=== PATIENT | male | born 1960 | race Caucasian/White ===

== ENCOUNTER 2016-11-13 18:10 | Inpatient (IN) | payer MEDICARE, MEDICAID ==
[2016-11-13] MEDS ORDERED: Sodium Chloride 0.9% 10 ML Syringe FLUSH PRN ×3 (18:38→20:19)
[2016-11-13] MEDS ORDERED: Sodium Chloride 0.9% 2.5 ML Syringe FLUSH PRN ×3 (18:38→20:19)
[2016-11-13] MEDS ORDERED: Albuterol/Ipratropium 3.0-0.5 MG/3 ML Neb Soln NEB ONE (18:47)
[2016-11-13] MEDS ORDERED: Thiamine 100 MG Tab PO ONE (18:47)
--- NOTE | 2016-11-13 18:51 | EDM.PDOC ---
ED HPI GENERAL MEDICAL PROBLEM - General Chief Complaint: General Stated Complaint: PT HAS FLU SYMPTOMS Time Seen by Provider: 11/13/16 18:49 Source of Information: Reports: Patient History Limitations: Reports: No limitations - History of Present Illness INITIAL COMMENTS - FREE TEXT/NARRATIVE: HISTORY AND PHYSICAL: [Patient presents with weakness, dizziness, not feeling well, cough] History of Present Illness: [Patient is known to the emergency room staff. he is known to use alcohol Has not felt well for the last 3-4 days] Review of Systems: As per history of present illness and below otherwise all systems reviewed and negative. Past medical history: As per history of present illness and as reviewed below otherwise noncontributory. Surgical history: As per history of present illness and as reviewed below otherwise noncontributory. Social history: No reported history of drug or alcohol abuse. Family history: As per history of present illness and as reviewed below otherwise noncontributory. Physical exam: Alert hard of hearing answering questions appropriately but has a cough during 3 of 4 words HEENT: Atraumatic, normocehpalic, pupils reactive, negative for conjunctival pallor or scleral icterus, mucous membranes moist, throat clear, neck supple, nontender, trachea midline. Lungs: Crackles to auscultation, breath sounds equal bilaterally, chest non tender. Heart: S1S2, regular, negative for clicks, rubs, or JVD. Abdomen: Soft, nondistended, nontender. Negative for masses or hepatossplenmegaly. Negative for costovertebral tenderness. Pelvis: Stable nontender. Genitourinary: Deferred. Rectal: Deferred Extremities: Atraumatic, negative for cords or calf pain. Neurovascular unremarkable. Neuro: Awake, alert, oriented. Cranial nerves II through XII unremarkable. Cerebellum unremarkable. Motor and sensory unremarkable throughout. Exam nonfocal. This case with Dr. Boogie taken patient for admission Diagnostics: [EKG CBC CMP amylase lipase alcohol] Therapeutics: [IV Fluid , potassium] Impression: [#1 dehydration #2 hypokalemia #3 renal insufficiency] Plan: [] Admit to hospital Definitive disposition and diagnosis as appropriate pending reevaluation and review of above. Onset: today Duration: Day(s): (3) Location: Reports: chest Abdomen Pain Score (Numeric/FACES): 5 - Related Data Allergies Allergy/AdvReac Type Severity Reaction Status Date / Time No Known Allergies Allergy Verified 11/13/16 18:41 Home Meds: Home Meds RX: Losartan/Hydrochlorothiazide [Losartan-HCTZ 100-25 MG] 100 tab PO DAILY [History] Past Medical History Other HEENT History: wears glasses Cardiovascular History: Reports: Hypertension (BP this morning 81/62, did not take losartan today) Respiratory History: Reports: None Gastrointestinal History: Reports: Diverticulosis, GERD Genitourinary History: Reports: None Musculoskeletal History: Reports: Fracture Other Musculoskeletal History: hx of fx right ankle Neurological History: Reports: None Psychiatric History: Reports: None Endocrine/Metabolic History: Reports: None Hematologic History: Reports: None Immunologic History: Reports: None Oncologic (Cancer) History: Reports: None Dermatologic History: Reports: None - Past Surgical History Head Surgeries/Procedures: Reports: None HEENT Surgical History: Reports: None Cardiovascular Surgical History: Reports: None Respiratory Surgical History: Reports: None GI Surgical History: Reports: Colonoscopy Male Surgical History: Reports: None Neurological Surgical History: Reports: None Musculoskeletal Surgical History: Reports: None Oncologic Surgical History: Reports: None Dermatological Surgical History: Reports: None Other Surgical History Comment: exc. of rt. face mass Social & Family History - Tobacco Use Smoking Status *Q: Current Every Day Smoker (1 ppd) Years of Tobacco use: 40 Packs/Tins Daily: 1 - Alcohol Use Days Per Week of Alcohol Use: 0 Number of Drinks Per Day: 0 Total Drinks Per Week: 0 - Recreational Drug Use Recreational Drug Use: No Drug Use in Last 12 Months: No ED ROS GENERAL - Review of Systems Review Of Systems: ROS reveals no pertinent complaints other than HPI. ED EXAM, GENERAL - Physical Exam Exam: See Below (see dictation) Course - Vital Signs Last Recorded V/S: Last Vital Signs Temp 35.9 C 11/13/16 18:42 Pulse 113 H 11/13/16 18:42 Resp 18 11/13/16 18:42 BP 69/44 L 11/13/16 18:42 Pulse Ox 97 11/13/16 18:42 - Orders/Labs/Meds Orders: Active Orders 24 hr Category Date Time Status Patient Status [ADT] Stat ADT 11/13/16 20:11 Ordered EKG Documentation Completion [RC] STAT Care 11/13/16 18:38 Active Peripheral IV Care [RC] . DIRECTED Care 11/13/16 18:38 Active RT Aerosol Therapy [RC] ASDIRECTED Care 11/13/16 18:47 Active Chest 1V Frontal [CR] Stat Exams 11/13/16 18:38 Taken AMYLASE [CHEM] Stat Lab 11/13/16 20:00 Ordered INFLUENZA A+B AG SCREEN [RM] Stat Lab 11/13/16 20:11 Ordered LIPASE [CHEM] Stat Lab 11/13/16 20:00 Ordered UA W/MICROSCOPIC [URIN] Stat Lab 11/13/16 18:38 Uncollected Levofloxacin/Dextrose 5%-Water [Levaquin in D5W 750 MG/ Med 11/13/16 20:30 Active 150 ML] 750 mg Premix Bag 1 bag IV Q24H Potassium Chloride 40 meq Med 11/13/16 20:05 Active Sodium Chloride 0.9% [Normal Saline] 1,000 ml IV ONETIME Potassium Chloride 40 meq Med 11/13/16 19:42 Active Sodium Chloride 0.9% [Normal Saline] 1,000 ml IV STAT Sodium Chloride 0.9% [Normal Saline] 2,000 ml Med 11/13/16 18:38 Active IV .Bolus Sodium Chloride 0.9% [Saline Flush] Med 11/13/16 18:38 Active 10 ml FLUSH ASDIRECTED PRN Sodium Chloride 0.9% [Saline Flush] Med 11/13/16 18:38 Active 10 ml FLUSH ASDIRECTED PRN Sodium Chloride 0.9% [Saline Flush] Med 11/13/16 20:19 Ordered 10 ml FLUSH ASDIRECTED PRN Sodium Chloride 0.9% [Saline Flush] Med 11/13/16 18:38 Active 2.5 ml FLUSH ASDIRECTED PRN Sodium Chloride 0.9% [Saline Flush] Med 11/13/16 18:38 Active 2.5 ml FLUSH ASDIRECTED PRN Sodium Chloride 0.9% [Saline Flush] Med 11/13/16 20:19 Ordered 2.5 ml FLUSH ASDIRECTED PRN Peripheral IV Insertion Adult [OM.PC] Stat Oth 11/13/16 18:38 Ordered Saline Lock Insert [OM.PC] Stat Oth 11/13/16 20:19 Ordered Medication Orders Sodium Chloride (Normal Saline) 2,000 mls @ 999 mls/hr IV .Bolus ONE Stop: 03/15/17 20:38 Last Admin: 11/13/16 19:07 Dose: 999 mls/hr Potassium Chloride 40 meq/ (Sodium Chloride) 1,020 mls @ 250 mls/hr IV STAT ONE Stop: 11/13/16 23:46 Last Admin: 11/13/16 20:07 Dose: Not Given Potassium Chloride 40 meq/ (Sodium Chloride) 1,020 mls @ 250 mls/hr IV ONETIME ONE Stop: 11/14/16 00:09 Last Admin: 11/13/16 20:06 Dose: 250 mls/hr Levofloxacin/Dextrose 750 mg/ (Premix) 150 mls @ 100 mls/hr IV Q24H MELONY Sodium Chloride (Saline Flush) 10 ml FLUSH ASDIRECTED PRN PRN Reason: Keep Vein Open Sodium Chloride (Saline Flush) 2.5 ml FLUSH ASDIRECTED PRN PRN Reason: Keep Vein Open Sodium Chloride (Saline Flush) 10 ml FLUSH ASDIRECTED PRN PRN Reason: Keep Vein Open Sodium Chloride (Saline Flush) 2.5 ml FLUSH ASDIRECTED PRN PRN Reason: Keep Vein Open Sodium Chloride (Saline Flush) 10 ml FLUSH ASDIRECTED PRN PRN Reason: Keep Vein Open Sodium Chloride (Saline Flush) 2.5 ml FLUSH ASDIRECTED PRN PRN Reason: Keep Vein Open Labs: Laboratory Tests 11/13/16 11/13/16 11/13/16 Range/Units 18:52 18:52 18:52 WBC 12.97 H (4.0-11.0) K/uL RBC 3.84 L (4.50-5.90) M/uL Hgb 13.9 (13.0-17.0) g/dL Hct 39.2 (38.0-50.0) % MCV 102.1 H (80.0-98.0) fL MCH 36.2 H (27.0-32.0) pg MCHC 35.5 (31.0-37.0) g/dL RDW Std Deviation 51.4 (28.0-62.0) fl RDW Coeff of Gildardo 14 (11.0-15.0) % Plt Count 174 (150-400) K/uL MPV 10.90 (7.40-12.00) fL Neut % (Auto) 81.6 H (48.0-80.0) % Lymph % (Auto) 12.9 L (16.0-40.0) % Greene % (Auto) 5.3 (0.0-15.0) % Eos % (Auto) 0.1 (0.0-7.0) % Baso % (Auto) 0.1 (0.0-1.5) % Neut # 10.6 H (1.4-5.7) K/uL Lymph # 1.7 (0.6-2.4) K/uL Greene # 0.7 (0.0-0.8) K/uL Eos # 0.0 (0.0-0.7) K/uL Baso # 0.0 (0.0-0.1) K/uL Nucleated RBC % 0.0 /100WBC Nucleated RBCs # 0 K/uL Lactate (0.20-2.00) mmol/L Sodium 135 L (136-146) mmol/L Potassium 2.8 L (3.5-5.1) mmol/L Chloride 96 L (98-110) mmol/L Carbon Dioxide 19 L (21-31) mmol/L BUN 67 H (6.0-23.0) mg/dL Creatinine 2.4 H (0.6-1.5) mg/dL Est Cr Clr Drug Dosing 30.69 mL/min Estimated GFR (MDRD) 28.0 ml/min Glucose 92 (60-110) mg/dL Calcium 8.5 L (8.8-10.8) mg/dL Magnesium (1.5-2.3) mEq/L Total Bilirubin 0.2 (0.1-1.5) mg/dL AST 37 (5-40) IU/L ALT 36 (8-54) IU/L Alkaline Phosphatase 63 (40-150) Troponin I < 0.10 (0.0-0.29) NG/ML Total Protein 7.2 (6.0-8.0) g/dL Albumin 3.9 (3.5-5.0) g/dL Globulin 3.3 (2.0-3.5) g/dL Albumin/Globulin Ratio 1.2 L (1.3-2.8) Ethyl Alcohol < 10.0 mg/dL 11/13/16 11/13/16 Range/Units 18:52 18:52 WBC (4.0-11.0) K/uL RBC (4.50-5.90) M/uL Hgb (13.0-17.0) g/dL Hct (38.0-50.0) % MCV (80.0-98.0) fL MCH (27.0-32.0) pg MCHC (31.0-37.0) g/dL RDW Std Deviation (28.0-62.0) fl RDW Coeff of Gildardo (11.0-15.0) % Plt Count (150-400) K/uL MPV (7.40-12.00) fL Neut % (Auto) (48.0-80.0) % Lymph % (Auto) (16.0-40.0) % Greene % (Auto) (0.0-15.0) % Eos % (Auto) (0.0-7.0) % Baso % (Auto) (0.0-1.5) % Neut # (1.4-5.7) K/uL Lymph # (0.6-2.4) K/uL Greene # (0.0-0.8) K/uL Eos # (0.0-0.7) K/uL Baso # (0.0-0.1) K/uL Nucleated RBC % /100WBC Nucleated RBCs # K/uL Lactate 2.4 H (0.20-2.00) mmol/L Sodium (136-146) mmol/L Potassium (3.5-5.1) mmol/L Chloride (98-110) mmol/L Carbon Dioxide (21-31) mmol/L BUN (6.0-23.0) mg/dL Creatinine (0.6-1.5) mg/dL Est Cr Clr Drug Dosing mL/min Estimated GFR (MDRD) ml/min Glucose (60-110) mg/dL Calcium (8.8-10.8) mg/dL Magnesium 2.4 H (1.5-2.3) mEq/L Total Bilirubin (0.1-1.5) mg/dL AST (5-40) IU/L ALT (8-54) IU/L Alkaline Phosphatase (40-150) Troponin I (0.0-0.29) NG/ML Total Protein (6.0-8.0) g/dL Albumin (3.5-5.0) g/dL Globulin (2.0-3.5) g/dL Albumin/Globulin Ratio (1.3-2.8) Ethyl Alcohol mg/dL Meds: Medications Generic Name Dose Route Start Last Admin Trade Name Jose Robertoq PRN Reason Stop Dose Admin Sodium Chloride 2,000 mls @ 999 mls/hr 11/13/16 18:38 11/13/16 19:07 Normal Saline IV 11/13/16 20:38 999 mls/hr .Bolus ONE Administration Potassium Chloride 40 meq/ 1,020 mls @ 250 mls/hr 11/13/16 19:42 11/13/16 20: 07 Sodium Chloride IV 11/13/16 23:46 Not Given STAT ONE Potassium Chloride 40 meq/ 1,020 mls @ 250 mls/hr 11/13/16 20:05 11/13/16 20: 06 Sodium Chloride IV 11/14/16 00:09 250 mls/hr ONETIME ONE Administration Levofloxacin/Dextrose 750 mg/ 150 mls @ 100 mls/hr 11/13/16 20:30 Premix IV Q24H MELONY Sodium Chloride 10 ml 11/13/16 18:38 Saline Flush FLUSH ASDIRECTED PRN Keep Vein Open Sodium Chloride 2.5 ml 11/13/16 18:38 Saline Flush FLUSH ASDIRECTED PRN Keep Vein Open Sodium Chloride 10 ml 11/13/16 18:38 Saline Flush FLUSH ASDIRECTED PRN Keep Vein Open Sodium Chloride 2.5 ml 11/13/16 18:38 Saline Flush FLUSH ASDIRECTED PRN Keep Vein Open Sodium Chloride 10 ml 11/13/16 20:19 Saline Flush FLUSH ASDIRECTED PRN Keep Vein Open Sodium Chloride 2.5 ml 11/13/16 20:19 Saline Flush FLUSH ASDIRECTED PRN Keep Vein Open Discontinued Medications Generic Name Dose Route Start Last Admin Trade Name Richi PRN Reason Stop Dose Admin Albuterol/Ipratropium 3 ml 11/13/16 18:47 11/13/16 18:52 Duoneb 3.0-0.5 Mg/3 Ml NEB 11/13/16 18:48 3 ml ONETIME ONE Administration Potassium Chloride 40 meq/ 500 mls @ 125 mls/hr 11/13/16 20:04 Sodium Chloride IV 11/14/16 00:03 ONETIME ONE Thiamine HCl 100 mg 11/13/16 18:47 11/13/16 19:30 Vitamin B-1 PO 11/13/16 18:48 100 mg ONETIME ONE Administration Departure - Departure Time of Disposition: 20:22 Disposition: Admitted As Inpatient 65 Condition: fair Clinical Impression: Hypokalemia, Renal insufficiency Forms: ED Department Discharge - My Orders Last 24 Hours: My Active Orders 11/13/16 18:47 RT Aerosol Therapy [RC] ASDIRECTED 11/13/16 19:42 Potassium Chloride 40 meq Sodium Chloride 0.9% [Normal Saline] 1,000 ml IV STAT 11/13/16 20:00 AMYLASE [CHEM] Stat LIPASE [CHEM] Stat 11/13/16 20:05 Potassium Chloride 40 meq Sodium Chloride 0.9% [Normal Saline] 1,000 ml IV ONETIME 11/13/16 20:11 Patient Status [ADT] Stat 11/13/16 20:19 Sodium Chloride 0.9% [Saline Flush] 10 ml FLUSH ASDIRECTED PRN Sodium Chloride 0.9% [Saline Flush] 2.5 ml FLUSH ASDIRECTED PRN Saline Lock Insert [OM.PC] Stat - Assessment/Plan Last 24 Hours: My Active Orders 11/13/16 18:47 RT Aerosol Therapy [RC] ASDIRECTED 11/13/16 19:42 Potassium Chloride 40 meq Sodium Chloride 0.9% [Normal Saline] 1,000 ml IV STAT 11/13/16 20:00 AMYLASE [CHEM] Stat LIPASE [CHEM] Stat 11/13/16 20:05 Potassium Chloride 40 meq Sodium Chloride 0.9% [Normal Saline] 1,000 ml IV ONETIME 11/13/16 20:11 Patient Status [ADT] Stat 11/13/16 20:19 Sodium Chloride 0.9% [Saline Flush] 10 ml FLUSH ASDIRECTED PRN Sodium Chloride 0.9% [Saline Flush] 2.5 ml FLUSH ASDIRECTED PRN Saline Lock Insert [OM.PC] Stat
[2016-11-13] MEDS: Sodium Chloride 0.9% 2,000 ML IV ONE ×2 (19:07→20:42)
[2016-11-13 19:21] LABS: CHLORIDE,CL 96 mmol/L (98-110); SODIUM,NA 135 mmol/L (136-146)
[2016-11-13] MEDS ORDERED: Potassium Chloride 40 MEQ in Sodium Chloride 0.9% 480 ML IV ONE (20:04)
[2016-11-13] MEDS ORDERED: Acetaminophen 325 MG Tab PO PRN (20:25)
[2016-11-13] MEDS ORDERED: Ondansetron 4 MG/2 ML SDV IVPUSH PRN (20:25)
[2016-11-13] MEDS ORDERED: Levofloxacin/Dextrose 5%-Water 750 MG in Premix Bag 1 BAG IV SCH ×4 (20:30)
--- NOTE | 2016-11-13 20:33 | PCM.HP ---
H&P History of Present Illness - General Admit Problem/Dx: Admission Diagnosis/Problem Admission Diagnosis/Problem Hypokalemia - History of Present Illness Initial Comments - Free Text/Narative: 56 yo male with pmh of hypertension who presents with three day history of fevers, nausea, vomiting and productive cough. He denies any shortness of breath, chest pain, or diarrhea. He feels as if he has the flu. 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 He was seen in the ED and noted to have a blood pressure of 69/44. He was given a litre bolus and now his blood pressure is in the 80s systolic. Abdomen Pain Score (Numeric/FACES): 5 - Related Data Allergies/Adverse Reactions: Allergies Allergy/AdvReac Type Severity Reaction Status Date / Time No Known Allergies Allergy Verified 11/13/16 18:41 Home Medications: Home Meds Losartan/Hydrochlorothiazide [Losartan-HCTZ 100-25 MG] 100 tab PO DAILY [History] Past Medical History Other HEENT History: wears glasses Cardiovascular History: Reports: Hypertension (BP this morning 81/62, did not take losartan today) Respiratory History: Reports: None Gastrointestinal History: Reports: Diverticulosis, GERD Genitourinary History: Reports: None Musculoskeletal History: Reports: Fracture Other Musculoskeletal History: hx of fx right ankle Neurological History: Reports: None Psychiatric History: Reports: None Endocrine/Metabolic History: Reports: None Hematologic History: Reports: None Immunologic History: Reports: None Oncologic (Cancer) History: Reports: None Dermatologic History: Reports: None - Past Surgical History Head Surgeries/Procedures: Reports: None HEENT Surgical History: Reports: None Cardiovascular Surgical History: Reports: None Respiratory Surgical History: Reports: None GI Surgical History: Reports: Colonoscopy Male Surgical History: Reports: None Neurological Surgical History: Reports: None Musculoskeletal Surgical History: Reports: None Oncologic Surgical History: Reports: None Dermatological Surgical History: Reports: None Other Surgical History Comment: exc. of rt. face mass Social & Family History - Family History Family Medical History: Noncontributory - Tobacco Use Smoking Status *Q: Current Every Day Smoker (1 ppd) Years of Tobacco use: 40 Packs/Tins Daily: 1 - Caffeine Use Caffeine Use: Reports: Coffee Caffeine Use Comment: 4 cups/day - Alcohol Use Days Per Week of Alcohol Use: 0 Number of Drinks Per Day: 0 Total Drinks Per Week: 0 - Recreational Drug Use Recreational Drug Use: No Drug Use in Last 12 Months: No H&P Review of Systems - Review of Systems: Review Of Systems: See Below General: Reports: fever, chills, malaise, weakness HEENT: Reports: no symptoms Pulmonary: Reports: Cough, Sputum Cardiovascular: Reports: no symptoms Gastrointestinal: Reports: Diarrhea. Denies: Black stool, Bloody stool, Melena Genitourinary: Reports: no symptoms Musculoskeletal: Reports: no symptoms Skin: Reports: no symptoms Psychiatric: Reports: no symptoms Neurological: Reports: No Symptoms Hematologic/Lymphatic: Reports: no symptoms Immunologic: Reports: no symptoms Exam - Exam Exam: See Below - Vital Signs Vital Signs: Last Vital Signs Temp 35.9 C 11/13/16 18:42 Pulse 113 H 11/13/16 18:42 Resp 18 11/13/16 18:42 BP 69/44 L 11/13/16 18:42 Pulse Ox 97 11/13/16 18:42 Weight: 63.9 kg - Exam General: alert, oriented, 4 Lungs: Normal respiratory effort, Rhonchi (both lungs) Cardiovascular: regular rate, regular rhythm Extremities: normal inspection. No: edema - Patient Data Lab Results last 24 hrs: Laboratory Results - last 24 hr 11/13/16 11/13/16 11/13/16 Range/Units 18:52 18:52 18:52 WBC 12.97 H (4.0-11.0) K/uL RBC 3.84 L (4.50-5.90) M/uL Hgb 13.9 (13.0-17.0) g/dL Hct 39.2 (38.0-50.0) % MCV 102.1 H (80.0-98.0) fL MCH 36.2 H (27.0-32.0) pg MCHC 35.5 (31.0-37.0) g/dL RDW Std Deviation 51.4 (28.0-62.0) fl RDW Coeff of Gildardo 14 (11.0-15.0) % Plt Count 174 (150-400) K/uL MPV 10.90 (7.40-12.00) fL Neut % (Auto) 81.6 H (48.0-80.0) % Lymph % (Auto) 12.9 L (16.0-40.0) % Beaver % (Auto) 5.3 (0.0-15.0) % Eos % (Auto) 0.1 (0.0-7.0) % Baso % (Auto) 0.1 (0.0-1.5) % Neut # 10.6 H (1.4-5.7) K/uL Lymph # 1.7 (0.6-2.4) K/uL Beaver # 0.7 (0.0-0.8) K/uL Eos # 0.0 (0.0-0.7) K/uL Baso # 0.0 (0.0-0.1) K/uL Nucleated RBC % 0.0 /100WBC Nucleated RBCs # 0 K/uL Lactate (0.20-2.00) mmol/L Sodium 135 L (136-146) mmol/L Potassium 2.8 L (3.5-5.1) mmol/L Chloride 96 L (98-110) mmol/L Carbon Dioxide 19 L (21-31) mmol/L BUN 67 H (6.0-23.0) mg/dL Creatinine 2.4 H (0.6-1.5) mg/dL Est Cr Clr Drug Dosing 30.69 mL/min Estimated GFR (MDRD) 28.0 ml/min Glucose 92 (60-110) mg/dL Calcium 8.5 L (8.8-10.8) mg/dL Magnesium (1.5-2.3) mEq/L Total Bilirubin 0.2 (0.1-1.5) mg/dL AST 37 (5-40) IU/L ALT 36 (8-54) IU/L Alkaline Phosphatase 63 (40-150) Troponin I < 0.10 (0.0-0.29) NG/ML Total Protein 7.2 (6.0-8.0) g/dL Albumin 3.9 (3.5-5.0) g/dL Globulin 3.3 (2.0-3.5) g/dL Albumin/Globulin Ratio 1.2 L (1.3-2.8) Ethyl Alcohol < 10.0 mg/dL 11/13/16 11/13/16 Range/Units 18:52 18:52 WBC (4.0-11.0) K/uL RBC (4.50-5.90) M/uL Hgb (13.0-17.0) g/dL Hct (38.0-50.0) % MCV (80.0-98.0) fL MCH (27.0-32.0) pg MCHC (31.0-37.0) g/dL RDW Std Deviation (28.0-62.0) fl RDW Coeff of Gildardo (11.0-15.0) % Plt Count (150-400) K/uL MPV (7.40-12.00) fL Neut % (Auto) (48.0-80.0) % Lymph % (Auto) (16.0-40.0) % Beaver % (Auto) (0.0-15.0) % Eos % (Auto) (0.0-7.0) % Baso % (Auto) (0.0-1.5) % Neut # (1.4-5.7) K/uL Lymph # (0.6-2.4) K/uL Beaver # (0.0-0.8) K/uL Eos # (0.0-0.7) K/uL Baso # (0.0-0.1) K/uL Nucleated RBC % /100WBC Nucleated RBCs # K/uL Lactate 2.4 H (0.20-2.00) mmol/L Sodium (136-146) mmol/L Potassium (3.5-5.1) mmol/L Chloride (98-110) mmol/L Carbon Dioxide (21-31) mmol/L BUN (6.0-23.0) mg/dL Creatinine (0.6-1.5) mg/dL Est Cr Clr Drug Dosing mL/min Estimated GFR (MDRD) ml/min Glucose (60-110) mg/dL Calcium (8.8-10.8) mg/dL Magnesium 2.4 H (1.5-2.3) mEq/L Total Bilirubin (0.1-1.5) mg/dL AST (5-40) IU/L ALT (8-54) IU/L Alkaline Phosphatase (40-150) Troponin I (0.0-0.29) NG/ML Total Protein (6.0-8.0) g/dL Albumin (3.5-5.0) g/dL Globulin (2.0-3.5) g/dL Albumin/Globulin Ratio (1.3-2.8) Ethyl Alcohol mg/dL Result Diagrams: 11/14/16 05:58 11/14/16 05:58 Imaging Impressions last 24 hrs: CXR: no focal infiltrates. *Q Meaningful Use (ADM) - VTE *Q VTE Criteria *Q: - Stroke *Q Stroke Criteria *Q: - AMI *Q AMI Criteria *Q: Problem List Initiated/Reviewed/Updated: Yes Orders Last 24hrs: Active Orders 24 hr Category Date Time Status Patient Status [ADT] Stat ADT 11/13/16 20:11 Active Antiembolic Devices [RC] PER UNIT ROUTINE Care 11/13/16 20:27 Ordered EKG Documentation Completion [RC] STAT Care 11/13/16 18:38 Active Intake and Output [RC] QSHIFT Care 11/13/16 20:26 Ordered Oxygen Therapy [RC] PRN Care 11/13/16 20:25 Ordered Peripheral IV Care [RC] . DIRECTED Care 11/13/16 18:38 Active RT Aerosol Therapy [RC] ASDIRECTED Care 11/13/16 18:47 Active Up ad Daphne [RC] ASDIRECTED Care 11/13/16 20:25 Ordered VTE/DVT Education [RC] PER UNIT ROUTINE Care 11/13/16 20:25 Ordered Vital Signs [RC] Q4H Care 11/13/16 20:25 Ordered Regular Diet [DIET] Diet 11/13/16 Breakfast Ordered Chest 1V Frontal [CR] Stat Exams 11/13/16 18:38 Taken AMYLASE [CHEM] Stat Lab 11/13/16 18:52 Received BASIC METABOLIC PANEL,BMP [CHEM] AM Lab 11/14/16 05:11 Ordered BASIC METABOLIC PANEL,BMP [CHEM] AM Lab 11/15/16 05:11 Ordered CBC WITH AUTO DIFF [HEME] AM Lab 11/14/16 05:11 Ordered CBC WITH AUTO DIFF [HEME] AM Lab 11/15/16 05:11 Ordered CULTURE BLOOD [BC] Stat Lab 11/13/16 20:27 Ordered CULTURE BLOOD [BC] Stat Lab 11/13/16 20:27 Ordered CULTURE SPUTUM + SMEAR [RM] Stat Lab 11/13/16 20:25 Uncollected CULTURE URINE [RM] Stat Lab 11/13/16 20:25 Uncollected INFLUENZA A+B AG SCREEN [RM] Stat Lab 11/13/16 20:10 Received LACTIC ACID,WHOLE BLOOD [BG] Q6H Lab 11/14/16 01:00 Ordered LACTIC ACID,WHOLE BLOOD [BG] Q6H Lab 11/14/16 07:00 Ordered LACTIC ACID,WHOLE BLOOD [BG] Q6H Lab 11/14/16 13:00 Ordered LACTIC ACID,WHOLE BLOOD [BG] Q6H Lab 11/14/16 19:00 Ordered LIPASE [CHEM] Stat Lab 11/13/16 18:52 Received UA W/MICROSCOPIC [URIN] Stat Lab 11/13/16 18:38 Uncollected Acetaminophen [Tylenol] Med 11/13/16 20:25 Ordered 650 mg PO Q4H PRN Heparin Sodium Med 11/13/16 21:00 Ordered 5,000 units SUBCUT Q12HR Levofloxacin/Dextrose 5%-Water [Levaquin in D5W 750 MG/ Med 11/13/16 20:30 Ordered 150 ML] 750 mg Premix Bag 1 bag IV Q48H Ondansetron [Zofran] Med 11/13/16 20:25 Ordered 4 mg IVPUSH Q4H PRN Oseltamivir [Tamiflu] Med 11/13/16 21:00 Ordered 30 mg PO BID Potassium Chloride 40 meq Med 11/13/16 20:05 Active Sodium Chloride 0.9% [Normal Saline] 1,000 ml IV ONETIME Potassium Chloride 40 meq Med 11/13/16 19:42 Active Sodium Chloride 0.9% [Normal Saline] 1,000 ml IV STAT Sodium Chloride 0.9% @ 125 MLS/HR (1,000ml) Med 11/13/16 20:30 Ordered Sodium Chloride 0.9% [Normal Saline] 1,000 ml IV ASDIRECTED Sodium Chloride 0.9% [Normal Saline] 2,000 ml Med 11/13/16 18:38 Active IV .Bolus Sodium Chloride 0.9% [Saline Flush] Med 11/13/16 18:38 Active 10 ml FLUSH ASDIRECTED PRN Sodium Chloride 0.9% [Saline Flush] Med 11/13/16 18:38 Active 10 ml FLUSH ASDIRECTED PRN Sodium Chloride 0.9% [Saline Flush] Med 11/13/16 20:19 Active 10 ml FLUSH ASDIRECTED PRN Sodium Chloride 0.9% [Saline Flush] Med 11/13/16 18:38 Active 2.5 ml FLUSH ASDIRECTED PRN Sodium Chloride 0.9% [Saline Flush] Med 11/13/16 18:38 Active 2.5 ml FLUSH ASDIRECTED PRN Sodium Chloride 0.9% [Saline Flush] Med 11/13/16 20:19 Active 2.5 ml FLUSH ASDIRECTED PRN Blood Culture x2 Reflex Set [OM.PC] Stat Ot 11/13/16 20:25 Ordered Peripheral IV Insertion Adult [OM.PC] Stat Ot 11/13/16 18:38 Ordered Saline Lock Insert [OM.PC] Stat Ot 11/13/16 20:19 Ordered Sequential Compression Device [OM.PC] Per Unit Routine Ot 11/13/16 20:26 Ordered Resuscitation Status Routine Resus Stat 11/13/16 20:25 Ordered Medication Orders Sodium Chloride (Normal Saline) 2,000 mls @ 999 mls/hr IV .Bolus ONE Stop: 11/13/16 20:38 Last Admin: 11/13/16 19:07 Dose: 999 mls/hr Potassium Chloride 40 meq/ (Sodium Chloride) 1,020 mls @ 250 mls/hr IV STAT ONE Stop: 11/13/16 23:46 Last Admin: 11/13/16 20:07 Dose: Not Given Potassium Chloride 40 meq/ (Sodium Chloride) 1,020 mls @ 250 mls/hr IV ONETIME ONE Stop: 11/14/16 00:09 Last Admin: 11/13/16 20:06 Dose: 250 mls/hr Levofloxacin/Dextrose 750 mg/ (Premix) 150 mls @ 100 mls/hr IV Q48H MELONY Sodium Chloride (Normal Saline) 1,000 mls @ 125 mls/hr IV ASDIRECTED MELONY Oseltamivir Phosphate (Tamiflu) 30 mg PO BID MELONY Sodium Chloride (Saline Flush) 10 ml FLUSH ASDIRECTED PRN PRN Reason: Keep Vein Open Sodium Chloride (Saline Flush) 2.5 ml FLUSH ASDIRECTED PRN PRN Reason: Keep Vein Open Sodium Chloride (Saline Flush) 10 ml FLUSH ASDIRECTED PRN PRN Reason: Keep Vein Open Sodium Chloride (Saline Flush) 2.5 ml FLUSH ASDIRECTED PRN PRN Reason: Keep Vein Open Sodium Chloride (Saline Flush) 10 ml FLUSH ASDIRECTED PRN PRN Reason: Keep Vein Open Sodium Chloride (Saline Flush) 2.5 ml FLUSH ASDIRECTED PRN PRN Reason: Keep Vein Open Assessment/Plan Comment:: 56 yo male who presents with subjective fevers, cough, and hypotension. His CXR is clear but still suspect possible influenza or pneumonia. There is renal insufficiency and hypokalmia noted on labs. His Creatinine is 2.4 today and was 2.3 when last check on 04/16/16. We will give Levaquin and tamiflu. Cultures and influenza screen has been ordered. Continue resuscitation with IV fluids and trend lactic acid.
[2016-11-13] MEDS ORDERED: Oseltamivir 75 MG Cap PO SCH ×2 (21:00)
[2016-11-13] MEDS: Heparin Sodium 5,000 Units/ML Vial SUBCUT SCH (21:29)
[2016-11-13] MEDS ORDERED: diphenhydrAMINE 50 MG/ML SDV IVPUSH ONE (22:28)
[2016-11-13] MEDS ORDERED: Azithromycin 500 MG in Sodium Chloride 0.9% 250 ML IV ONE (22:29)
[2016-11-13] MEDS ORDERED: Piperacillin/Tazobactam 3.375 GM in Sodium Chloride 0.9% 50 ML IV SCH (22:30)
[2016-11-13] MEDS ORDERED: Sodium Chloride 0.9% 500 ML IV ONE (22:39)
[2016-11-13] MEDS ORDERED: Piperacillin/Tazobactam 2.25 GM in Sodium Chloride 0.9% 50 ML IV SCH ×2 (23:00→23:30)
[2016-11-13] MEDS: Oseltamivir Phosphate 30 MG Capsule PO SCH (23:17)
[2016-11-14] MEDS: Piperacillin/Tazobactam 2.25 GM in Sodium Chloride 0.9% 50 ML IV SCH ×5 (00:38→23:24)
[2016-11-14] MEDS ORDERED: Sodium Chloride 0.9% 500 ML IV SCH (01:00)
[2016-11-14] MEDS: Sodium Chloride 0.9% 1,000 ML IV SCH ×3 (01:35→20:50)
[2016-11-14] MEDS ORDERED: Sodium Chloride 0.9% 1,000 ML IV ONE (02:42)
[2016-11-14] MEDS: Heparin Sodium 5,000 Units/ML Vial SUBCUT SCH ×2 (08:48→20:51)
[2016-11-14] MEDS: Oseltamivir Phosphate 30 MG Capsule PO SCH ×2 (08:49→20:51)
--- NOTE | 2016-11-14 08:53 | PCM.PN ---
- General Info Date of Service: 11/14/16 Admission Dx/Problem (Free Text): Admission Diagnosis/Problem Admission Diagnosis/Problem Hypokalemia Subjective Update: Patient feeling somewhat better this am. Still feels congested, with ear pressure, and cough. Was able to eat for first time this morning in "over a week". No pain, slept well. Functional Status: Reports: pain controlled, tolerating diet - Review of Systems General: Reports: Weakness, Fatigue, Malaise, Chills. Denies: Fever HEENT: Reports: headaches, sinus congestion, sore throat. Denies: eye pain Pulmonary: Reports: shortness of breath, cough. Denies: pleuritic chest pain, hemoptysis Cardiovascular: Denies: Chest Pain, Palpitations, Edema Gastrointestinal: Denies: Abdominal pain, Hematochezia, Melena Genitourinary: Denies: dysuria Musculoskeletal: Denies: neck pain, leg pain Neurological: Reports: Headache. Denies: Confusion, Dizziness Psychiatric: Denies: confusion, depression - Patient Data Vitals - most recent: Last Vital Signs Temp 37 C 11/14/16 04:00 Pulse 95 11/13/16 21:15 Resp 18 11/14/16 07:00 BP 101/56 L 11/14/16 07:00 Pulse Ox 97 11/14/16 07:00 Weight - most recent: 67.1 kg I&O - last 24 hours: Intake & Output 11/13/16 11/14/16 11/14/16 22:59 06:59 14:59 Intake Total 100 3550 Output Total 540 Balance 100 3010 Lab Results last 24 hrs: Laboratory Results - last 24 hr 11/13/16 11/14/16 11/14/16 Range/Units 20:35 00:39 05:58 WBC 8.98 (4.0-11.0) K/uL RBC 2.90 L (4.50-5.90) M/uL Hgb 10.5 L (13.0-17.0) g/dL Hct 30.5 L (38.0-50.0) % MCV 105.2 H (80.0-98.0) fL MCH 36.2 H (27.0-32.0) pg MCHC 34.4 (31.0-37.0) g/dL RDW Std Deviation 53.4 (28.0-62.0) fl RDW Coeff of Gildardo 14 (11.0-15.0) % Plt Count 122 L (150-400) K/uL MPV 10.90 (7.40-12.00) fL Neut % (Auto) 73.8 (48.0-80.0) % Lymph % (Auto) 17.7 (16.0-40.0) % [place] % (Auto) 8.2 (0.0-15.0) % Eos % (Auto) 0.2 (0.0-7.0) % Baso % (Auto) 0.1 (0.0-1.5) % Neut # 6.6 H (1.4-5.7) K/uL Lymph # 1.6 (0.6-2.4) K/uL [place] # 0.7 (0.0-0.8) K/uL Eos # 0.0 (0.0-0.7) K/uL Baso # 0.0 (0.0-0.1) K/uL Nucleated RBC % 0.0 /100WBC Nucleated RBCs # 0 K/uL Lactate 0.6 (0.20-2.00) mmol/L Sodium (136-146) mmol/L Potassium (3.5-5.1) mmol/L Chloride (98-110) mmol/L Carbon Dioxide (21-31) mmol/L BUN (6.0-23.0) mg/dL Creatinine (0.6-1.5) mg/dL Est Cr Clr Drug Dosing mL/min Estimated GFR (MDRD) ml/min Glucose (60-110) mg/dL Calcium (8.8-10.8) mg/dL Urine Color YELLOW Urine Appearance CLEAR Urine pH 6.0 (5.0-8.0) Ur Specific [place] 1.015 (1.001-1.035) Urine Protein NEGATIVE (NEGATIVE) mg/dL Urine Glucose (UA) NEGATIVE (NEGATIVE) mg/dL Urine Ketones TRACE H (NEGATIVE) mg/dL Urine Occult Blood NEGATIVE (NEGATIVE) Urine Nitrite NEGATIVE (NEGATIVE) Urine Bilirubin NEGATIVE (NEGATIVE) Urine Urobilinogen 0.2 (<2.0) EU/dL Ur Leukocyte Esterase NEGATIVE (NEGATIVE) Urine RBC 0-1 (0-2/HPF) Urine WBC 0-2 (0-5/HPF) Ur Epithelial Cells RARE (NONE-FEW) Urine Bacteria FEW (NEGATIVE) Urine Mucus RARE (NONE-MOD) Urinalysis Comment 11/14/16 Range/Units 05:58 WBC (4.0-11.0) K/uL RBC (4.50-5.90) M/uL Hgb (13.0-17.0) g/dL Hct (38.0-50.0) % MCV (80.0-98.0) fL MCH (27.0-32.0) pg MCHC (31.0-37.0) g/dL RDW Std Deviation (28.0-62.0) fl RDW Coeff of Gildardo (11.0-15.0) % Plt Count (150-400) K/uL MPV (7.40-12.00) fL Neut % (Auto) (48.0-80.0) % Lymph % (Auto) (16.0-40.0) % [place] % (Auto) (0.0-15.0) % Eos % (Auto) (0.0-7.0) % Baso % (Auto) (0.0-1.5) % Neut # (1.4-5.7) K/uL Lymph # (0.6-2.4) K/uL [place] # (0.0-0.8) K/uL Eos # (0.0-0.7) K/uL Baso # (0.0-0.1) K/uL Nucleated RBC % /100WBC Nucleated RBCs # K/uL Lactate (0.20-2.00) mmol/L Sodium 141 (136-146) mmol/L Potassium 3.6 (3.5-5.1) mmol/L Chloride 115 H (98-110) mmol/L Carbon Dioxide 16 L (21-31) mmol/L BUN 46 H (6.0-23.0) mg/dL Creatinine 1.5 (0.6-1.5) mg/dL Est Cr Clr Drug Dosing 51.57 mL/min Estimated GFR (MDRD) 48.2 ml/min Glucose 66 (60-110) mg/dL Calcium 6.3 L (8.8-10.8) mg/dL Urine Color Urine Appearance Urine pH (5.0-8.0) Ur Specific [place] (1.001-1.035) Urine Protein (NEGATIVE) mg/dL Urine Glucose (UA) (NEGATIVE) mg/dL Urine Ketones (NEGATIVE) mg/dL Urine Occult Blood (NEGATIVE) Urine Nitrite (NEGATIVE) Urine Bilirubin (NEGATIVE) Urine Urobilinogen (<2.0) EU/dL Ur Leukocyte Esterase (NEGATIVE) Urine RBC (0-2/HPF) Urine WBC (0-5/HPF) Ur Epithelial Cells (NONE-FEW) Urine Bacteria (NEGATIVE) Urine Mucus (NONE-MOD) Urinalysis Comment Med Orders - Current: Current Medications Acetaminophen (Tylenol) 650 mg PO Q4H PRN PRN Reason: Pain (Mild 1-3)/fever Heparin Sodium (Porcine) (Heparin Sodium) 5,000 units SUBCUT Q12HR [facility] Last Admin: 11/13/16 21:29 Dose: 5,000 units Sodium Chloride (Normal Saline) 1,000 mls @ 125 mls/hr IV ASDIRECTED [facility] Last Admin: 11/14/16 01:35 Dose: 125 mls/hr Piperacillin Sod/Tazobactam (Sod 2.25 gm/ Sodium Chloride) 50 mls @ 100 mls/hr IV Q6H [facility] Last Admin: 11/14/16 06:28 Dose: 100 mls/hr Sodium Chloride (Normal Saline) 500 mls @ 999 mls/hr IV .BOLUS [facility] Last Admin: 11/14/16 01:00 Dose: 999 mls/hr Ondansetron HCl (Zofran) 4 mg IVPUSH Q4H PRN PRN Reason: Nausea Last Admin: 11/13/16 23:44 Dose: 4 mg Oseltamivir Phosphate (Oseltamivir Phosphate) 30 mg PO BID [facility] Last Admin: 11/13/16 23:17 Dose: 30 mg Sodium Chloride (Saline Flush) 10 ml FLUSH ASDIRECTED PRN PRN Reason: Keep Vein Open Sodium Chloride (Saline Flush) 2.5 ml FLUSH ASDIRECTED PRN PRN Reason: Keep Vein Open Sodium Chloride (Saline Flush) 10 ml FLUSH ASDIRECTED PRN PRN Reason: Keep Vein Open Sodium Chloride (Saline Flush) 2.5 ml FLUSH ASDIRECTED PRN PRN Reason: Keep Vein Open Sodium Chloride (Saline Flush) 10 ml FLUSH ASDIRECTED PRN PRN Reason: Keep Vein Open Sodium Chloride (Saline Flush) 2.5 ml FLUSH ASDIRECTED PRN PRN Reason: Keep Vein Open Discontinued Medications Albuterol/Ipratropium (Duoneb 3.0-0.5 Mg/3 Ml) 3 ml NEB ONETIME ONE Stop: 11/13/16 18:48 Last Admin: 11/13/16 18:52 Dose: 3 ml Diphenhydramine HCl (Benadryl) 25 mg IVPUSH ONETIME ONE Stop: 11/13/16 22:29 Last Admin: 11/13/16 22:51 Dose: 25 mg Sodium Chloride (Normal Saline) 2,000 mls @ 999 mls/hr IV .Bolus ONE Stop: 11/13/16 20:38 Last Admin: 11/13/16 20:42 Dose: 999 mls/hr Potassium Chloride 40 meq/ (Sodium Chloride) 1,020 mls @ 250 mls/hr IV STAT ONE Stop: 11/13/16 23:46 Last Admin: 11/13/16 20:07 Dose: Not Given Potassium Chloride 40 meq/ (Sodium Chloride) 500 mls @ 125 mls/hr IV ONETIME ONE Stop: 11/14/16 00:03 Potassium Chloride 40 meq/ (Sodium Chloride) 1,020 mls @ 250 mls/hr IV ONETIME ONE Stop: 11/14/16 00:09 Last Admin: 11/13/16 20:06 Dose: 250 mls/hr Levofloxacin/Dextrose 750 mg/ (Premix) 150 mls @ 100 mls/hr IV Q24H [facility] Levofloxacin/Dextrose 750 mg/ (Premix) 150 mls @ 100 mls/hr IV Q48H [facility] Last Infusion: 11/13/16 22:30 Dose: 100 mls/hr Azithromycin 500 mg/ Sodium (Chloride) 250 mls @ 250 mls/hr IV ONETIME ONE Stop: 11/13/16 23:28 Last Admin: 11/13/16 22:51 Dose: 250 mls/hr Sodium Chloride (Normal Saline) 500 mls @ 500 mls/hr IV .BOLUS ONE Stop: 11/13/16 23:38 Last Admin: 11/13/16 22:53 Dose: 500 mls/hr Piperacillin Sod/Tazobactam (Sod 2.25 gm/ Sodium Chloride) 50 mls @ 100 mls/hr IV Q6H [facility] Sodium Chloride (Normal Saline) 1,000 mls @ 999 mls/hr IV .BOLUS ONE Stop: 11/14/16 03:42 Last Admin: 11/14/16 02:54 Dose: 999 mls/hr Oseltamivir Phosphate (Tamiflu) 75 mg PO BID [facility] Oseltamivir Phosphate (Tamiflu) 30 mg PO BID [facility] Last Admin: 11/13/16 23:48 Dose: Not Given Thiamine HCl (Vitamin B-1) 100 mg PO ONETIME ONE Stop: 11/13/16 18:48 Last Admin: 11/13/16 19:30 Dose: 100 mg - Exam Quality Assessment: supplemental oxygen, DVT prophylaxis General: alert, oriented, cooperative, no acute distress HEENT: Pupils equal, Pupils reactive, EOMI, Mucous membr. moist/pink Neck: supple, trachea midline, no JVD Lungs: Decreased breath sounds, Crackles Cardiovascular: Regular Rate, Regular Rhythm, No Murmurs Abdomen: bowel sounds present, soft, no tenderness, no distension Extremities: no edema, normal pulses, no tenderness/swelling Peripheral Pulses: 2+: radial (L), radial (R), posterior tibial (L), posterior tibial (R), dorsalis pedis (L), dorsalis pedis (R) Skin: warm, dry, intact Psy/Mental Status: alert, normal affect, normal mood - Problem List & Annotations (1) Acute kidney failure SNOMED Code(s): 22055985 Code(s): N17.9 - ACUTE KIDNEY FAILURE, UNSPECIFIED Status: Acute Priority : High Current Visit: Yes Qualifiers: Acute renal failure type: unspecified Qualified Code(s): N17.9 - Acute kidney failure, unspecified (2) Hypotension SNOMED Code(s): 71480646 Code(s): I95.9 - HYPOTENSION, UNSPECIFIED Status: Acute Priority: High Current Visit: Yes Qualifiers: Hypotension type: unspecified hypotension type Qualified Code(s): I95.9 - Hypotension, unspecified (3) Flu-like symptoms SNOMED Code(s): 131311048 Code(s): R68.89 - OTHER GENERAL SYMPTOMS AND SIGNS Status: Acute Priority : High Current Visit: Yes (4) Hypokalemia SNOMED Code(s): 79441071 Code(s): E87.6 - HYPOKALEMIA Status: Acute Priority: High Current Visit : Yes - Problem List Review Problem List Initiated/Reviewed/Updated: Yes - Plan Plan:: 56 yo male admitted for flu like symptoms and found to have renal insufficiency , hypokalemia, and hypotension. Flu-like symptoms: Patient did receive tamiflu last evening. Influenza A and B negative. Today sounds congested with rales bibasilar. WBC improved from 13 to 8.9 overnight. May be more of a community acquired pneumonia but CXR looks clear will plan for CT of Chest today as well as abdomen and pelvis secondary to patient complaining of some lower abdominal pain. Will continue change to Azithromycin today as he had an allergic rxn to the Levaquin and did get a dose of Azithromycin 500 yesterday. Cultures pending. Lactate resolved with hydration 0.6 this am down from 2.4. Renal Insufficiency: Most likely secondary to dehydration. Cr improved from 2.4 to 1.5 with fluid hydration overnight. Will continue fluid hydration today. Hypotension: Patient did have systolic in the 60's in the ED last evening this responded will to IVF. This AM systolic in the 90's will cont. fluid hydration today. Hypokalemia: Resolved Anemia: Hgb 10.5 this morning, most likely dillusional will follow. VTE: Lovenox 40mg Dispo: Step down from ICU later this afternoon. 1-2 days pending discharge.
[2016-11-14] MEDS ORDERED: Calcium Carbonate 500 MG Tab.Chew PO ONE (10:00)
[2016-11-14] MEDS: Azithromycin 250 MG Tab PO SCH (11:00)
--- NOTE | 2016-11-14 18:18 | CR ---
EXAM DATE: 11/13/16 PATIENT'S AGE: 56 Patient: DAVID KNOWLES Facility: [place], [place] Site . Site : 1960 Study: XRay Chest [id number]/15/2017 7:13:26 PM Ordering Physician: Yon Parkinson Final Report: INDICATION: flu-like symptoms CHEST, ONE VIEW An AP radiograph of the chest was performed. Comparison: 04/16/2016. The lungs appear clear and no pleural effusions are identified. The cardiomediastinal silhouette and pulmonary vasculature appear normal, as do the visualized bones. IMPRESSION: No acute intrathoracic abnormality identified. BERNIE ADAMS MD [employer] [facility] [employer] Dictated by: Joe Adams MD @ 11/13/2016 19:46:31 (Electronic Signature) Report Signed by Proxy and Original Signed Document filed in the Medical Record. MTDD
[2016-11-15] MEDS: Sodium Chloride 0.9% 1,000 ML IV SCH ×3 (04:56→22:18)
[2016-11-15] MEDS: Piperacillin/Tazobactam 2.25 GM in Sodium Chloride 0.9% 50 ML IV SCH (05:01)
[2016-11-15 05:55] LABS: CHLORIDE,CL 116 mmol/L (98-110); SODIUM,NA 143 mmol/L (136-146)
[2016-11-15] MEDS: Potassium Chloride 20 MEQ Tab.ER PO SCH (07:59)
[2016-11-15] MEDS: Heparin Sodium 5,000 Units/ML Vial SUBCUT SCH ×2 (08:00→21:21)
--- NOTE | 2016-11-15 08:52 | CT ---
CT of the chest, abdomen and pelvis without contrast. HISTORY: Pain TECHNIQUE: Axial CT images were obtained of the chest, abdomen and pelvis without contrast. Coronal and sagittal reconstructions obtained. FINDINGS: Chest: There are a few patchy areas of groundglass noted within the right upper lobe. Mild dependent atelectasis is noted inferiorly. Trace bilateral pleural effusions are also present. The heart is n ormal in size without a pericardial effusion. Mild coronary artery calcifications are noted. No medi astinal lymphadenopathy or hilar fullness. No axillary lymphadenopathy. The thoracic aorta is normal in caliber. Mild distal esophageal wall thickening. Abdomen: The liver, spleen, and pancreas appear unremarkable for noncontrast examination. There is a right adrenal adenoma. The gallbladder appears normal. There is no bulky retroperitoneal lymphade nopathy. No abdominal ascites. There are no calcifications noted within the kidneys or along the courses of the ureters bilaterally . There is a complex cyst measuring approximately 2 cm within the mid pole of the left kidney with a central calcification. Incompletely evaluated without contrast. Pelvis: The large and small bowel are normal in caliber without evidence of obstruction. The appendi x appears normal. There is no bulky pelvic lymphadenopathy. No free fluid. No free air. The urinary bladder appears distended, otherwise unremarkable. The visualized osseous structures appear normal. IMPRESSION: 1. Several patchy areas of groundglass within the right upper lobe, this may represent an infectious etiology. Follow-up post treatment may be beneficial. 2. Complex left midpole renal cyst, incompletely evaluated without IV contrast. 3. Otherwise no acute findings within the chest, abdomen, or pelvis. 4. Right adrenal adenoma.
[2016-11-15] MEDS: Oseltamivir Phosphate 30 MG Capsule PO SCH ×2 (09:04→21:22)
[2016-11-15] MEDS: Azithromycin 250 MG Tab PO SCH (09:07)
[2016-11-15] MEDS: Calcium Carbonate 500 MG Tab.Chew PO SCH (11:17)
--- NOTE | 2016-11-15 12:53 | PCM.PN ---
- General Info Date of Service: 11/15/16 Admission Dx/Problem (Free Text): Admission Diagnosis/Problem Admission Diagnosis/Problem Hypokalemia Subjective Update: Doing better today. Eating and eliminating without difficulty. Still some achy lower abdominal pain. Slept well. Functional Status: Reports: pain controlled, tolerating diet, ambulating - Review of Systems General: Reports: Weakness, Fatigue. Denies: Fever HEENT: Denies: ear pain, sinus congestion, sore throat Pulmonary: Denies: shortness of breath, pleuritic chest pain, wheezing Cardiovascular: Denies: Chest Pain, Palpitations, Edema Gastrointestinal: Reports: Abdominal pain. Denies: Constipation, Hematochezia, Melena Genitourinary: Denies: dysuria Musculoskeletal: Denies: neck pain, foot pain Skin: Denies: cyanosis Neurological: Denies: Confusion, Dizziness Psychiatric: Denies: confusion - Patient Data Vitals - most recent: Last Vital Signs Temp 36.4 C 11/15/16 08:00 Pulse 82 11/15/16 08:00 Resp 22 H 11/15/16 08:00 BP 99/60 11/15/16 08:00 Pulse Ox 99 11/15/16 08:00 Weight - most recent: 63.9 kg I&O - last 24 hours: Intake & Output 11/14/16 11/15/16 11/15/16 22:59 06:59 14:59 Intake Total 1650 350 Output Total 1800 480 Balance -150 -130 Lab Results last 24 hrs: Laboratory Results - last 24 hr 11/14/16 11/15/16 11/15/16 Range/Units 17:06 05:20 05:20 WBC 7.45 (4.0-11.0) K/uL RBC 2.95 L (4.50-5.90) M/uL Hgb 10.6 L (13.0-17.0) g/dL Hct 31.1 L (38.0-50.0) % MCV 105.4 H (80.0-98.0) fL MCH 35.9 H (27.0-32.0) pg MCHC 34.1 (31.0-37.0) g/dL RDW Std Deviation 53.3 (28.0-62.0) fl RDW Coeff of Gildardo 14 (11.0-15.0) % Plt Count 137 L (150-400) K/uL MPV 10.10 (7.40-12.00) fL Neut % (Auto) 70.5 (48.0-80.0) % Lymph % (Auto) 20.0 (16.0-40.0) % [place] % (Auto) 8.7 (0.0-15.0) % Eos % (Auto) 0.7 (0.0-7.0) % Baso % (Auto) 0.1 (0.0-1.5) % Neut # 5.3 (1.4-5.7) K/uL Lymph # 1.5 (0.6-2.4) K/uL [place] # 0.7 (0.0-0.8) K/uL Eos # 0.1 (0.0-0.7) K/uL Baso # 0.0 (0.0-0.1) K/uL Nucleated RBC % 0.0 /100WBC Nucleated RBCs # 0 K/uL Sodium 143 (136-146) mmol/L Potassium 3.1 L (3.5-5.1) mmol/L Chloride 116 H (98-110) mmol/L Carbon Dioxide 17 L (21-31) mmol/L BUN 20 (6.0-23.0) mg/dL Creatinine 1.0 (0.6-1.5) mg/dL Est Cr Clr Drug Dosing 73.66 mL/min Estimated GFR (MDRD) > 60.0 ml/min Glucose 67 (60-110) mg/dL POC Glucose 67 (60-110) mg/dL Calcium 6.9 L (8.8-10.8) mg/dL Joss Results last 24 hrs: Microbiology 11/14/16 06:45 Gram Stain - Preliminary Sputum - Expectorated 11/13/16 20:35 Urine Culture - Final Urine, Catheterized No Growth 11/13/16 21:02 Aerobic Blood Culture - Preliminary Blood - Venous - Lab Draw NO GROWTH AFTER 1 DAY Anaerobic Blood Culture - Preliminary NO GROWTH AFTER 1 DAY 11/13/16 20:52 Aerobic Blood Culture - Preliminary Blood - Venous NO GROWTH AFTER 1 DAY Anaerobic Blood Culture - Preliminary NO GROWTH AFTER 1 DAY Med Orders - Current: Current Medications Acetaminophen (Tylenol) 650 mg PO Q4H PRN PRN Reason: Pain (Mild 1-3)/fever Azithromycin (Zithromax) 250 mg PO Q24H [facility] Last Admin: 11/15/16 09:07 Dose: 250 mg Calcium Carbonate/Glycine (Tums) 1,000 mg PO DAILY [facility] Last Admin: 11/15/16 11:17 Dose: 1,000 mg Heparin Sodium (Porcine) (Heparin Sodium) 5,000 units SUBCUT Q12HR [facility] Last Admin: 11/15/16 08:00 Dose: 5,000 units Sodium Chloride (Normal Saline) 1,000 mls @ 125 mls/hr IV ASDIRECTED [facility] Last Admin: 11/15/16 04:56 Dose: 125 mls/hr Sodium Chloride (Normal Saline) 500 mls @ 999 mls/hr IV .BOLUS [facility] Last Admin: 11/14/16 01:00 Dose: 999 mls/hr Ondansetron HCl (Zofran) 4 mg IVPUSH Q4H PRN PRN Reason: Nausea Last Admin: 11/13/16 23:44 Dose: 4 mg Oseltamivir Phosphate (Oseltamivir Phosphate) 30 mg PO BID [facility] Last Admin: 11/15/16 09:04 Dose: 30 mg Potassium Chloride (Klor-Con M20) 40 meq PO DAILY [facility] Last Admin: 11/15/16 07:59 Dose: 40 meq Sodium Chloride (Saline Flush) 10 ml FLUSH ASDIRECTED PRN PRN Reason: Keep Vein Open Sodium Chloride (Saline Flush) 2.5 ml FLUSH ASDIRECTED PRN PRN Reason: Keep Vein Open Sodium Chloride (Saline Flush) 10 ml FLUSH ASDIRECTED PRN PRN Reason: Keep Vein Open Sodium Chloride (Saline Flush) 2.5 ml FLUSH ASDIRECTED PRN PRN Reason: Keep Vein Open Sodium Chloride (Saline Flush) 10 ml FLUSH ASDIRECTED PRN PRN Reason: Keep Vein Open Sodium Chloride (Saline Flush) 2.5 ml FLUSH ASDIRECTED PRN PRN Reason: Keep Vein Open Discontinued Medications Albuterol/Ipratropium (Duoneb 3.0-0.5 Mg/3 Ml) 3 ml NEB ONETIME ONE Stop: 11/13/16 18:48 Last Admin: 11/13/16 18:52 Dose: 3 ml Calcium Carbonate/Glycine (Tums) 1,000 mg PO ONETIME ONE Stop: 11/14/16 10:01 Last Admin: 11/14/16 11:00 Dose: 1,000 mg Diphenhydramine HCl (Benadryl) 25 mg IVPUSH ONETIME ONE Stop: 11/13/16 22:29 Last Admin: 11/13/16 22:51 Dose: 25 mg Sodium Chloride (Normal Saline) 2,000 mls @ 999 mls/hr IV .Bolus ONE Stop: 11/13/16 20:38 Last Admin: 11/13/16 20:42 Dose: 999 mls/hr Potassium Chloride 40 meq/ (Sodium Chloride) 1,020 mls @ 250 mls/hr IV STAT ONE Stop: 11/13/16 23:46 Last Admin: 11/13/16 20:07 Dose: Not Given Potassium Chloride 40 meq/ (Sodium Chloride) 500 mls @ 125 mls/hr IV ONETIME ONE Stop: 11/14/16 00:03 Potassium Chloride 40 meq/ (Sodium Chloride) 1,020 mls @ 250 mls/hr IV ONETIME ONE Stop: 11/14/16 00:09 Last Admin: 11/13/16 20:06 Dose: 250 mls/hr Levofloxacin/Dextrose 750 mg/ (Premix) 150 mls @ 100 mls/hr IV Q24H [facility] Levofloxacin/Dextrose 750 mg/ (Premix) 150 mls @ 100 mls/hr IV Q48H [facility] Last Infusion: 11/13/16 22:30 Dose: 100 mls/hr Azithromycin 500 mg/ Sodium (Chloride) 250 mls @ 250 mls/hr IV ONETIME ONE Stop: 11/13/16 23:28 Last Admin: 11/13/16 22:51 Dose: 250 mls/hr Sodium Chloride (Normal Saline) 500 mls @ 500 mls/hr IV .BOLUS ONE Stop: 11/13/16 23:38 Last Admin: 11/13/16 22:53 Dose: 500 mls/hr Piperacillin Sod/Tazobactam (Sod 2.25 gm/ Sodium Chloride) 50 mls @ 100 mls/hr IV Q6H [facility] Piperacillin Sod/Tazobactam (Sod 2.25 gm/ Sodium Chloride) 50 mls @ 100 mls/hr IV Q6H [facility] Last Admin: 11/15/16 05:01 Dose: 100 mls/hr Sodium Chloride (Normal Saline) 1,000 mls @ 999 mls/hr IV .BOLUS ONE Stop: 11/14/16 03:42 Last Admin: 11/14/16 02:54 Dose: 999 mls/hr Oseltamivir Phosphate (Tamiflu) 75 mg PO BID [facility] Oseltamivir Phosphate (Tamiflu) 30 mg PO BID [facility] Last Admin: 11/13/16 23:48 Dose: Not Given Thiamine HCl (Vitamin B-1) 100 mg PO ONETIME ONE Stop: 11/13/16 18:48 Last Admin: 11/13/16 19:30 Dose: 100 mg - Exam Quality Assessment: DVT prophylaxis General: alert, oriented, cooperative, no acute distress HEENT: Pupils equal, Pupils reactive, EOMI, Mucous membr. moist/pink Neck: supple, trachea midline, no JVD Lungs: Clear to auscultation, Normal respiratory effort Cardiovascular: Regular Rate, Regular Rhythm, No Murmurs Abdomen: bowel sounds present, soft, no tenderness, no distension Back Exam: normal inspection Extremities: no edema, normal pulses, no tenderness/swelling Peripheral Pulses: 2+: radial (L), radial (R), posterior tibial (L), posterior tibial (R), dorsalis pedis (L), dorsalis pedis (R) Skin: warm, dry, intact Wound/Incisions: healing well Neurological: no new focal deficit Psy/Mental Status: alert, normal affect, normal mood - Problem List & Annotations (1) Acute kidney failure SNOMED Code(s): 63668806 Code(s): N17.9 - ACUTE KIDNEY FAILURE, UNSPECIFIED Status: Acute Priority : High Current Visit: Yes Qualifiers: Acute renal failure type: unspecified Qualified Code(s): N17.9 - Acute kidney failure, unspecified (2) Hypotension SNOMED Code(s): 74219129 Code(s): I95.9 - HYPOTENSION, UNSPECIFIED Status: Acute Priority: High Current Visit: Yes Qualifiers: Hypotension type: unspecified hypotension type Qualified Code(s): I95.9 - Hypotension, unspecified (3) Flu-like symptoms SNOMED Code(s): 935929822 Code(s): R68.89 - OTHER GENERAL SYMPTOMS AND SIGNS Status: Acute Priority : High Current Visit: Yes (4) Hypokalemia SNOMED Code(s): 43713426 Code(s): E87.6 - HYPOKALEMIA Status: Acute Priority: High Current Visit : Yes - Problem List Review Problem List Initiated/Reviewed/Updated: Yes - My Orders Last 24 Hours: My Active Orders 11/14/16 19:07 Transfer Patient (Change bed) [ADT] Routine 11/15/16 09:00 Potassium Chloride [Klor-Con M20] 40 meq PO DAILY - Plan Plan:: 56 yo male admitted for flu like symptoms and found to have pneumonia, renal insufficiency, hypokalemia, and hypotension. Community acquired pneumonia: CT yesterday showed several groundglass cara areas within the right upper lobe which most likely represents pneumonia. Patient doing well. Will stop Zosyn today and continue azithro for abx. Leukocytosis resolved. Renal Insufficiency: Most likely secondary to dehydration. Cr improved from 2.4 to 1.5 with fluid hydration overnight. Will continue fluid hydration today. Hypotension: Improved to low 100's systolic. Will continue with IVF resus. Hypokalemia: Replaced today monitory Anemia: Delusional monitor VTE: Lovenox 40mg Dispo: 1-2 days pending discharge.
[2016-11-16 06:43] LABS: CHLORIDE,CL 117 mmol/L (98-110); SODIUM,NA 143 mmol/L (136-146)
[2016-11-16] MEDS: Heparin Sodium 5,000 Units/ML Vial SUBCUT SCH ×2 (09:01→20:53)
[2016-11-16] MEDS: Azithromycin 250 MG Tab PO SCH (09:02)
[2016-11-16] MEDS: Calcium Carbonate 500 MG Tab.Chew PO SCH (09:02)
[2016-11-16] MEDS: Potassium Chloride 20 MEQ Tab.ER PO SCH (09:02)
[2016-11-16] MEDS: Oseltamivir Phosphate 30 MG Capsule PO SCH (09:02)
--- NOTE | 2016-11-16 12:03 | PCM.PN ---
- Review of Systems Systems Review Comment:: patient feeling better, but reports fatigue and does not feel ready for discharge. - Patient Data Vitals - most recent: Last Vital Signs Temp 36.8 C 11/16/16 07:00 Pulse 91 11/16/16 07:00 Resp 14 11/16/16 07:00 BP 136/69 11/16/16 07:00 Pulse Ox 98 11/16/16 07:00 Weight - most recent: 63.9 kg I&O - last 24 hours: Intake & Output 11/15/16 11/16/16 11/16/16 22:59 06:59 14:59 Intake Total 2866 250 Output Total 475 950 Balance 2391 -700 Lab Results last 24 hrs: Laboratory Results - last 24 hr 11/16/16 11/16/16 Range/Units 06:10 06:10 WBC 9.30 (4.0-11.0) K/uL RBC 2.84 L (4.50-5.90) M/uL Hgb 10.3 L (13.0-17.0) g/dL Hct 29.8 L (38.0-50.0) % MCV 104.9 H (80.0-98.0) fL MCH 36.3 H (27.0-32.0) pg MCHC 34.6 (31.0-37.0) g/dL RDW Std Deviation 52.3 (28.0-62.0) fl RDW Coeff of Gildardo 14 (11.0-15.0) % Plt Count 145 L (150-400) K/uL MPV 10.30 (7.40-12.00) fL Neut % (Auto) 76.4 (48.0-80.0) % Lymph % (Auto) 12.4 L (16.0-40.0) % [place] % (Auto) 10.5 (0.0-15.0) % Eos % (Auto) 0.6 (0.0-7.0) % Baso % (Auto) 0.1 (0.0-1.5) % Neut # 7.1 H (1.4-5.7) K/uL Lymph # 1.2 (0.6-2.4) K/uL [place] # 1.0 H (0.0-0.8) K/uL Eos # 0.1 (0.0-0.7) K/uL Baso # 0.0 (0.0-0.1) K/uL Nucleated RBC % 0.0 /100WBC Nucleated RBCs # 0 K/uL Sodium 143 (136-146) mmol/L Potassium 3.2 L (3.5-5.1) mmol/L Chloride 117 H (98-110) mmol/L Carbon Dioxide 17 L (21-31) mmol/L BUN 13 (6.0-23.0) mg/dL Creatinine 0.8 (0.6-1.5) mg/dL Est Cr Clr Drug Dosing 92.08 mL/min Estimated GFR (MDRD) > 60.0 ml/min Glucose 67 (60-110) mg/dL Calcium 7.1 L (8.8-10.8) mg/dL Joss Results last 24 hrs: Microbiology 11/14/16 06:45 Gram Stain - Final Sputum - Expectorated Sputum Culture - Final Normal Respiratory Bonnie YEAST 11/13/16 21:02 Aerobic Blood Culture - Preliminary Blood - Venous - Lab Draw NO GROWTH AFTER 2 DAYS Anaerobic Blood Culture - Preliminary NO GROWTH AFTER 2 DAYS 11/13/16 20:52 Aerobic Blood Culture - Preliminary Blood - Venous NO GROWTH AFTER 2 DAYS Anaerobic Blood Culture - Preliminary NO GROWTH AFTER 2 DAYS 11/13/16 20:35 Urine Culture - Final Urine, Catheterized No Growth Med Orders - Current: Current Medications Acetaminophen (Tylenol) 650 mg PO Q4H PRN PRN Reason: Pain (Mild 1-3)/fever Azithromycin (Zithromax) 250 mg PO Q24H [facility] Last Admin: 11/16/16 09:02 Dose: 250 mg Calcium Carbonate/Glycine (Tums) 1,000 mg PO DAILY [facility] Last Admin: 11/16/16 09:02 Dose: 1,000 mg Heparin Sodium (Porcine) (Heparin Sodium) 5,000 units SUBCUT Q12HR [facility] Last Admin: 11/16/16 09:01 Dose: 5,000 units Sodium Chloride (Normal Saline) 1,000 mls @ 125 mls/hr IV ASDIRECTED [facility] Last Admin: 11/15/16 22:18 Dose: 125 mls/hr Sodium Chloride (Normal Saline) 500 mls @ 999 mls/hr IV .BOLUS [facility] Last Admin: 11/14/16 01:00 Dose: 999 mls/hr Ondansetron HCl (Zofran) 4 mg IVPUSH Q4H PRN PRN Reason: Nausea Last Admin: 11/13/16 23:44 Dose: 4 mg Oseltamivir Phosphate (Oseltamivir Phosphate) 75 mg PO BID [facility] Potassium Chloride (Klor-Con M20) 40 meq PO DAILY [facility] Last Admin: 11/16/16 09:02 Dose: 40 meq Sodium Chloride (Saline Flush) 10 ml FLUSH ASDIRECTED PRN PRN Reason: Keep Vein Open Sodium Chloride (Saline Flush) 2.5 ml FLUSH ASDIRECTED PRN PRN Reason: Keep Vein Open Sodium Chloride (Saline Flush) 10 ml FLUSH ASDIRECTED PRN PRN Reason: Keep Vein Open Sodium Chloride (Saline Flush) 2.5 ml FLUSH ASDIRECTED PRN PRN Reason: Keep Vein Open Sodium Chloride (Saline Flush) 10 ml FLUSH ASDIRECTED PRN PRN Reason: Keep Vein Open Sodium Chloride (Saline Flush) 2.5 ml FLUSH ASDIRECTED PRN PRN Reason: Keep Vein Open Discontinued Medications Albuterol/Ipratropium (Duoneb 3.0-0.5 Mg/3 Ml) 3 ml NEB ONETIME ONE Stop: 11/13/16 18:48 Last Admin: 11/13/16 18:52 Dose: 3 ml Calcium Carbonate/Glycine (Tums) 1,000 mg PO ONETIME ONE Stop: 11/14/16 10:01 Last Admin: 11/14/16 11:00 Dose: 1,000 mg Diphenhydramine HCl (Benadryl) 25 mg IVPUSH ONETIME ONE Stop: 11/13/16 22:29 Last Admin: 11/13/16 22:51 Dose: 25 mg Sodium Chloride (Normal Saline) 2,000 mls @ 999 mls/hr IV .Bolus ONE Stop: 11/13/16 20:38 Last Admin: 11/13/16 20:42 Dose: 999 mls/hr Potassium Chloride 40 meq/ (Sodium Chloride) 1,020 mls @ 250 mls/hr IV STAT ONE Stop: 11/13/16 23:46 Last Admin: 11/13/16 20:07 Dose: Not Given Potassium Chloride 40 meq/ (Sodium Chloride) 500 mls @ 125 mls/hr IV ONETIME ONE Stop: 11/14/16 00:03 Potassium Chloride 40 meq/ (Sodium Chloride) 1,020 mls @ 250 mls/hr IV ONETIME ONE Stop: 11/14/16 00:09 Last Admin: 11/13/16 20:06 Dose: 250 mls/hr Levofloxacin/Dextrose 750 mg/ (Premix) 150 mls @ 100 mls/hr IV Q24H [facility] Levofloxacin/Dextrose 750 mg/ (Premix) 150 mls @ 100 mls/hr IV Q48H [facility] Last Infusion: 11/13/16 22:30 Dose: 100 mls/hr Azithromycin 500 mg/ Sodium (Chloride) 250 mls @ 250 mls/hr IV ONETIME ONE Stop: 11/13/16 23:28 Last Admin: 11/13/16 22:51 Dose: 250 mls/hr Sodium Chloride (Normal Saline) 500 mls @ 500 mls/hr IV .BOLUS ONE Stop: 11/13/16 23:38 Last Admin: 11/13/16 22:53 Dose: 500 mls/hr Piperacillin Sod/Tazobactam (Sod 2.25 gm/ Sodium Chloride) 50 mls @ 100 mls/hr IV Q6H [facility] Piperacillin Sod/Tazobactam (Sod 2.25 gm/ Sodium Chloride) 50 mls @ 100 mls/hr IV Q6H [facility] Last Admin: 11/15/16 05:01 Dose: 100 mls/hr Sodium Chloride (Normal Saline) 1,000 mls @ 999 mls/hr IV .BOLUS ONE Stop: 11/14/16 03:42 Last Admin: 11/14/16 02:54 Dose: 999 mls/hr Oseltamivir Phosphate (Tamiflu) 75 mg PO BID [facility] Oseltamivir Phosphate (Tamiflu) 30 mg PO BID [facility] Last Admin: 11/13/16 23:48 Dose: Not Given Oseltamivir Phosphate (Oseltamivir Phosphate) 30 mg PO BID [facility] Last Admin: 11/16/16 09:02 Dose: 30 mg Thiamine HCl (Vitamin B-1) 100 mg PO ONETIME ONE Stop: 11/13/16 18:48 Last Admin: 11/13/16 19:30 Dose: 100 mg - Exam General: alert, oriented Lungs: Clear to auscultation, Normal respiratory effort Cardiovascular: Regular Rate, Regular Rhythm Abdomen: bowel sounds present, soft, no tenderness, no distension Extremities: no edema - Problem List Review Problem List Initiated/Reviewed/Updated: Yes - My Orders Last 24 Hours: My Active Orders 11/16/16 11:58 Oseltamivir Phosphate 75 mg PO BID - Plan Plan:: 56 yo male admitted for flu like symptoms and found to have pneumonia, renal insufficiency, hypokalemia, and hypotension. Community acquired pneumonia: will continue azithromycin and tamiflu Renal Insufficiency: resolving creatinine 0.8 Hypokalemia: Replaced today monitory VTE:heparin Dispo: likely tomorrow
[2016-11-16] MEDS: Oseltamivir 75 MG Cap PO SCH (20:54)
[2016-11-17 07:25] LABS: CHLORIDE,CL 116 mmol/L (98-110); SODIUM,NA 142 mmol/L (136-146)
[2016-11-17] MEDS: Potassium Chloride 20 MEQ Tab.ER PO SCH (09:16)
[2016-11-17] MEDS: Heparin Sodium 5,000 Units/ML Vial SUBCUT SCH (09:16)
[2016-11-17] MEDS: Oseltamivir 75 MG Cap PO SCH (09:16)
[2016-11-17] MEDS: Calcium Carbonate 500 MG Tab.Chew PO SCH (09:16)
[2016-11-17] MEDS: Azithromycin 250 MG Tab PO SCH (09:16)
[2016-11-17 11:30] VITALS: BP 114/67
--- NOTE | 2016-11-17 11:35 | PCM.DCSUM1 ---
Discharge Summary - Discharge Data Discharge Date: 11/17/16 Discharge Disposition: Home, Self-Care 01 Condition: Good - Patient Summary/Data Hospital Course: Admission diagnosis Sepsis Pneumonia Hypokalemia Acute kidney injury. Hospitial Course: Delano is a [age] yo male with pmh of hypertension who presents with three day history of fevers, nausea, vomiting and productive cough. On presentation he was noted to be hypotensive with blood pressure of 69 /44. Lactic acid was 2.4, potassium of 2.8. WBC of 12,970 and Creatinine of 2.4. Chest x-ray and UA were normal so CT scan of chest abdomen and pelvis was obtain to identify source of sepsis. CT reported several pathcy area of ground glass opacities in the right upper lobe and a 2 cm adenoma. He was resucitated with IV fluids. He developed a rash with levaquin so he was treated initially with Zosyn tamiflu, and azithromycin. His blood cultures and influenza screen was negative. His creatinine, lactic acid, and WBC normalized and with treatment. His losartan/HCTZ was held during his hospital stay and he was instructed to discontinue this medication a home as his blood pressures were normal during his hospital stay. Patient was getting daily potassium supplementation here. Patient was discharged home with azithromycin 250mg daily for four days and potassium 20mg daily . He was instructed to follow up with Dr. Prado regarding his recent hospitalization, hypokalemia and adrenal adenoma. - Discharge Plan Prescriptions/Med Rec: Azithromycin [Zithromax] 250 mg PO Q24H #4 tablet Potassium Chloride [Klor-Con M20] 20 meq PO DAILY #20 tab.er Home Medications: Home Meds Azithromycin [Zithromax] 250 mg PO Q24H #4 tablet 11/17/16 [Rx] Potassium Chloride [Klor-Con M20] 20 meq PO DAILY #20 tab.er 11/17/16 [Rx] Patient Handouts: Hypokalemia Referrals: [facility] [Outside] Paul Prado MD [Ordering Only Provider] - 11/22/16 9:30 am - Patient Data Vitals - Most Recent: Last Vital Signs Temp 37.6 C 11/17/16 08:00 Pulse 90 11/17/16 08:00 Resp 16 11/17/16 08:00 BP 113/74 11/17/16 08:00 Pulse Ox 95 11/17/16 08:00 Weight - Most Recent: 63.9 kg I&O - Last 24 hours: Intake & Output 11/16/16 11/17/16 11/17/16 22:59 06:59 14:59 Intake Total 750 320 Output Total 1030 600 Balance -280 -280 Lab Results - Last 24 hrs: Laboratory Results - last 24 hr 11/17/16 11/17/16 Range/Units 06:50 06:50 WBC 9.60 (4.0-11.0) K/uL RBC 2.93 L (4.50-5.90) M/uL Hgb 10.5 L (13.0-17.0) g/dL Hct 30.4 L (38.0-50.0) % MCV 103.8 H (80.0-98.0) fL MCH 35.8 H (27.0-32.0) pg MCHC 34.5 (31.0-37.0) g/dL RDW Std Deviation 50.7 (28.0-62.0) fl RDW Coeff of Gildardo 14 (11.0-15.0) % Plt Count 172 (150-400) K/uL MPV 10.10 (7.40-12.00) fL Neut % (Auto) 74.0 (48.0-80.0) % Lymph % (Auto) 11.9 L (16.0-40.0) % [place] % (Auto) 12.5 (0.0-15.0) % Eos % (Auto) 1.5 (0.0-7.0) % Baso % (Auto) 0.1 (0.0-1.5) % Neut # 7.1 H (1.4-5.7) K/uL Lymph # 1.1 (0.6-2.4) K/uL [place] # 1.2 H (0.0-0.8) K/uL Eos # 0.1 (0.0-0.7) K/uL Baso # 0.0 (0.0-0.1) K/uL Nucleated RBC % 0.0 /100WBC Nucleated RBCs # 0 K/uL Sodium 142 (136-146) mmol/L Potassium 3.3 L (3.5-5.1) mmol/L Chloride 116 H (98-110) mmol/L Carbon Dioxide 18 L (21-31) mmol/L BUN 12 (6.0-23.0) mg/dL Creatinine 0.8 (0.6-1.5) mg/dL Est Cr Clr Drug Dosing 92.08 mL/min Estimated GFR (MDRD) > 60.0 ml/min Glucose 86 (60-110) mg/dL Calcium 7.8 L (8.8-10.8) mg/dL Magnesium 2.0 (1.5-2.3) mEq/L KASSANDRA Results - Last 24 hrs: Microbiology 11/13/16 21:02 Aerobic Blood Culture - Preliminary Blood - Venous - Lab Draw NO GROWTH AFTER 3 DAYS Anaerobic Blood Culture - Preliminary NO GROWTH AFTER 3 DAYS 11/13/16 20:52 Aerobic Blood Culture - Preliminary Blood - Venous NO GROWTH AFTER 3 DAYS Anaerobic Blood Culture - Preliminary NO GROWTH AFTER 3 DAYS 11/14/16 06:45 Gram Stain - Final Sputum - Expectorated Sputum Culture - Final Normal Respiratory Bonnie YEAST Med Orders - Current: Current Medications Acetaminophen (Tylenol) 650 mg PO Q4H PRN PRN Reason: Pain (Mild 1-3)/fever Azithromycin (Zithromax) 250 mg PO Q24H [facility] Last Admin: 11/17/16 09:16 Dose: 250 mg Calcium Carbonate/Glycine (Tums) 1,000 mg PO DAILY [facility] Last Admin: 11/17/16 09:16 Dose: 1,000 mg Heparin Sodium (Porcine) (Heparin Sodium) 5,000 units SUBCUT Q12HR [facility] Last Admin: 11/17/16 09:16 Dose: 5,000 units Sodium Chloride (Normal Saline) 500 mls @ 999 mls/hr IV .BOLUS [facility] Last Admin: 11/14/16 01:00 Dose: 999 mls/hr Ondansetron HCl (Zofran) 4 mg IVPUSH Q4H PRN PRN Reason: Nausea Last Admin: 11/13/16 23:44 Dose: 4 mg Oseltamivir Phosphate (Tamiflu) 75 mg PO BID [facility] Last Admin: 11/17/16 09:16 Dose: 75 mg Potassium Chloride (Klor-Con M20) 40 meq PO DAILY [facility] Last Admin: 11/17/16 09:16 Dose: 40 meq Sodium Chloride (Saline Flush) 10 ml FLUSH ASDIRECTED PRN PRN Reason: Keep Vein Open Sodium Chloride (Saline Flush) 2.5 ml FLUSH ASDIRECTED PRN PRN Reason: Keep Vein Open Discontinued Medications Albuterol/Ipratropium (Duoneb 3.0-0.5 Mg/3 Ml) 3 ml NEB ONETIME ONE Stop: 11/13/16 18:48 Last Admin: 11/13/16 18:52 Dose: 3 ml Calcium Carbonate/Glycine (Tums) 1,000 mg PO ONETIME ONE Stop: 11/14/16 10:01 Last Admin: 11/14/16 11:00 Dose: 1,000 mg Diphenhydramine HCl (Benadryl) 25 mg IVPUSH ONETIME ONE Stop: 11/13/16 22:29 Last Admin: 11/13/16 22:51 Dose: 25 mg Sodium Chloride (Normal Saline) 2,000 mls @ 999 mls/hr IV .Bolus ONE Stop: 11/13/16 20:38 Last Admin: 11/13/16 20:42 Dose: 999 mls/hr Potassium Chloride 40 meq/ (Sodium Chloride) 1,020 mls @ 250 mls/hr IV STAT ONE Stop: 11/13/16 23:46 Last Admin: 11/13/16 20:07 Dose: Not Given Potassium Chloride 40 meq/ (Sodium Chloride) 500 mls @ 125 mls/hr IV ONETIME ONE Stop: 11/14/16 00:03 Potassium Chloride 40 meq/ (Sodium Chloride) 1,020 mls @ 250 mls/hr IV ONETIME ONE Stop: 11/14/16 00:09 Last Admin: 11/13/16 20:06 Dose: 250 mls/hr Levofloxacin/Dextrose 750 mg/ (Premix) 150 mls @ 100 mls/hr IV Q24H [facility] Levofloxacin/Dextrose 750 mg/ (Premix) 150 mls @ 100 mls/hr IV Q48H [facility] Last Infusion: 11/13/16 22:30 Dose: 100 mls/hr Sodium Chloride (Normal Saline) 1,000 mls @ 125 mls/hr IV ASDIRECTED [facility] Last Admin: 11/15/16 22:18 Dose: 125 mls/hr Azithromycin 500 mg/ Sodium (Chloride) 250 mls @ 250 mls/hr IV ONETIME ONE Stop: 11/13/16 23:28 Last Admin: 11/13/16 22:51 Dose: 250 mls/hr Sodium Chloride (Normal Saline) 500 mls @ 500 mls/hr IV .BOLUS ONE Stop: 11/13/16 23:38 Last Admin: 11/13/16 22:53 Dose: 500 mls/hr Piperacillin Sod/Tazobactam (Sod 2.25 gm/ Sodium Chloride) 50 mls @ 100 mls/hr IV Q6H [facility] Piperacillin Sod/Tazobactam (Sod 2.25 gm/ Sodium Chloride) 50 mls @ 100 mls/hr IV Q6H [facility] Last Admin: 11/15/16 05:01 Dose: 100 mls/hr Sodium Chloride (Normal Saline) 1,000 mls @ 999 mls/hr IV .BOLUS ONE Stop: 11/14/16 03:42 Last Admin: 11/14/16 02:54 Dose: 999 mls/hr Oseltamivir Phosphate (Tamiflu) 75 mg PO BID [facility] Oseltamivir Phosphate (Tamiflu) 30 mg PO BID [facility] Last Admin: 11/13/16 23:48 Dose: Not Given Oseltamivir Phosphate (Oseltamivir Phosphate) 30 mg PO BID [facility] Last Admin: 11/16/16 09:02 Dose: 30 mg Sodium Chloride (Saline Flush) 10 ml FLUSH ASDIRECTED PRN PRN Reason: Keep Vein Open Sodium Chloride (Saline Flush) 2.5 ml FLUSH ASDIRECTED PRN PRN Reason: Keep Vein Open Sodium Chloride (Saline Flush) 10 ml FLUSH ASDIRECTED PRN PRN Reason: Keep Vein Open Sodium Chloride (Saline Flush) 2.5 ml FLUSH ASDIRECTED PRN PRN Reason: Keep Vein Open Thiamine HCl (Vitamin B-1) 100 mg PO ONETIME ONE Stop: 11/13/16 18:48 Last Admin: 11/13/16 19:30 Dose: 100 mg *Q Meaningful Use (DIS) - VTE *Q VTE Criteria *Q: - Stroke *Q Stroke Criteria *Q: - AMI *Q AMI Criteria *Q:
== END 2016-11-17 12:25 | disposition home or self-care (01) | DRG 871 ==
LOC: MW.ED 18:10 → MW.ICU 20:11 → MW.MS 11-14 22:34
PROVIDERS: ADMIT Internal Medicine; ATTEND Internal Medicine
DX: A41.9 Sepsis, unspecified organism (principal); N28.9 Disorder of kidney and ureter, unspecified; J18.9 Pneumonia, unspecified organism; K21.9 Gastro-esophageal reflux disease without esophagitis; F17.200 Nicotine dependence, unspecified, uncomplicated; N17.9 Acute kidney failure, unspecified; E87.6 Hypokalemia; I95.9 Hypotension, unspecified; E86.0 Dehydration; D64.9 Anemia, unspecified; I10 Essential (primary) hypertension; R68.89 Other general symptoms and signs; Z79.899 Other long term (current) drug therapy
CPT/HCPCS: 36415; 71010; 80053; 82150; 82550; 83605; 83690; 83735; 84484; 85025; 87804 ×2; 94664; 99285; A9270; G0480; J3480; J7040 ×2; 71250; 71250-26; 74176; 74176-26; 80048; 81001; 82962; 87040; 87070; 87086; 87205; 93005; 96361; 96365; 96366; J0456; J1200; J1644; J1956; J2405; J2543; J7050

== ENCOUNTER 2017-05-09 13:02 | Emergency (ER) | payer MEDICARE, MEDICAID ==
[2017-05-09] MEDS ORDERED: Lidocaine 2% Viscous Solution 15 ML Cup PO ONE (13:16)
[2017-05-09] MEDS ORDERED: Benzocaine 20% Topical Spray UD MUCMEM ONE (13:16)
--- NOTE | 2017-05-09 13:21 | EDM.PDOC ---
ED HPI GENERAL MEDICAL PROBLEM - General Chief Complaint: Neck Problem Stated Complaint: SOLLOWEN NECK Time Seen by Provider: 05/09/17 13:15 Source of Information: Reports: Patient History Limitations: Reports: No Limitations - History of Present Illness INITIAL COMMENTS - FREE TEXT/NARRATIVE: History of present illness: [57-year-old male comes in complaining of feeling like he has a suture that has migrated from an old repair in his right axilla, he indicates that it has migrated up into his pectoral wall traveling into his neck.] Review of systems: As per history of present illness and below otherwise all systems reviewed and negative. Past medical history: As per history of present illness and as reviewed below otherwise noncontributory. Surgical history: As per history of present illness and as reviewed below otherwise noncontributory. Social history: No reported history of drug or alcohol abuse. Family history: As per history of present illness and as reviewed below otherwise noncontributory. Physical exam: HEENT: Atraumatic, normocephalic, pupils reactive, negative for conjunctival pallor or scleral icterus, mucous membranes moist, throat clear, neck supple, nontender, trachea midline. Lungs: Clear to auscultation, breath sounds equal bilaterally, chest nontender. Heart: S1S2, regular, negative for clicks, rubs, or JVD. Abdomen: Soft, nondistended, nontender. Negative for masses or hepatosplenomegaly. Negative for costovertebral tenderness. Pelvis: Stable nontender. Genitourinary: Deferred. Rectal: Deferred. Extremities: Atraumatic, negative for cords or calf pain. Neurovascular unremarkable. Neuro: Awake, alert, oriented. Cranial nerves II through XII unremarkable. Cerebellum unremarkable. Motor and sensory unremarkable throughout. Exam nonfocal. Obvious well-healed older suture and right axilla with beginning of puckering at the scar. Right pectoral wall, levator scapulaand sternocleidomastoid all noted to be somewhat tight. Patient also has very poor dentition with numerous caries and fragmented teeth throughout. With some amount of swelling in the oral cavity at the gumline in the region of 28 through 31 on the same side as the patient is feeling discomfort. Diagnostics: [] Therapeutics: [] Impression: [#1 dental caries, #2 dental abscess, #3 retraction and discomfort of old suture line scar] Plan: [Softly massage and stretching of scarring manuall Augmentin] Definitive disposition and diagnosis as appropriate pending reevaluation and review of above. - Related Data Allergies Allergy/AdvReac Type Severity Reaction Status Date / Time levofloxacin Allergy Rash Verified 05/09/17 13:05 Home Meds: Home Meds Amoxicillin/Potassium Clav [Augmentin 875-125 Tablet] 1 each PO BID #20 tablet 05/09/17 [Rx] Past Medical History Other HEENT History: wears glasses Cardiovascular History: Reports: Hypertension (BP this morning 81/62, did not take losartan today) Respiratory History: Reports: None Gastrointestinal History: Reports: Diverticulosis, GERD Genitourinary History: Reports: None Musculoskeletal History: Reports: Fracture Other Musculoskeletal History: hx of fx right ankle Neurological History: Reports: None Psychiatric History: Reports: None Endocrine/Metabolic History: Reports: None Hematologic History: Reports: None Immunologic History: Reports: None Oncologic (Cancer) History: Reports: None Dermatologic History: Reports: None - Past Surgical History Head Surgeries/Procedures: Reports: None HEENT Surgical History: Reports: None Cardiovascular Surgical History: Reports: None Respiratory Surgical History: Reports: None GI Surgical History: Reports: Colonoscopy Male Surgical History: Reports: None Neurological Surgical History: Reports: None Musculoskeletal Surgical History: Reports: None Oncologic Surgical History: Reports: None Dermatological Surgical History: Reports: None Other Surgical History Comment: exc. of rt. face mass Social & Family History - Family History Family Medical History: Noncontributory - Tobacco Use Smoking Status *Q: Current Every Day Smoker (1 ppd) Years of Tobacco use: 40 Packs/Tins Daily: 1 Used Tobacco, but Quit: No Second Hand Smoke Exposure: No - Caffeine Use Caffeine Use: Reports: Coffee Caffeine Use Comment: 4 cups/day - Alcohol Use Days Per Week of Alcohol Use: 0 Number of Drinks Per Day: 0 Total Drinks Per Week: 0 - Recreational Drug Use Recreational Drug Use: No Drug Use in Last 12 Months: No ED ROS GENERAL - Review of Systems Review Of Systems: See Below (see HPI) ED EXAM, GENERAL - Physical Exam Exam: See Below (see HPI) Departure - Departure Time of Disposition: 13:29 Disposition: Home, Self-Care 01 Condition: Good Clinical Impression: Dental caries, Dental abscess, Scar contracture - Discharge Information Instructions: Cervical Sprain, [id number] Referrals: Paul Prado MD [Primary Care Provider] - Additional Instructions: The following information is given to patients seen in the emergency department who are being discharged to home. This information is to outline your options for follow-up care. We provide all patients seen in our emergency department with a follow-up referral. The need for follow-up, as well as the timing and circumstances, are variable depending upon the specifics of your emergency department visit. If you don't have a primary care physician on staff, we will provide you with a referral. We always advise you to contact your personal physician following an emergency department visit to inform them of the circumstance of the visit and for follow-up with them and/or the need for any referrals to a consulting specialist. The emergency department will also refer you to a specialist when appropriate. This referral assures that you have the opportunity for follow-up care with a specialist. All of these measure are taken in an effort to provide you with optimal care, which includes your follow-up. Under all circumstances we always encourage you to contact your private physician who remains a resource for coordinating your care. When calling for follow-up care, please make the office aware that this follow-up is from your recent emergency room visit. If for any reason you are refused follow-up, please contact the [facility] Emergency Department at and asked to speak to the emergency department charge nurse. Take medication as directed All up with PCP 1-2 days see the dentist HALINA Return to ED as needed as discussed
[2017-05-09 13:50] VITALS: BP 174/91
== END 2017-05-09 13:43 | disposition home or self-care (01) ==
LOC: MW.ED 13:02
DX: L90.5 Scar conditions and fibrosis of skin (principal); K02.9 Dental caries, unspecified; K04.7 Periapical abscess without sinus; I10 Essential (primary) hypertension; K21.9 Gastro-esophageal reflux disease without esophagitis; F17.210 Nicotine dependence, cigarettes, uncomplicated; Z88.1 Allergy status to other antibiotic agents
CPT/HCPCS: 99283; A9270

== ENCOUNTER 2018-01-09 10:57 | Day surgery (SDC) | payer MEDICARE, MEDICAID ==
[~2018-01-09 10:57] MED LIST: Lactated Ringers 1,000 ML IV SCH; Lidocaine 2% 5 ML SDV ONE; Propofol 200 MG/20 ML SDV ONE
--- NOTE | 2018-01-09 11:36 | PCM.PREANE ---
Preanesthetic Assessment - Procedure Proposed Procedure: EGD/Colonoscopy - Anesthesia/Transfusion/Family Hx Anesthesia History: Prior Anesthesia Without Reaction Other Type of Anesthesia Reaction Comment: DENIES ANY PROBLEMS WITH ANESTHESIA Family History of Anesthesia Reaction: No Transfusion History: No Prior Transfusion(s) Intubation History: Unknown - Review of Systems General: No Symptoms Pulmonary: Other (smoker) Cardiovascular: Other (HTN - treated) Gastrointestinal: Other (GERD) Other: Reports: None - Physical Assessment NPO Status Date: 01/08/18 NPO Status Time: 23:00 Height: 5 ft 9 in Weight: 130 lb ASA Class: 2 Mental Status: Alert & Oriented x3 Airway Class: Mallampati = 2 Dentition: Reports: Missing Tooth/Teeth, Caries (all of lower teeth in deterioration phases) Thyro-Mental Finger Breadths: 3 Mouth Opening Finger Breadths: 3 ROM/Head Extension: Limited/Partial Lungs: Clear to Auscultation, Normal Respiratory Effort Cardiovascular: Regular Rate, Regular Rhythm, No Murmurs Other: somewhat tremorous in head neck and mouth - Allergies Allergies/Adverse Reactions: Allergies Allergy/AdvReac Type Severity Reaction Status Date / Time levofloxacin Allergy Rash Verified 01/06/18 17:02 - Blood Blood Available: No Product(s) Available: None - Anesthesia Plan Pre-Op Medication Ordered: None - Acknowledgements Anesthesia Type Planned: MAC Pt an Appropriate Candidate for the Planned Anesthesia: Yes Alternatives and Risks of Anesthesia Discussed w Pt/Guardian: Yes Pt/Guardian Understands and Agrees with Anesthesia Plan: Yes PreAnesthesia Questionnaire - Past Health History Medical/Surgical History: Denies Medical/Surgical History HEENT History: Reports: Other (See Below) Other HEENT History: wears glasses Cardiovascular History: Reports: Hypertension Other Cardiovascular History: states used to take antihypertensive med but was taken off of it Respiratory History: Reports: None Gastrointestinal History: Reports: Other (See Below) Other Gastrointestinal History: states some heartburn Genitourinary History: Reports: None Musculoskeletal History: Reports: Fracture, Neck Pain, Chronic Other Musculoskeletal History: hx of fx ankle (no hardware) Neurological History: Reports: None Psychiatric History: Reports: None Endocrine/Metabolic History: Reports: None Hematologic History: Reports: None Immunologic History: Reports: None Oncologic (Cancer) History: Reports: None Dermatologic History: Reports: None - Past Surgical History Musculoskeletal Surgical History: Reports: Other (See Below) Other Musculoskeletal Surgeries/Procedures:: removal of skin lesion on arm, removal of epidermal cyst from axilla - SUBSTANCE USE Smoking Status *Q: Current Every Day Smoker Tobacco Use Within Last Twelve Months: Cigarettes Second Hand Smoke Exposure: No Days Per Week of Alcohol Use: 0 Number of Drinks Per Day: 0 Total Drinks Per Week: 0 Recreational Drug Use History: No - HOME MEDS Home Medications: Home Meds Multivitamin [Multiple Vitamins] 1 tab PO DAILY 01/06/18 [History] - CURRENT (IN HOUSE) MEDS Current Meds: Current Medications Lactated Ringer's (Ringers, Lactated) 1,000 mls @ 125 mls/hr IV ASDIRECTED MELONY Discontinued Medications Lidocaine (Xylocaine-Mpf 2%) Confirm Administered Dose 5 ml .ROUTE .STK-MED ONE Stop: 01/09/18 08:47 Propofol (Diprivan 20 Ml) Confirm Administered Dose 400 mg .ROUTE .STK-MED ONE Stop: 01/09/18 08:47
--- NOTE | 2018-01-09 12:27 | PCM.OPNOTE ---
- General Post-Op/Procedure Note Date of Surgery/Procedure: 01/09/18 Operative Procedure(s): egd w bx. colonsocpy Findings: see dict [id number] Pre Op Diagnosis: rectal bleed Post-Op Diagnosis: Same Anesthesia Technique: Moderate Sedation Primary Surgeon: Bairon Miller Pathology: egd bx Complications: None Condition: Good
--- NOTE | 2018-01-09 12:31 | PCM.POSTAN ---
POST ANESTHESIA ASSESSMENT - MENTAL STATUS Mental Status: Alert, Oriented - RESPIRATORY Respiratory Status: Respiratory Rate WNL, Airway Patent, O2 Saturation Stable - CARDIOVASCULAR CV Status: Pulse Rate WNL, Blood Pressure Stable - GASTROINTESTINAL GI Status: No Symptoms - POST OP HYDRATION Hydration Status: Adequate & Stable
--- NOTE | 2018-01-09 12:44 | PCM48HPAN ---
Post Anesthesia Note - EVALUATION WITHIN 48HRS OF ANESTHETIC Vital Signs in Normal Range: Yes Patient Participated in Evaluation: Yes Respiratory Function Stable: Yes Airway Patent: Yes Cardiovascular Function Stable: Yes Hydration Status Stable: Yes Pain Control Satisfactory: Yes Nausea and Vomiting Control Satisfactory: Yes Mental Status Recovered: Yes Resp Rate: 23
--- NOTE | 2018-01-09 13:34 | OR ---
SURGEON: Bairon Miller MD DATE OF PROCEDURE: 01/09/2018 PREOPERATIVE DIAGNOSIS: Bright red blood per rectum. POSTOPERATIVE DIAGNOSES: 1. EGD diagnoses: a. Gastritis. b. Acid reflux. 2. Colonoscopy diagnoses: a. Diverticulosis. b. Hemorrhoids. PROCEDURES PERFORMED: 1. EGD with biopsy. 2. Colonoscopy. DESCRIPTION OF PROCEDURE: EGD: The patient was taken to the endoscopy room, and with the C2 TACTICAL ANALYSIS TECHNICIAN, Diprivan was administered. A well-lubricated EGD scope was gently inserted through the oropharynx, down the esophagus, passing through the gastroesophageal junction, into the stomach. The mucosa was examined upon the passage. Any etiology will be noted. Once in the stomach, we continued to advance to the distal antrum, passed through the pylorus into the second portion of the duodenum. Again, the mucosa was examined for any abnormality and etiology. The scope was then retrieved back to the stomach and then retroflexed to look at the fundus of the stomach. If a biopsy was indicated, we will biopsy the antrum, body, and gastroesophageal junction. The air will be sucked out while the scope is retrieved to reduce the patient's discomfort. The patient tolerated the procedure well. There were no intraoperative complications. Dr. Miller was present through the whole procedure. Prior to surgery, a time-out had been called, the patient identified, procedure identified and antibiotic administered. COLONOSCOPY: The patient was taken to the endoscopy room. A time out was called, patient identified, and procedure identified. Diprivan was then administrated. Patient went from awake to sleep, hearing doctor talking or door closing is normal. Perineum inspection and digital examination were then performed. A well-lubricated colonoscope was gently inserted through the rectum, advanced past the rectosigmoid junction, the descending colon, splenic flexure, transverse colon, hepatic flexure, ascending colon, arrived to the cecum. Cecum was identified as dictated in the finding. Then the scope was carefully withdrawn while attention was paid to the mucosal surface for any abnormality. Air will be sucked out during the scope withdrawal. At the rectum, retroflexed to examine any rectal diseases, fistula or hemorrhoids. Patient tolerated procedure well. There were no intraoperative complications, and Dr. Miller was present throughout the whole procedure. COLONOSCOPY FINDINGS: 1. The patient was easily sedated with C2 TACTICAL ANALYSIS TECHNICIAN and Diprivan. The patient was soundly snoring. 2. Bowel prep was average. There was some liquid stool. 3. Colon was very redundant in the sigmoid, requiring several maneuvers. In order to get to the cecum, the cecum was indicated by ileocecal fold, one- to-one indentation, appendiceal orifice, and light mittens. Mucosa examined upon scope pulling back. The patient had mild diverticulosis in the left colon. No signs or symptoms of diverticulitis. No polyp, mass, growth, inflammation, stricture, ulceration, AV malformation. The patient does have internal hemorrhoids. The patient would benefit from a repeat colonoscopy in 10 years from today or if clinically indicated otherwise. EGD FINDINGS: 1. The patient was easily sedated with C2 TACTICAL ANALYSIS TECHNICIAN and Diprivan. The patient was soundly snoring. 2. Oropharynx and proximal esophagus were free of disease and no inflammation, stricture, or ulcer. Distal esophagus at GE junction at 40 shows mild salmon-color change, consistent with acid reflux. Stomach rugae was normal in appearance and there was some little bit bile, but the antrum was very inflamed and with many many speckles of blood. It was not a blood clot, it was just some dot of blood and quite a lot of them. No flank ulcer observed and duodenum was grossly normal. Retrieved back to the stomach. Retroflexed look at the fundus of stomach, there was no hiatal hernia. Biopsy done at antrum, body, GE junction at 40, and sucked out while scope coming out. Addendum: Pt was seen 3 wks ago for perirectal abscess w drainage; detail exam of anal and perineum, no cellulitis or fluctuance noted. SUSIE / RABIA /[id number] LEBRON
[2018-01-09 15:25] VITALS: BP 110/68
== END 2018-01-09 13:10 | disposition home or self-care (01) ==
LOC: MW.SDS 10:57
PROVIDERS: ATTEND Surgery
DX: K62.5 Hemorrhage of anus and rectum (principal); K29.50 Unspecified chronic gastritis without bleeding; K21.0 Gastro-esophageal reflux disease with esophagitis; K64.8 Other hemorrhoids; K57.30 Diverticulosis of large intestine without perforation or abscess without bleeding; F17.210 Nicotine dependence, cigarettes, uncomplicated; I10 Essential (primary) hypertension; Z88.1 Allergy status to other antibiotic agents; Z79.899 Other long term (current) drug therapy
CPT/HCPCS: 43239; 45378; J7120; 88305; 88312; J2704

== ENCOUNTER 2018-11-12 09:28 | Day surgery (SDC) | payer MEDICARE, MEDICAID ==
[~2018-11-12 09:28] MED LIST changes: -Lidocaine 2% 5 ML SDV ONE; -Propofol 200 MG/20 ML SDV ONE; +ceFAZolin 2 GM in Premix Bag 1 BAG IV ONE
[2018-11-12 09:56] VITALS: BP 147/65
--- NOTE | 2018-11-12 13:02 | PCM.SN ---
- Free Text/Narrative Note: infection is almost all gone; cancel surgery to wet to dry drsg qd; fu 2 wks
== END 2018-11-12 12:00 | disposition home or self-care (01) ==
LOC: MW.SDS 09:28
PROVIDERS: ATTEND Surgery
DX: R22.31 Localized swelling, mass and lump, right upper limb (principal); B99.8 Other infectious disease; I10 Essential (primary) hypertension; D35.00 Benign neoplasm of unspecified adrenal gland; K64.9 Unspecified hemorrhoids; F17.210 Nicotine dependence, cigarettes, uncomplicated; Z53.8 Procedure and treatment not carried out for other reasons; Z79.899 Other long term (current) drug therapy
CPT/HCPCS: J7120

== ENCOUNTER 2019-01-12 13:59 | Emergency (ER) | payer MEDICARE, MEDICAID ==
[2019-01-12 14:09] VITALS: BP 151/67
--- NOTE | 2019-01-12 14:17 | EDM.PDOC ---
ED HPI GENERAL MEDICAL PROBLEM - General Chief Complaint: Genitourinary Problem Stated Complaint: PENIS PROBLEM Time Seen by Provider: 01/12/19 14:01 Source of Information: Reports: Patient History Limitations: Reports: No Limitations - History of Present Illness INITIAL COMMENTS - FREE TEXT/NARRATIVE: History of present illness: Patient states that 2 weeks ago a new lesion on his right thigh with some kind of wound spray the wrong can and accidentally sprayed his penis. His penis turned blue and now has an ulceration on it. Patient has developmental delay and denies being sexually active having any history of STDs. Review of systems: As per history of present illness and below otherwise all systems reviewed and negative. Past medical history: As per history of present illness and as reviewed below otherwise noncontributory. Surgical history: As per history of present illness and as reviewed below otherwise noncontributory. Social history: No reported history of drug or alcohol abuse. Family history: As per history of present illness and as reviewed below otherwise noncontributory. Physical exam: General: Well developed, well nourished in NAD HEENT: Atraumatic, normocephalic, pupils reactive, negative for conjunctival pallor or scleral icterus, mucous membranes moist, throat clear, neck supple, nontender, trachea midline. Lungs: Clear to auscultation, breath sounds equal bilaterally, chest nontender. Heart: S1S2, regular, negative for clicks, rubs, or JVD. Abdomen: NABS, Soft, nondistended, nontender. Negative for masses or hepatosplenomegaly. Negative for costovertebral tenderness. Pelvis: Stable nontender. Genitourinary: +2 mm ulceration irregularly shaped on erythematous base there is yellow granulation tissue in the center Rectal: Deferred. Extremities: Atraumatic, negative for cords or calf pain. Neurovascular unremarkable. Neuro: Awake, alert, oriented. Cranial nerves II through XII unremarkable. Cerebellum unremarkable. Motor and sensory unremarkable throughout. Exam nonfocal. Skin:warm and dry Diagnostics: None Therapeutics: None ED Course: Stable Impression: Ulceration on the tip of penis Prescriptions: None Plan: Follow-up with Dr. Couch as needed Definitive disposition and diagnosis as appropriate pending reevaluation and review of above. Perineal Area Pain Score (Numeric/FACES): 8 - Related Data Allergies Allergy/AdvReac Type Severity Reaction Status Date / Time levofloxacin Allergy Rash Verified 11/06/18 11:02 Home Meds: Home Meds Multivitamin [Multiple Vitamins] 1 tab PO DAILY 01/06/18 [History] Budesonide/Formoterol [Symbicort 160-4.5 MCG] 2 puff INH BID 11/06/18 [History] Losartan/Hydrochlorothiazide [Losartan-HCTZ 100-25 MG] 1 tab PO DAILY 11/06/18 [ History] Potassium Chloride 8 mcg PO DAILY 11/06/18 [History] Umeclidinium Brm/Vilanterol Tr [Anoro Ellipta 62.5-25 MCG] 1 puff INH ASDIRECTED PRN 11/06/18 [History] Past Medical History - Past Health History Medical/Surgical History: Denies Medical/Surgical History HEENT History: Reports: Other (See Below) Other HEENT History: wears glasses, has top and bottom partial Cardiovascular History: Reports: Hypertension Respiratory History: Reports: Asthma, COPD Gastrointestinal History: Reports: Gastritis, Other (See Below) Other Gastrointestinal History: dysphagia Genitourinary History: Reports: None Musculoskeletal History: Reports: Fracture, Neck Pain, Chronic Other Musculoskeletal History: hx of fx ankle (no hardware), chronic neck and shoulder pain Neurological History: Reports: None Psychiatric History: Reports: Developmental Delay 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 Endocrine/Metabolic History: Reports: None Hematologic History: Reports: None Immunologic History: Reports: None Oncologic (Cancer) History: Reports: None Dermatologic History: Reports: Other (See Below) Other Dermatologic History: epidermoid cyst-rt axilla - Infectious Disease History Infectious Disease History: Reports: Chicken Pox, Measles, Mumps - Past Surgical History Head Surgeries/Procedures: Reports: None HEENT Surgical History: Reports: None Cardiovascular Surgical History: Reports: None Respiratory Surgical History: Reports: None GI Surgical History: Reports: Colonoscopy, EGD Male Surgical History: Reports: None Endocrine Surgical History: Reports: None Neurological Surgical History: Reports: None Musculoskeletal Surgical History: Reports: Other (See Below) Other Musculoskeletal Surgeries/Procedures:: removal of skin lesion on arm, previoux removal of epidermal cyst from axilla Oncologic Surgical History: Reports: None Dermatological Surgical History: Reports: None Social & Family History - Family History Family Medical History: Noncontributory - Tobacco Use Smoking Status *Q: Current Every Day Smoker Years of Tobacco use: 40 Packs/Tins Daily: 1 - Caffeine Use Caffeine Use: Reports: Coffee Caffeine Use Comment: 4 cups/day - Recreational Drug Use Recreational Drug Use: No ED ROS GENERAL - Review of Systems Review Of Systems: ROS reveals no pertinent complaints other than HPI. ED EXAM, RENAL/ - Physical Exam Exam: See Below (See history of present illness) Course - Vital Signs Last Recorded V/S: Last Vital Signs Temp 97.1 F 01/12/19 14:07 Pulse 93 01/12/19 14:07 Resp 18 01/12/19 14:07 BP 151/67 H 01/12/19 14:07 Pulse Ox 98 01/12/19 14:07 Departure - Departure Time of Disposition: 14:20 Disposition: Home, Self-Care 01 Condition: Good Clinical Impression: Penile ulcer - Discharge Information *PRESCRIPTION DRUG MONITORING PROGRAM REVIEWED*: No *COPY OF PRESCRIPTION DRUG MONITORING REPORT IN PATIENT RAFA: No Forms: ED Department Discharge Additional Instructions: The following information is given to patients seen in the emergency department who are being discharged to home. This information is to outline your options for follow-up care. We provide all patients seen in our emergency department with a follow-up referral. The need for follow-up, as well as the timing and circumstances, are variable depending upon the specifics of your emergency department visit. If you don't have a primary care physician on staff, we will provide you with a referral. We always advise you to contact your personal physician following an emergency department visit to inform them of the circumstance of the visit and for follow-up with them and/or the need for any referrals to a consulting specialist. The emergency department will also refer you to a specialist when appropriate. This referral assures that you have the opportunity for follow-up care with a specialist. All of these measure are taken in an effort to provide you with optimal care, which includes your follow-up. Under all circumstances we always encourage you to contact your private physician who remains a resource for coordinating your care. When calling for follow-up care, please make the office aware that this follow-up is from your recent emergency room visit. If for any reason you are refused follow-up, please contact the [facility] Emergency Department at and asked to speak to the emergency department charge nurse. Call Dr. Couch for follow-up [facility] - U[facility] [place] [address]
== END 2019-01-12 15:05 | disposition home or self-care (01) ==
LOC: MW.ED 13:59
DX: N48.5 Ulcer of penis (principal); I10 Essential (primary) hypertension; J44.9 Chronic obstructive pulmonary disease, unspecified; F17.210 Nicotine dependence, cigarettes, uncomplicated; Z88.1 Allergy status to other antibiotic agents; Z79.899 Other long term (current) drug therapy
CPT/HCPCS: 99283

== ENCOUNTER 2019-01-23 14:00 | Emergency (ER) | payer MEDICARE, MEDICAID ==
--- NOTE | 2019-01-23 14:11 | EDM.PDOC ---
ED HPI GENERAL MEDICAL PROBLEM - General Chief Complaint: Respiratory Problem Stated Complaint: COUGHING Time Seen by Provider: 01/23/19 14:02 Source of Information: Reports: Patient History Limitations: Reports: No Limitations - History of Present Illness INITIAL COMMENTS - FREE TEXT/NARRATIVE: HISTORY AND PHYSICAL: History of present illness: Patient is a 58-year-old male who presents to the emergency room with complaints of cough 3 days. He is concerned he has pneumonia. He has had subjective fevers but has not checked his temperature. He is a pack per day smoker over the past 45 years. He does use 2 inhalers at home for COPD and asthma. Patient denies any fever, chills, headache, change in vision, syncope or near syncope. Denies any chest pain, back pain, or shortness of breath. Denies any abdominal pain, nausea, vomiting, diarrhea, constipation or dysuria. Has not noted any blood in urine or stool. Patient has been eating and drinking appropriately. Review of systems: As per history of present illness and below otherwise all systems reviewed and negative. Past medical history: As per history of present illness and as reviewed below otherwise noncontributory. Surgical history: As per history of present illness and as reviewed below otherwise noncontributory. Social history: See social history for further information Family history: As per history of present illness and as reviewed below otherwise noncontributory. Physical exam: General: Well-developed and well-nourished 58-year-old female. Alert and oriented. Nontoxic appearing and in no acute distress. HEENT: Atraumatic, normocephalic, pupils equal and reactive bilaterally, negative for conjunctival pallor or scleral icterus, mucous membranes moist, trachea midline. No drooling or trismus noted. No meningeal signs. No hot potato voice noted. Lungs: Slightly diminished otherwise clear to auscultation, breath sounds equal bilaterally, chest nontender. Heart: S1S2, regular rate and rhythm without overt murmur Abdomen: Soft, nondistended, nontender. Skin: Intact, warm, dry. No lesions or rashes noted. Extremities: Atraumatic, moves all extremities per self without difficulty or deficits, negative for cords or calf pain. Neurovascular unremarkable. Neuro: Awake, alert, oriented. Cranial nerves II through XII unremarkable. Cerebellum unremarkable. Motor and sensory unremarkable throughout. Exam nonfocal. Notes: Physical examination is within normal limits. Patient's vital signs are stable and have been reviewed by me. X-ray shows no infiltrate or pneumonia. Due to the patient's extensive smoking history I will give him Z-Jean Carlos and Medrol Dosepak. Supportive care measures were reviewed and discussed. Voices understanding and is agreeable to plan of care. Denies any further questions or concerns at this time. Diagnostics: Chest x-ray Therapeutics: None Prescription: Z-Jean Carlos and Medrol Dosepak Impression: Bronchitis Plan: 1. Stop smoking. 2. Please use Tylenol and/or Ibuprofen as needed for pain and fever management. Get plenty of Rest. Encourage fluids to prevent dehydration. Take the medications as prescribed 3. Please follow up with your primary care provider. Return to the ED as needed as discussed. Definitive disposition and diagnosis as appropriate pending reevaluation and review of above. - Related Data Allergies Allergy/AdvReac Type Severity Reaction Status Date / Time levofloxacin Allergy Rash Verified 01/23/19 14:12 Home Meds: Home Meds Multivitamin [Multiple Vitamins] 1 tab PO DAILY 01/06/18 [History] Budesonide/Formoterol [Symbicort 160-4.5 MCG] 2 puff INH BID 11/06/18 [History] Losartan/Hydrochlorothiazide [Losartan-HCTZ 100-25 MG] 1 tab PO DAILY 11/06/18 [ History] Potassium Chloride 8 mcg PO DAILY 11/06/18 [History] Umeclidinium Brm/Vilanterol Tr [Anoro Ellipta 62.5-25 MCG] 1 puff INH ASDIRECTED PRN 11/06/18 [History] Past Medical History - Past Health History Medical/Surgical History: Denies Medical/Surgical History HEENT History: Reports: Other (See Below) Other HEENT History: wears glasses, has top and bottom partial Cardiovascular History: Reports: Hypertension Respiratory History: Reports: Asthma, COPD Gastrointestinal History: Reports: Gastritis, Other (See Below) Other Gastrointestinal History: dysphagia Genitourinary History: Reports: None Musculoskeletal History: Reports: Fracture, Neck Pain, Chronic Other Musculoskeletal History: hx of fx ankle (no hardware), chronic neck and shoulder pain Neurological History: Reports: None Psychiatric History: Reports: Developmental Delay 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 Endocrine/Metabolic History: Reports: None Hematologic History: Reports: None Immunologic History: Reports: None Oncologic (Cancer) History: Reports: None Dermatologic History: Reports: Other (See Below) Other Dermatologic History: epidermoid cyst-rt axilla - Infectious Disease History Infectious Disease History: Reports: Chicken Pox, Measles, Mumps - Past Surgical History Head Surgeries/Procedures: Reports: None HEENT Surgical History: Reports: None Cardiovascular Surgical History: Reports: None Respiratory Surgical History: Reports: None GI Surgical History: Reports: Colonoscopy, EGD Male Surgical History: Reports: None Endocrine Surgical History: Reports: None Neurological Surgical History: Reports: None Musculoskeletal Surgical History: Reports: Other (See Below) Other Musculoskeletal Surgeries/Procedures:: removal of skin lesion on arm, previoux removal of epidermal cyst from axilla Oncologic Surgical History: Reports: None Dermatological Surgical History: Reports: None Social & Family History - Family History Family Medical History: Noncontributory - Caffeine Use Caffeine Use: Reports: Coffee Caffeine Use Comment: 4 cups/day ED ROS GENERAL - Review of Systems Review Of Systems: ROS reveals no pertinent complaints other than HPI. ED EXAM, GENERAL - Physical Exam Exam: See Below (See dictation) Course - Vital Signs Last Recorded V/S: Last Vital Signs Temp 97.1 F 01/23/19 14:13 Pulse 99 01/23/19 14:13 Resp 18 01/23/19 14:13 BP 128/65 01/23/19 14:13 Pulse Ox 97 01/23/19 14:13 - Orders/Labs/Meds Orders: Active Orders 24 hr Category Date Time Status Chest 2V [CR] Stat Exams 01/23/19 14:13 Taken Departure - Departure Time of Disposition: 14:33 Disposition: Home, Self-Care 01 Clinical Impression: Bronchitis - Discharge Information Instructions: Acute Bronchitis, Adult, [id number] Referrals: Paul Prado MD [Primary Care Provider] - Forms: ED Department Discharge Additional Instructions: The following information is given to patients seen in the emergency department who are being discharged to home. This information is to outline your options for follow-up care. We provide all patients seen in our emergency department with a follow-up referral. The need for follow-up, as well as the timing and circumstances, are variable depending upon the specifics of your emergency department visit. If you don't have a primary care physician on staff, we will provide you with a referral. We always advise you to contact your personal physician following an emergency department visit to inform them of the circumstance of the visit and for follow-up with them and/or the need for any referrals to a consulting specialist. The emergency department will also refer you to a specialist when appropriate. This referral assures that you have the opportunity for follow-up care with a specialist. All of these measure are taken in an effort to provide you with optimal care, which includes your follow-up. Under all circumstances we always encourage you to contact your private physician who remains a resource for coordinating your care. When calling for follow-up care, please make the office aware that this follow-up is from your recent emergency room visit. If for any reason you are refused follow-up, please contact the [facility] at and asked to speak to the emergency department charge nurse. [facility] [address] [place] [id number] [facility] [address] [place] [id number] 1. Stop smoking. 2. Please use Tylenol and/or Ibuprofen as needed for pain and fever management. Get plenty of Rest. Encourage fluids to prevent dehydration. Take the medications as prescribed 3. Please follow up with your primary care provider. Return to the ED as needed as discussed. - My Orders Last 24 Hours: My Active Orders 01/23/19 14:13 Chest 2V [CR] Stat - Assessment/Plan Last 24 Hours: My Active Orders 01/23/19 14:13 Chest 2V [CR] Stat
[2019-01-23 14:50] VITALS: BP 124/75
--- NOTE | 2019-01-23 14:52 | CR ---
INDICATION: pain/sob 2 View Chest. Findings: The lungs are clear. Pulmonary vascularity, mediastinum and cardiac silhouette are within normal limits. No effusions and no pneumothorax. Osseous structures appear unremarkable. Impression: No evidence of acute cardiopulmonary disease. Dictated by: Sonido Beth MD @ 01/23/2019 14:50:23 (Electronically Signed)
== END 2019-01-23 14:50 | disposition home or self-care (01) ==
LOC: MW.ED 14:00
DX: J40 Bronchitis, not specified as acute or chronic (principal); I10 Essential (primary) hypertension; F17.210 Nicotine dependence, cigarettes, uncomplicated; Z88.1 Allergy status to other antibiotic agents
CPT/HCPCS: 71046; 71046-26; 99283; 99283-25

== ENCOUNTER 2019-02-12 15:26 | Emergency (ER) | payer MEDICARE, MEDICAID ==
--- NOTE | 2019-02-12 15:33 | EDM.PDOC ---
ED HPI GENERAL MEDICAL PROBLEM - General Chief Complaint: Respiratory Problem Stated Complaint: UNK Time Seen by Provider: 02/12/19 15:27 Source of Information: Reports: Patient History Limitations: Reports: No Limitations - History of Present Illness INITIAL COMMENTS - FREE TEXT/NARRATIVE: History of present illness: []Patient was seen here on 01/23 diagnosed with bronchitis and treated with Zithromax and a Medrol dose pack. Patient states he feels weak, continues to cough and has chills. Patient states he does not drink much fluid because when he swallows he has an uncomfortable pulling sensation from his right shoulder into his right neck. He does tolerate his saliva and is able to swallow food. He also complains of an infection on his left thumb Review of systems: As per history of present illness and below otherwise all systems reviewed and negative. Past medical history: As per history of present illness and as reviewed below otherwise noncontributory. Surgical history: As per history of present illness and as reviewed below otherwise noncontributory. Social history: No reported history of drug or alcohol abuse. Family history: As per history of present illness and as reviewed below otherwise noncontributory. Physical exam: General: Well developed, well nourished in NAD HEENT: Atraumatic, normocephalic, pupils reactive, negative for conjunctival pallor or scleral icterus, mucous membranes moist, throat clear, neck supple, nontender, trachea midline. Lungs: Clear to auscultation, no rhonchi or wheezing, breath sounds equal bilaterally, no chest wall retractions chest nontender. Heart: S1S2, regular, negative for clicks, rubs, or JVD. Abdomen: NABS, Soft, nondistended, nontender. Negative for masses or hepatosplenomegaly. Negative for costovertebral tenderness. Pelvis: Stable nontender. Genitourinary: Deferred. Rectal: Deferred. Extremities: swelling, erythema and tenderness thumb cuticle area negative for cords or calf pain. Neurovascular unremarkable. Neuro: Awake, alert, oriented. Cranial nerves II through XII unremarkable. Cerebellum unremarkable. Motor and sensory unremarkable throughout. Exam nonfocal. Skin:warm and dry Diagnostics: CBC, chemistry, UA negative Therapeutics: . IV hydration, Paronychia drained with 11 blade scalpel ED Course: Improved Impression: Dehydration, bronchitis, paronychia left thumb Prescriptions: None Plan: Follow-up with primary care, increase fluid intake Definitive disposition and diagnosis as appropriate pending reevaluation and review of above. Epigastric Pain Score (Numeric/FACES): 5 - Related Data Allergies Allergy/AdvReac Type Severity Reaction Status Date / Time levofloxacin Allergy Rash Verified 02/12/19 15:31 Home Meds: Home Meds Multivitamin [Multiple Vitamins] 1 tab PO DAILY 01/06/18 [History] Budesonide/Formoterol [Symbicort 160-4.5 MCG] 2 puff INH BID 11/06/18 [History] Losartan/Hydrochlorothiazide [Losartan-HCTZ 100-25 MG] 1 tab PO DAILY 11/06/18 [ History] Potassium Chloride 8 mcg PO DAILY 11/06/18 [History] Umeclidinium Brm/Vilanterol Tr [Anoro Ellipta 62.5-25 MCG] 1 puff INH ASDIRECTED PRN 11/06/18 [History] Past Medical History - Past Health History Medical/Surgical History: Denies Medical/Surgical History HEENT History: Reports: Other (See Below) Other HEENT History: wears glasses, has top and bottom partial Cardiovascular History: Reports: Hypertension Respiratory History: Reports: Asthma, COPD Gastrointestinal History: Reports: Gastritis, Other (See Below) Other Gastrointestinal History: dysphagia Genitourinary History: Reports: None Musculoskeletal History: Reports: Fracture, Neck Pain, Chronic Other Musculoskeletal History: hx of fx ankle (no hardware), chronic neck and shoulder pain Neurological History: Reports: None Psychiatric History: Reports: Developmental Delay 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 Endocrine/Metabolic History: Reports: None Hematologic History: Reports: None Immunologic History: Reports: None Oncologic (Cancer) History: Reports: None Dermatologic History: Reports: Other (See Below) Other Dermatologic History: epidermoid cyst-rt axilla - Infectious Disease History Infectious Disease History: Reports: Chicken Pox, Measles, Mumps - Past Surgical History Head Surgeries/Procedures: Reports: None HEENT Surgical History: Reports: None Cardiovascular Surgical History: Reports: None Respiratory Surgical History: Reports: None GI Surgical History: Reports: Colonoscopy, EGD Male Surgical History: Reports: None Endocrine Surgical History: Reports: None Neurological Surgical History: Reports: None Musculoskeletal Surgical History: Reports: Other (See Below) Other Musculoskeletal Surgeries/Procedures:: removal of skin lesion on arm, previoux removal of epidermal cyst from axilla Oncologic Surgical History: Reports: None Dermatological Surgical History: Reports: None Social & Family History - Family History Family Medical History: Noncontributory - Caffeine Use Caffeine Use: Reports: Coffee Caffeine Use Comment: 4 cups/day ED ROS GENERAL - Review of Systems Review Of Systems: ROS reveals no pertinent complaints other than HPI. ED EXAM, GENERAL - Physical Exam Exam: See Below ED RESPIRATORY PROCEDURES - Additional/Other Procedure(s) Other (Free Text) Procedure(s): Patient's left thumb was anesthetized with 1% lidocaine without and bupivacaine 0.5 without epi, skin was cleaned with Betadine and 11 blade scalpel was used to make an incision at the cuticle with a small amount of pus expressed. Wound was left open and Bacitracin bandage was placed Course - Vital Signs Last Recorded V/S: Last Vital Signs Temp 96.3 F 02/12/19 15:32 Pulse 124 H 02/12/19 15:32 Resp 20 02/12/19 15:32 BP 138/78 02/12/19 15:32 Pulse Ox 95 02/12/19 15:32 - Orders/Labs/Meds Orders: Active Orders 24 hr Category Date Time Status EKG Documentation Completion [RC] STAT Care 02/12/19 15:37 Active Sodium Chloride 0.9% [Saline Flush] Med 02/12/19 15:37 Active 10 ml FLUSH ASDIRECTED PRN Sodium Chloride 0.9% [Saline Flush] Med 02/12/19 15:37 Active 2.5 ml FLUSH ASDIRECTED PRN Saline Lock Insert [OM.PC] Stat Oth 02/12/19 15:37 Ordered Medication Orders Sodium Chloride (Saline Flush) 10 ml FLUSH ASDIRECTED PRN PRN Reason: Keep Vein Open Sodium Chloride (Saline Flush) 2.5 ml FLUSH ASDIRECTED PRN PRN Reason: Keep Vein Open Labs: Laboratory Tests 02/12/19 02/12/19 02/12/19 Range/Units 15:30 15:30 16:46 WBC 11.90 H (4.0-11.0) K/uL RBC 3.39 L (4.50-5.90) M/uL Hgb 12.7 L (13.0-17.0) g/dL Hct 37.0 L (38.0-50.0) % MCV 109.1 H (80.0-98.0) fL MCH 37.5 H (27.0-32.0) pg MCHC 34.3 (31.0-37.0) g/dL RDW Std Deviation 58.4 (28.0-62.0) fl RDW Coeff of Gildardo 15 (11.0-15.0) % Plt Count 263 (150-400) K/uL MPV 9.90 (7.40-12.00) fL Neut % (Auto) 76.7 (48.0-80.0) % Lymph % (Auto) 13.4 L (16.0-40.0) % [place] % (Auto) 8.4 (0.0-15.0) % Eos % (Auto) 1.4 (0.0-7.0) % Baso % (Auto) 0.1 (0.0-1.5) % Neut # (Auto) 9.1 H (1.4-5.7) K/uL Lymph # (Auto) 1.6 (0.6-2.4) K/uL [place] # (Auto) 1.0 H (0.0-0.8) K/uL Eos # (Auto) 0.2 (0.0-0.7) K/uL Baso # (Auto) 0.0 (0.0-0.1) K/uL Nucleated RBC % 0.0 /100WBC Nucleated RBCs # 0 K/uL Sodium 134 L (136-148) mmol/L Potassium 3.3 L (3.5-5.1) mmol/L Chloride 101 (98-107) mmol/L Carbon Dioxide 20.1 L (21.0-32.0) mmol/L BUN 18 (7.0-18.0) mg/dL Creatinine 1.2 (0.8-1.3) mg/dL Est Cr Clr Drug Dosing 63.33 mL/min Estimated GFR (MDRD) > 60.0 ml/min Glucose 110 H (74-106) mg/dL Calcium 9.1 (8.5-10.1) mg/dL Total Bilirubin 0.4 (0.2-1.0) mg/dL AST 19 (15-37) IU/L ALT 42 (14-63) IU/L Alkaline Phosphatase 60 (46-116) U/L Total Protein 7.8 (6.4-8.2) g/dL Albumin 3.9 (3.4-5.0) g/dL Globulin 3.9 (2.6-4.0) g/dL Albumin/Globulin Ratio 1.0 (0.9-1.6) Urine Color YELLOW Urine Appearance CLEAR Urine pH 6.0 (5.0-8.0) Ur Specific [place] <= 1.005 (1.001-1.035) Urine Protein NEGATIVE (NEGATIVE) mg/dL Urine Glucose (UA) NEGATIVE (NEGATIVE) mg/dL Urine Ketones NEGATIVE (NEGATIVE) mg/dL Urine Occult Blood NEGATIVE (NEGATIVE) Urine Nitrite NEGATIVE (NEGATIVE) Urine Bilirubin NEGATIVE (NEGATIVE) Urine Urobilinogen 0.2 (<2.0) EU/dL Ur Leukocyte Esterase NEGATIVE (NEGATIVE) Meds: Medications Generic Name Dose Route Start Last Admin Trade Name Freq PRN Reason Stop Dose Admin Sodium Chloride 10 ml 02/12/19 15:37 Saline Flush FLUSH ASDIRECTED PRN Keep Vein Open Sodium Chloride 2.5 ml 02/12/19 15:37 Saline Flush FLUSH ASDIRECTED PRN Keep Vein Open Discontinued Medications Generic Name Dose Route Start Last Admin Trade Name Freq PRN Reason Stop Dose Admin Bacitracin 1 dose 02/12/19 15:51 02/12/19 16:00 Bacitracin Oint 1 Gm TOP 02/12/19 15:52 1 dose ONETIME ONE Administration Bupivacaine HCl 10 ml 02/12/19 15:37 02/12/19 15:45 Sensorcaine-Mpf 0.5% INJECT 02/12/19 15:38 10 ml ONETIME ONE Administration Sodium Chloride 1,000 mls @ 999 mls/hr 02/12/19 15:37 02/12/19 15:45 Normal Saline IV 02/12/19 16:37 999 mls/hr .Bolus ONE Administration Lidocaine HCl 5 ml 02/12/19 15:37 02/12/19 15:45 Xylocaine-Mpf 1% INJECT 02/12/19 15:38 5 ml ONETIME ONE Administration Departure - Departure Time of Disposition: 16:55 Disposition: Home, Self-Care 01 Condition: Good Clinical Impression: Dehydration, Paronychia - Discharge Information *PRESCRIPTION DRUG MONITORING PROGRAM REVIEWED*: No *COPY OF PRESCRIPTION DRUG MONITORING REPORT IN PATIENT RAFA: No Referrals: PCP,Unknown [Primary Care Provider] - Forms: ED Department Discharge Additional Instructions: The following information is given to patients seen in the emergency department who are being discharged to home. This information is to outline your options for follow-up care. We provide all patients seen in our emergency department with a follow-up referral. The need for follow-up, as well as the timing and circumstances, are variable depending upon the specifics of your emergency department visit. If you don't have a primary care physician on staff, we will provide you with a referral. We always advise you to contact your personal physician following an emergency department visit to inform them of the circumstance of the visit and for follow-up with them and/or the need for any referrals to a consulting specialist. The emergency department will also refer you to a specialist when appropriate. This referral assures that you have the opportunity for follow-up care with a specialist. All of these measure are taken in an effort to provide you with optimal care, which includes your follow-up. Under all circumstances we always encourage you to contact your private physician who remains a resource for coordinating your care. When calling for follow-up care, please make the office aware that this follow-up is from your recent emergency room visit. If for any reason you are refused follow-up, please contact the [facility] at and asked to speak to the emergency department charge nurse. Increase fluids as much as possible, Tylenol or Motrin for pain, follow-up with primary care [facility] [address] [place] [id number] - My Orders Last 24 Hours: My Active Orders 02/12/19 15:37 EKG Documentation Completion [RC] STAT Sodium Chloride 0.9% [Saline Flush] 10 ml FLUSH ASDIRECTED PRN Sodium Chloride 0.9% [Saline Flush] 2.5 ml FLUSH ASDIRECTED PRN Saline Lock Insert [OM.PC] Stat - Assessment/Plan Last 24 Hours: My Active Orders 02/12/19 15:37 EKG Documentation Completion [RC] STAT Sodium Chloride 0.9% [Saline Flush] 10 ml FLUSH ASDIRECTED PRN Sodium Chloride 0.9% [Saline Flush] 2.5 ml FLUSH ASDIRECTED PRN Saline Lock Insert [OM.PC] Stat
[2019-02-12] MEDS ORDERED: Sodium Chloride 0.9% 1,000 ML IV ONE (15:37)
[2019-02-12] MEDS ORDERED: Sodium Chloride 0.9% 10 ML Syringe FLUSH PRN (15:37)
[2019-02-12] MEDS ORDERED: Sodium Chloride 0.9% 2.5 ML Syringe FLUSH PRN (15:37)
[2019-02-12] MEDS ORDERED: Bupivacaine 0.5% 10 ML SDV INJECT ONE (15:37)
[2019-02-12] MEDS ORDERED: Bacitracin Oint 1 GM U/D Packet TOP ONE (15:51)
[2019-02-12 16:06] LABS: CHLORIDE,CL 101 mmol/L (98-107); SODIUM,NA 134 mmol/L (136-148)
[2019-02-12 17:12] VITALS: BP 142/76
== END 2019-02-12 17:12 | disposition home or self-care (01) ==
LOC: MW.ED 15:26
DX: L03.012 Cellulitis of left finger (principal); J40 Bronchitis, not specified as acute or chronic; E86.0 Dehydration; J44.9 Chronic obstructive pulmonary disease, unspecified; Z88.1 Allergy status to other antibiotic agents; Z79.899 Other long term (current) drug therapy
CPT/HCPCS: 10060; 36415; 80053; 81003; 85025; 93005; 96360; 99285; J2001; J3490; J7040

== ENCOUNTER 2019-02-17 12:55 | Day surgery (SDC) | payer MEDICARE, MEDICAID ==
[~2019-02-17 12:55] MED LIST changes: +Bupivacaine 25%/EPINEPHrine/PF 30 ML ONE; +Clindamycin Phosphate in D5W 600 MG in Premix Bag 50 BAG IV ONE; -ceFAZolin 2 GM in Premix Bag 1 BAG IV ONE
--- NOTE | 2019-02-17 13:19 | PCM.PREANE ---
Preanesthetic Assessment - Anesthesia/Transfusion/Family Hx Anesthesia History: Prior Anesthesia Without Reaction Other Type of Anesthesia Reaction Comment: DENIES ANY PROBLEMS WITH ANESTHESIA Family History of Anesthesia Reaction: No Transfusion History: No Prior Transfusion(s) Intubation History: Unknown - Review of Systems General: No Symptoms Pulmonary: No Symptoms Cardiovascular: No Symptoms Gastrointestinal: No Symptoms Neurological: No Symptoms Other: Reports: None - Physical Assessment NPO Status Date: 02/16/19 Height: 5 ft 9 in Weight: 67.132 kg ASA Class: 2 Mental Status: Alert & Oriented x3 Airway Class: Mallampati = 2 Dentition: Reports: Broken Tooth/Teeth, Missing Tooth/Teeth ROM/Head Extension: Full Lungs: Clear to Auscultation, Normal Respiratory Effort Cardiovascular: Regular Rate, Regular Rhythm - Allergies Allergies/Adverse Reactions: Allergies Allergy/AdvReac Type Severity Reaction Status Date / Time levofloxacin Allergy Rash Verified 02/12/19 15:31 - Blood Blood Available: No - Anesthesia Plan Pre-Op Medication Ordered: None - Acknowledgements Anesthesia Type Planned: Spinal Pt an Appropriate Candidate for the Planned Anesthesia: Yes Alternatives and Risks of Anesthesia Discussed w Pt/Guardian: Yes Pt/Guardian Understands and Agrees with Anesthesia Plan: Yes PreAnesthesia Questionnaire - Past Health History Medical/Surgical History: Denies Medical/Surgical History HEENT History: Reports: Other (See Below) Other HEENT History: wears glasses, has partial dental appliance but doesn't wear Cardiovascular History: Reports: Hypertension Respiratory History: Reports: COPD Gastrointestinal History: Reports: Diverticulosis, GERD Other Gastrointestinal History: dysphagia Genitourinary History: Reports: None Musculoskeletal History: Reports: Fracture Other Musculoskeletal History: hx of fx scapula and finger Neurological History: Reports: Headaches, Chronic Other Neuro History: states headaches are caused by neck pain Psychiatric History: Reports: Developmental Delay 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 Endocrine/Metabolic History: Reports: None Hematologic History: Reports: None Immunologic History: Reports: None Oncologic (Cancer) History: Reports: None Dermatologic History: Reports: Other (See Below) Other Dermatologic History: frequent skin infections - Infectious Disease History Infectious Disease History: Reports: Chicken Pox, Measles, Mumps - Past Surgical History GI Surgical History: Reports: Colonoscopy, EGD - SUBSTANCE USE Smoking Status *Q: Current Every Day Smoker Tobacco Use Within Last Twelve Months: Cigarettes Recreational Drug Use History: No - HOME MEDS Home Medications: Home Meds Multivitamin [Multiple Vitamins] 1 tab PO DAILY 01/06/18 [History] Budesonide/Formoterol [Symbicort 160-4.5 MCG] 2 puff INH BID 11/06/18 [History] Losartan/Hydrochlorothiazide [Losartan-HCTZ 100-25 MG] 1 tab PO DAILY 11/06/18 [ History] Potassium Chloride 8 mcg PO DAILY 11/06/18 [History] Umeclidinium Brm/Vilanterol Tr [Anoro Ellipta 62.5-25 MCG] 1 puff INH DAILY PRN 11/06/18 [History] Clindamycin HCl 300 mg PO QID 02/16/19 [History] Omeprazole 20 mg PO QAM 02/16/19 [History] oxyCODONE HCl/Acetaminophen [Oxycodone-Acetaminophen 5-325] 1 tab PO Q8H PRN [History] - CURRENT (IN HOUSE) MEDS Current Meds: Current Medications Lactated Ringer's (Ringers, Lactated) 1,000 mls @ 125 mls/hr IV ASDIRECTED MELONY Discontinued Medications Clindamycin Phosphate 600 mg/ (Premix) 50 mls @ 100 mls/hr IV ONETIME ONE Stop: 02/17/19 05:29 Bupivacaine HCl/Epinephrine Bitart (Sensorc Mpf 0.25%-Epi [id number]) Confirm Administered Dose 30 mls @ as directed .ROUTE .STK-MED ONE Stop: 02/17/19 09:40
[2019-02-17] MEDS ORDERED: Propofol 200 MG/20 ML SDV ONE (13:21)
[2019-02-17] MEDS ORDERED: Midazolam 1 MG/ML 2 ML SDV ONE ×2 (13:21→13:43)
[2019-02-17] MEDS ORDERED: Glycopyrrolate 0.2 MG/ML SDV ONE (13:22)
[2019-02-17] MEDS ORDERED: Ondansetron 4 MG/2 ML SDV ONE (13:22)
--- NOTE | 2019-02-17 14:31 | PCM.OPNOTE ---
- General Post-Op/Procedure Note Date of Surgery/Procedure: 02/17/19 Operative Procedure(s): i/d perirectal abscess Findings: already ruptured; c+s sent; wound to the L of raphe, between scrotum and anal opening; [id number] Pre Op Diagnosis: perirectal abscess Post-Op Diagnosis: Same Primary Surgeon: Bairon Miller Pathology: grahm stain and c+s sent Complications: None Condition: Good
--- NOTE | 2019-02-17 14:45 | PCM.POSTAN ---
POST ANESTHESIA ASSESSMENT - MENTAL STATUS Mental Status: Alert - RESPIRATORY Respiratory Status: Respiratory Rate WNL, Airway Patent, O2 Saturation Stable - CARDIOVASCULAR CV Status: Pulse Rate WNL, Blood Pressure Stable - GASTROINTESTINAL GI Status: No Symptoms - POST OP HYDRATION Hydration Status: Adequate & Stable
--- NOTE | 2019-02-17 15:16 | PCM48HPAN ---
Post Anesthesia Note - EVALUATION WITHIN 48HRS OF ANESTHETIC Vital Signs in Normal Range: Yes Patient Participated in Evaluation: Yes Respiratory Function Stable: Yes Airway Patent: Yes Cardiovascular Function Stable: Yes Hydration Status Stable: Yes Pain Control Satisfactory: Yes Nausea and Vomiting Control Satisfactory: Yes Mental Status Recovered: Yes Resp Rate: 16
[2019-02-17 16:23] VITALS: BP 110/60
--- NOTE | 2019-02-17 18:40 | OR ---
SURGEON: Bairon Miller MD DATE OF PROCEDURE: 02/17/2019 PREOPERATIVE DIAGNOSIS: Perirectal abscess. POSTOPERATIVE DIAGNOSIS: Perirectal abscess. PROCEDURE PERFORMED: Incision and drainage above. PRIMARY SURGEON: Bairon Miller MD. COMPLICATIONS: None. FINDINGS: Looked like the abscess has been ruptured, left behind with incomplete drainage, so making more by draining more and send for Gram stain and C and S. PROCEDURE IN DETAIL: The patient was taken to the operating room and placed in supine position. Upon induction of mild general sedation, the patient was put on to candy-cane stirrup position, and perineum was prepped and draped in sterile fashion. Local anesthetic was infiltrated with 1% lidocaine with epinephrine very gently and note that the patient has already an opening about 8 x 6 mm right to the left of the raphe right between the midpoint, scrotum, and anal opening. Using Q-tip, I saw little bit more pus coming out, and there was no intention to do any cutting as it is right on top of the membranous urethra. I used some irrigation, cleaned it up, and the wound was then put up with appropriate dressing. The patient was then put back to supine position and transferred to recovery in hemodynamically stable condition. The patient tolerated the procedure well. There were no intraoperative complications. Dr. Miller was present through the whole procedure. Gram stain and C and S have been sent. The patient's right thumb infection has healed and nothing to be done. SUSIE / RABIA /[id number]
== END 2019-02-17 15:45 | disposition home or self-care (01) ==
LOC: MW.SDS 12:55
PROVIDERS: ATTEND Surgery
DX: K61.1 Rectal abscess (principal); B99.9 Unspecified infectious disease; F17.210 Nicotine dependence, cigarettes, uncomplicated; I10 Essential (primary) hypertension; J44.9 Chronic obstructive pulmonary disease, unspecified; K21.9 Gastro-esophageal reflux disease without esophagitis; Z79.02 Long term (current) use of antithrombotics/antiplatelets; Z79.899 Other long term (current) drug therapy
CPT/HCPCS: 46040; 87070; 87075; 87205; J2250; J2405; J2704; J3490; J7120

== ENCOUNTER 2019-05-20 12:41 | Observation (INO) | payer MEDICARE, MEDICAID ==
[2019-05-20] MEDS ORDERED: Ondansetron 4 MG/2 ML SDV IVPUSH ONE (13:16)
[2019-05-20] MEDS ORDERED: Sodium Chloride 0.9% 1,000 ML IV ONE ×2 (13:16→14:50)
--- NOTE | 2019-05-20 13:49 | EDM.PDOC ---
ED HPI GENERAL MEDICAL PROBLEM - General Chief Complaint: Gastrointestinal Problem Stated Complaint: UNABLE TO UNDERSTAND PT Time Seen by Provider: 05/20/19 13:08 Source of Information: Reports: Patient History Limitations: Reports: No Limitations - History of Present Illness INITIAL COMMENTS - FREE TEXT/NARRATIVE: HISTORY AND PHYSICAL: History of present illness: Patient is a 59-year-old male who presents to the emergency room today with complaints of upper abdominal/chest pain over the past 2-3 days. He reports that he saw his primary care provider, Dr. Prado, last week who had given him some antibiotics for an upper respiratory infection. He states that he continues to have some shortness of breath and chest tightness. Over the past 2- 3 days has had some upper abdominal pain that goes to his midsternum. States he has had decreased appetite and has not been eating or drinking much. Has had some nausea and loose stools this morning. Patient denies any fever, chills, headache, change in vision, syncope or near syncope. Denies any back or neck pain. Denies any vomiting, constipation or dysuria. Has not noted any blood in urine or stool. Denies any drug or alcohol abuse. Review of systems: As per history of present illness and below otherwise all systems reviewed and negative. Past medical history: As per history of present illness and as reviewed below otherwise noncontributory. Surgical history: As per history of present illness and as reviewed below otherwise noncontributory. Social history: See social history for further information Family history: As per history of present illness and as reviewed below otherwise noncontributory. Physical exam: General: Well-developed and well-nourished 59-year-old male. Alert and appropriate per self (has some developmental delay-has director decision support). Nontoxic appearing and in no acute distress. HEENT: Atraumatic, normocephalic, pupils equal and reactive bilaterally, negative for conjunctival pallor or scleral icterus, mucous membranes moist, TMs normal bilaterally, throat clear, neck supple, nontender, trachea midline. No drooling or trismus noted. No meningeal signs. No hot potato voice noted. Lungs: Clear to auscultation, breath sounds equal bilaterally, chest nontender. Heart: S1S2, tachycardia, regular rate and rhythm without overt murmur Abdomen: Soft, nondistended, nontender. Negative for masses or hepatosplenomegaly. Negative for costovertebral tenderness. Pelvis: Stable nontender. Skin: Intact, warm, dry. No lesions or rashes noted. Extremities: Atraumatic, moves all extremities per self without difficulty or deficits, negative for cords or calf pain. Neurovascular unremarkable. Neuro: Awake, alert, oriented. Cranial nerves II through XII unremarkable. Cerebellum unremarkable. Motor and sensory unremarkable throughout. Exam nonfocal. Notes: CXR shows no acute findings. Patient states he still feels the epigastric discomfort. He does appear to be dehydrated. Patient continues to be tachycardic. I will add CT of the chest abdomen and pelvis at this time Will admit for observation. Dr. Boogie was consult on this case and is agreeable. Patient will go to [facility] with telemetry. 1500: Prerna Valverde COMPETENCY EVALUATED NURSE AIDE is here to evaluate the patient. Diagnostics: CBC, CMP, lipase, UA, chest x-ray, troponin, EKG, CT abd/pelvis, CTA Therapeutics: IV fluid, Impression: Dehydration Chest pain r/o ID Epigastric pain Plan: Observation to Med/Surg with Telemetry Definitive disposition and diagnosis as appropriate pending reevaluation and review of above. Right Upper Abdomen Pain Score (Numeric/FACES): 6 - Related Data Allergies Allergy/AdvReac Type Severity Reaction Status Date / Time levofloxacin Allergy Rash Verified 05/20/19 16:25 Home Meds: Home Meds Multivitamin [Multiple Vitamins] 1 tab PO DAILY 01/06/18 [History] Budesonide/Formoterol [Symbicort 160-4.5 MCG] 2 puff INH BID 11/06/18 [History] Losartan/Hydrochlorothiazide [Losartan-HCTZ 100-25 MG] 1 tab PO DAILY 11/06/18 [ History] Potassium Chloride 8 mcg PO DAILY 11/06/18 [History] Umeclidinium Brm/Vilanterol Tr [Anoro Ellipta 62.5-25 MCG] 1 puff INH DAILY PRN 11/06/18 [History] Omeprazole 20 mg PO QAM 02/16/19 [History] Past Medical History - Past Health History Medical/Surgical History: Denies Medical/Surgical History HEENT History: Reports: Other (See Below) Other HEENT History: wears glasses, has partial dental appliance but doesn't wear Cardiovascular History: Reports: Hypertension Respiratory History: Reports: COPD Gastrointestinal History: Reports: Diverticulosis, GERD Other Gastrointestinal History: dysphagia Genitourinary History: Reports: None Musculoskeletal History: Reports: Fracture Other Musculoskeletal History: hx of fx scapula and finger Neurological History: Reports: Headaches, Chronic Other Neuro History: states headaches are caused by neck pain Psychiatric History: Reports: Developmental Delay Other Psychiatric History: has caser shoe parts Endocrine/Metabolic History: Reports: None Hematologic History: Reports: None Immunologic History: Reports: None Oncologic (Cancer) History: Reports: None Dermatologic History: Reports: Other (See Below) Other Dermatologic History: frequent skin infections - Infectious Disease History Infectious Disease History: Reports: Chicken Pox, Measles, Mumps - Past Surgical History Head Surgeries/Procedures: Reports: None HEENT Surgical History: Reports: Adenoidectomy, Tonsillectomy GI Surgical History: Reports: Colonoscopy, EGD Social & Family History - Family History Family Medical History: Noncontributory - Tobacco Use Smoking Status *Q: Current Every Day Smoker Years of Tobacco use: 45 Packs/Tins Daily: 1 - Caffeine Use Caffeine Use: Reports: Coffee Caffeine Use Comment: 4 cups/day - Recreational Drug Use Recreational Drug Use: No ED ROS GENERAL - Review of Systems Review Of Systems: ROS reveals no pertinent complaints other than HPI. ED EXAM, GENERAL - Physical Exam Exam: See Below (See dictation) Course - Vital Signs Last Recorded V/S: Last Vital Signs Temp 99 F 05/20/19 19:40 Pulse 92 05/20/19 19:40 Resp 19 05/20/19 19:40 BP 127/60 05/20/19 19:52 Pulse Ox 99 05/20/19 19:40 - Orders/Labs/Meds Orders: Medication Orders Albuterol/Ipratropium (Duoneb 3.0-0.5 Mg/3 Ml) 3 ml NEB Q4HRRT PRN PRN Reason: Shortness Of Breath/wheezing Sodium Chloride (Normal Saline) 1,000 mls @ 125 mls/hr IV Q8H MELONY Last Admin: 05/20/19 16:48 Dose: 125 mls/hr Morphine Sulfate (Morphine) 2 mg IVPUSH Q4H PRN PRN Reason: Pain Ondansetron HCl (Zofran) 4 mg IVPUSH Q4H PRN PRN Reason: Nausea Budesonide/Formoterol 160-4.5 Mcg/Puff 6 Gm Inhaler (Symbicort) 2 each INH BID MELONY Umeclidinium Brm/Vilanterol Tr (Anoro Ellipta) 1 each INH DAILY MELONY Last Admin: 05/20/19 17:10 Dose: Not Given Labs: Laboratory Tests 05/20/19 05/20/19 05/20/19 Range/Units 13:25 13:25 13:25 WBC (4.0-11.0) K/uL RBC (4.50-5.90) M/uL Hgb (13.0-17.0) g/dL Hct (38.0-50.0) % MCV (80.0-98.0) fL MCH (27.0-32.0) pg MCHC (31.0-37.0) g/dL RDW Std Deviation (28.0-62.0) fl RDW Coeff of Gildardo (11.0-15.0) % Plt Count (150-400) K/uL MPV (7.40-12.00) fL Neut % (Auto) (48.0-80.0) % Lymph % (Auto) (16.0-40.0) % [place]oke % (Auto) (0.0-15.0) % Eos % (Auto) (0.0-7.0) % Baso % (Auto) (0.0-1.5) % Neut # (Auto) (1.4-5.7) K/uL Lymph # (Auto) (0.6-2.4) K/uL [place]oke # (Auto) (0.0-0.8) K/uL Eos # (Auto) (0.0-0.7) K/uL Baso # (Auto) (0.0-0.1) K/uL Nucleated RBC % /100WBC Nucleated RBCs # K/uL D-Dimer, Quantitative 0.31 (0.0-0.50) mg/L FEU Sodium 128 L (136-148) mmol/L Potassium 3.6 (3.5-5.1) mmol/L Chloride 92 L (98-107) mmol/L Carbon Dioxide 19.3 L (21.0-32.0) mmol/L BUN 13 (7.0-18.0) mg/dL Creatinine 1.4 H (0.8-1.3) mg/dL Est Cr Clr Drug Dosing 50.95 mL/min Estimated GFR (MDRD) 51.7 ml/min Glucose 115 H (74-106) mg/dL Calcium 9.2 (8.5-10.1) mg/dL Total Bilirubin 0.6 (0.2-1.0) mg/dL AST 25 (15-37) IU/L ALT 34 (14-63) IU/L Alkaline Phosphatase 44 L (46-116) U/L Troponin I < 0.050 (0.000-0.056) ng/mL Total Protein 7.8 (6.4-8.2) g/dL Albumin 4.3 (3.4-5.0) g/dL Globulin 3.5 (2.6-4.0) g/dL Albumin/Globulin Ratio 1.2 (0.9-1.6) Lipase 79 (73-393) U/L Urine Color Urine Appearance Urine pH (5.0-8.0) Ur Specific [place] (1.001-1.035) Urine Protein (NEGATIVE) mg/dL Urine Glucose (UA) (NEGATIVE) mg/dL Urine Ketones (NEGATIVE) mg/dL Urine Occult Blood (NEGATIVE) Urine Nitrite (NEGATIVE) Urine Bilirubin (NEGATIVE) Urine Urobilinogen (<2.0) EU/dL Ur Leukocyte Esterase (NEGATIVE) 05/20/19 05/20/19 Range/Units 14:14 14:37 WBC 10.91 (4.0-11.0) K/uL RBC 3.44 L (4.50-5.90) M/uL Hgb 12.9 L (13.0-17.0) g/dL Hct 37.7 L (38.0-50.0) % MCV 109.6 H (80.0-98.0) fL MCH 37.5 H (27.0-32.0) pg MCHC 34.2 (31.0-37.0) g/dL RDW Std Deviation 57.0 (28.0-62.0) fl RDW Coeff of Gildardo 14 (11.0-15.0) % Plt Count 238 (150-400) K/uL MPV 9.70 (7.40-12.00) fL Neut % (Auto) 80.1 H (48.0-80.0) % Lymph % (Auto) 9.6 L (16.0-40.0) % [place]oke % (Auto) 9.5 (0.0-15.0) % Eos % (Auto) 0.7 (0.0-7.0) % Baso % (Auto) 0.1 (0.0-1.5) % Neut # (Auto) 8.7 H (1.4-5.7) K/uL Lymph # (Auto) 1.1 (0.6-2.4) K/uL [place] # (Auto) 1.0 H (0.0-0.8) K/uL Eos # (Auto) 0.1 (0.0-0.7) K/uL Baso # (Auto) 0.0 (0.0-0.1) K/uL Nucleated RBC % 0.0 /100WBC Nucleated RBCs # 0 K/uL D-Dimer, Quantitative (0.0-0.50) mg/L FEU Sodium (136-148) mmol/L Potassium (3.5-5.1) mmol/L Chloride (98-107) mmol/L Carbon Dioxide (21.0-32.0) mmol/L BUN (7.0-18.0) mg/dL Creatinine (0.8-1.3) mg/dL Est Cr Clr Drug Dosing mL/min Estimated GFR (MDRD) ml/min Glucose (74-106) mg/dL Calcium (8.5-10.1) mg/dL Total Bilirubin (0.2-1.0) mg/dL AST (15-37) IU/L ALT (14-63) IU/L Alkaline Phosphatase (46-116) U/L Troponin I (0.000-0.056) ng/mL Total Protein (6.4-8.2) g/dL Albumin (3.4-5.0) g/dL Globulin (2.6-4.0) g/dL Albumin/Globulin Ratio (0.9-1.6) Lipase (73-393) U/L Urine Color YELLOW Urine Appearance CLEAR Urine pH 6.5 (5.0-8.0) Ur Specific [place] <= 1.005 (1.001-1.035) Urine Protein NEGATIVE (NEGATIVE) mg/dL Urine Glucose (UA) NEGATIVE (NEGATIVE) mg/dL Urine Ketones NEGATIVE (NEGATIVE) mg/dL Urine Occult Blood NEGATIVE (NEGATIVE) Urine Nitrite NEGATIVE (NEGATIVE) Urine Bilirubin NEGATIVE (NEGATIVE) Urine Urobilinogen 0.2 (<2.0) EU/dL Ur Leukocyte Esterase NEGATIVE (NEGATIVE) Meds: Medications Generic Name Dose Route Start Last Admin Trade Name Freq PRN Reason Stop Dose Admin Albuterol/Ipratropium 3 ml 05/20/19 15:47 Duoneb 3.0-0.5 Mg/3 Ml NEB Q4HRRT PRN Shortness Of Breath/wheezing Sodium Chloride 1,000 mls @ 125 mls/hr 05/20/19 16:00 05/20/19 16:48 Normal Saline IV 125 mls/hr Q8H MELONY Administration Morphine Sulfate 2 mg 05/20/19 16:57 Morphine IVPUSH Q4H PRN Pain Ondansetron HCl 4 mg 05/20/19 15:47 Zofran IVPUSH Q4H PRN Nausea Budesonide/ 2 each 05/20/19 21:00 Formoterol 160-4.5 INH Mcg/Puff 6 Gm BID MELONY Inhaler (Symbicort) Umeclidinium Brm/ 1 each 05/20/19 15:57 05/20/19 17:10 Vilanterol Tr (Anoro INH Not Given Ellipta) DAILY MELONY Discontinued Medications Generic Name Dose Route Start Last Admin Trade Name Freq PRN Reason Stop Dose Admin Aspirin 324 mg 05/20/19 14:42 05/20/19 15:09 Aspirin PO 05/20/19 14:43 Not Given ONETIME ONE Aspirin 324 mg 05/20/19 14:50 05/20/19 15:09 Aspirin PO 05/20/19 14:51 324 mg ONETIME ONE Administration Famotidine 20 mg 05/20/19 14:50 05/20/19 15:10 Pepcid IVPUSH 05/20/19 14:51 20 mg ONETIME ONE Administration Sodium Chloride 1,000 mls @ 999 mls/hr 05/20/19 13:16 05/20/19 13:53 Normal Saline IV 05/20/19 14:16 999 mls/hr STAT ONE Administration Sodium Chloride 1,000 mls @ 999 mls/hr 05/20/19 14:50 05/20/19 15:10 Normal Saline IV 05/20/19 15:50 999 mls/hr STAT ONE Administration Iopamidol 75 ml 05/20/19 15:07 05/20/19 15:38 Isovue Multipack-370 (76%) IVPUSH 05/20/19 15:08 75 ml ONETIME STA Administration Morphine Sulfate 2 mg 05/20/19 14:50 05/20/19 15:10 Morphine IVPUSH 05/20/19 14:51 2 mg ONETIME ONE Administration Ondansetron HCl 4 mg 05/20/19 13:16 05/20/19 13:56 Zofran IVPUSH 05/20/19 13:17 4 mg ONETIME ONE Administration Departure - Departure Time of Disposition: 14:54 Disposition: Refer to Observation Clinical Impression: Chest pain, rule out acute myocardial infarction, Epigastric pain, Dehydration - Discharge Information
--- NOTE | 2019-05-20 14:09 | CR ---
INDICATION: Shortness of breath TECHNIQUE: Chest radiograph 2 views COMPARISON: 01/23/2019 FINDINGS: Mediastinum: The mediastinum is normal in appearance. The heart silhouette is normal in size and morphology. Lung: Both lungs are unremarkable in appearance. No sign of pleural effusion seen. No pneumothorax is identified. Bone and Soft tissue: Unremarkable for age. IMPRESSION: 1. No acute cardiopulmonary disease is seen. Dictated by: Timbo Huffman MD @ 05/20/2019 14:09:04 (Electronically Signed)
[2019-05-20 14:24] LABS: BLOOD UREA NITROGEN,BUN 13 mg/dL (7.0-18.0); CARBON DIOXIDE,CO2 19.3 mmol/L (21.0-32.0); CHLORIDE,CL 92 mmol/L (98-107); GLUCOSE RANDOM 115 mg/dL (74-106); POTASSIUM,K 3.6 mmol/L (3.5-5.1); SODIUM,NA 128 mmol/L (136-148)
[2019-05-20] MEDS ORDERED: Aspirin 81 MG Tab.Chew PO ONE ×2 (14:42→14:50)
[2019-05-20] MEDS ORDERED: Famotidine 20 MG/2 ML SDV IVPUSH ONE (14:50)
[2019-05-20] MEDS ORDERED: Morphine 2 MG/ML Syringe IVPUSH ONE (14:50)
[2019-05-20] MEDS ORDERED: Iopamidol 755 MG/ML 500 ML Multipack Bottle IVPUSH STA (15:07)
--- NOTE | 2019-05-20 15:41 | PCM.HP.2 ---
H&P History of Present Illness - General Date of Service: 05/20/19 Admit Problem/Dx: Admission Diagnosis/Problem Admission Diagnosis/Problem Chest pain, rule out acute myocardial infarction Source of Information: Patient, Old Records History Limitations: Reports: No Limitations - History of Present Illness Initial Comments - Free Text/Narative: This 59 year old male with pmh of HTN, developmental delay and recent treatment for bronchitis presented to the ED today with complaints of vague ches tpain, abdominal pain and diarrhea x 4 days. he reports he is not feeling well. He has not been able to eat or drink much for the last 4 days. Reports diarrhea is watery, has not noticed any black color or bloody in his stool. He feels nauseated with no appetite. Reports abdominal pain to mid lower left abdomen. He reports some chills at home. Mild chest pressure which is more upper left abdomen and R shoulder. He reports mild shortness of breath, which he saw his PCP for beginning of May for and was placed on 10 days of Azithromycin 500 mg. He previously was seen in January for perirectal abscess and was on 10 days of Clindamycin. He reports no concerns with urination. No back pain. No Neurologic deficits. He reports he smokes 1/2 ppd, no alcohol use since 2016 and no recreational drug use. In the ED no leukocytosis noted, hgb 12.9. Na 128, K+3.6, Cl 92, Bicarb 19.3, BUN 13, Cr 1.4 Troponin negative. CXR negative. EKG SR with no signs of ischemia. Lactic acid 3.3, give 2 L bolus in the ED. Tachycardia noted in ED with BP 104/74. He was treated with ASA, pepcid, Morphine, NS bolus. He will be admitted for chest pain, dehydration and abdominal pain. PCP, Dr Prado. Right Upper Abdomen Pain Score (Numeric/FACES): 6 - Related Data Allergies/Adverse Reactions: Allergies Allergy/AdvReac Type Severity Reaction Status Date / Time levofloxacin Allergy Rash Verified 05/20/19 16:25 Home Medications: Home Meds Multivitamin [Multiple Vitamins] 1 tab PO DAILY 01/06/18 [History] Budesonide/Formoterol [Symbicort 160-4.5 MCG] 2 puff INH BID 11/06/18 [History] Losartan/Hydrochlorothiazide [Losartan-HCTZ 100-25 MG] 1 tab PO DAILY 11/06/18 [ History] Potassium Chloride 8 mcg PO DAILY 11/06/18 [History] Umeclidinium Brm/Vilanterol Tr [Anoro Ellipta 62.5-25 MCG] 1 puff INH DAILY PRN 11/06/18 [History] Omeprazole 20 mg PO QAM 02/16/19 [History] Past Medical History - Past Health History Medical/Surgical History: Denies Medical/Surgical History HEENT History: Reports: Other (See Below) Other HEENT History: wears glasses, has partial dental appliance but doesn't wear Cardiovascular History: Reports: Hypertension. Denies: Afib, Blood Clots/VTE/ DVT, CAD, Heart Failure, LA, Stents Respiratory History: Reports: COPD Gastrointestinal History: Reports: Diverticulosis, GERD Other Gastrointestinal History: dysphagia Genitourinary History: Reports: None. 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 Denies: Diabetes, Type II, Hypothyroidism, Obesity/BMI 30+ Hematologic History: Reports: None Immunologic History: Reports: None Oncologic (Cancer) History: Reports: None Dermatologic History: Reports: Other (See Below) Other Dermatologic History: frequent skin infections, perirectal abscess - Infectious Disease History Infectious Disease History: Reports: Chicken Pox, Measles, Mumps - Past Surgical History Head Surgeries/Procedures: Reports: None HEENT Surgical History: Reports: Adenoidectomy, Tonsillectomy GI Surgical History: Reports: Colonoscopy, EGD Social & Family History - Family History Family Medical History: Noncontributory - Tobacco Use Smoking Status *Q: Current Every Day Smoker Years of Tobacco use: 45 Packs/Tins Daily: 1 - Caffeine Use Caffeine Use: Reports: Coffee Caffeine Use Comment: 4 cups/day - Alcohol Use Alcohol Use History: No Date/Time of Last Drink Comment: Last drink 2016 - Recreational Drug Use Recreational Drug Use: No - Living Situation & Occupation Living situation: Reports: Single H&P Review of Systems - Review of Systems: Review Of Systems: See Below General: Reports: Chills, Malaise, Weakness, Fatigue HEENT: Denies: Headaches, Sinus Congestion, Sore Throat, Visual Changes Pulmonary: Reports: Shortness of Breath, Wheezing, Cough Cardiovascular: Reports: Chest Pain (upper abdomen and R shoulder more so). Denies: Edema Gastrointestinal: Reports: Abdominal Pain, Diarrhea, Decreased Appetite, Nausea. Denies: Black Stool, Bloody Stool, Distension, Vomiting Genitourinary: Reports: No Symptoms. Denies: Dysuria, Frequency, Burning Musculoskeletal: Reports: No Symptoms. Denies: Neck Pain Skin: Reports: No Symptoms Psychiatric: Reports: No Symptoms Neurological: Reports: No Symptoms Hematologic/Lymphatic: Reports: No Symptoms Immunologic: Reports: No Symptoms Exam - Exam Exam: See Below - Vital Signs Vital Signs: Last Vital Signs Temp 97.8 F 05/20/19 13:04 Pulse 114 H 05/20/19 13:04 Resp 18 05/20/19 13:04 BP 104/76 05/20/19 13:04 Pulse Ox 98 05/20/19 13:04 Weight: 64.2 kg - Exam General: Alert, Oriented, Cooperative Neck: Supple Lungs: Clear to Auscultation, Normal Respiratory Effort Cardiovascular: Regular Rhythm, Normal S1, Normal S2, Tachycardia GI/Abdominal Exam: Normal Bowel Sounds (hyperactive), Soft, Tender (mid to lower left quadrant tenderness). No: Distended, Guarding, Rigid Back Exam: Normal Inspection, Full Range of Motion Extremities: Normal Inspection, Normal Range of Motion, Non-Tender, No Pedal Edema Neurological: Cranial Nerves Intact Neuro Extensive - Mental Status: Alert, Oriented x3 Neuro Extensive - Motor, Sensory, Reflexes: CN II-XII Intact Psychiatric: Alert, Normal Affect, Normal Mood - Patient Data Lab Results Last 24 hrs: Laboratory Results - last 24 hr 05/20/19 05/20/19 05/20/19 Range/Units 13:25 13:25 13:25 WBC (4.0-11.0) K/uL RBC (4.50-5.90) M/uL Hgb (13.0-17.0) g/dL Hct (38.0-50.0) % MCV (80.0-98.0) fL MCH (27.0-32.0) pg MCHC (31.0-37.0) g/dL RDW Std Deviation (28.0-62.0) fl RDW Coeff of Gildardo (11.0-15.0) % Plt Count (150-400) K/uL MPV (7.40-12.00) fL Neut % (Auto) (48.0-80.0) % Lymph % (Auto) (16.0-40.0) % Cooper % (Auto) (0.0-15.0) % Eos % (Auto) (0.0-7.0) % Baso % (Auto) (0.0-1.5) % Neut # (Auto) (1.4-5.7) K/uL Lymph # (Auto) (0.6-2.4) K/uL Cooper # (Auto) (0.0-0.8) K/uL Eos # (Auto) (0.0-0.7) K/uL Baso # (Auto) (0.0-0.1) K/uL Nucleated RBC % /100WBC Nucleated RBCs # K/uL D-Dimer, Quantitative 0.31 (0.0-0.50) mg/L FEU Sodium 128 L (136-148) mmol/L Potassium 3.6 (3.5-5.1) mmol/L Chloride 92 L (98-107) mmol/L Carbon Dioxide 19.3 L (21.0-32.0) mmol/L BUN 13 (7.0-18.0) mg/dL Creatinine 1.4 H (0.8-1.3) mg/dL Est Cr Clr Drug Dosing 50.95 mL/min Estimated GFR (MDRD) 51.7 ml/min Glucose 115 H (74-106) mg/dL Calcium 9.2 (8.5-10.1) mg/dL Total Bilirubin 0.6 (0.2-1.0) mg/dL AST 25 (15-37) IU/L ALT 34 (14-63) IU/L Alkaline Phosphatase 44 L (46-116) U/L Troponin I < 0.050 (0.000-0.056) ng/mL Total Protein 7.8 (6.4-8.2) g/dL Albumin 4.3 (3.4-5.0) g/dL Globulin 3.5 (2.6-4.0) g/dL Albumin/Globulin Ratio 1.2 (0.9-1.6) Lipase 79 (73-393) U/L Urine Color Urine Appearance Urine pH (5.0-8.0) Ur Specific [place] (1.001-1.035) Urine Protein (NEGATIVE) mg/dL Urine Glucose (UA) (NEGATIVE) mg/dL Urine Ketones (NEGATIVE) mg/dL Urine Occult Blood (NEGATIVE) Urine Nitrite (NEGATIVE) Urine Bilirubin (NEGATIVE) Urine Urobilinogen (<2.0) EU/dL Ur Leukocyte Esterase (NEGATIVE) 05/20/19 05/20/19 Range/Units 14:14 14:37 WBC 10.91 (4.0-11.0) K/uL RBC 3.44 L (4.50-5.90) M/uL Hgb 12.9 L (13.0-17.0) g/dL Hct 37.7 L (38.0-50.0) % MCV 109.6 H (80.0-98.0) fL MCH 37.5 H (27.0-32.0) pg MCHC 34.2 (31.0-37.0) g/dL RDW Std Deviation 57.0 (28.0-62.0) fl RDW Coeff of Gildardo 14 (11.0-15.0) % Plt Count 238 (150-400) K/uL MPV 9.70 (7.40-12.00) fL Neut % (Auto) 80.1 H (48.0-80.0) % Lymph % (Auto) 9.6 L (16.0-40.0) % Cooper % (Auto) 9.5 (0.0-15.0) % Eos % (Auto) 0.7 (0.0-7.0) % Baso % (Auto) 0.1 (0.0-1.5) % Neut # (Auto) 8.7 H (1.4-5.7) K/uL Lymph # (Auto) 1.1 (0.6-2.4) K/uL Cooper # (Auto) 1.0 H (0.0-0.8) K/uL Eos # (Auto) 0.1 (0.0-0.7) K/uL Baso # (Auto) 0.0 (0.0-0.1) K/uL Nucleated RBC % 0.0 /100WBC Nucleated RBCs # 0 K/uL D-Dimer, Quantitative (0.0-0.50) mg/L FEU Sodium (136-148) mmol/L Potassium (3.5-5.1) mmol/L Chloride (98-107) mmol/L Carbon Dioxide (21.0-32.0) mmol/L BUN (7.0-18.0) mg/dL Creatinine (0.8-1.3) mg/dL Est Cr Clr Drug Dosing mL/min Estimated GFR (MDRD) ml/min Glucose (74-106) mg/dL Calcium (8.5-10.1) mg/dL Total Bilirubin (0.2-1.0) mg/dL AST (15-37) IU/L ALT (14-63) IU/L Alkaline Phosphatase (46-116) U/L Troponin I (0.000-0.056) ng/mL Total Protein (6.4-8.2) g/dL Albumin (3.4-5.0) g/dL Globulin (2.6-4.0) g/dL Albumin/Globulin Ratio (0.9-1.6) Lipase (73-393) U/L Urine Color YELLOW Urine Appearance CLEAR Urine pH 6.5 (5.0-8.0) Ur Specific [place] <= 1.005 (1.001-1.035) Urine Protein NEGATIVE (NEGATIVE) mg/dL Urine Glucose (UA) NEGATIVE (NEGATIVE) mg/dL Urine Ketones NEGATIVE (NEGATIVE) mg/dL Urine Occult Blood NEGATIVE (NEGATIVE) Urine Nitrite NEGATIVE (NEGATIVE) Urine Bilirubin NEGATIVE (NEGATIVE) Urine Urobilinogen 0.2 (<2.0) EU/dL Ur Leukocyte Esterase NEGATIVE (NEGATIVE) Result Diagrams: 05/20/19 14:14 05/20/19 13:25 EKG INTERPRETATION EKG Date: 05/20/19 Rhythm: NSR (tachycardia) QRS: Normal ST-T: Normal QT: Normal - Problem List (1) Chest pain, rule out acute myocardial infarction SNOMED Code(s): 39135924 ICD Code: R07.9 - CHEST PAIN, UNSPECIFIED Status: Acute Current Visit: Yes (2) Dehydration SNOMED Code(s): 85597810 ICD Code: E86.0 - DEHYDRATION Status: Acute Current Visit: Yes (3) Abdominal pain SNOMED Code(s): 35569746 ICD Code: R10.9 - UNSPECIFIED ABDOMINAL PAIN Status: Acute Current Visit : No (4) Weakness SNOMED Code(s): 75562411 ICD Code: R53.1 - WEAKNESS Status: Acute Current Visit: No (5) Hypotension SNOMED Code(s): 39634806 ICD Code: I95.9 - HYPOTENSION, UNSPECIFIED Status: Acute Priority: High Current Visit: No Qualifiers: Hypotension type: unspecified hypotension type Qualified Code(s): I95.9 - Hypotension, unspecified (6) Acute kidney failure SNOMED Code(s): 87869572 ICD Code: N17.9 - ACUTE KIDNEY FAILURE, UNSPECIFIED Status: Acute Priority: High Current Visit: No Qualifiers: Acute renal failure type: unspecified Qualified Code(s): N17.9 - Acute kidney failure, unspecified (7) HTN (hypertension) SNOMED Code(s): 37364805 ICD Code: I10 - ESSENTIAL (PRIMARY) HYPERTENSION Status: Chronic Current Visit: Yes Qualifiers: Hypertension type: essential hypertension Qualified Code(s): I10 - Essential (primary) hypertension (8) COPD (chronic obstructive pulmonary disease) SNOMED Code(s): 23868231 ICD Code: J44.9 - CHRONIC OBSTRUCTIVE PULMONARY DISEASE, UNSPECIFIED Status : Chronic Current Visit: Yes (9) Smoker SNOMED Code(s): 83221067 ICD Code: F17.200 - NICOTINE DEPENDENCE, UNSPECIFIED, UNCOMPLICATED Status : Chronic Current Visit: Yes Problem List Initiated/Reviewed/Updated: Yes Orders Last 24hrs: Active Orders 24 hr Category Date Time Status Admission Status [Patient Status] [ADT] Stat ADT 05/20/19 15:13 Active EKG Documentation Completion [RC] STAT Care 05/20/19 13:17 Active Abdomen Pelvis w Cont [CT] Stat Exams 05/20/19 15:06 Ordered Ang Chest [CT] Stat Exams 05/20/19 14:59 Ordered LACTIC ACID,WHOLE BLOOD [BG] Stat Lab 05/20/19 15:24 Ordered Sodium Chloride 0.9% [Normal Saline] 1,000 ml Med 05/20/19 14:50 Active IV STAT Medication Orders Sodium Chloride (Normal Saline) 1,000 mls @ 999 mls/hr IV STAT ONE Stop: 05/20/19 15:50 Last Admin: 05/20/19 15:10 Dose: 999 mls/hr Assessment/Plan Comment:: This 59 year old male admitted with dehydration, diarrhea, abdominal pain and chest pain 1. Abdominal pain with diarrhea: CT abdomen pending. Obtain stool studies and hemoccult. NPO for now await for CT results. Morphine for pain, Zofran PRN nausea. Monitor Potassium and magnesium due to diarrhea. 2. Dehydration: NS 125 for now, recheck labwork in am. Elevated lactic acid, given 2 L bolus in the ED, continue IVFs trend lactic acid. 3. Chest pain: Trend troponins monitor on telemetry. Likely secondary to abdominal pain and dehydration. 4. ZEKE: Urinary retention noted, voided 150, but 750 mls remained in bladder, place barnett catheter and leave in overnight. Recheck BMP in am. 4. HTN: Hold PO meds for now due to hypotension. 5. COPD: Stable. Duonebs PRN, continue Home inhalers VTE prophylaxis: SCDs Dispo: 1-2 days pending improvement. - Mortality Measure Prognosis:: Good
[2019-05-20] MEDS ORDERED: Albuterol/Ipratropium 3.0-0.5 MG/3 ML Neb Soln NEB PRN (15:47)
[2019-05-20] MEDS ORDERED: Ondansetron 4 MG/2 ML SDV IVPUSH PRN (15:47)
--- NOTE | 2019-05-20 16:24 | CT ---
CT chest Technique: Multiple axial sections through the chest were obtained. Intravenous contrast was utilized. Study has been performed as a pulmonary angiogram protocol. Findings: Pulmonary arteries are well opacified. No filling defects are seen to indicate pulmonary embolism. Mediastinum and hilar region show no adenopathy. Aorta shows no aneurysm. No pericardial thickening is seen. Visualized portions of the upper abdominal structures show no discrete abnormality. Lungs show no acute parenchymal change. No pleural effusions or pneumothorax is seen. Bone window settings were reviewed which showed no acute osseous abnormality. Impression: 1. No findings of pulmonary embolism. 2. Nothing acute is seen on CT study of the chest performed as a pulmonary angiogram protocol. Diagnostic code #1 MTDD
[2019-05-20] MEDS: Sodium Chloride 0.9% 1,000 ML IV SCH (16:48)
[2019-05-20] MEDS ORDERED: Morphine 2 MG/ML Syringe IVPUSH PRN (16:57)
--- NOTE | 2019-05-20 17:02 | CT ---
CT abdomen and pelvis Technique: Multiple axial sections were obtained from above the dome of the diaphragm inferiorly through the pubic symphysis. Intravenous contrast was utilized. No oral contrast has been given. 6 minute delayed images were obtained through the abdomen and pelvis. Findings: Visualized lung bases show nothing acute. Findings: Liver contains no focal abnormality. Spleen appears within normal limits. Right adrenal mass is seen with no enhancement being seen on delayed images and this is most likely benign. This adrenal abnormality measures 2.3 cm in size. Left adrenal gland is slightly generous in appearance without definite nodule. Pancreas is within normal limits. Gallbladder contains no calcified gallstones. Aorta shows atherosclerotic calcification which continues into the iliac vessels without aneurysm. Low density lesion is noted within the left kidney. This shows some increase in Hounsfield unit measurements on delayed images compatible with mild enhancement. This finding measures approximately 3.2 cm in size. Smaller abnormality is seen slightly more inferiorly which is most likely due to a small cyst measuring 1.4 cm. Multiple small cortical findings within the right kidney are most likely due to multiple small cortical cysts measuring much less than 1 cm. Delayed images shows contrast within the ureters and bladder. No retroperitoneal adenopathy or mesenteric abnormalities are seen. No pelvic mass or adenopathy is seen. Appendix is seen and is normal. No pelvic mass or adenopathy is seen. No free fluid or inflammatory change is seen. Bone window settings were reviewed which show no acute osseous abnormality. Impression: 1. Complicated left kidney abnormality showing slight enhancement. Renal MRI recommended to further evaluate which should include contrast. 2. Multiple small cysts within the kidneys. 3. Right adrenal nodule believed to be benign. 4. No acute abnormality is appreciated on CT study of the abdomen and pelvis. Diagnostic code #9 MTDD
[2019-05-20] MEDS: BUDESONIDE INH SCH (22:39)
[2019-05-20] MEDS: FORMOTEROL INH SCH (22:39)
[2019-05-21] MEDS: Sodium Chloride 0.9% 1,000 ML IV SCH ×2 (00:46→07:15)
[2019-05-21 07:10] LABS: BLOOD UREA NITROGEN,BUN 10 mg/dL (7.0-18.0); CARBON DIOXIDE,CO2 21.8 mmol/L (21.0-32.0); CHLORIDE,CL 108 mmol/L (98-107); GLUCOSE RANDOM 79 mg/dL (74-106); POTASSIUM,K 3.9 mmol/L (3.5-5.1); SODIUM,NA 141 mmol/L (136-148)
[2019-05-21] MEDS: FORMOTEROL INH SCH ×2 (10:24→20:35)
[2019-05-21] MEDS: BUDESONIDE INH SCH ×2 (10:24→20:35)
[2019-05-21] MEDS ORDERED: Gadobenate Dimeglumine 529 MG/ML 20 ML SDV IVPUSH STA (10:58)
--- NOTE | 2019-05-21 11:11 | PCM.PN ---
- General Info Date of Service: 05/21/19 Admission Dx/Problem (Free Text): Admission Diagnosis/Problem Admission Diagnosis/Problem Chest pain, rule out acute myocardial infarction Subjective Update: Feeling improved today. No diarrhea overnight or since admission. reports cough this morning. No chest pain or SOB. Functional Status: Reports: Pain Controlled, Tolerating Diet - Review of Systems HEENT: Reports: No Symptoms Pulmonary: Reports: Cough. Denies: Shortness of Breath, Sputum Cardiovascular: Reports: No Symptoms. Denies: Chest Pain, Palpitations, Edema Gastrointestinal: Reports: Decreased Appetite. Denies: Abdominal Pain, Nausea, Vomiting Genitourinary: Reports: No Symptoms Musculoskeletal: Reports: No Symptoms Skin: Reports: No Symptoms Neurological: Reports: No Symptoms Psychiatric: Reports: No Symptoms - Patient Data Vitals - Most Recent: Last Vital Signs Temp 97.2 F 05/21/19 07:23 Pulse 93 05/21/19 07:23 Resp 15 05/21/19 07:23 BP 120/62 05/21/19 07:23 Pulse Ox 97 05/21/19 07:23 Weight - Most Recent: 64.2 kg I&O - Last 24 Hours: Intake & Output 05/20/19 05/21/19 05/21/19 22:59 06:59 14:59 Intake Total 1630 Output Total 3210 Balance -1580 Lab Results Last 24 Hours: Laboratory Results - last 24 hr 05/20/19 05/20/19 05/20/19 Range/Units 13:25 13:25 13:25 WBC (4.0-11.0) K/uL RBC (4.50-5.90) M/uL Hgb (13.0-17.0) g/dL Hct (38.0-50.0) % MCV (80.0-98.0) fL MCH (27.0-32.0) pg MCHC (31.0-37.0) g/dL RDW Std Deviation (28.0-62.0) fl RDW Coeff of Gildardo (11.0-15.0) % Plt Count (150-400) K/uL MPV (7.40-12.00) fL Neut % (Auto) (48.0-80.0) % Lymph % (Auto) (16.0-40.0) % Sibley % (Auto) (0.0-15.0) % Eos % (Auto) (0.0-7.0) % Baso % (Auto) (0.0-1.5) % Neut # (Auto) (1.4-5.7) K/uL Lymph # (Auto) (0.6-2.4) K/uL Sibley # (Auto) (0.0-0.8) K/uL Eos # (Auto) (0.0-0.7) K/uL Baso # (Auto) (0.0-0.1) K/uL Nucleated RBC % /100WBC Nucleated RBCs # K/uL D-Dimer, Quantitative 0.31 (0.0-0.50) mg/L FEU Lactate (0.20-2.00) mmol/L Sodium 128 L (136-148) mmol/L Potassium 3.6 (3.5-5.1) mmol/L Chloride 92 L (98-107) mmol/L Carbon Dioxide 19.3 L (21.0-32.0) mmol/L BUN 13 (7.0-18.0) mg/dL Creatinine 1.4 H (0.8-1.3) mg/dL Est Cr Clr Drug Dosing 50.95 mL/min Estimated GFR (MDRD) 51.7 ml/min Glucose 115 H (74-106) mg/dL Calcium 9.2 (8.5-10.1) mg/dL Magnesium (1.8-2.4) mg/dL Total Bilirubin 0.6 (0.2-1.0) mg/dL AST 25 (15-37) IU/L ALT 34 (14-63) IU/L Alkaline Phosphatase 44 L (46-116) U/L Troponin I < 0.050 (0.000-0.056) ng/mL Total Protein 7.8 (6.4-8.2) g/dL Albumin 4.3 (3.4-5.0) g/dL Globulin 3.5 (2.6-4.0) g/dL Albumin/Globulin Ratio 1.2 (0.9-1.6) Lipase 79 (73-393) U/L Urine Color Urine Appearance Urine pH (5.0-8.0) Ur Specific Stanton (1.001-1.035) Urine Protein (NEGATIVE) mg/dL Urine Glucose (UA) (NEGATIVE) mg/dL Urine Ketones (NEGATIVE) mg/dL Urine Occult Blood (NEGATIVE) Urine Nitrite (NEGATIVE) Urine Bilirubin (NEGATIVE) Urine Urobilinogen (<2.0) EU/dL Ur Leukocyte Esterase (NEGATIVE) 05/20/19 05/20/19 05/20/19 Range/Units 14:14 14:37 15:48 WBC 10.91 (4.0-11.0) K/uL RBC 3.44 L (4.50-5.90) M/uL Hgb 12.9 L (13.0-17.0) g/dL Hct 37.7 L (38.0-50.0) % MCV 109.6 H (80.0-98.0) fL MCH 37.5 H (27.0-32.0) pg MCHC 34.2 (31.0-37.0) g/dL RDW Std Deviation 57.0 (28.0-62.0) fl RDW Coeff of Gildardo 14 (11.0-15.0) % Plt Count 238 (150-400) K/uL MPV 9.70 (7.40-12.00) fL Neut % (Auto) 80.1 H (48.0-80.0) % Lymph % (Auto) 9.6 L (16.0-40.0) % Sibley % (Auto) 9.5 (0.0-15.0) % Eos % (Auto) 0.7 (0.0-7.0) % Baso % (Auto) 0.1 (0.0-1.5) % Neut # (Auto) 8.7 H (1.4-5.7) K/uL Lymph # (Auto) 1.1 (0.6-2.4) K/uL Sibley # (Auto) 1.0 H (0.0-0.8) K/uL Eos # (Auto) 0.1 (0.0-0.7) K/uL Baso # (Auto) 0.0 (0.0-0.1) K/uL Nucleated RBC % 0.0 /100WBC Nucleated RBCs # 0 K/uL D-Dimer, Quantitative (0.0-0.50) mg/L FEU Lactate 3.3 H (0.20-2.00) mmol/L Sodium (136-148) mmol/L Potassium (3.5-5.1) mmol/L Chloride (98-107) mmol/L Carbon Dioxide (21.0-32.0) mmol/L BUN (7.0-18.0) mg/dL Creatinine (0.8-1.3) mg/dL Est Cr Clr Drug Dosing mL/min Estimated GFR (MDRD) ml/min Glucose (74-106) mg/dL Calcium (8.5-10.1) mg/dL Magnesium (1.8-2.4) mg/dL Total Bilirubin (0.2-1.0) mg/dL AST (15-37) IU/L ALT (14-63) IU/L Alkaline Phosphatase (46-116) U/L Troponin I (0.000-0.056) ng/mL Total Protein (6.4-8.2) g/dL Albumin (3.4-5.0) g/dL Globulin (2.6-4.0) g/dL Albumin/Globulin Ratio (0.9-1.6) Lipase (73-393) U/L Urine Color YELLOW Urine Appearance CLEAR Urine pH 6.5 (5.0-8.0) Ur Specific Stanton <= 1.005 (1.001-1.035) Urine Protein NEGATIVE (NEGATIVE) mg/dL Urine Glucose (UA) NEGATIVE (NEGATIVE) mg/dL Urine Ketones NEGATIVE (NEGATIVE) mg/dL Urine Occult Blood NEGATIVE (NEGATIVE) Urine Nitrite NEGATIVE (NEGATIVE) Urine Bilirubin NEGATIVE (NEGATIVE) Urine Urobilinogen 0.2 (<2.0) EU/dL Ur Leukocyte Esterase NEGATIVE (NEGATIVE) 05/20/19 05/20/19 05/20/19 Range/Units 15:48 19:57 19:57 WBC (4.0-11.0) K/uL RBC (4.50-5.90) M/uL Hgb (13.0-17.0) g/dL Hct (38.0-50.0) % MCV (80.0-98.0) fL MCH (27.0-32.0) pg MCHC (31.0-37.0) g/dL RDW Std Deviation (28.0-62.0) fl RDW Coeff of Gildardo (11.0-15.0) % Plt Count (150-400) K/uL MPV (7.40-12.00) fL Neut % (Auto) (48.0-80.0) % Lymph % (Auto) (16.0-40.0) % Sibley % (Auto) (0.0-15.0) % Eos % (Auto) (0.0-7.0) % Baso % (Auto) (0.0-1.5) % Neut # (Auto) (1.4-5.7) K/uL Lymph # (Auto) (0.6-2.4) K/uL Sibley # (Auto) (0.0-0.8) K/uL Eos # (Auto) (0.0-0.7) K/uL Baso # (Auto) (0.0-0.1) K/uL Nucleated RBC % /100WBC Nucleated RBCs # K/uL D-Dimer, Quantitative (0.0-0.50) mg/L FEU Lactate 1.3 (0.20-2.00) mmol/L Sodium (136-148) mmol/L Potassium (3.5-5.1) mmol/L Chloride (98-107) mmol/L Carbon Dioxide (21.0-32.0) mmol/L BUN (7.0-18.0) mg/dL Creatinine (0.8-1.3) mg/dL Est Cr Clr Drug Dosing mL/min Estimated GFR (MDRD) ml/min Glucose (74-106) mg/dL Calcium (8.5-10.1) mg/dL Magnesium 2.1 (1.8-2.4) mg/dL Total Bilirubin (0.2-1.0) mg/dL AST (15-37) IU/L ALT (14-63) IU/L Alkaline Phosphatase (46-116) U/L Troponin I < 0.050 (0.000-0.056) ng/mL Total Protein (6.4-8.2) g/dL Albumin (3.4-5.0) g/dL Globulin (2.6-4.0) g/dL Albumin/Globulin Ratio (0.9-1.6) Lipase (73-393) U/L Urine Color Urine Appearance Urine pH (5.0-8.0) Ur Specific Stanton (1.001-1.035) Urine Protein (NEGATIVE) mg/dL Urine Glucose (UA) (NEGATIVE) mg/dL Urine Ketones (NEGATIVE) mg/dL Urine Occult Blood (NEGATIVE) Urine Nitrite (NEGATIVE) Urine Bilirubin (NEGATIVE) Urine Urobilinogen (<2.0) EU/dL Ur Leukocyte Esterase (NEGATIVE) 05/21/19 05/21/19 05/21/19 Range/Units 01:55 06:02 06:02 WBC 11.02 H (4.0-11.0) K/uL RBC 3.21 L (4.50-5.90) M/uL Hgb 12.1 L (13.0-17.0) g/dL Hct 35.9 L (38.0-50.0) % MCV 111.8 H (80.0-98.0) fL MCH 37.7 H (27.0-32.0) pg MCHC 33.7 (31.0-37.0) g/dL RDW Std Deviation 59.7 (28.0-62.0) fl RDW Coeff of Gildardo 15 (11.0-15.0) % Plt Count 251 (150-400) K/uL MPV 10.00 (7.40-12.00) fL Neut % (Auto) 73.1 (48.0-80.0) % Lymph % (Auto) 14.2 L (16.0-40.0) % Sibley % (Auto) 10.6 (0.0-15.0) % Eos % (Auto) 1.8 (0.0-7.0) % Baso % (Auto) 0.3 (0.0-1.5) % Neut # (Auto) 8.1 H (1.4-5.7) K/uL Lymph # (Auto) 1.6 (0.6-2.4) K/uL Sibley # (Auto) 1.2 H (0.0-0.8) K/uL Eos # (Auto) 0.2 (0.0-0.7) K/uL Baso # (Auto) 0.0 (0.0-0.1) K/uL Nucleated RBC % 0.0 /100WBC Nucleated RBCs # 0 K/uL D-Dimer, Quantitative (0.0-0.50) mg/L FEU Lactate (0.20-2.00) mmol/L Sodium 141 (136-148) mmol/L Potassium 3.9 (3.5-5.1) mmol/L Chloride 108 H (98-107) mmol/L Carbon Dioxide 21.8 (21.0-32.0) mmol/L BUN 10 (7.0-18.0) mg/dL Creatinine 1.0 (0.8-1.3) mg/dL Est Cr Clr Drug Dosing 71.33 mL/min Estimated GFR (MDRD) > 60.0 ml/min Glucose 79 (74-106) mg/dL Calcium 8.3 L (8.5-10.1) mg/dL Magnesium 2.2 (1.8-2.4) mg/dL Total Bilirubin (0.2-1.0) mg/dL AST (15-37) IU/L ALT (14-63) IU/L Alkaline Phosphatase (46-116) U/L Troponin I < 0.050 (0.000-0.056) ng/mL Total Protein (6.4-8.2) g/dL Albumin (3.4-5.0) g/dL Globulin (2.6-4.0) g/dL Albumin/Globulin Ratio (0.9-1.6) Lipase (73-393) U/L Urine Color Urine Appearance Urine pH (5.0-8.0) Ur Specific Stanton (1.001-1.035) Urine Protein (NEGATIVE) mg/dL Urine Glucose (UA) (NEGATIVE) mg/dL Urine Ketones (NEGATIVE) mg/dL Urine Occult Blood (NEGATIVE) Urine Nitrite (NEGATIVE) Urine Bilirubin (NEGATIVE) Urine Urobilinogen (<2.0) EU/dL Ur Leukocyte Esterase (NEGATIVE) Med Orders - Current: Current Medications Albuterol/Ipratropium (Duoneb 3.0-0.5 Mg/3 Ml) 3 ml NEB Q4HRRT PRN PRN Reason: Shortness Of Breath/wheezing Morphine Sulfate (Morphine) 2 mg IVPUSH Q4H PRN PRN Reason: Pain Ondansetron HCl (Zofran) 4 mg IVPUSH Q4H PRN PRN Reason: Nausea Budesonide/Formoterol 160-4.5 Mcg/Puff 6 Gm Inhaler (Symbicort) 2 each INH BID [facility] Last Admin: 05/21/19 10:24 Dose: Not Given Umeclidinium Brm/Vilanterol Tr (Anoro Ellipta) 1 each INH DAILY [facility] Last Admin: 05/21/19 10:24 Dose: Not Given Discontinued Medications Aspirin (Aspirin) 324 mg PO ONETIME ONE Stop: 05/20/19 14:43 Last Admin: 05/20/19 15:09 Dose: Not Given Aspirin (Aspirin) 324 mg PO ONETIME ONE Stop: 05/20/19 14:51 Last Admin: 05/20/19 15:09 Dose: 324 mg Famotidine (Pepcid) 20 mg IVPUSH ONETIME ONE Stop: 05/20/19 14:51 Last Admin: 05/20/19 15:10 Dose: 20 mg Gadobenate Dimeglumine (Multihance) 12 ml IVPUSH ONETIME STA Stop: 05/21/19 10:59 Last Admin: 05/21/19 10:59 Dose: 12 ml Sodium Chloride (Normal Saline) 1,000 mls @ 999 mls/hr IV STAT ONE Stop: 05/20/19 14:16 Last Admin: 05/20/19 13:53 Dose: 999 mls/hr Sodium Chloride (Normal Saline) 1,000 mls @ 999 mls/hr IV STAT ONE Stop: 05/20/19 15:50 Last Admin: 05/20/19 15:10 Dose: 999 mls/hr Sodium Chloride (Normal Saline) 1,000 mls @ 125 mls/hr IV Q8H [facility] Last Admin: 05/21/19 07:15 Dose: 125 mls/hr Iopamidol (Isovue Multipack-370 (76%)) 75 ml IVPUSH ONETIME STA Stop: 05/20/19 15:08 Last Admin: 05/20/19 15:38 Dose: 75 ml Morphine Sulfate (Morphine) 2 mg IVPUSH ONETIME ONE Stop: 05/20/19 14:51 Last Admin: 05/20/19 15:10 Dose: 2 mg Ondansetron HCl (Zofran) 4 mg IVPUSH ONETIME ONE Stop: 05/20/19 13:17 Last Admin: 05/20/19 13:56 Dose: 4 mg - Exam General: Alert, Oriented, Cooperative, No Acute Distress Lungs: Clear to Auscultation, Normal Respiratory Effort Cardiovascular: Regular Rate, Regular Rhythm GI/Abdominal Exam: Normal Bowel Sounds, Soft, Tender (scant tenderness) Extremities: Normal Inspection, Normal Range of Motion, Non-Tender, No Pedal Edema Neurological: No New Focal Deficit Psy/Mental Status: Alert, Normal Affect, Normal Mood - Problem List & Annotations (1) Obstructive uropathy SNOMED Code(s): 4197945 Code(s): N13.9 - OBSTRUCTIVE AND REFLUX UROPATHY, UNSPECIFIED Status: Acute Current Visit: Yes (2) Chest pain, rule out acute myocardial infarction SNOMED Code(s): 71974750 Code(s): R07.9 - CHEST PAIN, UNSPECIFIED Status: Ruled-out Current Visit : Yes (3) Dehydration SNOMED Code(s): 00843829 Code(s): E86.0 - DEHYDRATION Status: Acute Current Visit: Yes (4) Abdominal pain SNOMED Code(s): 58681132 Code(s): R10.9 - UNSPECIFIED ABDOMINAL PAIN Status: Acute Current Visit: No (5) Weakness SNOMED Code(s): 25720585 Code(s): R53.1 - WEAKNESS Status: Acute Current Visit: No (6) Hypotension SNOMED Code(s): 30622357 Code(s): I95.9 - HYPOTENSION, UNSPECIFIED Status: Acute Priority: High Current Visit: No Qualifiers: Hypotension type: unspecified hypotension type Qualified Code(s): I95.9 - Hypotension, unspecified (7) Acute kidney failure SNOMED Code(s): 70612545 Code(s): N17.9 - ACUTE KIDNEY FAILURE, UNSPECIFIED Status: Acute Priority : High Current Visit: No Qualifiers: Acute renal failure type: unspecified Qualified Code(s): N17.9 - Acute kidney failure, unspecified (8) HTN (hypertension) SNOMED Code(s): 59893447 Code(s): I10 - ESSENTIAL (PRIMARY) HYPERTENSION Status: Chronic Current Visit: Yes Qualifiers: Hypertension type: essential hypertension Qualified Code(s): I10 - Essential (primary) hypertension (9) COPD (chronic obstructive pulmonary disease) SNOMED Code(s): 57455370 Code(s): J44.9 - CHRONIC OBSTRUCTIVE PULMONARY DISEASE, UNSPECIFIED Status : Chronic Current Visit: Yes (10) Smoker SNOMED Code(s): 03397690 Code(s): F17.200 - NICOTINE DEPENDENCE, UNSPECIFIED, UNCOMPLICATED Status: Chronic Current Visit: Yes (11) Enlarged prostate SNOMED Code(s): 293988250 Code(s): N40.0 - BENIGN PROSTATIC HYPERPLASIA WITHOUT LOWER URINRY TRACT SYMP Status: Acute Current Visit: Yes - Problem List Review Problem List Initiated/Reviewed/Updated: Yes - My Orders Last 24 Hours: My Active Orders 05/20/19 15:47 Oxygen Therapy [RC] PRN Up With Assistance [RC] ASDIRECTED VTE/DVT Education [RC] PER UNIT ROUTINE Vital Signs [RC] Q4H CDIFF TOX A+B [OP] Routine CULTURE STOOL + CAMPY+SHIGATOX [RM] Routine OCCULT BLOOD DIAGNOSTIC [OP] Routine Albuterol/Ipratropium [DuoNeb 3.0-0.5 MG/3 ML] 3 ml NEB Q4HRRT PRN Ondansetron [Zofran] 4 mg IVPUSH Q4H PRN Resuscitation Status Routine 05/20/19 15:48 Intake and Output [RC] Q12H 05/20/19 15:49 RT Aerosol Therapy [RC] ASDIRECTED Isolation [COMM] Stat 05/20/19 15:52 Telemetry Monitoring [Cardiac Monitoring] [RC] Q8H 05/20/19 15:57 Patient's Own Medication [Ptom] 1 each INH DAILY 05/20/19 16:07 Bladder Scan [RC] ASDIRECTED 05/20/19 16:20 Urinary Catheter Assessment [RC] Q12H 05/20/19 16:30 Insert Barnett Catheter [Insert Urinary Catheter] [OM.PC] Q24H 05/20/19 16:57 Morphine 2 mg IVPUSH Q4H PRN 05/20/19 21:00 Patient's Own Medication [Ptom] 2 each INH BID 05/21/19 09:30 Abdomen w wo Cont [MR] Routine 05/21/19 Breakfast Full Liquid Diet [DIET] - Plan Plan:: This 59 year old male admitted with dehydration, diarrhea, abdominal pain and chest pain 1. Abdominal pain with diarrhea: CT abdomen revealed L kidney. Obtain stool studies and hemoccult. Labwork improved with hydration. 2. Dehydration: Improved. Lactic acid improved with fluid resuscitation. 3. Chest pain: resolved, troponins negative. Will arrange follow up with PCP. 4. ZEKE: likely secondary to obstructive uropathy. Barnett placed. Rectal exam reveals large firm prostate. Will arrange follow up with [facility]ho[facility]. I spoke with Dr Couch, recommended keeping barnett in he will follow up with him and will also follow on L kidney lesion, Hold off on MRI for now. 4. HTN: Hold PO meds for now due to hypotension. 5. COPD: Stable. Duonebs PRN, continue Home inhalers VTE prophylaxis: SCDs Dispo: 1-2 days pending improvement.
[2019-05-22 06:48] LABS: BLOOD UREA NITROGEN,BUN 9 mg/dL (7.0-18.0); CARBON DIOXIDE,CO2 23.8 mmol/L (21.0-32.0); CHLORIDE,CL 104 mmol/L (98-107); GLUCOSE RANDOM 88 mg/dL (74-106); POTASSIUM,K 3.6 mmol/L (3.5-5.1); SODIUM,NA 140 mmol/L (136-148)
[2019-05-22] MEDS: FORMOTEROL INH SCH (10:30)
[2019-05-22] MEDS: BUDESONIDE INH SCH (10:30)
--- NOTE | 2019-05-22 16:00 | PCM.DCSUM1 ---
<Jaime Borrero - Last Filed: 05/22/19 15:52> Discharge Summary - Hospital Course Free Text/Narrative:: Discharge summary Admission date 05/20/2019 Discharge date 05/22/2019 Admission diagnoses Abdominal pain with diarrhea Dehydration Chest pain ZEKE Hypertension COPD Disharge diagnoses Abdominal pain with diarrhea improving Dehydration improving Chest pain with ACS ruled out ZEKE secondary to obstructive uropathy; Barnett catheter placed Hypertension stable COPD stable Consultations: Procedures: None Hospital course: 59-year-old male with a past medical history of hypertension, developmental delay; presenting to [facility] ED with vague chest pain, abdominal pain and diarrhea 4 days. denies any black or bloody stool. Did endorse some mild chills. Troponins were trended which were negative EKG ; was also within normal limits. A CAT I most likely secondary to urinary retention; Barnett catheter placed and left overnight. On admission patient did not have any diarrhea or bowel movements; no stool sample could be collected. Chest pain shortness of breath had resolved. CT abdomen and pelvis showed lesion in left kidney; rectal examination showed enlarged prostate. Dr. Ruiz was contacted; recommended continuing current regimen; leave Barnett catheter in place; do not proceed with an MRI at this time; advised to follow-up in his clinic and outpatient basis. Patient was discharged in stable state Disposition: Home Discharge instructions: Barnett catheter care. Home medications: No new medications initiated Follow-up: PCP and Dr. Kraus within 7-10 days. - Discharge Data Discharge Date: 05/22/19 Discharge Disposition: Home, Self-Care 01 Condition: Stable - Referral to Home Health Primary Care Physician: PCP None - Patient Instructions Diet: Heart Healthy Diet Driving: Do Not Drive Showering/Bathing: May Shower Notify Provider of: Fever, Increased Pain, Swelling and Redness, Drainage, Nausea and/or Vomiting Other/Special Instructions: Barnett catheter care instructions. Notify providor if symptoms of chest pain, fever, chills , bodyaches, worsening abdominal pain, or if you notice there is something wrong with your barnett catheter. It is important that you follow up with Dr Ruiz as scheduled - Discharge Plan *PRESCRIPTION DRUG MONITORING PROGRAM REVIEWED*: Not Applicable *COPY OF PRESCRIPTION DRUG MONITORING REPORT IN PATIENT RAFA: Not Applicable Home Medications: Home Meds Multivitamin [Multiple Vitamins] 1 tab PO DAILY 01/06/18 [History] Budesonide/Formoterol [Symbicort 160-4.5 MCG] 2 puff INH BID 11/06/18 [History] Losartan/Hydrochlorothiazide [Losartan-HCTZ 100-25 MG] 1 tab PO DAILY 11/06/18 [ History] Potassium Chloride 8 meq PO DAILY 11/06/18 [History] Umeclidinium Brm/Vilanterol Tr [Anoro Ellipta 62.5-25 MCG] 1 puff INH DAILY PRN 11/06/18 [History] Omeprazole 20 mg PO QAM 02/16/19 [History] Oxygen Therapy Mode: Room Air Patient Handouts: Dehydration, Adult, [id number], Indwelling Urinary Catheter Care, Adult, [id number], Nonspecific Chest Pain, [id number] Referrals: [facility] [Outside] Paul Prado MD [Ordering Only Provider] - 05/31/19 8:00 am (Arrive 15 minutes early with photo ID and insurance card. If you are not early they will not see you. ) Brent Couch MD [Physician] - (The referral was sent over on Friday the . An appointment was not able to be made at this time, due to people being out of the office. Call on Friday to follow-up with the appointment details. ) - Discharge Summary/Plan Comment DC Time >30 min.: No - Patient Data Vitals - Most Recent: Last Vital Signs Temp 100 F 05/22/19 07:46 Pulse 93 05/22/19 07:46 Resp 16 05/22/19 07:46 BP 140/73 05/22/19 07:46 Pulse Ox 100 05/22/19 07:46 Weight - Most Recent: 64.2 kg I&O - Last 24 hours: Intake & Output 05/22/19 05/22/19 05/22/19 06:59 14:59 22:59 Intake Total 1300 Output Total 1650 Balance -350 Lab Results - Last 24 hrs: Laboratory Results - last 24 hr 05/22/19 05/22/19 Range/Units 05:45 05:45 WBC 10.64 (4.0-11.0) K/uL RBC 3.44 L (4.50-5.90) M/uL Hgb 12.8 L (13.0-17.0) g/dL Hct 38.7 (38.0-50.0) % MCV 112.5 H (80.0-98.0) fL MCH 37.2 H (27.0-32.0) pg MCHC 33.1 (31.0-37.0) g/dL RDW Std Deviation 59.3 (28.0-62.0) fl RDW Coeff of Gildardo 15 (11.0-15.0) % Plt Count 256 (150-400) K/uL MPV 10.30 (7.40-12.00) fL Neut % (Auto) 75.6 (48.0-80.0) % Lymph % (Auto) 12.6 L (16.0-40.0) % [place] % (Auto) 10.2 (0.0-15.0) % Eos % (Auto) 1.5 (0.0-7.0) % Baso % (Auto) 0.1 (0.0-1.5) % Neut # (Auto) 8.1 H (1.4-5.7) K/uL Lymph # (Auto) 1.3 (0.6-2.4) K/uL [place] # (Auto) 1.1 H (0.0-0.8) K/uL Eos # (Auto) 0.2 (0.0-0.7) K/uL Baso # (Auto) 0.0 (0.0-0.1) K/uL Nucleated RBC % 0.0 /100WBC Nucleated RBCs # 0 K/uL Sodium 140 (136-148) mmol/L Potassium 3.6 (3.5-5.1) mmol/L Chloride 104 (98-107) mmol/L Carbon Dioxide 23.8 (21.0-32.0) mmol/L BUN 9 (7.0-18.0) mg/dL Creatinine 0.9 (0.8-1.3) mg/dL Est Cr Clr Drug Dosing 79.26 mL/min Estimated GFR (MDRD) > 60.0 ml/min Glucose 88 (74-106) mg/dL Calcium 8.6 (8.5-10.1) mg/dL Med Orders - Current: Current Medications Albuterol/Ipratropium (Duoneb 3.0-0.5 Mg/3 Ml) 3 ml NEB Q4HRRT PRN PRN Reason: Shortness Of Breath/wheezing Morphine Sulfate (Morphine) 2 mg IVPUSH Q4H PRN PRN Reason: Pain Ondansetron HCl (Zofran) 4 mg IVPUSH Q4H PRN PRN Reason: Nausea Budesonide/Formoterol 160-4.5 Mcg/Puff 6 Gm Inhaler (Symbicort) 2 each INH BID MELONY Last Admin: 05/22/19 10:30 Dose: Not Given Umeclidinium Brm/Vilanterol Tr (Anoro Ellipta) 1 each INH DAILY MELONY Last Admin: 05/22/19 10:31 Dose: Not Given Discontinued Medications Aspirin (Aspirin) 324 mg PO ONETIME ONE Stop: 05/20/19 14:43 Last Admin: 05/20/19 15:09 Dose: Not Given Aspirin (Aspirin) 324 mg PO ONETIME ONE Stop: 05/20/19 14:51 Last Admin: 05/20/19 15:09 Dose: 324 mg Famotidine (Pepcid) 20 mg IVPUSH ONETIME ONE Stop: 05/20/19 14:51 Last Admin: 05/20/19 15:10 Dose: 20 mg Gadobenate Dimeglumine (Multihance) 12 ml IVPUSH ONETIME STA Stop: 05/21/19 10:59 Last Admin: 05/21/19 10:59 Dose: 12 ml Sodium Chloride (Normal Saline) 1,000 mls @ 999 mls/hr IV STAT ONE Stop: 05/20/19 14:16 Last Admin: 05/20/19 13:53 Dose: 999 mls/hr Sodium Chloride (Normal Saline) 1,000 mls @ 999 mls/hr IV STAT ONE Stop: 05/20/19 15:50 Last Admin: 05/20/19 15:10 Dose: 999 mls/hr Sodium Chloride (Normal Saline) 1,000 mls @ 125 mls/hr IV Q8H MELONY Last Admin: 05/21/19 07:15 Dose: 125 mls/hr Iopamidol (Isovue Multipack-370 (76%)) 75 ml IVPUSH ONETIME STA Stop: 05/20/19 15:08 Last Admin: 05/20/19 15:38 Dose: 75 ml Morphine Sulfate (Morphine) 2 mg IVPUSH ONETIME ONE Stop: 05/20/19 14:51 Last Admin: 05/20/19 15:10 Dose: 2 mg Ondansetron HCl (Zofran) 4 mg IVPUSH ONETIME ONE Stop: 05/20/19 13:17 Last Admin: 05/20/19 13:56 Dose: 4 mg <KeaganBasil Jessica - Last Filed: 05/22/19 19:02> Discharge Summary - Referral to Home Health Primary Care Physician: PCP None - Patient Data Vitals - Most Recent: Last Vital Signs Temp 36.4 C 05/22/19 15:00 Pulse 92 05/22/19 15:00 Resp 16 05/22/19 15:00 BP 136/65 05/22/19 15:00 Pulse Ox 96 05/22/19 15:00 I&O - Last 24 hours: Intake & Output 05/22/19 05/22/19 05/22/19 06:59 14:59 22:59 Intake Total 1300 1200 Output Total 1650 750 Balance -350 450 Lab Results - Last 24 hrs: Laboratory Results - last 24 hr 05/22/19 05/22/19 Range/Units 05:45 05:45 WBC 10.64 (4.0-11.0) K/uL RBC 3.44 L (4.50-5.90) M/uL Hgb 12.8 L (13.0-17.0) g/dL Hct 38.7 (38.0-50.0) % MCV 112.5 H (80.0-98.0) fL MCH 37.2 H (27.0-32.0) pg MCHC 33.1 (31.0-37.0) g/dL RDW Std Deviation 59.3 (28.0-62.0) fl RDW Coeff of Gildardo 15 (11.0-15.0) % Plt Count 256 (150-400) K/uL MPV 10.30 (7.40-12.00) fL Neut % (Auto) 75.6 (48.0-80.0) % Lymph % (Auto) 12.6 L (16.0-40.0) % [place] % (Auto) 10.2 (0.0-15.0) % Eos % (Auto) 1.5 (0.0-7.0) % Baso % (Auto) 0.1 (0.0-1.5) % Neut # (Auto) 8.1 H (1.4-5.7) K/uL Lymph # (Auto) 1.3 (0.6-2.4) K/uL [place] # (Auto) 1.1 H (0.0-0.8) K/uL Eos # (Auto) 0.2 (0.0-0.7) K/uL Baso # (Auto) 0.0 (0.0-0.1) K/uL Nucleated RBC % 0.0 /100WBC Nucleated RBCs # 0 K/uL Sodium 140 (136-148) mmol/L Potassium 3.6 (3.5-5.1) mmol/L Chloride 104 (98-107) mmol/L Carbon Dioxide 23.8 (21.0-32.0) mmol/L BUN 9 (7.0-18.0) mg/dL Creatinine 0.9 (0.8-1.3) mg/dL Est Cr Clr Drug Dosing 79.26 mL/min Estimated GFR (MDRD) > 60.0 ml/min Glucose 88 (74-106) mg/dL Calcium 8.6 (8.5-10.1) mg/dL Med Orders - Current: Current Medications Discontinued Medications Albuterol/Ipratropium (Duoneb 3.0-0.5 Mg/3 Ml) 3 ml NEB Q4HRRT PRN PRN Reason: Shortness Of Breath/wheezing Aspirin (Aspirin) 324 mg PO ONETIME ONE Stop: 05/20/19 14:43 Last Admin: 05/20/19 15:09 Dose: Not Given Aspirin (Aspirin) 324 mg PO ONETIME ONE Stop: 05/20/19 14:51 Last Admin: 05/20/19 15:09 Dose: 324 mg Famotidine (Pepcid) 20 mg IVPUSH ONETIME ONE Stop: 05/20/19 14:51 Last Admin: 05/20/19 15:10 Dose: 20 mg Gadobenate Dimeglumine (Multihance) 12 ml IVPUSH ONETIME STA Stop: 05/21/19 10:59 Last Admin: 05/21/19 10:59 Dose: 12 ml Sodium Chloride (Normal Saline) 1,000 mls @ 999 mls/hr IV STAT ONE Stop: 05/20/19 14:16 Last Admin: 05/20/19 13:53 Dose: 999 mls/hr Sodium Chloride (Normal Saline) 1,000 mls @ 999 mls/hr IV STAT ONE Stop: 05/20/19 15:50 Last Admin: 05/20/19 15:10 Dose: 999 mls/hr Sodium Chloride (Normal Saline) 1,000 mls @ 125 mls/hr IV Q8H MELONY Last Admin: 05/21/19 07:15 Dose: 125 mls/hr Iopamidol (Isovue Multipack-370 (76%)) 75 ml IVPUSH ONETIME STA Stop: 05/20/19 15:08 Last Admin: 05/20/19 15:38 Dose: 75 ml Morphine Sulfate (Morphine) 2 mg IVPUSH ONETIME ONE Stop: 05/20/19 14:51 Last Admin: 05/20/19 15:10 Dose: 2 mg Morphine Sulfate (Morphine) 2 mg IVPUSH Q4H PRN PRN Reason: Pain Ondansetron HCl (Zofran) 4 mg IVPUSH ONETIME ONE Stop: 05/20/19 13:17 Last Admin: 05/20/19 13:56 Dose: 4 mg Ondansetron HCl (Zofran) 4 mg IVPUSH Q4H PRN PRN Reason: Nausea Budesonide/Formoterol 160-4.5 Mcg/Puff 6 Gm Inhaler (Symbicort) 2 each INH BID MELONY Last Admin: 05/22/19 10:30 Dose: Not Given Umeclidinium Brm/Vilanterol Tr (Anoro Ellipta) 1 each INH DAILY MELONY Last Admin: 05/22/19 10:31 Dose: Not Given - Free Text/Narrative Note: I have seen and evaluated the patient with the resident. I have discussed findings and treatment plan with the resident. I agree with the assessment and plan outlined in the following note.
[2019-05-22 18:05] VITALS: BP 136/65; PULSE 92
== END 2019-05-22 15:40 | disposition home or self-care (01) ==
LOC: MW.ED 12:41 → MW.MS 15:13
PROVIDERS: ADMIT Internal Medicine; ATTEND Internal Medicine
DX: R19.7 Diarrhea, unspecified (principal); R07.89 Other chest pain; E86.0 Dehydration; I10 Essential (primary) hypertension; J44.9 Chronic obstructive pulmonary disease, unspecified; N17.9 Acute kidney failure, unspecified; N13.9 Obstructive and reflux uropathy, unspecified; F17.210 Nicotine dependence, cigarettes, uncomplicated; K21.9 Gastro-esophageal reflux disease without esophagitis; I95.9 Hypotension, unspecified; Z79.899 Other long term (current) drug therapy; Z88.1 Allergy status to other antibiotic agents
CPT/HCPCS: 36415; 51702; 51798; 71046; 71275; 74177; 80048; 80053; 81003; 83605; 83690; 83735; 84484; 85025; 85379; 93005; 96361; 96374; 96375; 99285; A9270; A9577; J2270; J2405; J3490; J7040; Q9967; G0378

== ENCOUNTER 2019-05-23 00:20 | Emergency (ER) | payer MEDICARE, MEDICAID ==
--- NOTE | 2019-05-23 00:47 | EDM.PDOC ---
ED HPI GENERAL MEDICAL PROBLEM - General Chief Complaint: Genitourinary Problem Stated Complaint: BLOOD IN URINE SACK Time Seen by Provider: 05/23/19 00:36 - History of Present Illness INITIAL COMMENTS - FREE TEXT/NARRATIVE: HISTORY AND PHYSICAL: History of present illness: The patient is a 59-year-old man who has a history of hypertension COPD developmental delay and kidney dysfunction who was admitted from the ED on May 20 for abdominal pain and diarrhea and was just discharged at 3 PM yesterday, approximately 9 hours ago. During his hospitalization the patient had a Frazier catheter placed for urinary retention and he had a CT scan of his abdomen and pelvis which did reveal a complicated left kidney mass/lesion which needed further evaluation and Dr. Couch was involved. The patient was discharged home with the Frazier catheter in place and a leg bag and says that soon after being discharged he noticed blood in his leg bag. He comes in now at 12:30 AM for concerns of this. He has no other systemic complaints. Review of systems: As per history of present illness and below otherwise all systems reviewed and negative. Past medical history: As per history of present illness and as reviewed below otherwise noncontributory. Surgical history: As per history of present illness and as reviewed below otherwise noncontributory. Social history: No reported history of drug or alcohol abuse. Family history: As per history of present illness and as reviewed below otherwise noncontributory. Physical exam: General: Well-developed well-nourished man who is nontoxic and vital signs are noted by me. HEENT: Atraumatic, normocephalic, negative for conjunctival pallor or scleral icterus, mucous membranes moist, throat clear, neck supple, nontender, trachea midline. Lungs: Clear to auscultation, breath sounds equal bilaterally, chest nontender. Heart: S1S2, regular and rhythm no overt murmurs Abdomen: Soft, nondistended, nontender. Negative for masses or hepatosplenomegaly. Negative for costovertebral tenderness. Pelvis: Stable nontender. Genitourinary: The patient has a Frazier catheter in place with leg bag and there is pink tinged urine seen in the tubing as well as in the leg bag but I do not see any blood clots Rectal: Deferred. Extremities: Atraumatic, negative for cords or calf pain. Neurovascular unremarkable. Neuro: Awake, alert, oriented. Cranial nerves II through XII unremarkable. Cerebellum unremarkable. Motor and sensory unremarkable throughout. Exam nonfocal. Diagnostics: UA with micro-urine culture CBC CMP looked cultures 2 Therapeutics: Rocephin IM The patient's blood work from the and during his admission has been reviewed more specifically his BUN and creatinine and hemoglobin and those numbers have been compared to today's results. There are no significant changes to indicate a change in the care plan to follow-up with Dr. Couch. The WBC count is significant only different though at 19.05 85% neutrophils but no bandemia. Patient clearly has a UTI and blood cultures along with a urine culture will be sent. He is not febrile nor was he febrile at home or at discharge earlier yesterday. I did rediscuss with the patient that his CT scan did show an abnormal lesion in the left kidney that needs further evaluation with Dr. Couch and that may cause bleeding in the urine and he was also noted to have an enlarged prostate which may or may not be contributory to this. 0158: Case was discussed with Dr. Boogie who just saw the patient and discharge him at 3 PM yesterday afternoon. He is aware of the WBC count of 19.05 without bandemia and the urine results. He agrees that if the patient is nontoxic and has no fevers that he does have follow-up with Dr. Couch and he also has a provider in our family practice clinic. He agrees with my recommendation of strict close follow-up and antibiotics and giving him instructions to return if he starts having attempt. We will discuss this with the patient and recommend that he follow-up with Dr. Couch and/or Dr. Zaldivar on Friday and I will place him on the expedited follow-up llist. Dr. Boogie does not feel that the patient mandates readmission as he only came to the ED for the mild hematuria and has no other systemic complaints and he would not readmit him just for the leukocytosis. Impression: Mild hematuria with UTI, recent Frazier placement and diagnosis of left renal lesion; leukocytosis asymptomatic Definitive disposition and diagnosis as appropriate pending reevaluation and review of above. hypogastric Pain Score (Numeric/FACES): 5 - Related Data Allergies Allergy/AdvReac Type Severity Reaction Status Date / Time levofloxacin Allergy Rash Verified 05/23/19 00:39 Home Meds: Home Meds Multivitamin [Multiple Vitamins] 1 tab PO DAILY 01/06/18 [History] Budesonide/Formoterol [Symbicort 160-4.5 MCG] 2 puff INH BID PRN 11/06/18 [ History] Losartan/Hydrochlorothiazide [Losartan-HCTZ 100-25 MG] 1 tab PO DAILY 11/06/18 [ History] Past Medical History - Past Health History Medical/Surgical History: Denies Medical/Surgical History HEENT History: Reports: Other (See Below) Other HEENT History: wears glasses, has partial dental appliance but doesn't wear Cardiovascular History: Reports: Hypertension Respiratory History: Reports: COPD Gastrointestinal History: Reports: Diverticulosis, GERD Other Gastrointestinal History: dysphagia Genitourinary History: Reports: None Musculoskeletal History: Reports: Fracture Other Musculoskeletal History: hx of fx scapula and finger Neurological History: Reports: Headaches, Chronic Other Neuro History: states headaches are caused by neck pain Psychiatric History: Reports: Developmental Delay 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 Endocrine/Metabolic History: Reports: None Hematologic History: Reports: None Immunologic History: Reports: None Oncologic (Cancer) History: Reports: None Dermatologic History: Reports: Other (See Below) Other Dermatologic History: frequent skin infections - Infectious Disease History Infectious Disease History: Reports: Chicken Pox, Measles, Mumps - Past Surgical History Head Surgeries/Procedures: Reports: None HEENT Surgical History: Reports: Adenoidectomy, Tonsillectomy GI Surgical History: Reports: Colonoscopy, EGD Social & Family History - Family History Family Medical History: Noncontributory - Tobacco Use Smoking Status *Q: Current Every Day Smoker Years of Tobacco use: 45 Packs/Tins Daily: 1 - Caffeine Use Caffeine Use: Reports: Coffee Caffeine Use Comment: 4 cups/day - Recreational Drug Use Recreational Drug Use: No - Living Situation & Occupation Living situation: Reports: Single ED ROS GENERAL - Review of Systems Review Of Systems: ROS reveals no pertinent complaints other than HPI. ED EXAM, GENERAL - Physical Exam Exam: See Below (See dictation) Course - Vital Signs Last Recorded V/S: Last Vital Signs Temp 36.4 C 05/23/19 01:50 Pulse 104 H 05/23/19 01:50 Resp 18 05/23/19 01:50 BP 135/64 05/23/19 01:50 Pulse Ox 98 05/23/19 00:30 - Orders/Labs/Meds Orders: Active Orders 24 hr Category Date Time Status CULTURE BLOOD [BC] Stat Lab 05/23/19 01:38 Ordered CULTURE BLOOD [BC] Stat Lab 05/23/19 01:38 Ordered CULTURE URINE [RM] Stat Lab 05/23/19 01:00 Received Blood Culture x2 Reflex Set [OM.PC] Stat Oth 05/23/19 01:38 Ordered Labs: Laboratory Tests 05/23/19 05/23/19 05/23/19 Range/Units 01:00 01:00 01:00 WBC 19.05 H (4.0-11.0) K/uL RBC 3.20 L (4.50-5.90) M/uL Hgb 12.3 L (13.0-17.0) g/dL Hct 35.5 L (38.0-50.0) % MCV 110.9 H (80.0-98.0) fL MCH 38.4 H (27.0-32.0) pg MCHC 34.6 (31.0-37.0) g/dL RDW Std Deviation 53.2 (28.0-62.0) fl RDW Coeff of Gildardo 14 (11.0-15.0) % Plt Count 225 (150-400) K/uL MPV 9.50 (7.40-12.00) fL Neut % (Auto) 85.6 H (48.0-80.0) % Lymph % (Auto) 6.7 L (16.0-40.0) % [place] % (Auto) 7.4 (0.0-15.0) % Eos % (Auto) 0.2 (0.0-7.0) % Baso % (Auto) 0.1 (0.0-1.5) % Neut # (Auto) 16.3 H (1.4-5.7) K/uL Lymph # (Auto) 1.3 (0.6-2.4) K/uL [place] # (Auto) 1.4 H (0.0-0.8) K/uL Eos # (Auto) 0.0 (0.0-0.7) K/uL Baso # (Auto) 0.0 (0.0-0.1) K/uL Sodium 133 L (136-148) mmol/L Potassium 3.3 L (3.5-5.1) mmol/L Chloride 98 (98-107) mmol/L Carbon Dioxide 22.9 (21.0-32.0) mmol/L BUN 16 (7.0-18.0) mg/dL Creatinine 1.3 (0.8-1.3) mg/dL Est Cr Clr Drug Dosing 54.70 mL/min Estimated GFR (MDRD) 56.3 ml/min Glucose 127 H (74-106) mg/dL Calcium 8.8 (8.5-10.1) mg/dL Total Bilirubin 0.5 (0.2-1.0) mg/dL AST 20 (15-37) IU/L ALT 29 (14-63) IU/L Alkaline Phosphatase 46 (46-116) U/L Total Protein 7.0 (6.4-8.2) g/dL Albumin 3.7 (3.4-5.0) g/dL Globulin 3.3 (2.6-4.0) g/dL Albumin/Globulin Ratio 1.1 (0.9-1.6) Urine Color ORANGE Urine Appearance CLOUDY Urine pH 6.0 (5.0-8.0) Ur Specific [place] 1.025 (1.001-1.035) Urine Protein 100 H (NEGATIVE) mg/dL Urine Glucose (UA) NEGATIVE (NEGATIVE) mg/dL Urine Ketones 15 H (NEGATIVE) mg/dL Urine Occult Blood LARGE H (NEGATIVE) Urine Nitrite POSITIVE H (NEGATIVE) Urine Bilirubin MODERATE H (NEGATIVE) Urine Ictotest NEGATIVE Urine Urobilinogen 1.0 (<2.0) EU/dL Ur Leukocyte Esterase MODERATE H (NEGATIVE) Urine RBC 110-120 (0-2/HPF) Urine WBC 45-50 (0-5/HPF) Ur Epithelial Cells OCCASIONAL (NONE-FEW) Urine Bacteria 2+ H (NEGATIVE) Departure - Departure Time of Disposition: 02:03 Disposition: Home, Self-Care 01 Condition: Good Clinical Impression: Hematuria Qualifiers: Hematuria type: unspecified type Qualified Code(s): R31.9 - Hematuria, unspecified UTI (urinary tract infection) Qualifiers: Urinary tract infection type: site unspecified Hematuria presence: with hematuria Qualified Code(s): N39.0 - Urinary tract infection, site not specified ; R31.9 - Hematuria, unspecified Leukocytosis Qualifiers: Leukocytosis type: unspecified Qualified Code(s): D72.829 - Elevated white blood cell count, unspecified - Discharge Information Referrals: PCP,None [Primary Care Provider] - Forms: ED Department Discharge Additional Instructions: The following information is given to patients seen in the emergency department who are being discharged to home. This information is to outline your options for follow-up care. We provide all patients seen in our emergency department with a follow-up referral. The need for follow-up, as well as the timing and circumstances, are variable depending upon the specifics of your emergency department visit. If you don't have a primary care physician on staff, we will provide you with a referral. We always advise you to contact your personal physician following an emergency department visit to inform them of the circumstance of the visit and for follow-up with them and/or the need for any referrals to a consulting specialist. The emergency department will also refer you to a specialist when appropriate. This referral assures that you have the opportunity for followup care with a specialist. All of these measure are taken in an effort to provide you with optimal care, which includes your followup. Under all circumstances we always encourage you to contact your private physician who remains a resource for coordinating your care. When calling for followup care, please make the office aware that this follow-up is from your recent emergency room visit. If for any reason you are refused follow-up, please contact the [facility] emergency department at and ask to speak to the emergency department charge nurse. [facility] [address] [place] [id number] Continue all home medications and drain leg bag as shown monitoring the output. Please call and schedule a follow-up appointment with Dr. Couch the urologist for further care and evaluation of your abnormal CT scan that was performed during this recent admission , for the UTI, for the blood that you're seeing in your Farzier catheter. Have Dr. Couch or your primary care provider in the clinic repeat your blood work to look at your elevated white cell count when you see them. Your name has been placed on an expedited follow-up and need to call for this appointment Friday. Push hydration and return to ER as needed and as discussed, more specifically return to ER especially if you have a fever of 100.4 or higher. You have been given Levaquin from [facility] and you should take the first dose tomorrow at lunchtime. - My Orders Last 24 Hours: My Active Orders 05/23/19 01:00 CULTURE URINE [RM] Stat 05/23/19 01:38 CULTURE BLOOD [BC] Stat CULTURE BLOOD [BC] Stat Blood Culture x2 Reflex Set [OM.PC] Stat - Assessment/Plan Last 24 Hours: My Active Orders 05/23/19 01:00 CULTURE URINE [RM] Stat 05/23/19 01:38 CULTURE BLOOD [BC] Stat CULTURE BLOOD [BC] Stat Blood Culture x2 Reflex Set [OM.PC] Stat
[2019-05-23 01:25] LABS: CARBON DIOXIDE,CO2 22.9 mmol/L (21.0-32.0); POTASSIUM,K 3.3 mmol/L (3.5-5.1)
[2019-05-23] MEDS ORDERED: cefTRIAXone 1 GM Vial IM ONE (02:06)
[2019-05-23] MEDS ORDERED: cefTRIAXone 1 GM in Lidocaine 1% 4 ML IM ONE (02:07)
[2019-05-23 04:00] VITALS: BP 131/69; PULSE 102
== END 2019-05-23 02:45 | disposition home or self-care (01) ==
LOC: MW.ED 00:20
DX: N39.0 Urinary tract infection, site not specified (principal); R31.9 Hematuria, unspecified; D72.829 Elevated white blood cell count, unspecified; N28.9 Disorder of kidney and ureter, unspecified; I10 Essential (primary) hypertension; J44.9 Chronic obstructive pulmonary disease, unspecified; F17.210 Nicotine dependence, cigarettes, uncomplicated; Z88.1 Allergy status to other antibiotic agents; Z79.899 Other long term (current) drug therapy
CPT/HCPCS: 36415; 80053; 81001; 85025; 87040; 87086; 87088; 87186; 96372; 99283; J0696; J2001

== ENCOUNTER 2019-06-15 15:44 | Emergency (ER) | payer MEDICARE, MEDICAID ==
[2019-06-15 17:30] LABS: BLOOD UREA NITROGEN,BUN 9 mg/dL (7.0-18.0); CARBON DIOXIDE,CO2 19.5 mmol/L (21.0-32.0); CHLORIDE,CL 91 mmol/L (98-107); GLUCOSE RANDOM 123 mg/dL (74-106); POTASSIUM,K 3.5 mmol/L (3.5-5.1); SODIUM,NA 125 mmol/L (136-148)
--- NOTE | 2019-06-15 17:42 | CR ---
Indication: Fever. Technique: Two views of the chest were obtained. Comparison: No prior studies are available for comparison at the current time. Findings: The heart is normal in size. The lungs are clear. No infiltrate, pleural effusion, or pneumothorax is identified. Impression: No acute cardiopulmonary process. Dictated by Daly Crabtree MD @ Jun 15 2019 5:39PM Signed by Dr. Daly Crabtree @ Jun 15 2019 5:40PM
--- NOTE | 2019-06-15 17:57 | CT ---
Indication: Abdominal pain with nausea. Technique: Multiple contiguous axial images were obtained from the lung bases through the symphysis pubis without intravenous contrast enhancement. Please note that all CT scans at this facility use dose modulation, iterative reconstruction, and/or weight-based dosing when appropriate to reduce radiation dose to as low as reasonably achievable. Comparison: May 20, 2019. Findings: The lung bases are clear. The heart is normal in size. No pericardial effusions identified. The unenhanced liver, gallbladder, spleen, pancreas, left adrenal, and kidneys are grossly normal. A right adrenal adenoma is identified. No hydronephrosis is identified. No intrahepatic biliary ductal dilatation is identified. In the pelvis, the urinary bladder is normal. The prostate gland is normal. The small and large bowel are normal in caliber. The appendix is normal in caliber. No fat stranding or fluid collections are identified in the right lower quadrant. The aorta is normal in caliber. No free air or free fluid is identified within the abdomen or pelvis. Degenerative changes of the spine are identified. No lytic or blastic lesions are present. Impression: Right adrenal adenoma, stable. No acute findings of the abdomen or pelvis. Please note that all CT scans at this facility use dose modulation, iterative reconstruction, and/or weight-based dosing when appropriate to reduce radiation dose to as low as reasonably achievable. Dictated by Daly Crabtree MD @ Jun 15 2019 5:53PM Signed by Dr. Daly Crabtree @ Jun 15 2019 5:56PM
[2019-06-15] MEDS ORDERED: Sodium Chloride 0.9% 1,000 ML IV ONE (18:02)
[2019-06-15] MEDS ORDERED: Ondansetron 4 MG/2 ML SDV IVPUSH ONE (18:02)
[2019-06-15] MEDS ORDERED: Nitrofurantoin Monohydrate/Macrocrystalline 100 MG Cap PO ONE (18:18)
--- NOTE | 2019-06-15 18:29 | EDM.PDOC ---
ED HPI GENERAL MEDICAL PROBLEM - General Chief Complaint: General Stated Complaint: DIZZY AND LIGHT HEADED Time Seen by Provider: 06/15/19 15:54 Source of Information: Reports: Patient History Limitations: Reports: No Limitations - History of Present Illness INITIAL COMMENTS - FREE TEXT/NARRATIVE: Resented reporting weakness, nausea, poor sleep, poor appetite, chills and hot flashes, abdominal pain. The patient was hospitalized on 05/20/2019 for a similar set of vague symptoms. He has some developmental delay and is a poor historian. He was brought in by a friend. right abdominal Pain Score (Numeric/FACES): 5 - Related Data Allergies Allergy/AdvReac Type Severity Reaction Status Date / Time latex Allergy Rash Verified 06/15/19 16:01 levofloxacin Allergy Rash Verified 06/15/19 16:00 Home Meds: Home Meds Multivitamin [Multiple Vitamins] 1 tab PO DAILY 01/06/18 [History] Budesonide/Formoterol [Symbicort 160-4.5 MCG] 2 puff INH BID PRN 11/06/18 [ History] Losartan/Hydrochlorothiazide [Losartan-HCTZ 100-25 MG] 1 tab PO DAILY 11/06/18 [ History] Nitrofurantoin Monohyd/M-Cryst [Macrobid 100 mg Capsule] 1 cap PO BID #14 capsule 06/15/19 [Rx] Non-Formulary Medication [NF Drug] 1 tab PO DAILY 06/15/19 [History] Past Medical History - Past Health History Medical/Surgical History: Denies Medical/Surgical History HEENT History: Reports: Other (See Below) Other HEENT History: wears glasses, has partial dental appliance but doesn't wear Cardiovascular History: Reports: Hypertension Respiratory History: Reports: COPD Gastrointestinal History: Reports: Diverticulosis, GERD Other Gastrointestinal History: dysphagia Genitourinary History: Reports: None Musculoskeletal History: Reports: Fracture Other Musculoskeletal History: hx of fx scapula and finger Neurological History: Reports: Headaches, Chronic Other Neuro History: states headaches are caused by neck pain Psychiatric History: Reports: Developmental Delay 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 Endocrine/Metabolic History: Reports: None Hematologic History: Reports: None Immunologic History: Reports: None Oncologic (Cancer) History: Reports: None Dermatologic History: Reports: Other (See Below) Other Dermatologic History: frequent skin infections - Infectious Disease History Infectious Disease History: Reports: Chicken Pox, Measles, Mumps - Past Surgical History Head Surgeries/Procedures: Reports: None HEENT Surgical History: Reports: Adenoidectomy, Tonsillectomy GI Surgical History: Reports: Colonoscopy, EGD Social & Family History - Family History Family Medical History: Noncontributory - Tobacco Use Smoking Status *Q: Current Every Day Smoker Years of Tobacco use: 50 Packs/Tins Daily: 0.5 - Caffeine Use Caffeine Use: Reports: Coffee Caffeine Use Comment: 4 cups/day - Recreational Drug Use Recreational Drug Use: No - Living Situation & Occupation Living situation: Reports: Single ED ROS GENERAL - Review of Systems Review Of Systems: ROS reveals no pertinent complaints other than HPI. ED EXAM, GENERAL - Physical Exam Exam: See Below Exam Limited By: Other (Developmental delay) General Appearance: Alert, No Apparent Distress, Other (Walks with steady gait) Nose: Normal Inspection Throat/Mouth: Normal Inspection Head: Atraumatic, Normocephalic Neck: Normal Inspection Respiratory/Chest: No Respiratory Distress, Lungs Clear, Normal Breath Sounds Cardiovascular: Normal Peripheral Pulses, Regular Rate, Rhythm, No Murmur GI/Abdominal: Normal Bowel Sounds, Soft, Non-Tender, No Distention Back Exam: Normal Inspection Extremities: Normal Inspection Neurological: Alert, Oriented Psychiatric: Normal Affect, Normal Mood Skin Exam: Warm, Dry, Intact, Normal Color, No Rash Lymphatic: No Adenopathy Course - Vital Signs Last Recorded V/S: Last Vital Signs Temp 35.9 C 06/15/19 15:58 Pulse 99 06/15/19 15:58 Resp 16 06/15/19 15:58 BP 122/64 06/15/19 15:58 Pulse Ox 97 06/15/19 15:58 - Orders/Labs/Meds Orders: Active Orders 24 hr Category Date Time Status Sodium Chloride 0.9% [Normal Saline] 1,000 ml Med 06/15/19 18:02 Active IV STAT Medication Orders Sodium Chloride (Normal Saline) 1,000 mls @ 999 mls/hr IV STAT ONE Stop: 06/15/19 19:02 Last Admin: 06/15/19 18:19 Dose: 999 mls/hr Labs: Laboratory Tests 06/15/19 06/15/19 06/15/19 Range/Units 17:00 17:00 17:00 WBC 12.31 H (4.0-11.0) K/uL RBC 3.19 L (4.50-5.90) M/uL Hgb 12.1 L (13.0-17.0) g/dL Hct 34.3 L (38.0-50.0) % MCV 107.5 H (80.0-98.0) fL MCH 37.9 H (27.0-32.0) pg MCHC 35.3 (31.0-37.0) g/dL RDW Std Deviation 56.2 (28.0-62.0) fl RDW Coeff of [place] 14 (11.0-15.0) % Plt Count 227 (150-400) K/uL MPV 9.80 (7.40-12.00) fL Neut % (Auto) 80.2 H (48.0-80.0) % Lymph % (Auto) 8.8 L (16.0-40.0) % [place] % (Auto) 10.1 (0.0-15.0) % Eos % (Auto) 0.8 (0.0-7.0) % Baso % (Auto) 0.1 (0.0-1.5) % Neut # (Auto) 9.9 H (1.4-5.7) K/uL Lymph # (Auto) 1.1 (0.6-2.4) K/uL [place] # (Auto) 1.2 H (0.0-0.8) K/uL Eos # (Auto) 0.1 (0.0-0.7) K/uL Baso # (Auto) 0.0 (0.0-0.1) K/uL Nucleated RBC % 0.0 /100WBC Nucleated RBCs # 0 K/uL Sodium 125 L (136-148) mmol/L Potassium 3.5 (3.5-5.1) mmol/L Chloride 91 L (98-107) mmol/L Carbon Dioxide 19.5 L (21.0-32.0) mmol/L BUN 9 (7.0-18.0) mg/dL Creatinine 1.0 (0.8-1.3) mg/dL Est Cr Clr Drug Dosing TNP Estimated GFR (MDRD) > 60.0 ml/min Glucose 123 H (74-106) mg/dL Calcium 9.5 (8.5-10.1) mg/dL Total Bilirubin 0.3 (0.2-1.0) mg/dL AST 18 (15-37) IU/L ALT 28 (14-63) IU/L Alkaline Phosphatase 65 (46-116) U/L Total Protein 8.1 (6.4-8.2) g/dL Albumin 3.4 (3.4-5.0) g/dL Globulin 4.7 H (2.6-4.0) g/dL Albumin/Globulin Ratio 0.7 L (0.9-1.6) Urine Color YELLOW Urine Appearance SLT CLOUDY Urine pH 6.0 (5.0-8.0) Ur Specific [place] 1.010 (1.001-1.035) Urine Protein NEGATIVE (NEGATIVE) mg/dL Urine Glucose (UA) NEGATIVE (NEGATIVE) mg/dL Urine Ketones NEGATIVE (NEGATIVE) mg/dL Urine Occult Blood NEGATIVE (NEGATIVE) Urine Nitrite NEGATIVE (NEGATIVE) Urine Bilirubin NEGATIVE (NEGATIVE) Urine Urobilinogen 0.2 (<2.0) EU/dL Ur Leukocyte Esterase SMALL H (NEGATIVE) Urine RBC 0-2 (0-2/HPF) Urine WBC 10-20 (0-5/HPF) Ur Epithelial Cells RARE (NONE-FEW) Urine Bacteria 2+ H (NEGATIVE) Meds: Medications Generic Name Dose Route Start Last Admin Trade Name Freq PRN Reason Stop Dose Admin Sodium Chloride 1,000 mls @ 999 mls/hr 06/15/19 18:02 06/15/19 18:19 Normal Saline IV 06/15/19 19:02 999 mls/hr STAT ONE Administration Discontinued Medications Generic Name Dose Route Start Last Admin Trade Name Freq PRN Reason Stop Dose Admin Nitrofurantoin Macrocrystals 100 mg 06/15/19 18:18 Macrobid PO 06/15/19 18:19 ONETIME ONE Ondansetron HCl 4 mg 06/15/19 18:02 Zofran IVPUSH 06/15/19 18:03 ONETIME ONE Departure - Departure Time of Disposition: 19:48 Disposition: Home, Self-Care 01 Condition: Good Clinical Impression: Hyponatremia - Discharge Information Referrals: Paul Prado MD [Primary Care Provider] - Additional Instructions: The following information is given to patients seen in the emergency department who are being discharged to home. This information is to outline your options for follow-up care. We provide all patients seen in our emergency department with a follow-up referral. The need for follow-up, as well as the timing and circumstances, are variable depending upon the specifics of your emergency department visit. If you don't have a primary care physician on staff, we will provide you with a referral. We always advise you to contact your personal physician following an emergency department visit to inform them of the circumstance of the visit and for follow-up with them and/or the need for any referrals to a consulting specialist. The emergency department will also refer you to a specialist when appropriate. This referral assures that you have the opportunity for follow-up care with a specialist. All of these measure are taken in an effort to provide you with optimal care, which includes your follow-up. Under all circumstances we always encourage you to contact your private physician who remains a resource for coordinating your care. When calling for follow-up care, please make the office aware that this follow-up is from your recent emergency room visit. If for any reason you are refused follow-up, please contact the [facility] Emergency Department at and asked to speak to the emergency [place] [address] Prado and make an appointment 2. Drink plenty of water, juices, sports drinks 3. Take your antibiotic twice daily 4. Eat foods with plenty of salt 5. See your doctor right away for swelling in the ankles and feet, breathing problems, vomiting and not keeping down, burning with urination or urinating frequently or unable to urinate or other concerning symptoms - My Orders Last 24 Hours: My Active Orders 06/15/19 18:02 Sodium Chloride 0.9% [Normal Saline] 1,000 ml IV STAT - Assessment/Plan Last 24 Hours: My Active Orders 06/15/19 18:02 Sodium Chloride 0.9% [Normal Saline] 1,000 ml IV STAT
[2019-06-15 20:18] VITALS: BP 112/61; PULSE 98
== END 2019-06-15 20:18 | disposition home or self-care (01) ==
LOC: MW.ED 15:44
DX: E87.1 Hypo-osmolality and hyponatremia (principal); I10 Essential (primary) hypertension; J44.9 Chronic obstructive pulmonary disease, unspecified; F17.210 Nicotine dependence, cigarettes, uncomplicated; Z88.1 Allergy status to other antibiotic agents; Z91.040 Latex allergy status; Z79.899 Other long term (current) drug therapy; Z79.51 Long term (current) use of inhaled steroids
CPT/HCPCS: 36415; 71046; 74176; 80053; 81001; 85025; 96361; 96374; 99284; A9270; J2405; J7040

== ENCOUNTER 2019-06-30 16:50 | Emergency (ER) | payer MEDICARE, MEDICAID ==
[2019-06-30 17:10] VITALS: BP 155/87; PULSE 103
--- NOTE | 2019-06-30 17:12 | EDM.PDOC ---
ED HPI GENERAL MEDICAL PROBLEM - General Chief Complaint: Genitourinary Problem Stated Complaint: UTI Time Seen by Provider: 06/30/19 17:09 Source of Information: Reports: Patient History Limitations: Reports: No Limitations - History of Present Illness INITIAL COMMENTS - FREE TEXT/NARRATIVE: HISTORY AND PHYSICAL: History of present illness: Patient is a 59-year-old male presents to the ED today with concern of burning with urination 3 days. Patient states he had a catheter removed 2 weeks ago that was placed by and followed by Dr. Ruiz, urology. Patient states Dr. Ruiz that he was doing well also took the catheter out 2 weeks ago. Patient states he hasn't had any issues with going to the bathroom until 3 days ago it started burning. Patient states he has been able to fully urinate without difficulty. Patient states that because of the burning sensation he feels like he needs to go to the bathroom frequently. Patient denies any other symptoms or concerns. Patient denies fever, chills, chest pain, shortness of breath, or cough. Denies headache, neck stiff ness, change in vision, syncope, or near syncope. Denies nausea, vomiting, abdominal pain, diarrhea, constipation. Has not noted any blood in urine or stool. Patient has been eating and drinking appropriately. Review of systems: As per history of present illness and below otherwise all systems reviewed and negative. Past medical history: As per history of present illness and as reviewed below otherwise noncontributory. Surgical history: As per history of present illness and as reviewed below otherwise noncontributory. Social history: See social history for further information Family history: As per history of present illness and as reviewed below otherwise noncontributory. Physical exam: General: Patient is alert, oriented, and in no acute distress. Patient sitting comfortably on exam table. HEENT: Atraumatic, normocephalic, pupils equal and reactive bilaterally, negative for conjunctival pallor or scleral icterus, mucous membranes moist, TMs normal bilaterally, throat clear, neck supple, nontender, trachea midline. No drooling or trismus noted. No meningeal signs. No hot potato voice noted. Lungs: Clear to auscultation, breath sounds equal bilaterally, chest nontender. Heart: S1S2, regular rate and rhythm without overt murmur Abdomen: Soft, nondistended, nontender. Negative for masses or hepatosplenomegaly. Negative for costovertebral tenderness. Pelvis: Stable nontender. Genitourinary: Deferred. Rectal: Deferred. Skin: Intact, warm, dry. No lesions or rashes noted. Extremities: Atraumatic, negative for cords or calf pain. Neurovascular unremarkable. Neuro: Awake, alert, oriented. Cranial nerves II through XII unremarkable. Cerebellum unremarkable. Motor and sensory unremarkable throughout. Exam nonfocal. Notes: Bladder scan shows 200 mL of urine. Discussed the importance of follow up with Dr. Ruiz, urology Voices understanding and is agreeable to plan of care. Denies any further questions or concerns at this time. Diagnostics: UA, gonorrhea and chlamydia, bladder scan Therapeutics: None Prescription: None Impression: Dysuria Plan: 1. You can alternate ibuprofen and Tylenol as directed for pain and discomfort. 2. Follow-up with urologist, Dr. Ruiz, as discussed. Return to the ED as needed and as discussed. Definitive disposition and diagnosis as appropriate pending reevaluation and review of above. - Related Data Allergies Allergy/AdvReac Type Severity Reaction Status Date / Time latex Allergy Rash Verified 06/30/19 17:07 levofloxacin Allergy Rash Verified 06/30/19 17:07 Home Meds: Home Meds Multivitamin [Multiple Vitamins] 1 tab PO DAILY 01/06/18 [History] Budesonide/Formoterol [Symbicort 160-4.5 MCG] 2 puff INH BID PRN 11/06/18 [ History] Losartan/Hydrochlorothiazide [Losartan-HCTZ 100-25 MG] 1 tab PO DAILY 11/06/18 [ History] Nitrofurantoin Monohyd/M-Cryst [Macrobid 100 mg Capsule] 1 cap PO BID #14 capsule 06/15/19 [Rx] Non-Formulary Medication [NF Drug] 1 tab PO DAILY 06/15/19 [History] Past Medical History - Past Health History Medical/Surgical History: Denies Medical/Surgical History HEENT History: Reports: Other (See Below) Other HEENT History: wears glasses, has partial dental appliance but doesn't wear Cardiovascular History: Reports: Hypertension Respiratory History: Reports: COPD Gastrointestinal History: Reports: Diverticulosis, GERD Other Gastrointestinal History: dysphagia Genitourinary History: Reports: None Musculoskeletal History: Reports: Fracture Other Musculoskeletal History: hx of fx scapula and finger Neurological History: Reports: Headaches, Chronic Other Neuro History: states headaches are caused by neck pain Psychiatric History: Reports: Developmental Delay 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 Endocrine/Metabolic History: Reports: None Hematologic History: Reports: None Immunologic History: Reports: None Oncologic (Cancer) History: Reports: None Dermatologic History: Reports: Other (See Below) Other Dermatologic History: frequent skin infections - Infectious Disease History Infectious Disease History: Reports: Chicken Pox, Measles, Mumps - Past Surgical History Head Surgeries/Procedures: Reports: None HEENT Surgical History: Reports: Adenoidectomy, Tonsillectomy GI Surgical History: Reports: Colonoscopy, EGD Endocrine Surgical History: Reports: None Neurological Surgical History: Reports: None Oncologic Surgical History: Reports: None Dermatological Surgical History: Reports: None Social & Family History - Family History Family Medical History: Noncontributory - Tobacco Use Smoking Status *Q: Current Every Day Smoker Years of Tobacco use: 50 Packs/Tins Daily: 1 - Caffeine Use Caffeine Use: Reports: Coffee, Soda Caffeine Use Comment: 4 cups/day - Recreational Drug Use Recreational Drug Use: No - Living Situation & Occupation Living situation: Reports: Single ED ROS GENERAL - Review of Systems Review Of Systems: ROS reveals no pertinent complaints other than HPI. ED EXAM, GENERAL - Physical Exam Exam: See Below (See dictation) Course - Vital Signs Last Recorded V/S: Last Vital Signs Temp 96.8 F 06/30/19 17:07 Pulse 103 H 06/30/19 17:07 Resp 18 06/30/19 17:07 BP 155/87 H 06/30/19 17:07 Pulse Ox 96 06/30/19 17:07 - Orders/Labs/Meds Orders: Active Orders 24 hr Category Date Time Status CHLAMYDIA AND GONORRHEA BY TMA Stat Lab 06/30/19 18:23 Ordered CULTURE URINE [RM] Stat Lab 06/30/19 18:32 Ordered Labs: Laboratory Tests 06/30/19 Range/Units 17:25 Urine Color YELLOW Urine Appearance CLEAR Urine pH 7.0 (5.0-8.0) Ur Specific [place] 1.010 (1.001-1.035) Urine Protein NEGATIVE (NEGATIVE) mg/dL Urine Glucose (UA) NEGATIVE (NEGATIVE) mg/dL Urine Ketones NEGATIVE (NEGATIVE) mg/dL Urine Occult Blood NEGATIVE (NEGATIVE) Urine Nitrite NEGATIVE (NEGATIVE) Urine Bilirubin NEGATIVE (NEGATIVE) Urine Urobilinogen 0.2 (<2.0) EU/dL Ur Leukocyte Esterase NEGATIVE (NEGATIVE) Departure - Departure Time of Disposition: 18:34 Disposition: Home, Self-Care 01 Clinical Impression: Dysuria - Discharge Information Referrals: PCP,Unknown [Primary Care Provider] - Forms: ED Department Discharge Additional Instructions: The following information is given to patients seen in the emergency department who are being discharged to home. This information is to outline your options for follow-up care. We provide all patients seen in our emergency department with a follow-up referral. The need for follow-up, as well as the timing and circumstances, are variable depending upon the specifics of your emergency department visit. If you don't have a primary care physician on staff, we will provide you with a referral. We always advise you to contact your personal physician following an emergency department visit to inform them of the circumstance of the visit and for follow-up with them and/or the need for any referrals to a consulting specialist. The emergency department will also refer you to a specialist when appropriate. This referral assures that you have the opportunity for follow-up care with a specialist. All of these measure are taken in an effort to provide you with optimal care, which includes your follow-up. Under all circumstances we always encourage you to contact your private physician who remains a resource for coordinating your care. When calling for follow-up care, please make the office aware that this follow-up is from your recent emergency room visit. If for any reason you are refused follow-up, please contact the [facility] Emergency Department at and asked to speak to the emergency department charge nurse. [facility] [address] [place] [id number] [address] [facility] [address] [place] [id number] 1. You can alternate ibuprofen and Tylenol as directed for pain and discomfort. 2. Follow-up with urologist, Dr. Ruiz, as discussed. Return to the ED as needed and as discussed. - My Orders Last 24 Hours: My Active Orders 06/30/19 18:23 CHLAMYDIA AND GONORRHEA BY TMA Stat 06/30/19 18:32 CULTURE URINE [RM] Stat - Assessment/Plan Last 24 Hours: My Active Orders 06/30/19 18:23 CHLAMYDIA AND GONORRHEA BY TMA Stat 06/30/19 18:32 CULTURE URINE [RM] Stat
== END 2019-06-30 19:02 | disposition home or self-care (01) ==
LOC: MW.ED 16:50
DX: R30.0 Dysuria (principal); I10 Essential (primary) hypertension; F17.210 Nicotine dependence, cigarettes, uncomplicated; Z88.1 Allergy status to other antibiotic agents; Z91.040 Latex allergy status; Z79.899 Other long term (current) drug therapy
CPT/HCPCS: 81001; 81003; 87086; 87088; 87186; 87491; 87591; 99283

== ENCOUNTER 2019-07-06 16:25 | Emergency (ER) | payer MEDICARE, MEDICAID ==
--- NOTE | 2019-07-06 16:28 | EDM.PDOC ---
ED HPI GENERAL MEDICAL PROBLEM - General Chief Complaint: Abdominal Pain Stated Complaint: ABD PAIN Time Seen by Provider: 07/06/19 16:27 Source of Information: Reports: Patient History Limitations: Reports: No Limitations - History of Present Illness INITIAL COMMENTS - FREE TEXT/NARRATIVE: History of present illness: []Patient is a poor historian who complains of abdominal pain and nausea and vomiting. He denies any fevers or diarrhea. Review of systems: As per history of present illness and below otherwise all systems reviewed and negative. Past medical history: As per history of present illness and as reviewed below otherwise noncontributory. Surgical history: As per history of present illness and as reviewed below otherwise noncontributory. Social history: No reported history of drug or alcohol abuse. Family history: As per history of present illness and as reviewed below otherwise noncontributory. Physical exam: General: Well developed, well nourished in NAD HEENT: Atraumatic, normocephalic, pupils reactive, negative for conjunctival pallor or scleral icterus, mucous membranes moist, throat clear, neck supple, nontender, trachea midline. Lungs: Clear to auscultation, breath sounds equal bilaterally, chest nontender. Heart: S1S2, regular, negative for clicks, rubs, or JVD. Abdomen: NABS, Soft, nondistended, mild epigastric tenderness without rebound or guarding. Negative for masses or hepatosplenomegaly. Negative for costovertebral tenderness. Pelvis: Stable nontender. Genitourinary: Deferred. Rectal: Deferred. Extremities: Atraumatic, negative for cords or calf pain. Neurovascular unremarkable. Neuro: Awake, alert, oriented. Cranial nerves II through XII unremarkable. Cerebellum unremarkable. Motor and sensory unremarkable throughout. Exam nonfocal. Skin:warm and dry Diagnostics: CBC, chemistry Therapeutics: IV fluids, GI cocktail, Zofran ED Course: Improved Impression: Mild table hyponatremia, gastritis, nausea Prescriptions: Zofran Plan: Take meds as directed, follow up with your primary care physician, return to ER if symptoms worsen or change. Definitive disposition and diagnosis as appropriate pending reevaluation and review of above. Abdomen Pain Score (Numeric/FACES): 5 - Related Data Allergies Allergy/AdvReac Type Severity Reaction Status Date / Time latex Allergy Rash Verified 07/06/19 16:55 levofloxacin Allergy Rash Verified 07/06/19 16:55 Home Meds: Home Meds Multivitamin [Multiple Vitamins] 1 tab PO DAILY 01/06/18 [History] Budesonide/Formoterol [Symbicort 160-4.5 MCG] 2 puff INH BID PRN 11/06/18 [ History] Losartan/Hydrochlorothiazide [Losartan-HCTZ 100-25 MG] 1 tab PO DAILY 11/06/18 [ History] Nitrofurantoin Monohyd/M-Cryst [Macrobid 100 mg Capsule] 1 cap PO BID #14 capsule 06/15/19 [Rx] Non-Formulary Medication [NF Drug] 1 tab PO DAILY 06/15/19 [History] Past Medical History - Past Health History Medical/Surgical History: Denies Medical/Surgical History HEENT History: Reports: Other (See Below) Other HEENT History: wears glasses, has partial dental appliance but doesn't wear Cardiovascular History: Reports: Hypertension Respiratory History: Reports: COPD Gastrointestinal History: Reports: Diverticulosis, GERD Other Gastrointestinal History: dysphagia Genitourinary History: Reports: None Musculoskeletal History: Reports: Fracture Other Musculoskeletal History: hx of fx scapula and finger Neurological History: Reports: Headaches, Chronic Other Neuro History: states headaches are caused by neck pain Psychiatric History: Reports: Developmental Delay 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 Endocrine/Metabolic History: Reports: None Hematologic History: Reports: None Immunologic History: Reports: None Oncologic (Cancer) History: Reports: None Dermatologic History: Reports: Other (See Below) Other Dermatologic History: frequent skin infections - Infectious Disease History Infectious Disease History: Reports: Chicken Pox, Measles, Mumps - Past Surgical History Head Surgeries/Procedures: Reports: None HEENT Surgical History: Reports: Adenoidectomy, Tonsillectomy GI Surgical History: Reports: Colonoscopy, EGD Endocrine Surgical History: Reports: None Neurological Surgical History: Reports: None Oncologic Surgical History: Reports: None Dermatological Surgical History: Reports: None Social & Family History - Family History Family Medical History: Noncontributory - Caffeine Use Caffeine Use: Reports: Coffee, Soda Caffeine Use Comment: 4 cups/day - Living Situation & Occupation Living situation: Reports: Single ED ROS GENERAL - Review of Systems Review Of Systems: See Below ED EXAM, GI/ABD - Physical Exam Exam: See Below Course - Vital Signs Last Recorded V/S: Last Vital Signs Temp 97.2 F 07/06/19 16:52 Pulse 123 H 07/06/19 16:52 Resp 18 07/06/19 16:52 BP 114/46 L 07/06/19 16:52 Pulse Ox 97 07/06/19 16:52 - Orders/Labs/Meds Orders: Active Orders 24 hr Category Date Time Status UA W/MICROSCOPIC [URIN] Stat Lab 07/06/19 16:29 Ordered Sodium Chloride 0.9% [Saline Flush] Med 07/06/19 16:29 Active 10 ml FLUSH ASDIRECTED PRN Sodium Chloride 0.9% [Saline Flush] Med 07/06/19 16:29 Active 2.5 ml FLUSH ASDIRECTED PRN Saline Lock Insert [OM.PC] Stat Oth 07/06/19 16:29 Ordered Medication Orders Sodium Chloride (Saline Flush) 10 ml FLUSH ASDIRECTED PRN PRN Reason: Keep Vein Open Sodium Chloride (Saline Flush) 2.5 ml FLUSH ASDIRECTED PRN PRN Reason: Keep Vein Open Labs: Laboratory Tests 07/06/19 07/06/19 Range/Units 17:03 17:03 WBC 11.05 H (4.0-11.0) K/uL RBC 3.31 L (4.50-5.90) M/uL Hgb 12.5 L (13.0-17.0) g/dL Hct 36.3 L (38.0-50.0) % MCV 109.7 H (80.0-98.0) fL MCH 37.8 H (27.0-32.0) pg MCHC 34.4 (31.0-37.0) g/dL RDW Std Deviation 64.7 H (28.0-62.0) fl RDW Coeff of Gildardo 16 H (11.0-15.0) % Plt Count 319 (150-400) K/uL MPV 9.60 (7.40-12.00) fL Neut % (Auto) 78.7 (48.0-80.0) % Lymph % (Auto) 11.3 L (16.0-40.0) % [place] % (Auto) 9.4 (0.0-15.0) % Eos % (Auto) 0.5 (0.0-7.0) % Baso % (Auto) 0.1 (0.0-1.5) % Neut # (Auto) 8.7 H (1.4-5.7) K/uL Lymph # (Auto) 1.3 (0.6-2.4) K/uL [place] # (Auto) 1.0 H (0.0-0.8) K/uL Eos # (Auto) 0.1 (0.0-0.7) K/uL Baso # (Auto) 0.0 (0.0-0.1) K/uL Nucleated RBC % 0.0 /100WBC Nucleated RBCs # 0 K/uL Sodium 126 L (136-148) mmol/L Potassium 4.2 (3.5-5.1) mmol/L Chloride 90 L (98-107) mmol/L Carbon Dioxide 20.2 L (21.0-32.0) mmol/L BUN 15 (7.0-18.0) mg/dL Creatinine 1.4 H (0.8-1.3) mg/dL Est Cr Clr Drug Dosing 48.41 mL/min Estimated GFR (MDRD) 51.7 ml/min Glucose 82 (74-106) mg/dL Calcium 9.3 (8.5-10.1) mg/dL Total Bilirubin 0.4 (0.2-1.0) mg/dL AST 22 (15-37) IU/L ALT 29 (14-63) IU/L Alkaline Phosphatase 65 (46-116) U/L Total Protein 8.6 H (6.4-8.2) g/dL Albumin 4.1 (3.4-5.0) g/dL Globulin 4.5 H (2.6-4.0) g/dL Albumin/Globulin Ratio 0.9 (0.9-1.6) Lipase 81 (73-393) U/L Meds: Medications Generic Name Dose Route Start Last Admin Trade Name Freq PRN Reason Stop Dose Admin Sodium Chloride 10 ml 07/06/19 16:29 Saline Flush FLUSH ASDIRECTED PRN Keep Vein Open Sodium Chloride 2.5 ml 07/06/19 16:29 Saline Flush FLUSH ASDIRECTED PRN Keep Vein Open Discontinued Medications Generic Name Dose Route Start Last Admin Trade Name Freq PRN Reason Stop Dose Admin Al Hydroxide/Mg Hydroxide 15 0 ml 07/06/19 17:57 07/06/19 18:06 ml/ Lidocaine HCl 5 ml PO 07/06/19 17:58 1 each ONETIME ONE Administration Sodium Chloride 1,000 mls @ 999 mls/hr 07/06/19 17:08 07/06/19 17:17 Normal Saline IV 07/06/19 18:08 999 mls/hr .Bolus ONE Administration Ondansetron HCl 4 mg 07/06/19 17:08 07/06/19 17:17 Zofran IVPUSH 07/06/19 17:09 4 mg ONETIME ONE Administration Ondansetron HCl 4 mg 07/06/19 17:57 07/06/19 18:05 Zofran IVPUSH 07/06/19 17:58 4 mg ONETIME ONE Administration Departure - Departure Time of Disposition: 18:26 Disposition: Home, Self-Care 01 Condition: Good Clinical Impression: Gastritis, Hyponatremia - Discharge Information *PRESCRIPTION DRUG MONITORING PROGRAM REVIEWED*: No *COPY OF PRESCRIPTION DRUG MONITORING REPORT IN PATIENT RAFA: No Referrals: Paul Prado MD [Primary Care Provider] - Forms: ED Department Discharge Additional Instructions: The following information is given to patients seen in the emergency department who are being discharged to home. This information is to outline your options for follow-up care. We provide all patients seen in our emergency department with a follow-up referral. The need for follow-up, as well as the timing and circumstances, are variable depending upon the specifics of your emergency department visit. If you don't have a primary care physician on staff, we will provide you with a referral. We always advise you to contact your personal physician following an emergency department visit to inform them of the circumstance of the visit and for follow-up with them and/or the need for any referrals to a consulting specialist. The emergency department will also refer you to a specialist when appropriate. This referral assures that you have the opportunity for follow-up care with a specialist. All of these measure are taken in an effort to provide you with optimal care, which includes your follow-up. Under all circumstances we always encourage you to contact your private physician who remains a resource for coordinating your care. When calling for follow-up care, please make the office aware that this follow-up is from your recent emergency room visit. If for any reason you are refused follow-up, please contact the [facility] Emergency Department at and asked to speak to the emergency department charge nurse. Take [id number] Prilosec twice daily, follow up with your primary care physician, return to ER if symptoms worsen or change. [facility] [address] [place] [id number] - My Orders Last 24 Hours: My Active Orders 07/06/19 16:29 UA W/MICROSCOPIC [URIN] Stat Sodium Chloride 0.9% [Saline Flush] 10 ml FLUSH ASDIRECTED PRN Sodium Chloride 0.9% [Saline Flush] 2.5 ml FLUSH ASDIRECTED PRN Saline Lock Insert [OM.PC] Stat - Assessment/Plan Last 24 Hours: My Active Orders 07/06/19 16:29 UA W/MICROSCOPIC [URIN] Stat Sodium Chloride 0.9% [Saline Flush] 10 ml FLUSH ASDIRECTED PRN Sodium Chloride 0.9% [Saline Flush] 2.5 ml FLUSH ASDIRECTED PRN Saline Lock Insert [OM.PC] Stat
[2019-07-06] MEDS ORDERED: Sodium Chloride 0.9% 2.5 ML Syringe FLUSH PRN (16:29)
[2019-07-06] MEDS ORDERED: Sodium Chloride 0.9% 10 ML Syringe FLUSH PRN (16:29)
[2019-07-06] MEDS ORDERED: Sodium Chloride 0.9% 1,000 ML IV ONE (17:08)
[2019-07-06] MEDS ORDERED: Ondansetron 4 MG/2 ML SDV IVPUSH ONE ×2 (17:08→17:57)
[2019-07-06 17:41] LABS: CARBON DIOXIDE,CO2 20.2 mmol/L (21.0-32.0); POTASSIUM,K 4.2 mmol/L (3.5-5.1)
[2019-07-06] MEDS ORDERED: Alum Hydrox/Mag Hydrox/Simeth 15 ML, Lidocaine 2% 5 ML PO ONE ×2 (17:57)
[2019-07-06 18:47] VITALS: BP 98/61; PULSE 111
== END 2019-07-06 18:46 | disposition home or self-care (01) ==
LOC: MW.ED 16:25
DX: K29.70 Gastritis, unspecified, without bleeding (principal); E87.1 Hypo-osmolality and hyponatremia; I10 Essential (primary) hypertension; J44.9 Chronic obstructive pulmonary disease, unspecified; Z88.1 Allergy status to other antibiotic agents; Z91.040 Latex allergy status; Z79.899 Other long term (current) drug therapy; Z79.51 Long term (current) use of inhaled steroids
CPT/HCPCS: 80053; 83690; 85025; 96361; 96374; 96376; 99284; A9270; J2405; J7040

== ENCOUNTER 2019-07-08 10:05 | Inpatient (IN) | payer MEDICARE, MEDICAID ==
[2019-07-08] MEDS ORDERED: Sodium Chloride 0.9% 2.5 ML Syringe FLUSH PRN (10:16)
[2019-07-08] MEDS ORDERED: Sodium Chloride 0.9% 10 ML Syringe FLUSH PRN (10:16)
[2019-07-08] MEDS ORDERED: Sodium Chloride 0.9% 1,000 ML IV ONE ×5 (10:16→18:27)
--- NOTE | 2019-07-08 10:18 | EDM.PDOC ---
ED HPI GENERAL MEDICAL PROBLEM - General Chief Complaint: General Stated Complaint: NAUSEA Time Seen by Provider: 07/08/19 10:17 Source of Information: Reports: Patient History Limitations: Reports: No Limitations - History of Present Illness INITIAL COMMENTS - FREE TEXT/NARRATIVE: HISTORY AND PHYSICAL: History of present illness: Patient is a 59-year-old male presents to the ED with complaint of generally not feeling well and feeling weak. He states for the past week he has been having nausea, epigastric burning abdominal discomfort and a cough. He denies fevers, chills, vomiting, diarrhea, chest pain, shortness of breath. Straight of COPD and hypertension. Smokes 1 pack per day x 40 years. Review of systems: As per history of present illness and below otherwise all systems reviewed and negative. Past medical history: As per history of present illness and as reviewed below otherwise noncontributory. Surgical history: As per history of present illness and as reviewed below otherwise noncontributory. Social history: No reported history of drug or alcohol abuse. Family history: As per history of present illness and as reviewed below otherwise noncontributory. Physical exam: General: Patient sitting comfortably in no acute distress and nontoxic appearing HEENT: Atraumatic, normocephalic, pupils reactive, negative for conjunctival pallor or scleral icterus, mucous membranes moist, throat clear, neck supple, nontender, trachea midline. No meningeal signs. Lungs: Clear to auscultation, breath sounds equal bilaterally, chest nontender. Heart: S1S2, regular, negative for clicks, rubs, or overt murmur. Abdomen: Soft, nondistended, nontender. Negative for masses or hepatosplenomegaly. Negative for costovertebral tenderness. No rigidity, rebound , guarding. Pelvis: Stable nontender. Genitourinary: Deferred. Rectal: Deferred. Extremities: Atraumatic, negative for cords or calf pain. Neurovascular unremarkable. Neuro: Awake, alert, oriented. Cranial nerves II through XII unremarkable. Cerebellum unremarkable. Motor and sensory unremarkable throughout. Exam nonfocal. Notes: Diagnostics: CBC, CMP, UA, lactate, blood culture 2 Therapeutics: 1L Normal saline IV GI Cocktail 1g Rocephin IV Prescriptions: Impression: leukocytosis, pneumonia Plan: Discussed with Dr. oBogie, patient will be admitted to observation Definitive disposition and diagnosis as appropriate pending reevaluation and review of above. abd Pain Score (Numeric/FACES): 4 - Related Data Allergies Allergy/AdvReac Type Severity Reaction Status Date / Time latex Allergy Rash Verified 07/08/19 10:15 levofloxacin Allergy Rash Verified 07/08/19 10:15 Home Meds: Home Meds Multivitamin [Multiple Vitamins] 1 tab PO DAILY 01/06/18 [History] Budesonide/Formoterol [Symbicort 160-4.5 MCG] 2 puff INH BID PRN 11/06/18 [ History] Losartan/Hydrochlorothiazide [Losartan-HCTZ 100-25 MG] 1 tab PO DAILY 11/06/18 [ History] Nitrofurantoin Monohyd/M-Cryst [Macrobid 100 mg Capsule] 1 cap PO BID #14 capsule 06/15/19 [Rx] Non-Formulary Medication [NF Drug] 1 tab PO DAILY 06/15/19 [History] Ondansetron HCl [Zofran] 4 mg PO Q4HR #12 tablet 07/06/19 [Rx] Past Medical History - Past Health History Medical/Surgical History: Denies Medical/Surgical History HEENT History: Reports: Other (See Below) Other HEENT History: wears glasses, has partial dental appliance but doesn't wear Cardiovascular History: Reports: Hypertension Respiratory History: Reports: COPD Gastrointestinal History: Reports: Diverticulosis, GERD Other Gastrointestinal History: dysphagia Genitourinary History: Reports: None Musculoskeletal History: Reports: Fracture Other Musculoskeletal History: hx of fx scapula and finger Neurological History: Reports: Headaches, Chronic Other Neuro History: states headaches are caused by neck pain Psychiatric History: Reports: Developmental Delay 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 Endocrine/Metabolic History: Reports: None Hematologic History: Reports: None Immunologic History: Reports: None Oncologic (Cancer) History: Reports: None Dermatologic History: Reports: Other (See Below) Other Dermatologic History: frequent skin infections - Infectious Disease History Infectious Disease History: Reports: Chicken Pox, Measles, Mumps - Past Surgical History Head Surgeries/Procedures: Reports: None HEENT Surgical History: Reports: Adenoidectomy, Tonsillectomy GI Surgical History: Reports: Colonoscopy, EGD Endocrine Surgical History: Reports: None Neurological Surgical History: Reports: None Oncologic Surgical History: Reports: None Dermatological Surgical History: Reports: None Social & Family History - Family History Family Medical History: Noncontributory - Tobacco Use Smoking Status *Q: Current Every Day Smoker Years of Tobacco use: 40 Packs/Tins Daily: 1 - Caffeine Use Caffeine Use: Reports: Coffee, Soda Caffeine Use Comment: 4 cups/day - Recreational Drug Use Recreational Drug Use: No - Living Situation & Occupation Living situation: Reports: Single ED ROS GENERAL - Review of Systems Review Of Systems: ROS reveals no pertinent complaints other than HPI. ED EXAM, GENERAL - Physical Exam Exam: See Below (see dictation) Course - Vital Signs Last Recorded V/S: Last Vital Signs Temp 97.2 F 07/08/19 10:13 Pulse 93 07/08/19 12:49 Resp 18 07/08/19 12:49 BP 93/63 07/08/19 12:49 Pulse Ox 98 07/08/19 12:49 - Orders/Labs/Meds Orders: Active Orders 24 hr Category Date Time Status Admission Status [Patient Status] [ADT] Stat ADT 07/08/19 13:00 Ordered CULTURE BLOOD [BC] Stat Lab 07/08/19 10:35 Received CULTURE BLOOD [BC] Stat Lab 07/08/19 10:50 Results Sodium Chloride 0.9% [Normal Saline] 1,000 ml Med 07/08/19 12:59 Ordered IV STAT Sodium Chloride 0.9% [Saline Flush] Med 07/08/19 10:16 Active 10 ml FLUSH ASDIRECTED PRN Sodium Chloride 0.9% [Saline Flush] Med 07/08/19 10:16 Active 2.5 ml FLUSH ASDIRECTED PRN cefTRIAXone [Rocephin in Dextrose,Iso-Osm 1 GM/50 ML] 1 Med 07/08/19 12:58 Ordered gm Premix Bag 1 bag IV ONETIME Blood Culture x2 Reflex Set [OM.PC] Stat Oth 07/08/19 10:17 Ordered Saline Lock Insert [OM.PC] Stat Oth 07/08/19 10:16 Ordered Medication Orders Ceftriaxone Sodium/Dextrose 1 (gm/ Premix) 50 mls @ 100 mls/hr IV ONETIME ONE Stop: 07/08/19 13:27 Sodium Chloride (Normal Saline) 1,000 mls @ 125 mls/hr IV STAT ONE Stop: 07/08/19 20:58 Sodium Chloride (Saline Flush) 10 ml FLUSH ASDIRECTED PRN PRN Reason: Keep Vein Open Last Admin: 07/08/19 10:53 Dose: 10 ml Sodium Chloride (Saline Flush) 2.5 ml FLUSH ASDIRECTED PRN PRN Reason: Keep Vein Open Last Admin: 07/08/19 10:53 Dose: 2.5 ml Labs: Laboratory Tests 07/08/19 07/08/19 07/08/19 Range/Units 10:35 10:35 10:35 WBC 20.40 H (4.0-11.0) K/uL RBC 3.48 L (4.50-5.90) M/uL Hgb 13.1 (13.0-17.0) g/dL Hct 37.8 L (38.0-50.0) % MCV 108.6 H (80.0-98.0) fL MCH 37.6 H (27.0-32.0) pg MCHC 34.7 (31.0-37.0) g/dL RDW Std Deviation 61.8 (28.0-62.0) fl RDW Coeff of Gildardo 16 H (11.0-15.0) % Plt Count 342 (150-400) K/uL MPV 9.60 (7.40-12.00) fL Neut % (Auto) 87.6 H (48.0-80.0) % Lymph % (Auto) 4.9 L (16.0-40.0) % [place] % (Auto) 7.2 (0.0-15.0) % Eos % (Auto) 0.3 (0.0-7.0) % Baso % (Auto) 0.0 (0.0-1.5) % Neut # (Auto) 17.9 H (1.4-5.7) K/uL Lymph # (Auto) 1.0 (0.6-2.4) K/uL [place] # (Auto) 1.5 H (0.0-0.8) K/uL Eos # (Auto) 0.1 (0.0-0.7) K/uL Baso # (Auto) 0.0 (0.0-0.1) K/uL Nucleated RBC % 0.0 /100WBC Nucleated RBCs # 0 K/uL Lactate 1.8 (0.20-2.00) mmol/L Sodium 124 L (136-148) mmol/L Potassium 4.0 (3.5-5.1) mmol/L Chloride 90 L (98-107) mmol/L Carbon Dioxide 18.7 L (21.0-32.0) mmol/L BUN 15 (7.0-18.0) mg/dL Creatinine 1.3 (0.8-1.3) mg/dL Est Cr Clr Drug Dosing 52.34 mL/min Estimated GFR (MDRD) 56.3 ml/min Glucose 92 (74-106) mg/dL Calcium 8.7 (8.5-10.1) mg/dL Total Bilirubin 0.4 (0.2-1.0) mg/dL AST 21 (15-37) IU/L ALT 24 (14-63) IU/L Alkaline Phosphatase 65 (46-116) U/L Total Protein 8.3 H (6.4-8.2) g/dL Albumin 4.1 (3.4-5.0) g/dL Globulin 4.2 H (2.6-4.0) g/dL Albumin/Globulin Ratio 1.0 (0.9-1.6) Lipase 92 (73-393) U/L Urine Color Urine Appearance Urine pH (5.0-8.0) Ur Specific [place] (1.001-1.035) Urine Protein (NEGATIVE) mg/dL Urine Glucose (UA) (NEGATIVE) mg/dL Urine Ketones (NEGATIVE) mg/dL Urine Occult Blood (NEGATIVE) Urine Nitrite (NEGATIVE) Urine Bilirubin (NEGATIVE) Urine Urobilinogen (<2.0) EU/dL Ur Leukocyte Esterase (NEGATIVE) 07/08/19 Range/Units 11:50 WBC (4.0-11.0) K/uL RBC (4.50-5.90) M/uL Hgb (13.0-17.0) g/dL Hct (38.0-50.0) % MCV (80.0-98.0) fL MCH (27.0-32.0) pg MCHC (31.0-37.0) g/dL RDW Std Deviation (28.0-62.0) fl RDW Coeff of [place]ildardo (11.0-15.0) % Plt Count (150-400) K/uL MPV (7.40-12.00) fL Neut % (Auto) (48.0-80.0) % Lymph % (Auto) (16.0-40.0) % [place] % (Auto) (0.0-15.0) % Eos % (Auto) (0.0-7.0) % Baso % (Auto) (0.0-1.5) % Neut # (Auto) (1.4-5.7) K/uL Lymph # (Auto) (0.6-2.4) K/uL [place] # (Auto) (0.0-0.8) K/uL Eos # (Auto) (0.0-0.7) K/uL Baso # (Auto) (0.0-0.1) K/uL Nucleated RBC % /100WBC Nucleated RBCs # K/uL Lactate (0.20-2.00) mmol/L Sodium (136-148) mmol/L Potassium (3.5-5.1) mmol/L Chloride (98-107) mmol/L Carbon Dioxide (21.0-32.0) mmol/L BUN (7.0-18.0) mg/dL Creatinine (0.8-1.3) mg/dL Est Cr Clr Drug Dosing mL/min Estimated GFR (MDRD) ml/min Glucose (74-106) mg/dL Calcium (8.5-10.1) mg/dL Total Bilirubin (0.2-1.0) mg/dL AST (15-37) IU/L ALT (14-63) IU/L Alkaline Phosphatase (46-116) U/L Total Protein (6.4-8.2) g/dL Albumin (3.4-5.0) g/dL Globulin (2.6-4.0) g/dL Albumin/Globulin Ratio (0.9-1.6) Lipase (73-393) U/L Urine Color YELLOW Urine Appearance CLEAR Urine pH 5.0 (5.0-8.0) Ur Specific [place] 1.010 (1.001-1.035) Urine Protein NEGATIVE (NEGATIVE) mg/dL Urine Glucose (UA) NEGATIVE (NEGATIVE) mg/dL Urine Ketones NEGATIVE (NEGATIVE) mg/dL Urine Occult Blood NEGATIVE (NEGATIVE) Urine Nitrite NEGATIVE (NEGATIVE) Urine Bilirubin NEGATIVE (NEGATIVE) Urine Urobilinogen 0.2 (<2.0) EU/dL Ur Leukocyte Esterase NEGATIVE (NEGATIVE) Meds: Medications Generic Name Dose Route Start Last Admin Trade Name Freq PRN Reason Stop Dose Admin Ceftriaxone Sodium/Dextrose 1 50 mls @ 100 mls/hr 07/08/19 12:58 gm/ Premix IV 07/08/19 13:27 ONETIME ONE Sodium Chloride 1,000 mls @ 125 mls/hr 07/08/19 12:59 Normal Saline IV 07/08/19 20:58 STAT ONE Sodium Chloride 10 ml 07/08/19 10:16 07/08/19 10:53 Saline Flush FLUSH 10 ml ASDIRECTED PRN Administration Keep Vein Open Sodium Chloride 2.5 ml 07/08/19 10:16 07/08/19 10:53 Saline Flush FLUSH 2.5 ml ASDIRECTED PRN Administration Keep Vein Open Discontinued Medications Generic Name Dose Route Start Last Admin Trade Name Freq PRN Reason Stop Dose Admin Al Hydroxide/Mg Hydroxide 15 0 ml 07/08/19 10:26 07/08/19 10:53 ml/ Lidocaine HCl 5 ml PO 07/08/19 10:27 1 each ONETIME ONE Administration Sodium Chloride 1,000 mls @ 999 mls/hr 07/08/19 10:16 07/08/19 10:37 Normal Saline IV 07/08/19 11:16 999 mls/hr STAT ONE Administration Departure - Departure Time of Disposition: 13:02 Disposition: Refer to Observation Condition: Good Clinical Impression: Pneumonia Leukocytosis Qualifiers: Leukocytosis type: unspecified Qualified Code(s): D72.829 - Elevated white blood cell count, unspecified - Discharge Information Referrals: Paul Prado MD [Primary Care Provider] - Forms: ED Department Discharge - My Orders Last 24 Hours: My Active Orders 07/08/19 10:16 Sodium Chloride 0.9% [Saline Flush] 10 ml FLUSH ASDIRECTED PRN Sodium Chloride 0.9% [Saline Flush] 2.5 ml FLUSH ASDIRECTED PRN Saline Lock Insert [OM.PC] Stat 07/08/19 10:17 Blood Culture x2 Reflex Set [OM.PC] Stat 07/08/19 10:35 CULTURE BLOOD [BC] Stat 07/08/19 10:50 CULTURE BLOOD [BC] Stat 07/08/19 12:58 cefTRIAXone [Rocephin in Dextrose,Iso-Osm 1 GM/50 ML] 1 gm Premix Bag 1 bag IV ONETIME 07/08/19 12:59 Sodium Chloride 0.9% [Normal Saline] 1,000 ml IV STAT 07/08/19 13:00 Admission Status [Patient Status] [ADT] Stat - Assessment/Plan Last 24 Hours: My Active Orders 07/08/19 10:16 Sodium Chloride 0.9% [Saline Flush] 10 ml FLUSH ASDIRECTED PRN Sodium Chloride 0.9% [Saline Flush] 2.5 ml FLUSH ASDIRECTED PRN Saline Lock Insert [OM.PC] Stat 07/08/19 10:17 Blood Culture x2 Reflex Set [OM.PC] Stat 07/08/19 10:35 CULTURE BLOOD [BC] Stat 07/08/19 10:50 CULTURE BLOOD [BC] Stat 07/08/19 12:58 cefTRIAXone [Rocephin in Dextrose,Iso-Osm 1 GM/50 ML] 1 gm Premix Bag 1 bag IV ONETIME 07/08/19 12:59 Sodium Chloride 0.9% [Normal Saline] 1,000 ml IV STAT 07/08/19 13:00 Admission Status [Patient Status] [ADT] Stat
[2019-07-08] MEDS ORDERED: Alum Hydrox/Mag Hydrox/Simeth 15 ML, Lidocaine 2% 5 ML PO ONE ×2 (10:26)
[2019-07-08 11:07] LABS: CARBON DIOXIDE,CO2 18.7 mmol/L (21.0-32.0)
--- NOTE | 2019-07-08 11:21 | CR ---
Chest: AP view of the chest was obtained. Comparison: Prior chest x-ray of 06/15/19. Heart size and mediastinum are normal. Lungs are clear. Bony structures are grossly intact. Impression: Nothing acute is appreciated on AP chest x-ray. Diagnostic code #1 MTDD
--- NOTE | 2019-07-08 12:47 | CT ---
CT abdomen and pelvis Technique: Multiple axial sections were obtained from above the dome of the diaphragm inferiorly through the pubic symphysis. Intravenous and oral contrast not utilized. Comparison: Prior CT abdomen and pelvis exam of 06/15/19. Findings: Visualized lung bases show nothing acute. Noncontrast appearance of the liver shows no discrete abnormality. Spleen appears within normal limits. [place] nodule is noted within the right adrenal gland having negative Hounsfield unit measurements compatible with benign adrenal adenoma which appears stable from previous exam. Left adrenal gland is unremarkable. Pancreas is somewhat atrophic without focal abnormality. Gallbladder contains no calcified gallstones. Kidneys show no renal calculi. No ureteral dilatation or ureteral stone is seen. Low density area is noted within the left kidney measuring 2.5 cm size which is felt to represent cysts. Aorta shows no aneurysm with atherosclerotic calcification being seen. No retroperitoneal adenopathy or mesenteric abnormalities are seen. No pelvic mass or adenopathy is seen. No free fluid or inflammatory change is seen. Appendix is visualized and is normal in size. Bone window settings were reviewed which shows no acute osseous abnormality. Impression: 1. Stable right-sided adrenal adenoma. 2. Nothing acute is seen on noncontrast CT study of the abdomen and pelvis. Diagnostic code #2 MTDD
[2019-07-08] MEDS ORDERED: cefTRIAXone 1 GM in Premix Bag 1 BAG IV ONE (12:58)
--- NOTE | 2019-07-08 13:53 | PCM.HP.2 ---
Addendum entered and electronically signed by Humera Valverde NP 07/08/19 15:02 : Rectal exam completed, prostate slightly tender. Prostate continues to be large and firm. Unable to palpate opposite side of prostate. Will obtain post void residual. Consider prostatitis. Original Note: H&P History of Present Illness - General Date of Service: 07/08/19 Admit Problem/Dx: Admission Diagnosis/Problem Admission Diagnosis/Problem Sepsis Source of Information: Patient, Old Records History Limitations: Reports: No Limitations - History of Present Illness Initial Comments - Free Text/Narative: This 59 year old male with pmh of HTN, developmental delay and BPH presented to the ED with complaints of generally not feeling well for over a week, reports nausea and vomiting, chills, productive cough and sinus congestion. He reports he has been unable to keep anything down in over two days, he has tried but he will throw them up right away. He reports he has continued to try taking his home medications. He reports mild shortness of breath with chest tightness. He reports some abdominal pain, denies abdominal pain, but reports he has not had a BM in 2 days. No black or bloody BM prior to that. He reports urinating better , was admitted about 1 month ago with obstructive uropathy, barnett placed and has since seen Urology, who placed him on Flomax and removed barnett. He states he received his influenza vaccine and unsure about pneumovax. In the ED he was noted to have leukocytosis of 20,400. Hyponatremia with Na 124 , K+ 4.0, Cl 90, Bicarb 18.7, BUN 15, and Cr 1.3. Lactic acid 1.8 UA negative. CXR obtained which is negative as well. Ct of abdomen obtained due to mild pain and N/V, this revealed no acute concerns, noted stable R renal adenoma. Vital signs in the ED revealed hypotension with tachycardia upon arrival to the ED. HR 110s with BP 80/50s. He was treated with 2 L NS in ED, which improved BP to 93/63 and HR is no longer tachycardia in the 80-90s. He was treated with Rocephin for suspected pneumonia. He will be admitted to ICU due to sepsis secondary to suspected HCAP and dehydration. PCP, Dr Prado abd Pain Score (Numeric/FACES): 4 - Related Data Allergies/Adverse Reactions: Allergies Allergy/AdvReac Type Severity Reaction Status Date / Time latex Allergy Rash Verified 07/08/19 10:15 levofloxacin Allergy Rash Verified 07/08/19 10:15 Home Medications: Home Meds Multivitamin [Multiple Vitamins] 1 tab PO DAILY 01/06/18 [History] Budesonide/Formoterol [Symbicort 160-4.5 MCG] 2 puff INH BID PRN 11/06/18 [ History] Losartan/Hydrochlorothiazide [Losartan-HCTZ 100-25 MG] 1 tab PO DAILY 11/06/18 [ History] Nitrofurantoin Monohyd/M-Cryst [Macrobid 100 mg Capsule] 1 cap PO BID #14 capsule 06/15/19 [Rx] Non-Formulary Medication [NF Drug] 1 tab PO DAILY 06/15/19 [History] Ondansetron HCl [Zofran] 4 mg PO Q4HR #12 tablet 07/06/19 [Rx] Past Medical History - Past Health History Medical/Surgical History: Denies Medical/Surgical History HEENT History: Reports: Other (See Below) Other HEENT History: wears glasses, has partial dental appliance but doesn't wear Cardiovascular History: Reports: Hypertension Respiratory History: Reports: COPD Gastrointestinal History: Reports: Diverticulosis, GERD Other Gastrointestinal History: dysphagia Genitourinary History: Reports: None Musculoskeletal History: Reports: Fracture Other Musculoskeletal History: hx of fx scapula and finger Neurological History: Reports: Headaches, Chronic Other Neuro History: states headaches are caused by neck pain Psychiatric History: Reports: Developmental Delay Other Psychiatric History: 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 Endocrine/Metabolic History: Reports: None Hematologic History: Reports: None Immunologic History: Reports: None Oncologic (Cancer) History: Reports: None Dermatologic History: Reports: Other (See Below) Other Dermatologic History: frequent skin infections - Infectious Disease History Infectious Disease History: Reports: Chicken Pox, Measles, Mumps - Past Surgical History Head Surgeries/Procedures: Reports: None HEENT Surgical History: Reports: Adenoidectomy, Tonsillectomy GI Surgical History: Reports: Colonoscopy, EGD Endocrine Surgical History: Reports: None Neurological Surgical History: Reports: None Oncologic Surgical History: Reports: None Dermatological Surgical History: Reports: None Social & Family History - Family History Family Medical History: Noncontributory - Tobacco Use Smoking Status *Q: Current Every Day Smoker Years of Tobacco use: 40 Packs/Tins Daily: 1 - Caffeine Use Caffeine Use: Reports: Coffee, Soda Caffeine Use Comment: 4 cups/day - Recreational Drug Use Recreational Drug Use: No - Living Situation & Occupation Living situation: Reports: Single H&P Review of Systems - Review of Systems: Review Of Systems: See Below General: Reports: Chills, Malaise, Weakness, Fatigue, Decreased Appetite HEENT: Reports: Sinus Congestion. Denies: Ear Pain, Headaches, Sore Throat, Vertigo Pulmonary: Reports: Shortness of Breath, Wheezing, Cough, Sputum Cardiovascular: Reports: Dyspnea on Exertion. Denies: Edema, Lightheadedness Gastrointestinal: Reports: Abdominal Pain, Constipation, Decreased Appetite, Nausea, Vomiting. Denies: Black Stool, Bloody Stool Genitourinary: Reports: No Symptoms. Denies: Dysuria, Frequency, Burning Musculoskeletal: Reports: No Symptoms Skin: Reports: No Symptoms Psychiatric: Reports: No Symptoms Neurological: Reports: No Symptoms Hematologic/Lymphatic: Reports: No Symptoms Immunologic: Reports: No Symptoms Exam - Exam Exam: See Below - Vital Signs Vital Signs: Last Vital Signs Temp 97.2 F 07/08/19 10:13 Pulse 87 07/08/19 13:22 Resp 17 07/08/19 13:22 BP 96/52 L 07/08/19 13:22 Pulse Ox 99 07/08/19 13:22 Weight: 61.235 kg - Exam Quality Assessment: Supplemental Oxygen, DVT Prophylaxis General: Alert, Oriented, Cooperative, Other (appears older than stated age) HEENT: Conjunctiva Clear, Nares Patent, Pupils Equal. No: Mucosa Moist & [place] ( dry) Neck: Supple, Trachea Midline. No: Lymphadenopathy, JVD Lungs: Decreased Breath Sounds, Rhonchi, Wheezing Cardiovascular: Regular Rhythm, Normal S1, Normal S2, Tachycardia GI/Abdominal Exam: Normal Bowel Sounds, Soft, No Organomegaly, No Mass, Tender ( scant tenderness diffusely) Extremities: Normal Inspection, Normal Range of Motion, Non-Tender, No Pedal Edema Skin: Warm, Dry, Intact Neuro Extensive - Mental Status: Alert, Oriented x3 Neuro Extensive - Motor, Sensory, Reflexes: CN II-XII Intact Psychiatric: Alert, Normal Affect, Normal Mood - Patient Data Lab Results Last 24 hrs: Laboratory Results - last 24 hr 07/08/19 07/08/19 07/08/19 Range/Units 10:35 10:35 10:35 WBC 20.40 H (4.0-11.0) K/uL RBC 3.48 L (4.50-5.90) M/uL Hgb 13.1 (13.0-17.0) g/dL Hct 37.8 L (38.0-50.0) % MCV 108.6 H (80.0-98.0) fL MCH 37.6 H (27.0-32.0) pg MCHC 34.7 (31.0-37.0) g/dL RDW Std Deviation 61.8 (28.0-62.0) fl RDW Coeff of [place] 16 H (11.0-15.0) % Plt Count 342 (150-400) K/uL MPV 9.60 (7.40-12.00) fL Neut % (Auto) 87.6 H (48.0-80.0) % Lymph % (Auto) 4.9 L (16.0-40.0) % [place] % (Auto) 7.2 (0.0-15.0) % Eos % (Auto) 0.3 (0.0-7.0) % Baso % (Auto) 0.0 (0.0-1.5) % Neut # (Auto) 17.9 H (1.4-5.7) K/uL Lymph # (Auto) 1.0 (0.6-2.4) K/uL [place] # (Auto) 1.5 H (0.0-0.8) K/uL Eos # (Auto) 0.1 (0.0-0.7) K/uL Baso # (Auto) 0.0 (0.0-0.1) K/uL Nucleated RBC % 0.0 /100WBC Nucleated RBCs # 0 K/uL Lactate 1.8 (0.20-2.00) mmol/L Sodium 124 L (136-148) mmol/L Potassium 4.0 (3.5-5.1) mmol/L Chloride 90 L (98-107) mmol/L Carbon Dioxide 18.7 L (21.0-32.0) mmol/L BUN 15 (7.0-18.0) mg/dL Creatinine 1.3 (0.8-1.3) mg/dL Est Cr Clr Drug Dosing 52.34 mL/min Estimated GFR (MDRD) 56.3 ml/min Glucose 92 (74-106) mg/dL Calcium 8.7 (8.5-10.1) mg/dL Total Bilirubin 0.4 (0.2-1.0) mg/dL AST 21 (15-37) IU/L ALT 24 (14-63) IU/L Alkaline Phosphatase 65 (46-116) U/L Total Protein 8.3 H (6.4-8.2) g/dL Albumin 4.1 (3.4-5.0) g/dL Globulin 4.2 H (2.6-4.0) g/dL Albumin/Globulin Ratio 1.0 (0.9-1.6) Lipase 92 (73-393) U/L Urine Color Urine Appearance Urine pH (5.0-8.0) Ur Specific [place] (1.001-1.035) Urine Protein (NEGATIVE) mg/dL Urine Glucose (UA) (NEGATIVE) mg/dL Urine Ketones (NEGATIVE) mg/dL Urine Occult Blood (NEGATIVE) Urine Nitrite (NEGATIVE) Urine Bilirubin (NEGATIVE) Urine Urobilinogen (<2.0) EU/dL Ur Leukocyte Esterase (NEGATIVE) 07/08/19 Range/Units 11:50 WBC (4.0-11.0) K/uL RBC (4.50-5.90) M/uL Hgb (13.0-17.0) g/dL Hct (38.0-50.0) % MCV (80.0-98.0) fL MCH (27.0-32.0) pg MCHC (31.0-37.0) g/dL RDW Std Deviation (28.0-62.0) fl RDW Coeff of [place] (11.0-15.0) % Plt Count (150-400) K/uL MPV (7.40-12.00) fL Neut % (Auto) (48.0-80.0) % Lymph % (Auto) (16.0-40.0) % [place] % (Auto) (0.0-15.0) % Eos % (Auto) (0.0-7.0) % Baso % (Auto) (0.0-1.5) % Neut # (Auto) (1.4-5.7) K/uL Lymph # (Auto) (0.6-2.4) K/uL [place] # (Auto) (0.0-0.8) K/uL Eos # (Auto) (0.0-0.7) K/uL Baso # (Auto) (0.0-0.1) K/uL Nucleated RBC % /100WBC Nucleated RBCs # K/uL Lactate (0.20-2.00) mmol/L Sodium (136-148) mmol/L Potassium (3.5-5.1) mmol/L Chloride (98-107) mmol/L Carbon Dioxide (21.0-32.0) mmol/L BUN (7.0-18.0) mg/dL Creatinine (0.8-1.3) mg/dL Est Cr Clr Drug Dosing mL/min Estimated GFR (MDRD) ml/min Glucose (74-106) mg/dL Calcium (8.5-10.1) mg/dL Total Bilirubin (0.2-1.0) mg/dL AST (15-37) IU/L ALT (14-63) IU/L Alkaline Phosphatase (46-116) U/L Total Protein (6.4-8.2) g/dL Albumin (3.4-5.0) g/dL Globulin (2.6-4.0) g/dL Albumin/Globulin Ratio (0.9-1.6) Lipase (73-393) U/L Urine Color YELLOW Urine Appearance CLEAR Urine pH 5.0 (5.0-8.0) Ur Specific [place] 1.010 (1.001-1.035) Urine Protein NEGATIVE (NEGATIVE) mg/dL Urine Glucose (UA) NEGATIVE (NEGATIVE) mg/dL Urine Ketones NEGATIVE (NEGATIVE) mg/dL Urine Occult Blood NEGATIVE (NEGATIVE) Urine Nitrite NEGATIVE (NEGATIVE) Urine Bilirubin NEGATIVE (NEGATIVE) Urine Urobilinogen 0.2 (<2.0) EU/dL Ur Leukocyte Esterase NEGATIVE (NEGATIVE) Result Diagrams: 07/08/19 10:35 07/08/19 10:35 Joss Results Last 24 hrs: Microbiology 07/08/19 10:50 Anaerobic Blood Culture - Final Blood - Venous - Lab Draw EKG INTERPRETATION EKG Date: 07/08/19 Rhythm: NSR Rate (Beats/Min): 102 P-Wave: Present QRS: Normal ST-T: Normal QT: Normal *Q Meaningful Use (ADM) - VTE Risk Assess *Q Each Risk Factor Represents 1 Point: Sepsis, Serious lung disease including pneumonia, Abnormal Pulmonary Function (COPD) Total Score 1 Point Risk Factors: 3 Each Risk Factor Represents 2 Points: Age 60 - 74 Years Total Score 2 Point Risk Factors: 2 Each Risk Factor Represents 3 Points: None Total Score 3 Point Risk Factors: 0 Each Risk Factor Represents 5 Points: None Total Score 5 Point Risk Factors: 0 Venous Thromboembolism Risk Factor Score *Q: 5 - Problem List (1) Sepsis SNOMED Code(s): 73125528 ICD Code: A41.9 - SEPSIS, UNSPECIFIED ORGANISM Status: Acute Current Visit: Yes Qualifiers: Sepsis type: sepsis due to unspecified organism Sepsis acute organ dysfunction status: without acute organ dysfunction Qualified Code(s): A41.9 - Sepsis, unspecified organism (2) HCAP (healthcare-associated pneumonia) SNOMED Code(s): 429270383, 778496195 ICD Code: J18.9 - PNEUMONIA, UNSPECIFIED ORGANISM Status: Acute Current Visit: Yes (3) Abdominal pain SNOMED Code(s): 32673023 ICD Code: R10.9 - UNSPECIFIED ABDOMINAL PAIN Status: Acute Current Visit : No Qualifiers: Abdominal location: generalized Qualified Code(s): R10.84 - Generalized abdominal pain (4) COPD (chronic obstructive pulmonary disease) SNOMED Code(s): 21837051 ICD Code: J44.9 - CHRONIC OBSTRUCTIVE PULMONARY DISEASE, UNSPECIFIED Status : Chronic Current Visit: No (5) HTN (hypertension) SNOMED Code(s): 39589135 ICD Code: I10 - ESSENTIAL (PRIMARY) HYPERTENSION Status: Chronic Current Visit: No Qualifiers: Hypertension type: essential hypertension Qualified Code(s): I10 - Essential (primary) hypertension (6) Smoker SNOMED Code(s): 27825154 ICD Code: F17.200 - NICOTINE DEPENDENCE, UNSPECIFIED, UNCOMPLICATED Status : Chronic Current Visit: No Problem List Initiated/Reviewed/Updated: Yes Orders Last 24hrs: Active Orders 24 hr Category Date Time Status Patient Status [ADT] Stat ADT 07/08/19 13:24 Active EKG 12 Lead [EKG Documentation Completion] [RC] STAT Care 07/08/19 13:29 Active Height and Weight [RC] DAILY Care 07/08/19 13:24 Active Intake and Output [RC] QSHIFT Care 07/08/19 13:25 Active Oxygen Therapy [RC] PRN Care 07/08/19 13:24 Active Up With Assistance [RC] ASDIRECTED Care 07/08/19 13:24 Active VTE/DVT Education [RC] PER UNIT ROUTINE Care 07/08/19 13:24 Active Vital Signs [RC] Q1HR Care 07/08/19 13:24 Active Clear Liquid Diet [DIET] Diet 07/08/19 Lunch Active CULTURE BLOOD [BC] Stat Lab 07/08/19 10:35 Received CULTURE BLOOD [BC] Stat Lab 07/08/19 10:50 Results CULTURE SPUTUM + SMEAR [RM] Stat Lab 07/08/19 13:46 Ordered INFLUENZA A+B AG SCREEN [RM] Stat Lab 07/08/19 13:45 Ordered LEGIONELLA ANTIGEN [MREF] Stat Lab 07/08/19 13:44 Ordered RESPIRATORY PANEL Urgent Lab 07/08/19 13:45 Ordered STREP PNEUMONIAE ANTIGEN [MREF] Stat Lab 07/08/19 13:44 Ordered Azithromycin [Zithromax] 500 mg Med 07/08/19 14:00 Ordered Sodium Chloride 0.9% [Normal Saline (AdvBag)] 250 ml IV Q24H Heparin Sodium Med 07/08/19 13:30 Active 5,000 units SUBCUT Q8H Pantoprazole [ProTONIX IV] 40 mg Med 07/08/19 14:00 Ordered Sodium Chloride 0.9% [Normal Saline] 10 ml IV Q24H Sodium Chloride 0.9% [Normal Saline] 1,000 ml Med 07/08/19 13:10 Active IV .Bolus Sodium Chloride 0.9% [Normal Saline] 1,000 ml Med 07/08/19 12:59 Active IV STAT Sodium Chloride 0.9% [Saline Flush] Med 07/08/19 10:16 Active 10 ml FLUSH ASDIRECTED PRN Sodium Chloride 0.9% [Saline Flush] Med 07/08/19 10:16 Active 2.5 ml FLUSH ASDIRECTED PRN cefTRIAXone [Rocephin in Dextrose,Iso-Osm 1 GM/50 ML] 1 Med 07/09/19 12:00 Ordered gm Premix Bag 1 bag IV Q24H Blood Culture x2 Reflex Set [OM.PC] Stat Oth 07/08/19 10:17 Ordered Saline Lock Insert [OM.PC] Stat Oth 07/08/19 10:16 Ordered Resuscitation Status Routine Resus Stat 07/08/19 13:24 Ordered Medication Orders Heparin Sodium (Porcine) (Heparin Sodium) 5,000 units SUBCUT Q8H MELONY Sodium Chloride (Normal Saline) 1,000 mls @ 125 mls/hr IV STAT ONE Stop: 07/08/19 20:58 Last Infusion: 07/08/19 13:24 Dose: 999 mls/hr Admin: 07/08/19 13:08 Dose: 125 mls/hr Sodium Chloride (Normal Saline) 1,000 mls @ 999 mls/hr IV .Bolus ONE Stop: 07/08/19 14:10 Azithromycin 500 mg/ Sodium (Chloride) 250 mls @ 250 mls/hr IV Q24H MELONY Ceftriaxone Sodium/Dextrose 1 (gm/ Premix) 50 mls @ 100 mls/hr IV Q24H MELONY Pantoprazole Sodium 40 mg/ (Sodium Chloride) 10 mls @ 300 mls/hr IV Q24H MELONY Sodium Chloride (Saline Flush) 10 ml FLUSH ASDIRECTED PRN PRN Reason: Keep Vein Open Last Admin: 07/08/19 10:53 Dose: 10 ml Sodium Chloride (Saline Flush) 2.5 ml FLUSH ASDIRECTED PRN PRN Reason: Keep Vein Open Last Admin: 07/08/19 10:53 Dose: 2.5 ml Assessment/Plan Comment:: This 59 year old male admitted with sepsis secondary to CAP and dehydration 1. Sepsis: lactic acid normal. Hypotension noted in ED. Treated with 2 L NS while in the ED. BP did improve to 96/67 with IVF resuscitation. Will continue NS at 125 ml/hr for now. BC pending. UA negative. Will obtain influenza swab 2. HCAP: Obtain respiratory panel, strep pneumo urine antigen and legionella urine antigen. Sputum culture. Stop Rocephin, add Cefepime and Azithromycin. Encourage IS, Duonebs via RT. 3. Dehydration: Continue IVFs, monitor. 4. Nausea: Cl diet for now, Protonix for heartburn symptoms. No acute abdominal concerns on CT. Zofran PRN. 5. HTN: Hypotensive, monitor BP. Hold home medications for now 6. COPD: Continue home inhalers, Duonebs as above. VTE prophylaxis: Heparin Dispo: 2-3 days pending improvement - Mortality Measure Prognosis:: Good
[2019-07-08] MEDS ORDERED: Albuterol 0.083% 2.5 MG/3 ML Neb Soln NEB PRN (14:12)
[2019-07-08] MEDS ORDERED: Acetaminophen 325 MG Tab PO PRN (14:15)
[2019-07-08] MEDS: Heparin Sodium 5,000 Units/ML Vial SUBCUT SCH ×2 (14:43→21:19)
[2019-07-08] MEDS: Azithromycin 500 MG in Sodium Chloride 0.9% 250 ML IV SCH (14:44)
[2019-07-08] MEDS: Albuterol/Ipratropium 3.0-0.5 MG/3 ML Neb Soln NEB SCH ×3 (14:47→21:08)
[2019-07-08] MEDS: Pantoprazole 40 MG in Sodium Chloride 0.9% 10 ML IV SCH (14:51)
[2019-07-08] MEDS: Cefepime 2 GM in Premix Bag 1 BAG IV SCH ×2 (14:58→23:26)
[2019-07-08] MEDS: Budesonide/Formoterol 160-4.5 MCG/Puff 6 GM Inhaler INH SCH ×2 (15:00→21:19)
--- NOTE | 2019-07-08 15:18 | PN ---
THC Physician - Brief Progress [id number]/07/2019 15:03[facility] Francine sapp, [place] - MW[facility] - MWN DAVID ROMODate of Service 07/08/2019 15:03HPI/Events of Note eICU Admission [id number] M with PMH of developmental delay, but lives by himself with family support, admitted with worsening URTI symptoms and N/V. CT abd/pelvis showed no acute intraabdominal issues. CXR showing no acute issues as well. WBC 20.4, lactic acid 1.8, lipase 92. UA benign. So dium low at 124, creatnien 1.3. eICU Recommendations:1. Check renal panel again later tonight to ma ke sure sodium does not increase > 10meq/L/24hrs and creatinine improving with IVF.2. Continue IVF. 3. Continue IV cefepime + azithromycin, deescalate depending on culture results.4. PPI for GI prop hylaxis.5. Heparin SC for DVT prophylaxis.6. Follow BC x 2, respiratory panel.Thank you for sidra moore us to particpate in the care of your patient.Interventions Intermediate-[facility]ication with [facility] providers and/or family, Diagnostic test evaluation, Electrolyte abnormality - evaluation an d management, Infection - evaluation and management, Medication change / dose adjustmentElectronicall y Signed by: BART CEBALLOS) on 07/08/2019 15:17
[2019-07-08] MEDS: Sodium Chloride 0.9% 1,000 ML IV SCH (18:00)
[2019-07-08 21:00] LABS: BLOOD UREA NITROGEN,BUN 9 mg/dL (7.0-18.0); CARBON DIOXIDE,CO2 18.6 mmol/L (21.0-32.0); CHLORIDE,CL 111 mmol/L (98-107); GLUCOSE RANDOM 69 mg/dL (74-106); SODIUM,NA 141 mmol/L (136-148)
[2019-07-08] MEDS ORDERED: Sodium Phosphate 15 mMole/5 ML SDV IV ONE (21:45)
[2019-07-08] MEDS ORDERED: Sodium Phosphate 30 MMOLE in Sodium Chloride 0.9% 250 ML IV ONE (21:45)
--- NOTE | 2019-07-08 23:13 | PCM.SN ---
- Free Text/Narrative Note: Procedure notes 1) R internal jugular central line- tripple lumen, 2) arterial line 20 g arrow, R wrist central line: full precautions, chloroprep, full body drape, direct ultrasound visualization. seldinger technique into IJV. secured [address] all 3 lines flushed, no comps art line, no palp pulse, lido skin wheel, alcohol skin antisepsis, sterile gloves. blood return on 1st entry into radial art. secured with suture and sterile dressing. No comps.
--- NOTE | 2019-07-09 00:08 | CR ---
INDICATION: Central line placement TECHNIQUE: Chest radiograph 1 view COMPARISON: 07/08/2019 FINDINGS: Mediastinum: The mediastinum is normal in appearance. The heart silhouette is normal in size and morphology. Right IJ line present with tip in SVC. Lung: Both lungs are unremarkable in appearance. The costophrenic sulci are excluded bilaterally. No sign of pleural effusion seen. No pneumothorax is identified. Bone and Soft tissue: Unremarkable for age. IMPRESSION: 1. Right IJ line present with tip in SVC. Dictated by Timbo Huffman MD @ 07/09/2019 12:06:02 AM Dictated by: Timbo Huffman MD @ 07/09/2019 00:06:07 (Electronically Signed)
[2019-07-09] MEDS: Sodium Chloride 0.9% 1,000 ML IV SCH (02:19)
[2019-07-09] MEDS: Albuterol/Ipratropium 3.0-0.5 MG/3 ML Neb Soln NEB SCH ×6 (02:20→21:22)
[2019-07-09] MEDS: Heparin Sodium 5,000 Units/ML Vial SUBCUT SCH ×3 (05:48→21:09)
[2019-07-09] MEDS: Cefepime 2 GM in Premix Bag 1 BAG IV SCH ×3 (05:50→22:37)
[2019-07-09 06:24] LABS: BLOOD UREA NITROGEN,BUN 7 mg/dL (7.0-18.0); CHLORIDE,CL 110 mmol/L (98-107); GLUCOSE RANDOM 70 mg/dL (74-106); POTASSIUM,K 3.1 mmol/L (3.5-5.1); SODIUM,NA 143 mmol/L (136-148)
--- NOTE | 2019-07-09 08:03 | PCM.PN ---
Addendum entered and electronically signed by Humera Valverde NP 07/09/19 13:07 : Yesterday, wrong BP cuff was noted around 1600 due to dipping SBP. Manual BP obtained and was 85/50 and stable. Changed to small adult size and more accurate BPs were obtained. Original Note: - General Info Date of Service: 07/09/19 Admission Dx/Problem (Free Text): Admission Diagnosis/Problem Admission Diagnosis/Problem Sepsis Subjective Update: Feeling improved today. Still doesn't feel 100% but better than yesterday. No more abdominal pain. Catheter placed last night by Dr Couch due to BPH and urinary retention. No chest pain or SOB. No swelling. NO fevers. Functional Status: Reports: Pain Controlled, Tolerating Diet, Ambulating, Urinating - Review of Systems General: Reports: Fatigue, Malaise HEENT: Reports: Sinus Congestion. Denies: Ear Pain, Headaches, Sore Throat Pulmonary: Reports: Cough, Sputum Cardiovascular: Reports: No Symptoms. Denies: Chest Pain Gastrointestinal: Reports: No Symptoms. Denies: Abdominal Pain, Nausea, Vomiting Genitourinary: Reports: No Symptoms Skin: Reports: No Symptoms Neurological: Reports: No Symptoms Psychiatric: Reports: No Symptoms - Patient Data Vitals - Most Recent: Last Vital Signs Temp 98.3 F 07/09/19 04:00 Pulse 106 H 07/08/19 19:00 Resp 19 07/09/19 05:00 BP 68/46 L 07/09/19 05:00 Pulse Ox 97 07/09/19 05:00 Weight - Most Recent: 61.235 kg I&O - Last 24 Hours: Intake & Output 07/08/19 07/09/19 07/09/19 22:59 06:59 14:59 Intake Total 4422 200 Output Total 1750 2600 Balance 2672 -2400 Lab Results Last 24 Hours: Laboratory Results - last 24 hr 07/08/19 07/08/19 07/08/19 Range/Units 10:35 10:35 10:35 WBC 20.40 H (4.0-11.0) K/uL RBC 3.48 L (4.50-5.90) M/uL Hgb 13.1 (13.0-17.0) g/dL Hct 37.8 L (38.0-50.0) % MCV 108.6 H (80.0-98.0) fL MCH 37.6 H (27.0-32.0) pg MCHC 34.7 (31.0-37.0) g/dL RDW Std Deviation 61.8 (28.0-62.0) fl RDW Coeff of Gildardo 16 H (11.0-15.0) % Plt Count 342 (150-400) K/uL MPV 9.60 (7.40-12.00) fL Neut % (Auto) 87.6 H (48.0-80.0) % Lymph % (Auto) 4.9 L (16.0-40.0) % [place] % (Auto) 7.2 (0.0-15.0) % Eos % (Auto) 0.3 (0.0-7.0) % Baso % (Auto) 0.0 (0.0-1.5) % Neut # (Auto) 17.9 H (1.4-5.7) K/uL Lymph # (Auto) 1.0 (0.6-2.4) K/uL [place] # (Auto) 1.5 H (0.0-0.8) K/uL Eos # (Auto) 0.1 (0.0-0.7) K/uL Baso # (Auto) 0.0 (0.0-0.1) K/uL Add Manual Diff Neutrophils % (Manual) (48.0-80.0) % Band Neutrophils % % Lymphocytes % (Manual) (16.0-40.0) % Monocytes % (Manual) (0.0-15.0) % Nucleated RBC % 0.0 /100WBC Absolute Seg Neuts (1.4-5.7) Band Neutrophils # Lymphocytes # (Manual) (0.6-2.4) Monocytes # (Manual) (0.0-0.8) Nucleated RBCs # 0 K/uL Smear Path Review Lactate 1.8 (0.20-2.00) mmol/L Sodium 124 L (136-148) mmol/L Potassium 4.0 (3.5-5.1) mmol/L Chloride 90 L (98-107) mmol/L Carbon Dioxide 18.7 L (21.0-32.0) mmol/L Anion Gap BUN 15 (7.0-18.0) mg/dL Creatinine 1.3 (0.8-1.3) mg/dL Est Cr Clr Drug Dosing 52.34 mL/min Estimated GFR (MDRD) 56.3 ml/min BUN/Creatinine Ratio Glucose 92 (74-106) mg/dL Calcium 8.7 (8.5-10.1) mg/dL Phosphorus (2.6-4.7) mg/dL Magnesium (1.8-2.4) mg/dL Total Bilirubin 0.4 (0.2-1.0) mg/dL AST 21 (15-37) IU/L ALT 24 (14-63) IU/L Alkaline Phosphatase 65 (46-116) U/L Total Protein 8.3 H (6.4-8.2) g/dL Albumin 4.1 (3.4-5.0) g/dL Globulin 4.2 H (2.6-4.0) g/dL Albumin/Globulin Ratio 1.0 (0.9-1.6) Lipase 92 (73-393) U/L Urine Color Urine Appearance Urine pH (5.0-8.0) Ur Specific [place] (1.001-1.035) Urine Protein (NEGATIVE) mg/dL Urine Glucose (UA) (NEGATIVE) mg/dL Urine Ketones (NEGATIVE) mg/dL Urine Occult Blood (NEGATIVE) Urine Nitrite (NEGATIVE) Urine Bilirubin (NEGATIVE) Urine Urobilinogen (<2.0) EU/dL Ur Leukocyte Esterase (NEGATIVE) 07/08/19 07/08/19 07/08/19 Range/Units 10:35 11:50 16:47 WBC (4.0-11.0) K/uL RBC (4.50-5.90) M/uL Hgb (13.0-17.0) g/dL Hct (38.0-50.0) % MCV (80.0-98.0) fL MCH (27.0-32.0) pg MCHC (31.0-37.0) g/dL RDW Std Deviation (28.0-62.0) fl RDW Coeff of Gildardo (11.0-15.0) % Plt Count (150-400) K/uL MPV (7.40-12.00) fL Neut % (Auto) (48.0-80.0) % Lymph % (Auto) (16.0-40.0) % [place] % (Auto) (0.0-15.0) % Eos % (Auto) (0.0-7.0) % Baso % (Auto) (0.0-1.5) % Neut # (Auto) (1.4-5.7) K/uL Lymph # (Auto) (0.6-2.4) K/uL [place] # (Auto) (0.0-0.8) K/uL Eos # (Auto) (0.0-0.7) K/uL Baso # (Auto) (0.0-0.1) K/uL Add Manual Diff Neutrophils % (Manual) (48.0-80.0) % Band Neutrophils % % Lymphocytes % (Manual) (16.0-40.0) % Monocytes % (Manual) (0.0-15.0) % Nucleated RBC % /100WBC Absolute Seg Neuts (1.4-5.7) Band Neutrophils # Lymphocytes # (Manual) (0.6-2.4) Monocytes # (Manual) (0.0-0.8) Nucleated RBCs # K/uL Smear Path Review SENT TO PATHOLOGY Lactate 0.9 (0.20-2.00) mmol/L Sodium (136-148) mmol/L Potassium (3.5-5.1) mmol/L Chloride (98-107) mmol/L Carbon Dioxide (21.0-32.0) mmol/L Anion Gap BUN (7.0-18.0) mg/dL Creatinine (0.8-1.3) mg/dL Est Cr Clr Drug Dosing mL/min Estimated GFR (MDRD) ml/min BUN/Creatinine Ratio Glucose (74-106) mg/dL Calcium (8.5-10.1) mg/dL Phosphorus (2.6-4.7) mg/dL Magnesium (1.8-2.4) mg/dL Total Bilirubin (0.2-1.0) mg/dL AST (15-37) IU/L ALT (14-63) IU/L Alkaline Phosphatase (46-116) U/L Total Protein (6.4-8.2) g/dL Albumin (3.4-5.0) g/dL Globulin (2.6-4.0) g/dL Albumin/Globulin Ratio (0.9-1.6) Lipase (73-393) U/L Urine Color YELLOW Urine Appearance CLEAR Urine pH 5.0 (5.0-8.0) Ur Specific [place] 1.010 (1.001-1.035) Urine Protein NEGATIVE (NEGATIVE) mg/dL Urine Glucose (UA) NEGATIVE (NEGATIVE) mg/dL Urine Ketones NEGATIVE (NEGATIVE) mg/dL Urine Occult Blood NEGATIVE (NEGATIVE) Urine Nitrite NEGATIVE (NEGATIVE) Urine Bilirubin NEGATIVE (NEGATIVE) Urine Urobilinogen 0.2 (<2.0) EU/dL Ur Leukocyte Esterase NEGATIVE (NEGATIVE) 07/08/19 07/09/19 07/09/19 Range/Units 20:20 05:42 05:42 WBC 10.04 (4.0-11.0) K/uL RBC 2.57 L (4.50-5.90) M/uL Hgb 9.7 L (13.0-17.0) g/dL Hct 28.6 L (38.0-50.0) % MCV 111.3 H (80.0-98.0) fL MCH 37.7 H (27.0-32.0) pg MCHC 33.9 (31.0-37.0) g/dL RDW Std Deviation 66.3 H (28.0-62.0) fl RDW Coeff of Gildardo 17 H (11.0-15.0) % Plt Count 278 (150-400) K/uL MPV 9.80 (7.40-12.00) fL Neut % (Auto) (48.0-80.0) % Lymph % (Auto) (16.0-40.0) % [place] % (Auto) (0.0-15.0) % Eos % (Auto) (0.0-7.0) % Baso % (Auto) (0.0-1.5) % Neut # (Auto) (1.4-5.7) K/uL Lymph # (Auto) (0.6-2.4) K/uL [place] # (Auto) (0.0-0.8) K/uL Eos # (Auto) (0.0-0.7) K/uL Baso # (Auto) (0.0-0.1) K/uL Add Manual Diff YES Neutrophils % (Manual) 76 (48.0-80.0) % Band Neutrophils % 2 % Lymphocytes % (Manual) 15 L (16.0-40.0) % Monocytes % (Manual) 7 (0.0-15.0) % Nucleated RBC % 0.0 /100WBC Absolute Seg Neuts 7.6 H (1.4-5.7) Band Neutrophils # 0.2 Lymphocytes # (Manual) 1.5 (0.6-2.4) Monocytes # (Manual) 0.7 (0.0-0.8) Nucleated RBCs # 0 K/uL Smear Path Review Lactate (0.20-2.00) mmol/L Sodium 141 143 (136-148) mmol/L Potassium 4.0 3.1 L (3.5-5.1) mmol/L Chloride 111 H 110 H (98-107) mmol/L Carbon Dioxide 18.6 L 17.0 L (21.0-32.0) mmol/L Anion Gap 15.4 BUN 9 7 (7.0-18.0) mg/dL Creatinine 0.9 0.8 (0.8-1.3) mg/dL Est Cr Clr Drug Dosing 75.60 85.05 mL/min Estimated GFR (MDRD) > 60.0 > 60.0 ml/min BUN/Creatinine Ratio 10.00 Glucose 69 L 70 L (74-106) mg/dL Calcium 7.3 L 7.4 L (8.5-10.1) mg/dL Phosphorus 1.5 L (2.6-4.7) mg/dL Magnesium 2.3 (1.8-2.4) mg/dL Total Bilirubin (0.2-1.0) mg/dL AST (15-37) IU/L ALT (14-63) IU/L Alkaline Phosphatase (46-116) U/L Total Protein (6.4-8.2) g/dL Albumin 2.9 L (3.4-5.0) g/dL Globulin (2.6-4.0) g/dL Albumin/Globulin Ratio (0.9-1.6) Lipase (73-393) U/L Urine Color Urine Appearance Urine pH (5.0-8.0) Ur Specific [place] (1.001-1.035) Urine Protein (NEGATIVE) mg/dL Urine Glucose (UA) (NEGATIVE) mg/dL Urine Ketones (NEGATIVE) mg/dL Urine Occult Blood (NEGATIVE) Urine Nitrite (NEGATIVE) Urine Bilirubin (NEGATIVE) Urine Urobilinogen (<2.0) EU/dL Ur Leukocyte Esterase (NEGATIVE) Joss Results Last 24 Hours: Microbiology 07/08/19 18:36 Gram Stain - Final Sputum - Expectorated 07/08/19 14:00 Influenza Type A Antigen Screen - Final Nasopharyngeal Swab NEGATIVE INFLUENZA A VIRUS AG REFERENCE RANGE: NEGATIVE Influenza Type B Antigen Screen - Final NEGATIVE INFLUENZA B VIRUS AG REFERENCE RANGE: NEGATIVE 07/08/19 10:50 Anaerobic Blood Culture - Final Blood - Venous - Lab Draw Med Orders - Current: Current Medications Acetaminophen (Tylenol) 650 mg PO Q6H PRN PRN Reason: Pain Albuterol (Proventil Neb Soln) 2.5 mg NEB Q2H PRN PRN Reason: SOB/wheezing Albuterol/Ipratropium (Duoneb 3.0-0.5 Mg/3 Ml) 3 ml NEB Q4HRRT [facility] Last Admin: 07/09/19 06:10 Dose: 3 ml Heparin Sodium (Porcine) (Heparin Sodium) 5,000 units SUBCUT Q8H [facility] Last Admin: 07/09/19 05:48 Dose: 5,000 units Azithromycin 500 mg/ Sodium (Chloride) 250 mls @ 250 mls/hr IV Q24H [facility] Last Admin: 07/08/19 14:44 Dose: 250 mls/hr Pantoprazole Sodium 40 mg/ (Sodium Chloride) 10 mls @ 300 mls/hr IV Q24H [facility] Last Admin: 07/08/19 14:51 Dose: 300 mls/hr Cefepime HCl 2 gm/ Premix 50 mls @ 100 mls/hr IV Q8H [facility] Last Admin: 07/09/19 05:50 Dose: 100 mls/hr Sodium Chloride (Normal Saline) 1,000 mls @ 125 mls/hr IV ASDIRECTED [facility] Last Admin: 07/09/19 02:19 Dose: 125 mls/hr Norepinephrine Bitartrate (Norepinephr-0.9% Nacl 4 Mg/250) 4 mg in 250 mls @ 7.5 mls/hr IV TITRATE MELONY; Protocol Last Titration: 07/09/19 03:15 Dose: 1 mcg/min, 3.75 mls/hr Budesonide/Formoterol 160-4.5 Mcg/Puff 6 Gm Inhaler 0 each INH BID MELONY Last Admin: 07/08/19 21:19 Dose: Not Given Sodium Chloride (Saline Flush) 10 ml FLUSH ASDIRECTED PRN PRN Reason: Keep Vein Open Last Admin: 07/08/19 10:53 Dose: 10 ml Sodium Chloride (Saline Flush) 2.5 ml FLUSH ASDIRECTED PRN PRN Reason: Keep Vein Open Last Admin: 07/08/19 10:53 Dose: 2.5 ml Discontinued Medications Al Hydroxide/Mg Hydroxide 15 (ml/ Lidocaine HCl 5 ml) 0 ml PO ONETIME ONE Stop: 07/08/19 10:27 Last Admin: 07/08/19 10:53 Dose: 1 each Sodium Chloride (Normal Saline) 1,000 mls @ 999 mls/hr IV STAT ONE Stop: 07/08/19 11:16 Last Admin: 07/08/19 10:37 Dose: 999 mls/hr Ceftriaxone Sodium/Dextrose 1 (gm/ Premix) 50 mls @ 100 mls/hr IV ONETIME ONE Stop: 07/08/19 13:27 Last Admin: 07/08/19 13:08 Dose: 100 mls/hr Sodium Chloride (Normal Saline) 1,000 mls @ 125 mls/hr IV STAT ONE Stop: 07/08/19 20:58 Last Infusion: 07/08/19 13:24 Dose: 999 mls/hr Sodium Chloride (Normal Saline) 1,000 mls @ 999 mls/hr IV .Bolus ONE Stop: 07/08/19 14:10 Last Admin: 07/08/19 14:34 Dose: 999 mls/hr Ceftriaxone Sodium/Dextrose 1 (gm/ Premix) 50 mls @ 100 mls/hr IV Q24H MELONY Sodium Chloride (Normal Saline) 1,000 mls @ 999 mls/hr IV .Bolus ONE Stop: 07/08/19 17:16 Last Admin: 07/08/19 16:30 Dose: 999 mls/hr Sodium Chloride (Normal Saline) 1,000 mls @ 999 mls/hr IV .Bolus ONE Stop: 07/08/19 19:27 Last Admin: 07/08/19 18:30 Dose: 999 mls/hr Sodium Phosphate 30 mmole/ (Sodium Chloride) 260 mls @ 43.333 mls/hr IV ONETIME ONE Stop: 07/09/19 03:44 Last Admin: 07/09/19 00:10 Dose: 43.333 mls/hr Sodium Phosphate (Sodium Phosphate) 30 mmole IV ONETIME ONE Stop: 07/08/19 21:46 - Exam Quality Assessment: Central Line/PICC (RIJ and R arterial line) General: Alert, Oriented, Cooperative, No Acute Distress Neck: Supple, No JVD, Other (RIJ inplace) Lungs: Clear to Auscultation, Normal Respiratory Effort Cardiovascular: Regular Rate, Regular Rhythm GI/Abdominal Exam: Normal Bowel Sounds, Soft, Non-Tender Extremities: Normal Inspection, Normal Range of Motion, Non-Tender, No Pedal Edema Neurological: No New Focal Deficit Psy/Mental Status: Alert, Normal Affect, Normal Mood - Problem List & Annotations (1) Septic shock SNOMED Code(s): 20071143 Code(s): A41.9 - SEPSIS, UNSPECIFIED ORGANISM; R65.21 - SEVERE SEPSIS WITH SEPTIC SHOCK Status: Acute Current Visit: Yes (2) Sepsis SNOMED Code(s): 60188290 Code(s): A41.9 - SEPSIS, UNSPECIFIED ORGANISM Status: Acute Current Visit : Yes Qualifiers: Sepsis type: sepsis due to unspecified organism Sepsis acute organ dysfunction status: without acute organ dysfunction Qualified Code(s): A41.9 - Sepsis, unspecified organism (3) Prostatitis SNOMED Code(s): 9221971 Code(s): N41.9 - INFLAMMATORY DISEASE OF PROSTATE, UNSPECIFIED Status: Acute Current Visit: Yes Qualifiers: Prostatitis type: acute Qualified Code(s): N41.0 - Acute prostatitis (4) HCAP (healthcare-associated pneumonia) SNOMED Code(s): 056825472, 391460596 Code(s): J18.9 - PNEUMONIA, UNSPECIFIED ORGANISM Status: Acute Current Visit: Yes (5) Abdominal pain SNOMED Code(s): 94375911 Code(s): R10.9 - UNSPECIFIED ABDOMINAL PAIN Status: Acute Current Visit: No Qualifiers: Abdominal location: generalized Qualified Code(s): R10.84 - Generalized abdominal pain (6) COPD (chronic obstructive pulmonary disease) SNOMED Code(s): 29581338 Code(s): J44.9 - CHRONIC OBSTRUCTIVE PULMONARY DISEASE, UNSPECIFIED Status : Chronic Current Visit: No (7) HTN (hypertension) SNOMED Code(s): 68119260 Code(s): I10 - ESSENTIAL (PRIMARY) HYPERTENSION Status: Chronic Current Visit: No Qualifiers: Hypertension type: essential hypertension Qualified Code(s): I10 - Essential (primary) hypertension (8) Smoker SNOMED Code(s): 10088232 Code(s): F17.200 - NICOTINE DEPENDENCE, UNSPECIFIED, UNCOMPLICATED Status: Chronic Current Visit: No - Problem List Review Problem List Initiated/Reviewed/Updated: Yes - My Orders Last 24 Hours: My Active Orders 07/08/19 11:50 CULTURE URINE [RM] Routine LEGIONELLA ANTIGEN [MREF] Stat STREP PNEUMONIAE ANTIGEN [MREF] Stat 07/08/19 13:24 Patient Status [ADT] Stat Height and Weight [RC] DAILY Oxygen Therapy [RC] PRN Up With Assistance [RC] ASDIRECTED VTE/DVT Education [RC] PER UNIT ROUTINE Vital Signs [RC] Q1HR Resuscitation Status Routine 07/08/19 13:25 Intake and Output [RC] Q12H 07/08/19 13:29 EKG 12 Lead [EKG Documentation Completion] [RC] STAT 07/08/19 13:30 Heparin Sodium 5,000 units SUBCUT Q8H 07/08/19 14:00 RESPIRATORY PANEL Urgent Azithromycin [Zithromax] 500 mg Sodium Chloride 0.9% [Normal Saline (AdvBag)] 250 ml IV Q24H Pantoprazole [ProTONIX IV] 40 mg Sodium Chloride 0.9% [Normal Saline] 10 ml IV Q24H 07/08/19 14:12 Albuterol [Proventil Neb Soln] 2.5 mg NEB Q2H PRN Albuterol/Ipratropium [DuoNeb 3.0-0.5 MG/3 ML] 3 ml NEB Q4HRRT 07/08/19 14:13 IS (RT) [RT Incentive Spirometry] [RC] Q1HWA RT Aerosol Therapy [RC] ASDIRECTED 07/08/19 14:15 Acetaminophen [Tylenol] 650 mg PO Q6H PRN Patient's Own Medication [Ptom] 0 each INH BID 07/08/19 14:30 Cefepime [Maxipime in D5W 2 GM/50 ML] 2 gm Premix Bag 1 bag IV Q8H Sodium Chloride 0.9% [Normal Saline] 1,000 ml IV ASDIRECTED 07/08/19 14:50 Bladder Scan [RC] ASDIRECTED 07/08/19 15:19 Urinary Catheter Assessment [RC] ASDIRECTED 07/08/19 15:30 Insert Frazier Catheter [Insert Urinary Catheter] [OM.PC] Q24H 07/08/19 15:59 Consult to Physician [CONS] Routine 07/08/19 16:00 Notify Provider Consults [RC] ASDIRECTED 07/08/19 Lunch Clear Liquid Diet [DIET] 07/10/19 05:11 BASIC METABOLIC PANEL,BMP [CHEM] AM CBC WITH AUTO DIFF [HEME] AM MAGNESIUM [CHEM] AM 07/11/19 05:11 BASIC METABOLIC PANEL,BMP [CHEM] AM CBC WITH AUTO DIFF [HEME] AM MAGNESIUM [CHEM] AM - Plan Plan:: This 59 year old male admitted with septic shock secondary to suspected HCAP and suspected prostatitis 1. Septic shock: lactic acid normal. Given 4+ L NS since admission for hypotension. Hypotension resolved, with BP 80-90/SBP, patient baseline is 80- 100 SBP from previous admissions. He was hemodynamically stable at that time, no vasopressors needed. In the early evening, lactic acid remained normal, hypotension returned SBP in the 60s, Norepinephrine was started by EICU. He was noted to develop intermittent Afib, so this was stopped around 2 am. BP have remained stable. RIJ and art line placed by anesthesia overnight. Art line has not be giving adequate readings. NIBP stable on Norepinephrine. Discussed care with JOSE Aldana. Will trial Hydrocortisone 100 mg Q8hr for possible adrenal insufficiency due to presentation yesterday. Morning cortisol obtained and pending along with ACTH. Will monitor. 2. HCAP: Suspected. Sputum pending along with respiratory panel, strep pneumo urine antigen and legionella urine antigen. Continue Cefepime and Azithromycin. Encourage IS, Duonebs via RT. 3. Urinary retention: BPH, consider prostatitis. Continue Cefepime as above. UC pending though UA negative. 4. Hyponatremia: Stop NS and start D5W 75, monitor Na every Q4 for now. 5. HTN: Hypotensive, monitor BP. Hold home medications for now 6. COPD: Continue home inhalers, Duonebs as above. VTE prophylaxis: Heparin Dispo: 2-3 days pending improvement
[2019-07-09] MEDS: Dextrose 5% in Water 1,000 ML IV SCH (08:29)
[2019-07-09] MEDS: Budesonide/Formoterol 160-4.5 MCG/Puff 6 GM Inhaler INH SCH ×2 (09:08→20:50)
[2019-07-09] MEDS ORDERED: Potassium Chloride 20 MEQ Tab.ER PO ONE ×2 (10:05→13:26)
[2019-07-09] MEDS: Hydrocortisone Sodium Succinate 100 MG/2 ML SDV IVPUSH SCH ×2 (10:25→17:39)
[2019-07-09] MEDS ORDERED: cefTRIAXone 1 GM in Premix Bag 1 BAG IV SCH (12:00)
--- NOTE | 2019-07-09 12:09 | PN ---
DAVIAN Physician - Brief Progress [id number]/08/2019 10:22[facility] Francine Tang, RIANA [facility] - MWN DAVID ROMODate of Service 07/09/2019 10:22HPI/Events of Note Brief eICU NoteEMR reviewed, case discussed with Humera this morning.59yo M with PMH of deve lopmental delay, but lives by himself with family support, admitted yesterday with worsening URTI sym ptoms and N/V. CT abd/pelvis showed no acute intraabdominal issues. CXR showing no acute issues as we ll. WBC 20.4, lactic acid 1.8, lipase 92. UA benign. Sodium low at 124, creatnien 1.3.Overnight, sheree ent had central and art lines placed because of hypotension, was on levophed, now off. K and Phos we re repleted. IVF was changed from NS to D5W this morning because of overcorrection of Na. Review of VS shows that noninvasive BP is normal, art line readings are low.Patient seen on camera: patient si tting up in bed and interacting with staff in NAD36.6 114 122/62 13 97%; patient has had sig urine ou tput with I/O [id number]:Agree with trial of Hydrocortisone for hypotension given history of steroid use. Patient is now off of levophed and noninvasive BPs are normal. You could either stop h ydrocortisone or change to Prednisone taper (i.e. /10/10/5/5 QD PO).Remove art line if noninvasi ve BPs are normal and reliable.Labs including Phos are being rechecked at noon, continue to replete l ytes as needed.Na is overcorrected but it does not appear that patient has had any mental status myers ges. Cont to follow Na, goal is 134 today (was 124 yesterday). Cont to correct if needed but avoid >10 meq/L every 24 hours.De-escalate antibiotics (cefepime/Azithro) tomorrow if cultures are negative .Follow daily CBC, h/h noted to be lower today.Proph: SC Hep, ProtonixPlease call us if needed.Thank you for allowing us to participate in your patient's care.Interventions Major-Electrolyte abnormality - evaluation and management, Hypotension - evaluation and managementIntermediate-Communication with other healthcare providers and/or family
[2019-07-09 13:13] LABS: BLOOD UREA NITROGEN,BUN 7 mg/dL (7.0-18.0); CARBON DIOXIDE,CO2 22.7 mmol/L (21.0-32.0); CHLORIDE,CL 108 mmol/L (98-107); GLUCOSE RANDOM 138 mg/dL (74-106); POTASSIUM,K 3.3 mmol/L (3.5-5.1); SODIUM,NA 141 mmol/L (136-148)
[2019-07-09] MEDS: Pantoprazole 40 MG in Sodium Chloride 0.9% 10 ML IV SCH (14:37)
[2019-07-09] MEDS: Azithromycin 500 MG in Sodium Chloride 0.9% 250 ML IV SCH (15:42)
[2019-07-09] MEDS ORDERED: Sodium Phosphate 15 mMole/5 ML SDV IV STA (15:46)
--- NOTE | 2019-07-09 15:49 | PN ---
THC Physician - Brief Progress [id number]/08/2019 15:48[facility] Francine sapp, RIANA - DAVIDSONN [facility] - DAVID LOVEDate of Service 07/09/2019 15:48HPI/Events of Note Phos low at 1.7, give NaPhos 40mmol IV x 1 and recheck tomorrow.Interventions Intermediate-C ommunication with other healthcare providers and/or family, Diagnostic test evaluation, Electrolyte a bnormality - evaluation and management 1 5:49
[2019-07-09] MEDS ORDERED: Sodium Phosphate 40 MMOLE in Sodium Chloride 0.9% 250 ML IV ONE (16:00)
[2019-07-09 16:43] LABS: BLOOD UREA NITROGEN,BUN 9 mg/dL (7.0-18.0); CARBON DIOXIDE,CO2 22.2 mmol/L (21.0-32.0); CHLORIDE,CL 107 mmol/L (98-107); GLUCOSE RANDOM 135 mg/dL (74-106); SODIUM,NA 140 mmol/L (136-148)
[2019-07-09 20:46] LABS: BLOOD UREA NITROGEN,BUN 9 mg/dL (7.0-18.0); CARBON DIOXIDE,CO2 21.7 mmol/L (21.0-32.0); CHLORIDE,CL 109 mmol/L (98-107); GLUCOSE RANDOM 166 mg/dL (74-106); POTASSIUM,K 3.7 mmol/L (3.5-5.1); SODIUM,NA 142 mmol/L (136-148)
--- NOTE | 2019-07-09 22:32 | PN ---
THC Physician - Brief Progress EncfNEVNDJBKN43/08/2019 22:30[facility] Francine sapp, RIANA - RASHEED (TIANNA) - DAVID LOVEDate of Service 07/09/2019 22:30HPI/Events of Note Video evlauation and discussed with bed side RN.MAP 52. on RA. HR 106, 99% sats. comfortabl e . WBC normal. Labs, meds seen. off of LevoHCAP/COPD.Plan:- NS 500 ml bolus- if MAP not better, Lev ophed drip. UOP good, Cr fine.Interventions Major-Hypotension - evaluation and managementMinor-Commu nication with other healthcare providers and/or family
[2019-07-09] MEDS: Sodium Chloride 0.9% 500 ML IV SCH ×2 (22:40→22:54)
[2019-07-10] MEDS: Dextrose 5% in Water 1,000 ML IV SCH ×2 (00:03→13:48)
[2019-07-10] MEDS: Hydrocortisone Sodium Succinate 100 MG/2 ML SDV IVPUSH SCH ×3 (00:23→18:10)
[2019-07-10] MEDS: Albuterol/Ipratropium 3.0-0.5 MG/3 ML Neb Soln NEB SCH ×6 (02:20→21:04)
[2019-07-10 03:25] LABS: BLOOD UREA NITROGEN,BUN 10 mg/dL (7.0-18.0); CARBON DIOXIDE,CO2 21.4 mmol/L (21.0-32.0); CHLORIDE,CL 109 mmol/L (98-107); GLUCOSE RANDOM 144 mg/dL (74-106); POTASSIUM,K 3.5 mmol/L (3.5-5.1); SODIUM,NA 144 mmol/L (136-148)
[2019-07-10] MEDS ORDERED: Potassium Chloride Riders 20 MEQ in Premix Bag 1 BAG IV ONE (03:34)
--- NOTE | 2019-07-10 04:04 | PN ---
THC Physician - Brief Progress ThefQJYZOZIXP46/09/2019 03:32[facility] Francine sapp, RIANA - DAVIDSONN [facility] - DAVID LOVEDate of Service 07/10/2019 03:32HPI/Events of Note Kcl 10 meq IVPB x 3 doses ordered. for K of 3.5follow Potasium at 8 AM. Mag pending. Hollieemin y.Interventions Minor-Electrolyte abnormality - evaluation and management
--- NOTE | 2019-07-10 04:04 | PN ---
THC Physician - Brief Progress [id number]/09/2019 03:19[facility] Francine Tang, RIANA - RASHEED (TIANNA) - DAVID LOVEDate of Service 07/10/2019 03:19HPI/Events of Note Video evaluation done for PVC's. discussed with bed side RN.Bigeminy and PVC's. had similar issue last night when went up on Levophed.Plan:- get stat BMP and mag- wean Levo down.Interventions Intermediate-Arrhythmia - evaluation and managementMinor-Communication with other healthcare provider s and/or family
[2019-07-10] MEDS ORDERED: Potassium Chloride Riders 40 MEQ in Premix Bag 1 BAG IV ONE (04:06)
[2019-07-10] MEDS: Heparin Sodium 5,000 Units/ML Vial SUBCUT SCH ×3 (05:01→21:27)
[2019-07-10] MEDS: Cefepime 2 GM in Premix Bag 1 BAG IV SCH ×3 (05:58→22:24)
--- NOTE | 2019-07-10 12:31 | PCM.PN ---
- General Info Date of Service: 07/10/19 - Review of Systems Systems Review Comment:: reports cough, denies any fevers, no abdominal pain - Patient Data Vitals - Most Recent: Last Vital Signs Temp 36.9 C 07/10/19 08:00 Pulse 104 H 07/10/19 11:00 Resp 12 07/10/19 11:00 BP 95/53 L 07/10/19 11:00 Pulse Ox 100 07/10/19 11:00 Weight - Most Recent: 59.1 kg I&O - Last 24 Hours: Intake & Output 07/09/19 07/10/19 07/10/19 22:59 06:59 14:59 Intake Total 1610 1498 Output Total 2663 2290 Balance -665 -202 Lab Results Last 24 Hours: Laboratory Results - last 24 hr 07/08/19 07/09/19 07/09/19 Range/Units 14:00 05:42 12:15 WBC (4.0-11.0) K/uL RBC (4.50-5.90) M/uL Hgb (13.0-17.0) g/dL Hct (38.0-50.0) % MCV (80.0-98.0) fL MCH (27.0-32.0) pg MCHC (31.0-37.0) g/dL RDW Std Deviation (28.0-62.0) fl RDW Coeff of Gildardo (11.0-15.0) % Plt Count (150-400) K/uL MPV (7.40-12.00) fL Neut % (Auto) (48.0-80.0) % Lymph % (Auto) (16.0-40.0) % [place] % (Auto) (0.0-15.0) % Eos % (Auto) (0.0-7.0) % Baso % (Auto) (0.0-1.5) % Neut # (Auto) (1.4-5.7) K/uL Lymph # (Auto) (0.6-2.4) K/uL [place] # (Auto) (0.0-0.8) K/uL Eos # (Auto) (0.0-0.7) K/uL Baso # (Auto) (0.0-0.1) K/uL Nucleated RBC % /100WBC Nucleated RBCs # K/uL Sodium 141 (136-148) mmol/L Potassium 3.3 L (3.5-5.1) mmol/L Chloride 108 H (98-107) mmol/L Carbon Dioxide 22.7 (21.0-32.0) mmol/L BUN 7 (7.0-18.0) mg/dL Creatinine 0.9 (0.8-1.3) mg/dL Est Cr Clr Drug Dosing 75.60 mL/min Estimated GFR (MDRD) > 60.0 ml/min Glucose 138 H (74-106) mg/dL Calcium 8.1 L (8.5-10.1) mg/dL Phosphorus (2.6-4.7) mg/dL Magnesium (1.8-2.4) mg/dL Cortisol 11.5 ug/dL Adenovirus (PCR) Not Detected (Not Detected) B. pertussis DNA (PCR) Not Detected (Not Detected) B.parapertussis DNA PCR Not Detected (Not Detected) C. pneumoniae DNA (PCR) Not Detected (Not Detected) Coronavirus (PCR) Not Detected (Not Detected) Human Metapneumovir PCR Not Detected (Not Detected) Influenza A (RT-PCR) Not Detected (Not Detected) Influenza B (RT-PCR) Not Detected (Not Detected) M. pneumoniae (PCR) Not Detected (Not Detected) Parainfluen 1,2,3,4 PCR Not Detected (Not Detected) RSV (PCR) Not Detected (Not Detected) Entero/Rhino (PCR) Not Detected (Not Detected) 07/09/19 07/09/19 07/09/19 Range/Units 12:15 16:20 20:20 WBC (4.0-11.0) K/uL RBC (4.50-5.90) M/uL Hgb (13.0-17.0) g/dL Hct (38.0-50.0) % MCV (80.0-98.0) fL MCH (27.0-32.0) pg MCHC (31.0-37.0) g/dL RDW Std Deviation (28.0-62.0) fl RDW Coeff of Gildardo (11.0-15.0) % Plt Count (150-400) K/uL MPV (7.40-12.00) fL Neut % (Auto) (48.0-80.0) % Lymph % (Auto) (16.0-40.0) % [place] % (Auto) (0.0-15.0) % Eos % (Auto) (0.0-7.0) % Baso % (Auto) (0.0-1.5) % Neut # (Auto) (1.4-5.7) K/uL Lymph # (Auto) (0.6-2.4) K/uL [place] # (Auto) (0.0-0.8) K/uL Eos # (Auto) (0.0-0.7) K/uL Baso # (Auto) (0.0-0.1) K/uL Nucleated RBC % /100WBC Nucleated RBCs # K/uL Sodium 140 142 (136-148) mmol/L Potassium 4.0 3.7 (3.5-5.1) mmol/L Chloride 107 109 H (98-107) mmol/L Carbon Dioxide 22.2 21.7 (21.0-32.0) mmol/L BUN 9 9 (7.0-18.0) mg/dL Creatinine 0.8 1.0 (0.8-1.3) mg/dL Est Cr Clr Drug Dosing 82.08 65.67 mL/min Estimated GFR (MDRD) > 60.0 > 60.0 ml/min Glucose 135 H 166 H (74-106) mg/dL Calcium 7.9 L 7.7 L (8.5-10.1) mg/dL Phosphorus 1.7 L (2.6-4.7) mg/dL Magnesium (1.8-2.4) mg/dL Cortisol ug/dL Adenovirus (PCR) (Not Detected) B. pertussis DNA (PCR) (Not Detected) B.parapertussis DNA PCR (Not Detected) C. pneumoniae DNA (PCR) (Not Detected) Coronavirus (PCR) (Not Detected) Human Metapneumovir PCR (Not Detected) Influenza A (RT-PCR) (Not Detected) Influenza B (RT-PCR) (Not Detected) M. pneumoniae (PCR) (Not Detected) Parainfluen 1,2,3,4 PCR (Not Detected) RSV (PCR) (Not Detected) Entero/Rhino (PCR) (Not Detected) 07/10/19 07/10/19 07/10/19 Range/Units 02:57 02:57 08:30 WBC 10.73 (4.0-11.0) K/uL RBC 2.56 L (4.50-5.90) M/uL Hgb 9.7 L (13.0-17.0) g/dL Hct 28.4 L (38.0-50.0) % MCV 110.9 H (80.0-98.0) fL MCH 37.9 H (27.0-32.0) pg MCHC 34.2 (31.0-37.0) g/dL RDW Std Deviation 67.5 H (28.0-62.0) fl RDW Coeff of Gildardo 17 H (11.0-15.0) % Plt Count 271 (150-400) K/uL MPV 9.50 (7.40-12.00) fL Neut % (Auto) 88.7 H (48.0-80.0) % Lymph % (Auto) 5.5 L (16.0-40.0) % [place] % (Auto) 5.7 (0.0-15.0) % Eos % (Auto) 0.0 (0.0-7.0) % Baso % (Auto) 0.1 (0.0-1.5) % Neut # (Auto) 9.5 H (1.4-5.7) K/uL Lymph # (Auto) 0.6 (0.6-2.4) K/uL [place] # (Auto) 0.6 (0.0-0.8) K/uL Eos # (Auto) 0.0 (0.0-0.7) K/uL Baso # (Auto) 0.0 (0.0-0.1) K/uL Nucleated RBC % 0.0 /100WBC Nucleated RBCs # 0 K/uL Sodium 144 (136-148) mmol/L Potassium 3.5 (3.5-5.1) mmol/L Chloride 109 H (98-107) mmol/L Carbon Dioxide 21.4 (21.0-32.0) mmol/L BUN 10 (7.0-18.0) mg/dL Creatinine 0.9 (0.8-1.3) mg/dL Est Cr Clr Drug Dosing 72.96 mL/min Estimated GFR (MDRD) > 60.0 ml/min Glucose 144 H (74-106) mg/dL Calcium 8.0 L (8.5-10.1) mg/dL Phosphorus 2.8 (2.6-4.7) mg/dL Magnesium 2.3 (1.8-2.4) mg/dL Cortisol ug/dL Adenovirus (PCR) (Not Detected) B. pertussis DNA (PCR) (Not Detected) B.parapertussis DNA PCR (Not Detected) C. pneumoniae DNA (PCR) (Not Detected) Coronavirus (PCR) (Not Detected) Human Metapneumovir PCR (Not Detected) Influenza A (RT-PCR) (Not Detected) Influenza B (RT-PCR) (Not Detected) M. pneumoniae (PCR) (Not Detected) Parainfluen 1,2,3,4 PCR (Not Detected) RSV (PCR) (Not Detected) Entero/Rhino (PCR) (Not Detected) 07/10/19 Range/Units 08:30 WBC (4.0-11.0) K/uL RBC (4.50-5.90) M/uL Hgb (13.0-17.0) g/dL Hct (38.0-50.0) % MCV (80.0-98.0) fL MCH (27.0-32.0) pg MCHC (31.0-37.0) g/dL RDW Std Deviation (28.0-62.0) fl RDW Coeff of Gildardo (11.0-15.0) % Plt Count (150-400) K/uL MPV (7.40-12.00) fL Neut % (Auto) (48.0-80.0) % Lymph % (Auto) (16.0-40.0) % [place] % (Auto) (0.0-15.0) % Eos % (Auto) (0.0-7.0) % Baso % (Auto) (0.0-1.5) % Neut # (Auto) (1.4-5.7) K/uL Lymph # (Auto) (0.6-2.4) K/uL [place] # (Auto) (0.0-0.8) K/uL Eos # (Auto) (0.0-0.7) K/uL Baso # (Auto) (0.0-0.1) K/uL Nucleated RBC % /100WBC Nucleated RBCs # K/uL Sodium (136-148) mmol/L Potassium 3.7 (3.5-5.1) mmol/L Chloride (98-107) mmol/L Carbon Dioxide (21.0-32.0) mmol/L BUN (7.0-18.0) mg/dL Creatinine (0.8-1.3) mg/dL Est Cr Clr Drug Dosing mL/min Estimated GFR (MDRD) ml/min Glucose (74-106) mg/dL Calcium (8.5-10.1) mg/dL Phosphorus (2.6-4.7) mg/dL Magnesium (1.8-2.4) mg/dL Cortisol ug/dL Adenovirus (PCR) (Not Detected) B. pertussis DNA (PCR) (Not Detected) B.parapertussis DNA PCR (Not Detected) C. pneumoniae DNA (PCR) (Not Detected) Coronavirus (PCR) (Not Detected) Human Metapneumovir PCR (Not Detected) Influenza A (RT-PCR) (Not Detected) Influenza B (RT-PCR) (Not Detected) M. pneumoniae (PCR) (Not Detected) Parainfluen 1,2,3,4 PCR (Not Detected) RSV (PCR) (Not Detected) Entero/Rhino (PCR) (Not Detected) Joss Results Last 24 Hours: Microbiology 07/08/19 10:50 Aerobic Blood Culture - Preliminary Blood - Venous - Lab Draw NO GROWTH AFTER 2 DAYS Anaerobic Blood Culture - Final 07/08/19 10:35 Aerobic Blood Culture - Preliminary Blood - Venous NO GROWTH AFTER 2 DAYS Anaerobic Blood Culture - Preliminary NO GROWTH AFTER 2 DAYS 07/08/19 11:50 Streptococcus pneumoniae Antigen (M - Final Urine 07/08/19 11:50 Legionella Urinary Antigen - Final Urine 07/08/19 11:50 Urine Culture - Final Urine, Clean Catch MIXED SUMI <1000 CFU/ML 07/08/19 18:36 Gram Stain - Final Sputum - Expectorated Med Orders - Current: Current Medications Acetaminophen (Tylenol) 650 mg PO Q6H PRN PRN Reason: Pain Albuterol (Proventil Neb Soln) 2.5 mg NEB Q2H PRN PRN Reason: SOB/wheezing Albuterol/Ipratropium (Duoneb 3.0-0.5 Mg/3 Ml) 3 ml NEB Q4HRRT [facility] Last Admin: 07/10/19 09:48 Dose: 3 ml Heparin Sodium (Porcine) (Heparin Sodium) 5,000 units SUBCUT Q8H [facility] Last Admin: 07/10/19 05:01 Dose: 5,000 units Hydrocortisone Sodium Succinate (Solu-Cortef) 100 mg IVPUSH Q8H [facility] Last Admin: 07/10/19 08:59 Dose: 100 mg Azithromycin 500 mg/ Sodium (Chloride) 250 mls @ 250 mls/hr IV Q24H [facility] Last Admin: 07/09/19 15:42 Dose: 250 mls/hr Pantoprazole Sodium 40 mg/ (Sodium Chloride) 10 mls @ 300 mls/hr IV Q24H [facility] Last Admin: 07/09/19 14:37 Dose: 300 mls/hr Cefepime HCl 2 gm/ Premix 50 mls @ 100 mls/hr IV Q8H [facility] Last Admin: 07/10/19 05:58 Dose: 100 mls/hr Dextrose/Water (Dextrose 5% In Water) 1,000 mls @ 75 mls/hr IV ASDIRECTED [facility] Last Admin: 07/10/19 00:03 Dose: 75 mls/hr Norepinephrine Bitartrate (Norepinephr-0.9% Nacl 4 Mg/250) 4 mg in 250 mls @ 0.075 mls/hr IV TITRATE MELONY; Protocol Last Titration: 07/10/19 01:25 Dose: 2 mcg/min, 7.5 mls/hr Sodium Chloride (Normal Saline) 500 mls @ 500 mls/min IV .BOLUS MELONY Last Admin: 07/09/19 22:54 Dose: 500 mls/min Budesonide/Formoterol 160-4.5 Mcg/Puff 6 Gm Inhaler 0 each INH BID MELONY Last Admin: 07/09/19 20:50 Dose: Not Given Sodium Chloride (Saline Flush) 10 ml FLUSH ASDIRECTED PRN PRN Reason: Keep Vein Open Last Admin: 07/08/19 10:53 Dose: 10 ml Sodium Chloride (Saline Flush) 2.5 ml FLUSH ASDIRECTED PRN PRN Reason: Keep Vein Open Last Admin: 07/08/19 10:53 Dose: 2.5 ml Discontinued Medications Al Hydroxide/Mg Hydroxide 15 (ml/ Lidocaine HCl 5 ml) 0 ml PO ONETIME ONE Stop: 07/08/19 10:27 Last Admin: 07/08/19 10:53 Dose: 1 each Sodium Chloride (Normal Saline) 1,000 mls @ 999 mls/hr IV STAT ONE Stop: 07/08/19 11:16 Last Admin: 07/08/19 10:37 Dose: 999 mls/hr Ceftriaxone Sodium/Dextrose 1 (gm/ Premix) 50 mls @ 100 mls/hr IV ONETIME ONE Stop: 07/08/19 13:27 Last Admin: 07/08/19 13:08 Dose: 100 mls/hr Sodium Chloride (Normal Saline) 1,000 mls @ 125 mls/hr IV STAT ONE Stop: 07/08/19 20:58 Last Infusion: 07/08/19 13:24 Dose: 999 mls/hr Sodium Chloride (Normal Saline) 1,000 mls @ 999 mls/hr IV .Bolus ONE Stop: 07/08/19 14:10 Last Admin: 07/08/19 14:34 Dose: 999 mls/hr Ceftriaxone Sodium/Dextrose 1 (gm/ Premix) 50 mls @ 100 mls/hr IV Q24H [facility]ELONY Sodium Chloride (Normal Saline) 1,000 mls @ 125 mls/hr IV ASDIRECTED [facility] Last Admin: 07/09/19 02:19 Dose: 125 mls/hr Sodium Chloride (Normal Saline) 1,000 mls @ 999 mls/hr IV .Bolus ONE Stop: 07/08/19 17:16 Last Admin: 07/08/19 16:30 Dose: 999 mls/hr Sodium Chloride (Normal Saline) 1,000 mls @ 999 mls/hr IV .Bolus ONE Stop: 07/08/19 19:27 Last Admin: 07/08/19 18:30 Dose: 999 mls/hr Norepinephrine Bitartrate (Norepinephr-0.9% Nacl 4 Mg/250) 4 mg in 250 mls @ 7.5 mls/hr IV TITRATE MELONY; Protocol Last Titration: 07/09/19 03:15 Dose: 1 mcg/min, 3.75 mls/hr Sodium Phosphate 30 mmole/ (Sodium Chloride) 260 mls @ 43.333 mls/hr IV ONETIME ONE Stop: 07/09/19 03:44 Last Admin: 07/09/19 00:10 Dose: 43.333 mls/hr Sodium Phosphate 40 mmole/ (Sodium Chloride) 263.3333 mls @ 65.833 mls/hr IV ONETIME ONE Stop: 07/09/19 19:59 Last Admin: 07/09/19 16:24 Dose: 65.833 mls/hr Potassium Chloride 20 meq/ (Premix) 50 mls @ 25 mls/hr IV ONETIME ONE Stop: 07/10/19 05:33 Last Admin: 07/10/19 04:46 Dose: Not Given Potassium Chloride 40 meq/ (Premix) 100 mls @ 25 mls/hr IV ONETIME ONE Stop: 07/10/19 08:05 Last Admin: 07/10/19 04:15 Dose: 25 mls/hr Potassium Chloride (Klor-Con M20) 40 meq PO ONETIME ONE Stop: 07/09/19 10:06 Last Admin: 07/09/19 10:34 Dose: 40 meq Potassium Chloride (Klor-Con M20) 40 meq PO ONETIME ONE Stop: 07/09/19 13:27 Last Admin: 07/09/19 14:37 Dose: 40 meq Sodium Phosphate (Sodium Phosphate) 30 mmole IV ONETIME ONE Stop: 07/08/19 21:46 - Exam General: Alert, Oriented Lungs: Clear to Auscultation, Normal Respiratory Effort Cardiovascular: Regular Rate, Regular Rhythm GI/Abdominal Exam: Soft, Non-Tender Extremities: Non-Tender, No Pedal Edema Skin: Warm, Dry, Intact Neurological: No New Focal Deficit - Problem List Review Problem List Initiated/Reviewed/Updated: Yes - My Orders Last 24 Hours: My Active Orders 07/10/19 12:28 CXR [Chest 1V Frontal] [CR] Routine 07/10/19 18:00 BASIC METABOLIC PANEL,BMP [CHEM] Routine - Plan Plan:: This 59 year old male admitted with septic shock secondary to suspected HCAP and /or prostatitis 1. Septic shock: levophed restarted due to low blood pressures. on hydrocortisone for possible adrenal insufficency. corisol and ACTH levels pending 2. HCAP: Continue Cefepime and Azithromycin. Encourage IS, Duonebs via RT. 3. Urinary retention: BPH, consider prostatitis. Continue Cefepime as above. UC pending though UA negative. 4. Hyponatremia: continue D5W 75, 6. COPD: Continue home inhalers, Duonebs . VTE prophylaxis: Heparin Dispo: 2-3 days pending improvement
--- NOTE | 2019-07-10 13:14 | CR ---
HISTORY: Cough COMPARISON: 07/08/2019 FINDINGS: A portable erect AP view of the chest was obtained at 1246 hours. Again seen is a right internal jugular central line with its tip in satisfactory position in the superior vena cava. There is no sign of pneumothorax on the right. The lungs remain clear. No focal or diffuse infiltrates are present. The heart remains normal in size. The mediastinum is normal in appearance. The osseous structures are normal in appearance for the patient`s age. IMPRESSION: No active disease seen in the chest. Continued satisfactory positioning of a right internal jugular central line with no sign of pneumothorax. Dictated by Bernard Peña MD @ Jul 10 2019 1:11PM Signed by Dr. Bernard Peña @ Jul 10 2019 1:12PM
[2019-07-10] MEDS: Pantoprazole 40 MG in Sodium Chloride 0.9% 10 ML IV SCH (13:51)
[2019-07-10] MEDS: Azithromycin 500 MG in Sodium Chloride 0.9% 250 ML IV SCH (14:53)
[2019-07-10] MEDS: UMECLIDINIUM BRM INH SCH (15:40)
[2019-07-10] MEDS: VILANTEROL TR INH SCH (15:40)
[2019-07-10] MEDS: Budesonide/Formoterol 160-4.5 MCG/Puff 6 GM Inhaler INH SCH (15:43)
[2019-07-10 18:40] LABS: BLOOD UREA NITROGEN,BUN 17 mg/dL (7.0-18.0); CARBON DIOXIDE,CO2 22.4 mmol/L (21.0-32.0); CHLORIDE,CL 111 mmol/L (98-107); GLUCOSE RANDOM 162 mg/dL (74-106); POTASSIUM,K 3.6 mmol/L (3.5-5.1); SODIUM,NA 145 mmol/L (136-148)
[2019-07-10] MEDS ORDERED: Potassium Chloride Riders 40 MEQ in Premix Bag 1 BAG IV SCH (19:26)
--- NOTE | 2019-07-10 19:35 | PN ---
THC Physician - Brief Progress [id number]/09/2019 19:32[facility] Francine sapp, [place] - DAVIDSONN (TIANNA) - RASHEED YOUNGDAVID BARON ElzbietaDate of Service 07/10/2019 19:32HPI/Events of Note Brief eICU NoteCalled for low BP at 97/43, low K at 3.6. Patient was placed back on levophe d last night, stopped around 1:30pm. Patient is not symptomatic, u/o remains fine.I am reluctant to restart levophed, wrote for Florinef 0.1mg PO QD, first dose tonight. I wrote for KCl riders IV tota l 40meq.Interventions Major-Electrolyte abnormality - evaluation and management, Hypotension - evalua tion and managementMinor-Routine modifications to care plan (e.g. PRN medications for pain, fever)Daxa ctronically Signed by: Yuni Ann) on 07/10/2019 19:35
[2019-07-10] MEDS: Fludrocortisone 0.1 MG Tab PO SCH (20:09)
[2019-07-11] MEDS: Hydrocortisone Sodium Succinate 100 MG/2 ML SDV IVPUSH SCH ×3 (00:18→12:29)
[2019-07-11] MEDS: Albuterol/Ipratropium 3.0-0.5 MG/3 ML Neb Soln NEB SCH ×6 (01:44→21:46)
[2019-07-11] MEDS: Dextrose 5% in Water 1,000 ML IV SCH ×2 (05:05→19:41)
[2019-07-11] MEDS: Heparin Sodium 5,000 Units/ML Vial SUBCUT SCH ×3 (05:33→21:08)
[2019-07-11] MEDS: Cefepime 2 GM in Premix Bag 1 BAG IV SCH ×3 (06:17→22:23)
[2019-07-11 07:07] LABS: BLOOD UREA NITROGEN,BUN 15 mg/dL (7.0-18.0); CARBON DIOXIDE,CO2 22.7 mmol/L (21.0-32.0); CHLORIDE,CL 108 mmol/L (98-107); GLUCOSE RANDOM 120 mg/dL (74-106); POTASSIUM,K 4.2 mmol/L (3.5-5.1); SODIUM,NA 142 mmol/L (136-148)
[2019-07-11] MEDS: Fludrocortisone 0.1 MG Tab PO SCH (07:46)
--- NOTE | 2019-07-11 08:50 | PCM.PN ---
- General Info Date of Service: 07/11/19 - Review of Systems Systems Review Comment:: reports productive cough, but shortness of breath has improved - Patient Data Vitals - Most Recent: Last Vital Signs Temp 36.6 C 07/11/19 04:00 Pulse 114 H 07/10/19 19:00 Resp 18 07/11/19 07:00 BP 124/68 07/11/19 07:00 Pulse Ox 96 07/11/19 07:00 Weight - Most Recent: 63 kg I&O - Last 24 Hours: Intake & Output 07/10/19 07/11/19 07/11/19 22:59 06:59 14:59 Intake Total 1880 1220 50 Output Total 775 1300 Balance 1105 -80 50 Lab Results Last 24 Hours: Laboratory Results - last 24 hr 07/10/19 07/10/19 07/10/19 Range/Units 08:30 08:30 18:02 WBC (4.0-11.0) K/uL RBC (4.50-5.90) M/uL Hgb (13.0-17.0) g/dL Hct (38.0-50.0) % MCV (80.0-98.0) fL MCH (27.0-32.0) pg MCHC (31.0-37.0) g/dL RDW Std Deviation (28.0-62.0) fl RDW Coeff of Gildardo (11.0-15.0) % Plt Count (150-400) K/uL MPV (7.40-12.00) fL Neut % (Auto) (48.0-80.0) % Lymph % (Auto) (16.0-40.0) % [place] % (Auto) (0.0-15.0) % Eos % (Auto) (0.0-7.0) % Baso % (Auto) (0.0-1.5) % Neut # (Auto) (1.4-5.7) K/uL Lymph # (Auto) (0.6-2.4) K/uL [place] # (Auto) (0.0-0.8) K/uL Eos # (Auto) (0.0-0.7) K/uL Baso # (Auto) (0.0-0.1) K/uL Nucleated RBC % /100WBC Nucleated RBCs # K/uL Sodium 145 (136-148) mmol/L Potassium 3.7 3.6 (3.5-5.1) mmol/L Chloride 111 H (98-107) mmol/L Carbon Dioxide 22.4 (21.0-32.0) mmol/L BUN 17 (7.0-18.0) mg/dL Creatinine 1.0 (0.8-1.3) mg/dL Est Cr Clr Drug Dosing 65.67 mL/min Estimated GFR (MDRD) > 60.0 ml/min Glucose 162 H (74-106) mg/dL Calcium 8.5 (8.5-10.1) mg/dL Phosphorus 2.8 (2.6-4.7) mg/dL Magnesium (1.8-2.4) mg/dL 07/11/19 07/11/19 Range/Units 05:50 05:50 WBC 15.78 H (4.0-11.0) K/uL RBC 2.44 L (4.50-5.90) M/uL Hgb 9.1 L (13.0-17.0) g/dL Hct 27.6 L (38.0-50.0) % MCV 113.1 H (80.0-98.0) fL MCH 37.3 H (27.0-32.0) pg MCHC 33.0 (31.0-37.0) g/dL RDW Std Deviation 70.1 H (28.0-62.0) fl RDW Coeff of Gildardo 17 H (11.0-15.0) % Plt Count 287 (150-400) K/uL MPV 10.40 (7.40-12.00) fL Neut % (Auto) 90.0 H (48.0-80.0) % Lymph % (Auto) 4.5 L (16.0-40.0) % [place] % (Auto) 5.4 (0.0-15.0) % Eos % (Auto) 0.0 (0.0-7.0) % Baso % (Auto) 0.1 (0.0-1.5) % Neut # (Auto) 14.2 H (1.4-5.7) K/uL Lymph # (Auto) 0.7 (0.6-2.4) K/uL [place] # (Auto) 0.9 H (0.0-0.8) K/uL Eos # (Auto) 0.0 (0.0-0.7) K/uL Baso # (Auto) 0.0 (0.0-0.1) K/uL Nucleated RBC % 0.0 /100WBC Nucleated RBCs # 0 K/uL Sodium 142 (136-148) mmol/L Potassium 4.2 (3.5-5.1) mmol/L Chloride 108 H (98-107) mmol/L Carbon Dioxide 22.7 (21.0-32.0) mmol/L BUN 15 (7.0-18.0) mg/dL Creatinine 0.9 (0.8-1.3) mg/dL Est Cr Clr Drug Dosing 77.78 mL/min Estimated GFR (MDRD) > 60.0 ml/min Glucose 120 H (74-106) mg/dL Calcium 8.6 (8.5-10.1) mg/dL Phosphorus (2.6-4.7) mg/dL Magnesium 2.3 (1.8-2.4) mg/dL Joss Results Last 24 Hours: Microbiology 07/08/19 10:50 Aerobic Blood Culture - Preliminary Blood - Venous - Lab Draw NO GROWTH AFTER 2 DAYS Anaerobic Blood Culture - Final 07/08/19 10:35 Aerobic Blood Culture - Preliminary Blood - Venous NO GROWTH AFTER 2 DAYS Anaerobic Blood Culture - Preliminary NO GROWTH AFTER 2 DAYS 07/08/19 11:50 Streptococcus pneumoniae Antigen (M - Final Urine 07/08/19 11:50 Legionella Urinary Antigen - Final Urine 07/08/19 11:50 Urine Culture - Final Urine, Clean Catch MIXED SUMI <1000 CFU/ML Med Orders - Current: Current Medications Acetaminophen (Tylenol) 650 mg PO Q6H PRN PRN Reason: Pain Albuterol (Proventil Neb Soln) 2.5 mg NEB Q2H PRN PRN Reason: SOB/wheezing Albuterol/Ipratropium (Duoneb 3.0-0.5 Mg/3 Ml) 3 ml NEB Q4HRRT [facility] Last Admin: 07/11/19 06:04 Dose: 3 ml Fludrocortisone Acetate (Florinef) 0.1 mg PO WITHBREAKFAST [facility] Last Admin: 07/11/19 07:46 Dose: 0.1 mg Heparin Sodium (Porcine) (Heparin Sodium) 5,000 units SUBCUT Q8H [facility]Y Last Admin: 07/11/19 05:33 Dose: 5,000 units Hydrocortisone Sodium Succinate (Solu-Cortef) 100 mg IVPUSH Q8H [facility]ONY Last Admin: 07/11/19 07:46 Dose: 100 mg Azithromycin 500 mg/ Sodium (Chloride) 250 mls @ 250 mls/hr IV Q24H [facility] Last Admin: 07/10/19 14:53 Dose: 250 mls/hr Pantoprazole Sodium 40 mg/ (Sodium Chloride) 10 mls @ 300 mls/hr IV Q24H [facility] Last Admin: 07/10/19 13:51 Dose: 300 mls/hr Cefepime HCl 2 gm/ Premix 50 mls @ 100 mls/hr IV Q8H [facility] Last Admin: 07/11/19 06:17 Dose: 100 mls/hr Dextrose/Water (Dextrose 5% In Water) 1,000 mls @ 75 mls/hr IV ASDIRECTED [facility] Last Admin: 07/11/19 05:05 Dose: 75 mls/hr Norepinephrine Bitartrate (Norepinephr-0.9% Nacl 4 Mg/250) 4 mg in 250 mls @ 0.075 mls/hr IV TITRATE MELONY; Protocol Last Titration: 07/10/19 13:48 Dose: 0 mcg/min, 0 mls/hr Sodium Chloride (Normal Saline) 500 mls @ 500 mls/min IV .BOLUS MELONY Last Admin: 07/09/19 22:54 Dose: 500 mls/min Umeclidinium Brm/Vilanterol Tr [Anoro Ellipta 62.5-25mcg] 1 each INH DAILY [facility]ONY Last Admin: 07/10/19 15:40 Dose: 1 each Sodium Chloride (Saline Flush) 10 ml FLUSH ASDIRECTED PRN PRN Reason: Keep Vein Open Last Admin: 07/08/19 10:53 Dose: 10 ml Sodium Chloride (Saline Flush) 2.5 ml FLUSH ASDIRECTED PRN PRN Reason: Keep Vein Open Last Admin: 07/08/19 10:53 Dose: 2.5 ml Discontinued Medications Al Hydroxide/Mg Hydroxide 15 (ml/ Lidocaine HCl 5 ml) 0 ml PO ONETIME ONE Stop: 07/08/19 10:27 Last Admin: 07/08/19 10:53 Dose: 1 each Sodium Chloride (Normal Saline) 1,000 mls @ 999 mls/hr IV STAT ONE Stop: 07/08/19 11:16 Last Admin: 07/08/19 10:37 Dose: 999 mls/hr Ceftriaxone Sodium/Dextrose 1 (gm/ Premix) 50 mls @ 100 mls/hr IV ONETIME ONE Stop: 07/08/19 13:27 Last Admin: 07/08/19 13:08 Dose: 100 mls/hr Sodium Chloride (Normal Saline) 1,000 mls @ 125 mls/hr IV STAT ONE Stop: 07/08/19 20:58 Last Infusion: 07/08/19 13:24 Dose: 999 mls/hr Sodium Chloride (Normal Saline) 1,000 mls @ 999 mls/hr IV .Bolus ONE Stop: 07/08/19 14:10 Last Admin: 07/08/19 14:34 Dose: 999 mls/hr Ceftriaxone Sodium/Dextrose 1 (gm/ Premix) 50 mls @ 100 mls/hr IV Q24H MELONY Sodium Chloride (Normal Saline) 1,000 mls @ 125 mls/hr IV ASDIRECTED MELONY Last Admin: 07/09/19 02:19 Dose: 125 mls/hr Sodium Chloride (Normal Saline) 1,000 mls @ 999 mls/hr IV .Bolus ONE Stop: 07/08/19 17:16 Last Admin: 07/08/19 16:30 Dose: 999 mls/hr Sodium Chloride (Normal Saline) 1,000 mls @ 999 mls/hr IV .Bolus ONE Stop: 07/08/19 19:27 Last Admin: 07/08/19 18:30 Dose: 999 mls/hr Norepinephrine Bitartrate (Norepinephr-0.9% Nacl 4 Mg/250) 4 mg in 250 mls @ 7.5 mls/hr IV TITRATE MELONY; Protocol Last Titration: 07/09/19 03:15 Dose: 1 mcg/min, 3.75 mls/hr Sodium Phosphate 30 mmole/ (Sodium Chloride) 260 mls @ 43.333 mls/hr IV ONETIME ONE Stop: 07/09/19 03:44 Last Admin: 07/09/19 00:10 Dose: 43.333 mls/hr Sodium Phosphate 40 mmole/ (Sodium Chloride) 263.3333 mls @ 65.833 mls/hr IV ONETIME ONE Stop: 07/09/19 19:59 Last Admin: 07/09/19 16:24 Dose: 65.833 mls/hr Potassium Chloride 20 meq/ (Premix) 50 mls @ 25 mls/hr IV ONETIME ONE Stop: 07/10/19 05:33 Last Admin: 07/10/19 04:46 Dose: Not Given Potassium Chloride 40 meq/ (Premix) 100 mls @ 25 mls/hr IV ONETIME ONE Stop: 07/10/19 08:05 Last Admin: 07/10/19 04:15 Dose: 25 mls/hr Potassium Chloride 40 meq/ (Premix) 100 mls @ 25 mls/hr IV Q4H [facility] Stop: 07/10/19 23:25 Last Admin: 07/10/19 20:08 Dose: 25 mls/hr Budesonide/Formoterol 160-4.5 Mcg/Puff 6 Gm Inhaler 0 each INH BID MELONY Last Admin: 07/10/19 15:43 Dose: Not Given Potassium Chloride (Klor-Con M20) 40 meq PO ONETIME ONE Stop: 07/09/19 10:06 Last Admin: 07/09/19 10:34 Dose: 40 meq Potassium Chloride (Klor-Con M20) 40 meq PO ONETIME ONE Stop: 07/09/19 13:27 Last Admin: 07/09/19 14:37 Dose: 40 meq Sodium Phosphate (Sodium Phosphate) 30 mmole IV ONETIME ONE Stop: 07/08/19 21:46 - Exam General: Alert, Oriented Neck: Supple Lungs: Normal Respiratory Effort, Rhonchi Cardiovascular: Regular Rate, Regular Rhythm GI/Abdominal Exam: Normal Bowel Sounds, Soft, Non-Tender Extremities: Non-Tender, No Pedal Edema Skin: Warm, Dry, Intact - Problem List Review Problem List Initiated/Reviewed/Updated: Yes - My Orders Last 24 Hours: My Active Orders 07/10/19 15:00 Patient's Own Medication [Ptom] 1 each INH DAILY 07/12/19 05:11 BASIC METABOLIC PANEL,BMP [CHEM] AM CBC WITH AUTO DIFF [HEME] AM MAGNESIUM [CHEM] AM 07/13/19 05:11 BASIC METABOLIC PANEL,BMP [CHEM] AM CBC WITH AUTO DIFF [HEME] AM MAGNESIUM [CHEM] AM - Plan Plan:: This 59 year old male admitted with septic shock secondary to suspected HCAP and /or prostatitis 1. Septic shock: levophed weaned off yesterday. His on hydrocortisone for possible adrenal insufficiency. Cortisol and ACTH levels pending. Florinef started 2. HCAP: Continue Cefepime and Azithromycin. Encourage IS, Duonebs via RT. 3. Urinary retention: BPH, consider prostatitis. Continue Cefepime. UC pending though UA negative. 4. COPD: Continue home inhalers, Duonebs . VTE prophylaxis: Heparin Dispo: 2-3 days pending improvement
[2019-07-11] MEDS ORDERED: Cyanocobalamin (Vitamin B12) 1,000 MCG/ML SDV IM ONE (09:13)
[2019-07-11] MEDS ORDERED: Tiotropium Inhaler 18 MCG Inhalation Powder Cap Kit of 5 INH ONE (09:32)
--- NOTE | 2019-07-11 09:47 | PN ---
DAVIAN Physician - Brief Progress [id number]/10/2019 09:41[facility] Francine Tang, [place] - [facility] - MWN DAVID ROMODate of Service 07/11/2019 09:41HPI/Events of Note EICU progress note:59-year-old male presenting with septic shock and what appears to be an a cute exacerbation of COPD. Chest x-rays are negative. Discussed with Cindy RYAN at bedside this dana mac Patient does have a worsening cough likely secondary to tobacco cessation.Patient is currently up in chair on video screen monitor exam:Heart rate 115 respiratory rate 20 SPO2 97% blood pressure 122 /68EMR is reviewed by the first time for me as physician team for ICU. Patient's white blood cell co unt is 15.78 hemoglobin 9.1 with an MCV of 113.1Patient is also smoked at least 1 pack/day x 40 years and does qualify from the [employer] to have a low-dose screening CAT scan every year for early stage lung cancer. He should have this outpatient.Have discussed with Cindy RYAN to wean hyd rocortisone to 50 mg every 12 hours starting at noon and to continue p.o. Florinef so that we may wea n the p.o. Florinef over the next week or so.I started the patient on Mucinex to help clear up some o f the congestion in his chest.I also started the patient on Spiriva, he should be on an L AMA/LABA ou tpatient for his COPD. I also recommend that he have a full PFT outpatient.Patient has pretty signif icant macrocytic anemia and needs a full work-up. I have taken the liberty of ordering a urine prote in electrophoresis to rule out multiple myeloma, B12 and folate levels which will be back in mid week , as well and starting him on B12, folate, and thiamine.EICU assessment/plan:1. Septic shock resolvi ng currently off pressor support2. Questionable adrenal insufficiency now weaning hydrocortisone manolo l maintain Florinef and wean to every other day and then every third day over the next several weeks this will have to be done outpatient3. Macrocytic anemia with B12 and folate levels pending, startin g p.o. B12 folate and thiamine. Started on IM B12. Check urine protein electrophoresis. Patient wi ll likely need age-appropriate screening including colonoscopy outpatient due to anemia.4. Acute exa cerbation of COPD. Place patient on L AMA/LABA on discharge. Smoking cessation should be encouraged . Patient should have yearly screening CAT scan. Could change patient to Augmentin 875 mg p.o. twic e daily x10 days of antibiotics total. Sputum culture if he is able to expectorate over the next day or so with Mucinex.5. History of urinary retention and enlarged prostate should be followed outpati ent. May need prostate biopsy outpatient if highly suspicious.6. GI and DVT prophylaxis7. Change a zithromycin to p.o. If not comfortable changing to Augmentin in the a.m.Tobacco cessationInterventio ns Major-Sepsis - evaluation and managementMinor-Clinical assessment - ordering diagnostic tests, Com munication with other healthcare providers and/or family, Routine modifications to care plan (e.g. SC N medications for pain, fever)
[2019-07-11] MEDS: Folic Acid 1 MG Tab PO SCH (09:53)
[2019-07-11] MEDS: Ascorbic Acid 500 MG Tab PO SCH ×2 (09:53→21:08)
[2019-07-11] MEDS: guaiFENesin 600 MG Tab.ER PO SCH ×2 (09:54→21:07)
[2019-07-11] MEDS: UMECLIDINIUM BRM INH SCH (11:04)
[2019-07-11] MEDS: VILANTEROL TR INH SCH (11:04)
[2019-07-11] MEDS: Pantoprazole 40 MG in Sodium Chloride 0.9% 10 ML IV SCH (14:52)
[2019-07-11] MEDS: Azithromycin 500 MG in Sodium Chloride 0.9% 250 ML IV SCH (14:56)
[2019-07-11] MEDS: Thiamine 100 MG Tab PO SCH (21:08)
[2019-07-12] MEDS: Hydrocortisone Sodium Succinate 100 MG/2 ML SDV IVPUSH SCH (00:45)
[2019-07-12] MEDS: Albuterol/Ipratropium 3.0-0.5 MG/3 ML Neb Soln NEB SCH ×6 (01:31→21:40)
[2019-07-12] MEDS: Heparin Sodium 5,000 Units/ML Vial SUBCUT SCH ×3 (05:09→20:29)
[2019-07-12 06:03] LABS: BLOOD UREA NITROGEN,BUN 20 mg/dL (7.0-18.0); CHLORIDE,CL 107 mmol/L (98-107); GLUCOSE RANDOM 100 mg/dL (74-106); POTASSIUM,K 3.7 mmol/L (3.5-5.1); SODIUM,NA 141 mmol/L (136-148)
[2019-07-12] MEDS: Cefepime 2 GM in Premix Bag 1 BAG IV SCH ×3 (06:18→21:51)
--- NOTE | 2019-07-12 07:53 | PCM.PN ---
- General Info Date of Service: 07/12/19 Admission Dx/Problem (Free Text): Admission Diagnosis/Problem Admission Diagnosis/Problem Sepsis Subjective Update: Reports feeling improved. No chest pain. Mild shortness of breath, but says it is better than previous. Concerned about barnett catheter staying in after discharge. Functional Status: Reports: Pain Controlled, Tolerating Diet, Ambulating - Review of Systems General: Reports: No Symptoms. Denies: Fever, Fatigue HEENT: Reports: No Symptoms. Denies: Headaches, Sore Throat, Visual Changes Pulmonary: Reports: No Symptoms. Denies: Shortness of Breath Cardiovascular: Reports: No Symptoms. Denies: Chest Pain, Edema Gastrointestinal: Reports: No Symptoms. Denies: Abdominal Pain, Nausea, Vomiting Genitourinary: Reports: No Symptoms. Denies: Dysuria, Frequency Musculoskeletal: Reports: No Symptoms Skin: Reports: No Symptoms Neurological: Reports: No Symptoms Psychiatric: Reports: No Symptoms - Patient Data Vitals - Most Recent: Last Vital Signs Temp 98.5 F 07/12/19 04:00 Pulse 114 H 07/12/19 00:00 Resp 19 07/12/19 05:00 BP 145/77 H 07/12/19 05:00 Pulse Ox 93 L 07/12/19 05:50 Weight - Most Recent: 63 kg I&O - Last 24 Hours: Intake & Output 07/11/19 07/12/19 07/12/19 22:59 06:59 14:59 Intake Total 2057 1025 Output Total 950 1100 Balance 1107 -75 Lab Results Last 24 Hours: Laboratory Results - last 24 hr 07/11/19 07/12/19 07/12/19 Range/Units 05:50 05:20 05:20 WBC (4.0-11.0) K/uL RBC (4.50-5.90) M/uL Hgb (13.0-17.0) g/dL Hct (38.0-50.0) % MCV (80.0-98.0) fL MCH (27.0-32.0) pg MCHC (31.0-37.0) g/dL RDW Std Deviation (28.0-62.0) fl RDW Coeff of Gildardo (11.0-15.0) % Plt Count (150-400) K/uL MPV (7.40-12.00) fL Neut % (Auto) (48.0-80.0) % Lymph % (Auto) (16.0-40.0) % [place] % (Auto) (0.0-15.0) % Eos % (Auto) (0.0-7.0) % Baso % (Auto) (0.0-1.5) % Neut # (Auto) (1.4-5.7) K/uL Lymph # (Auto) (0.6-2.4) K/uL [place] # (Auto) (0.0-0.8) K/uL Eos # (Auto) (0.0-0.7) K/uL Baso # (Auto) (0.0-0.1) K/uL Nucleated RBC % /100WBC Nucleated RBCs # K/uL Sodium (136-148) mmol/L Potassium (3.5-5.1) mmol/L Chloride (98-107) mmol/L Carbon Dioxide (21.0-32.0) mmol/L BUN (7.0-18.0) mg/dL Creatinine (0.8-1.3) mg/dL Est Cr Clr Drug Dosing mL/min Estimated GFR (MDRD) ml/min Glucose (74-106) mg/dL Calcium (8.5-10.1) mg/dL Magnesium (1.8-2.4) mg/dL Iron 116 (50-175) ug/dL TIBC 211 L (250-450) ug/dL % Saturation 54.98 (20-55) % Ferritin 1076 H (26-388) ng/mL Vitamin B12 2652 H (193-986) pg/mL Folate 7.50 L (8.60-58.90) ng/mL 07/12/19 07/12/19 Range/Units 05:20 05:20 WBC 20.15 H (4.0-11.0) K/uL RBC 2.60 L (4.50-5.90) M/uL Hgb 9.6 L (13.0-17.0) g/dL Hct 29.7 L (38.0-50.0) % MCV 114.2 H (80.0-98.0) fL MCH 36.9 H (27.0-32.0) pg MCHC 32.3 (31.0-37.0) g/dL RDW Std Deviation 69.5 H (28.0-62.0) fl RDW Coeff of Gildardo 17 H (11.0-15.0) % Plt Count 287 (150-400) K/uL MPV 10.10 (7.40-12.00) fL Neut % (Auto) 90.5 H (48.0-80.0) % Lymph % (Auto) 4.0 L (16.0-40.0) % [place] % (Auto) 5.5 (0.0-15.0) % Eos % (Auto) 0.0 (0.0-7.0) % Baso % (Auto) 0.0 (0.0-1.5) % Neut # (Auto) 18.2 H (1.4-5.7) K/uL Lymph # (Auto) 0.8 (0.6-2.4) K/uL [place] # (Auto) 1.1 H (0.0-0.8) K/uL Eos # (Auto) 0.0 (0.0-0.7) K/uL Baso # (Auto) 0.0 (0.0-0.1) K/uL Nucleated RBC % 0.0 /100WBC Nucleated RBCs # 0 K/uL Sodium 141 (136-148) mmol/L Potassium 3.7 (3.5-5.1) mmol/L Chloride 107 (98-107) mmol/L Carbon Dioxide 25.0 (21.0-32.0) mmol/L BUN 20 H (7.0-18.0) mg/dL Creatinine 1.0 (0.8-1.3) mg/dL Est Cr Clr Drug Dosing 70.00 mL/min Estimated GFR (MDRD) > 60.0 ml/min Glucose 100 (74-106) mg/dL Calcium 8.5 (8.5-10.1) mg/dL Magnesium 2.1 (1.8-2.4) mg/dL Iron (50-175) ug/dL TIBC (250-450) ug/dL % Saturation (20-55) % Ferritin (26-388) ng/mL Vitamin B12 (193-986) pg/mL Folate (8.60-58.90) ng/mL Joss Results Last 24 Hours: Microbiology 07/08/19 18:36 Gram Stain - Final Sputum - Expectorated Sputum Culture - Final Normal Respiratory Bonnie 07/08/19 10:50 Aerobic Blood Culture - Preliminary Blood - Venous - Lab Draw NO GROWTH AFTER 3 DAYS Anaerobic Blood Culture - Final 07/08/19 10:35 Aerobic Blood Culture - Preliminary Blood - Venous NO GROWTH AFTER 3 DAYS Anaerobic Blood Culture - Preliminary NO GROWTH AFTER 3 DAYS Med Orders - Current: Current Medications Acetaminophen (Tylenol) 650 mg PO Q6H PRN PRN Reason: Pain Albuterol (Proventil Neb Soln) 2.5 mg NEB Q2H PRN PRN Reason: SOB/wheezing Albuterol/Ipratropium (Duoneb 3.0-0.5 Mg/3 Ml) 3 ml NEB Q4HRRT [facility] Last Admin: 07/12/19 05:48 Dose: 3 ml Ascorbic Acid (Vitamin C) 500 mg PO BID [facility] Last Admin: 07/11/19 21:08 Dose: 500 mg Fludrocortisone Acetate (Florinef) 0.1 mg PO WITHBREAKFAST [facility] Last Admin: 07/11/19 07:46 Dose: 0.1 mg Folic Acid (Folic Acid) 1 mg PO DAILY [facility] Last Admin: 07/11/19 09:53 Dose: 1 mg Guaifenesin (Mucinex) 1,200 mg PO BID [facility] Last Admin: 07/11/19 21:07 Dose: 1,200 mg Heparin Sodium (Porcine) (Heparin Sodium) 5,000 units SUBCUT Q8H [facility] Last Admin: 07/12/19 05:09 Dose: 5,000 units Hydrocortisone Sodium Succinate (Solu-Cortef) 50 mg IVPUSH Q12H [facility] Last Admin: 07/12/19 00:45 Dose: 50 mg Azithromycin 500 mg/ Sodium (Chloride) 250 mls @ 250 mls/hr IV Q24H [facility] Last Admin: 07/11/19 14:56 Dose: 250 mls/hr Pantoprazole Sodium 40 mg/ (Sodium Chloride) 10 mls @ 300 mls/hr IV Q24H [facility] Last Admin: 07/11/19 14:52 Dose: 300 mls/hr Cefepime HCl 2 gm/ Premix 50 mls @ 100 mls/hr IV Q8H [facility] Last Admin: 07/12/19 06:18 Dose: 100 mls/hr Dextrose/Water (Dextrose 5% In Water) 1,000 mls @ 75 mls/hr IV ASDIRECTED [facility]ONY Last Admin: 07/11/19 19:41 Dose: 75 mls/hr Norepinephrine Bitartrate (Norepinephr-0.9% Nacl 4 Mg/250) 4 mg in 250 mls @ 0.075 mls/hr IV TITRATE MELONY; Protocol Last Titration: 07/10/19 13:48 Dose: 0 mcg/min, 0 mls/hr Sodium Chloride (Normal Saline) 500 mls @ 500 mls/min IV .BOLUS [facility]ELONY Last Admin: 07/09/19 22:54 Dose: 500 mls/min Umeclidinium Brm/Vilanterol Tr [Anoro Ellipta 62.5-25mcg] 1 each INH DAILY [facility] Last Admin: 07/11/19 11:04 Dose: 1 each Sodium Chloride (Saline Flush) 10 ml FLUSH ASDIRECTED PRN PRN Reason: Keep Vein Open Last Admin: 07/08/19 10:53 Dose: 10 ml Sodium Chloride (Saline Flush) 2.5 ml FLUSH ASDIRECTED PRN PRN Reason: Keep Vein Open Last Admin: 07/08/19 10:53 Dose: 2.5 ml Thiamine HCl (Vitamin B-1) 100 mg PO BEDTIME MELONY Last Admin: 07/11/19 21:08 Dose: 100 mg Discontinued Medications Al Hydroxide/Mg Hydroxide 15 (ml/ Lidocaine HCl 5 ml) 0 ml PO ONETIME ONE Stop: 07/08/19 10:27 Last Admin: 07/08/19 10:53 Dose: 1 each Cyanocobalamin (Vitamin B12) 1,000 mcg IM ONETIME ONE Stop: 07/11/19 09:14 Last Admin: 07/11/19 10:01 Dose: 1,000 mcg Hydrocortisone Sodium Succinate (Solu-Cortef) 100 mg IVPUSH Q8H [facility] Last Admin: 07/11/19 07:46 Dose: 100 mg Sodium Chloride (Normal Saline) 1,000 mls @ 999 mls/hr IV STAT ONE Stop: 07/08/19 11:16 Last Admin: 07/08/19 10:37 Dose: 999 mls/hr Ceftriaxone Sodium/Dextrose 1 (gm/ Premix) 50 mls @ 100 mls/hr IV ONETIME ONE Stop: 07/08/19 13:27 Last Admin: 07/08/19 13:08 Dose: 100 mls/hr Sodium Chloride (Normal Saline) 1,000 mls @ 125 mls/hr IV STAT ONE Stop: 07/08/19 20:58 Last Infusion: 07/08/19 13:24 Dose: 999 mls/hr Sodium Chloride (Normal Saline) 1,000 mls @ 999 mls/hr IV .Bolus ONE Stop: 07/08/19 14:10 Last Admin: 07/08/19 14:34 Dose: 999 mls/hr Ceftriaxone Sodium/Dextrose 1 (gm/ Premix) 50 mls @ 100 mls/hr IV Q24H [facility] Sodium Chloride (Normal Saline) 1,000 mls @ 125 mls/hr IV ASDIRECTED MELONY Last Admin: 07/09/19 02:19 Dose: 125 mls/hr Sodium Chloride (Normal Saline) 1,000 mls @ 999 mls/hr IV .Bolus ONE Stop: 07/08/19 17:16 Last Admin: 07/08/19 16:30 Dose: 999 mls/hr Sodium Chloride (Normal Saline) 1,000 mls @ 999 mls/hr IV .Bolus ONE Stop: 07/08/19 19:27 Last Admin: 07/08/19 18:30 Dose: 999 mls/hr Norepinephrine Bitartrate (Norepinephr-0.9% Nacl 4 Mg/250) 4 mg in 250 mls @ 7.5 mls/hr IV TITRATE MELONY; Protocol Last Titration: 07/09/19 03:15 Dose: 1 mcg/min, 3.75 mls/hr Sodium Phosphate 30 mmole/ (Sodium Chloride) 260 mls @ 43.333 mls/hr IV ONETIME ONE Stop: 07/09/19 03:44 Last Admin: 07/09/19 00:10 Dose: 43.333 mls/hr Sodium Phosphate 40 mmole/ (Sodium Chloride) 263.3333 mls @ 65.833 mls/hr IV ONETIME ONE Stop: 07/09/19 19:59 Last Admin: 07/09/19 16:24 Dose: 65.833 mls/hr Potassium Chloride 20 meq/ (Premix) 50 mls @ 25 mls/hr IV ONETIME ONE Stop: 07/10/19 05:33 Last Admin: 07/10/19 04:46 Dose: Not Given Potassium Chloride 40 meq/ (Premix) 100 mls @ 25 mls/hr IV ONETIME ONE Stop: 07/10/19 08:05 Last Admin: 07/10/19 04:15 Dose: 25 mls/hr Potassium Chloride 40 meq/ (Premix) 100 mls @ 25 mls/hr IV Q4H [facility]ELONY Stop: 07/10/19 23:25 Last Admin: 07/10/19 20:08 Dose: 25 mls/hr Budesonide/Formoterol 160-4.5 Mcg/Puff 6 Gm Inhaler 0 each INH BID [facility]ELONY Last Admin: 07/10/19 15:43 Dose: Not Given Potassium Chloride (Klor-Con M20) 40 meq PO ONETIME ONE Stop: 07/09/19 10:06 Last Admin: 07/09/19 10:34 Dose: 40 meq Potassium Chloride (Klor-Con M20) 40 meq PO ONETIME ONE Stop: 07/09/19 13:27 Last Admin: 07/09/19 14:37 Dose: 40 meq Sodium Phosphate (Sodium Phosphate) 30 mmole IV ONETIME ONE Stop: 07/08/19 21:46 Tiotropium [place] (Spiriva Handihaler) 18 mcg INH ONETIME ONE Stop: 07/11/19 09:33 Last Admin: 07/11/19 11:01 Dose: 18 mcg - Exam General: Alert, Oriented, Cooperative, No Acute Distress Neck: Supple Lungs: Clear to Auscultation, Normal Respiratory Effort Cardiovascular: Regular Rate, Regular Rhythm GI/Abdominal Exam: Normal Bowel Sounds, Soft, Non-Tender Extremities: Normal Inspection, Normal Range of Motion, Non-Tender, No Pedal Edema Neurological: No New Focal Deficit Psy/Mental Status: Alert, Normal Affect, Normal Mood - Problem List & Annotations (1) Septic shock SNOMED Code(s): 57998017 Code(s): A41.9 - SEPSIS, UNSPECIFIED ORGANISM; R65.21 - SEVERE SEPSIS WITH SEPTIC SHOCK Status: Resolved Current Visit: Yes (2) Sepsis SNOMED Code(s): 45321305 Code(s): A41.9 - SEPSIS, UNSPECIFIED ORGANISM Status: Resolved Current Visit: Yes Qualifiers: Sepsis type: sepsis due to unspecified organism Sepsis acute organ dysfunction status: without acute organ dysfunction Qualified Code(s): A41.9 - Sepsis, unspecified organism (3) Prostatitis SNOMED Code(s): 5032375 Code(s): N41.9 - INFLAMMATORY DISEASE OF PROSTATE, UNSPECIFIED Status: Acute Current Visit: Yes Qualifiers: Prostatitis type: acute Qualified Code(s): N41.0 - Acute prostatitis (4) HCAP (healthcare-associated pneumonia) SNOMED Code(s): 563383705, 521992336 Code(s): J18.9 - PNEUMONIA, UNSPECIFIED ORGANISM Status: Acute Current Visit: Yes (5) Abdominal pain SNOMED Code(s): 84244808 Code(s): R10.9 - UNSPECIFIED ABDOMINAL PAIN Status: Acute Current Visit: No Qualifiers: Abdominal location: generalized Qualified Code(s): R10.84 - Generalized abdominal pain (6) COPD (chronic obstructive pulmonary disease) SNOMED Code(s): 68520623 Code(s): J44.9 - CHRONIC OBSTRUCTIVE PULMONARY DISEASE, UNSPECIFIED Status : Chronic Current Visit: No (7) HTN (hypertension) SNOMED Code(s): 75606956 Code(s): I10 - ESSENTIAL (PRIMARY) HYPERTENSION Status: Chronic Current Visit: No Qualifiers: Hypertension type: essential hypertension Qualified Code(s): I10 - Essential (primary) hypertension (8) Smoker SNOMED Code(s): 08342936 Code(s): F17.200 - NICOTINE DEPENDENCE, UNSPECIFIED, UNCOMPLICATED Status: Chronic Current Visit: No - Problem List Review Problem List Initiated/Reviewed/Updated: Yes - Plan Plan:: This 59 year old male admitted with septic shock secondary to suspected HCAP and /or prostatitis 1. Septic shock: No Levophed in 2 days. Continuing to wean hydrocortisone and continue Florinef for possible adrenal insufficiency. Cortisol 11.5 and ACTH levels pending. 2. HCAP: Continue Cefepime and Azithromycin. Encourage IS, Duonebs via RT. 3. Urinary retention: BPH, consider prostatitis. Continue Cefepime. UC negative. Will need follow up with Urology for evaluation and plan for BPH 4. COPD: Continue home inhalers, Duonebs. Encouraged IS and flutter valve. 5. Tachycardia: EKG revealed ST no atrial fibrillation. Will monitor. CT angio ordered due to tachycardia ruled out PE, not pulmonary edema and pulmonary vascular congestion. Will give Lasix 40 mg IV now and monitor hypoxia. ECHO ordered. TSH 0.98. VTE prophylaxis: Heparin Dispo: 2-3 days pending improvement, will down grade to Med/Surg status with telemetry.
[2019-07-12] MEDS: Fludrocortisone 0.1 MG Tab PO SCH (09:00)
[2019-07-12] MEDS: UMECLIDINIUM BRM INH SCH (09:06)
[2019-07-12] MEDS: VILANTEROL TR INH SCH (09:06)
[2019-07-12] MEDS: guaiFENesin 600 MG Tab.ER PO SCH ×2 (09:29→20:25)
[2019-07-12] MEDS: Ascorbic Acid 500 MG Tab PO SCH ×2 (09:31→20:25)
[2019-07-12] MEDS: Folic Acid 1 MG Tab PO SCH (09:31)
--- NOTE | 2019-07-12 10:06 | PN ---
DAVIAN Physician - Brief Progress [id number]/11/2019 09:44[facility] Francine Tang, RIANA - DAVIDSONN (TIANNA) - DAVIDSONN NOELLEDAVID KAMARASamiaDate of Service 07/12/2019 09:44HPI/Events of Note eICU Progress [id number] admitted for septic shock. History obtained primarily from review of E MR.Notable events: Patient appears to be off norepinephrine per MAR since 07/10/2019, continues to rem ain on fludrocortisone, and IV push hydrocortisoneCamera exam: Laying in bed. Vitals monitor reviewed . Patient is tachycardic (HR 120s, appears irregular), SBP 150s, SO2 88%Vitals: reviewedLabs: reviewe dRadiology: reviewedMeds: reviewedeICU Impression and Recommendations:Shock, with differential includ ing distributive from adrenal insufficiency given history of prior corticosteroid use, resolved on fl udrocortisone and hydrocortisone, and on cefepime and azithromycin. Unclear as to whether sepsis pres ent, as patient did not have leukocytosis until after initiation of steroids, with negative urinalysi s, CXR, and blood cultures- agree with continued wean of hydrocortisone. Given corticosteroid adminis tration, uncertain as to utility of ACTH testing at this time- defer antibiotics to primary service, can consider discontinuation. Alternatively if concerned for pulmonary source given concomitant possi bility of COPD exacerbation, consider use of procalcitonin if available at institution to assist with antibiotic de-escalationConcern for acute exacerbation of reported diagnosis of COPDCorticosteroids per primary service (see above)Antibiotics per primary service (see above), if decision made to de-es calate can consider continuation of a short course of antibiotics for COPD exacerbationRecommend sche duled bronchodilatorsNew onset irregular tachycardia with concern for atrial fibrillation with RVREti ology uncertain, with possible precipitating factors including shock as aboveObtain EKG, troponin, BN P, Magnesium, TSH, FT4, d-dimer, and TTE if not already obtained. If d-dimer positive, consider CTPE or LE dopplers.Should rhythm reveal patient to be in atrial fibrillation, recommend:Target Mg > 2, K> 4Will defer anticoagulation to primary service, consider initiation of IV heparin or lovenoxDefer rhy thm or rate control strategy to primary serviceFor rate control, recommend target rate of <110bpm. Wi ll defer choice of rate control agent to primary service, consider IV push metoprolol, IV push diltia zem (if no concern for underlying heart failure). Should these measures fail can consider continuous rate control drip (such as diltiazem). Should patientxs blood pressure fail to tolerate medications, consider alternative agent such as digoxin. Should patient become unstable, recommend synchronized ca rdioversion (we are available to assist with this if desired).DVT and GI prophylaxis as appropriate.W e are available to assist in further clarification, or implementation of any of the above recommendat ions if desired by primary service.Thank you for allowing us to participate in the care of this patie nt.The above note transcribed via dictation software. Please excuse any errors.Interventions Major-Ar rhythmia - evaluation and management, Shock - evaluation and management
--- NOTE | 2019-07-12 11:49 | CT ---
EXAM DATE: 07/08/19 PATIENT'S AGE: 59 CT chest Technique: Multiple axial sections through the chest were obtained. Intravenous contrast was utilized. Study performed as a pulmonary angiogram protocol. Findings: Small to moderate sized bilateral pleural effusions are seen. Pulmonary arteries are fairly well-opacified. No filling defects are seen to indicate pulmonary embolism. Aorta shows no aneurysm. Moderate coronary artery calcification is seen. Mediastinum and hilar regions show small lymph nodes which are felt to be within normal limits. No pericardial thickening is seen. Visualized upper abdominal structures show no discrete abnormality. Haziness with patchy parenchymal densities are seen within both lungs. Findings are suspicious for pulmonary vascular congestion and areas of pulmonary edema. Follow-up is recommended to make sure parenchymal findings do not persist as actual masses. Bone window settings were reviewed which appear without acute osseous abnormality. Impression: 1. Bilateral pleural effusions with pulmonary vascular congestion and probable early areas of pulmonary edema. As mentioned above follow-up is recommended to make sure the presumed areas of pulmonary edema do not persist as actual parenchymal masses. 2. These findings appear as an interval change from previous chest x-ray and please correlate if patient has had recent cardiac event for pulmonary edema to be due to cardiac dysfunction with CHF. Diagnostic code #5 Report Signed by Proxy. LEBRON
[2019-07-12] MEDS ORDERED: Furosemide 40 MG/4 ML VIAL IVPUSH ONE (11:53)
[2019-07-12] MEDS: Fluticasone Propionate Nasal Spray 16 GM Bottle NASBOTH SCH (12:22)
[2019-07-12] MEDS: Pantoprazole 40 MG in Sodium Chloride 0.9% 10 ML IV SCH (14:44)
[2019-07-12] MEDS: Azithromycin 500 MG in Sodium Chloride 0.9% 250 ML IV SCH (14:53)
[2019-07-12] MEDS ORDERED: Iopamidol 755 MG/ML 500 ML Multipack Bottle IVPUSH STA (17:50)
[2019-07-12] MEDS: Thiamine 100 MG Tab PO SCH (20:25)
[2019-07-13] MEDS: Hydrocortisone Sodium Succinate 100 MG/2 ML SDV IVPUSH SCH ×2 (00:59→09:06)
[2019-07-13] MEDS: Albuterol/Ipratropium 3.0-0.5 MG/3 ML Neb Soln NEB SCH ×3 (01:04→09:50)
[2019-07-13] MEDS: Heparin Sodium 5,000 Units/ML Vial SUBCUT SCH ×3 (05:55→20:30)
[2019-07-13] MEDS: Cefepime 2 GM in Premix Bag 1 BAG IV SCH (05:55)
[2019-07-13 06:48] LABS: BLOOD UREA NITROGEN,BUN 18 mg/dL (7.0-18.0); CARBON DIOXIDE,CO2 27.9 mmol/L (21.0-32.0); CHLORIDE,CL 105 mmol/L (98-107); GLUCOSE RANDOM 106 mg/dL (74-106); POTASSIUM,K 3.4 mmol/L (3.5-5.1); SODIUM,NA 141 mmol/L (136-148)
[2019-07-13] MEDS ORDERED: Potassium Chloride 20 MEQ Tab.ER PO ONE (07:55)
[2019-07-13] MEDS ORDERED: Furosemide 40 MG/4 ML VIAL IVPUSH ONE (08:00)
--- NOTE | 2019-07-13 08:01 | PCM.PN ---
- General Info Date of Service: 07/13/19 Admission Dx/Problem (Free Text): Admission Diagnosis/Problem Admission Diagnosis/Problem Sepsis Subjective Update: Reports feeling improved. No chest pain. Shortness of breath is better also improving. Mild productive cough, but sputum is lessening. Concerned about barnett catheter staying in after discharge. Functional Status: Reports: Pain Controlled, Tolerating Diet, Ambulating - Review of Systems General: Reports: No Symptoms. Denies: Weakness, Fatigue HEENT: Reports: No Symptoms. Denies: Headaches, Sore Throat, Visual Changes Pulmonary: Reports: Shortness of Breath, Cough, Sputum (lessening) Cardiovascular: Reports: No Symptoms. Denies: Chest Pain Gastrointestinal: Reports: No Symptoms. Denies: Abdominal Pain, Nausea, Vomiting Genitourinary: Reports: No Symptoms. Denies: Dysuria, Frequency, Burning Musculoskeletal: Reports: No Symptoms Neurological: Reports: No Symptoms Psychiatric: Reports: No Symptoms - Patient Data Vitals - Most Recent: Last Vital Signs Temp 98.1 F 07/13/19 04:00 Pulse 96 07/13/19 04:00 Resp 23 H 07/13/19 04:00 BP 128/58 L 07/13/19 04:00 Pulse Ox 95 07/13/19 04:00 Weight - Most Recent: 58.831 kg I&O - Last 24 Hours: Intake & Output 07/12/19 07/13/19 07/13/19 22:59 06:59 14:59 Intake Total 1300 700 Output Total 5150 1100 Balance -3850 -400 Lab Results Last 24 Hours: Laboratory Results - last 24 hr 07/09/19 07/12/19 07/13/19 Range/Units 09:09 05:20 06:10 WBC 16.70 H (4.0-11.0) K/uL RBC 2.77 L (4.50-5.90) M/uL Hgb 10.4 L (13.0-17.0) g/dL Hct 30.8 L (38.0-50.0) % MCV 111.2 H (80.0-98.0) fL MCH 37.5 H (27.0-32.0) pg MCHC 33.8 (31.0-37.0) g/dL RDW Std Deviation 64.5 H (28.0-62.0) fl RDW Coeff of Gildardo 16 H (11.0-15.0) % Plt Count 296 (150-400) K/uL MPV 9.80 (7.40-12.00) fL Neut % (Auto) 87.7 H (48.0-80.0) % Lymph % (Auto) 5.0 L (16.0-40.0) % Tyler % (Auto) 7.1 (0.0-15.0) % Eos % (Auto) 0.1 (0.0-7.0) % Baso % (Auto) 0.1 (0.0-1.5) % Neut # (Auto) 14.7 H (1.4-5.7) K/uL Lymph # (Auto) 0.8 (0.6-2.4) K/uL Tyler # (Auto) 1.2 H (0.0-0.8) K/uL Eos # (Auto) 0.0 (0.0-0.7) K/uL Baso # (Auto) 0.0 (0.0-0.1) K/uL Nucleated RBC % 0.0 /100WBC Nucleated RBCs # 0 K/uL Sodium (136-148) mmol/L Potassium (3.5-5.1) mmol/L Chloride (98-107) mmol/L Carbon Dioxide (21.0-32.0) mmol/L BUN (7.0-18.0) mg/dL Creatinine (0.8-1.3) mg/dL Est Cr Clr Drug Dosing mL/min Estimated GFR (MDRD) ml/min Glucose (74-106) mg/dL Calcium (8.5-10.1) mg/dL Magnesium (1.8-2.4) mg/dL TSH 3rd Generation 0.98 (0.36-3.74) uIU/mL ACTH 14.3 (7.2-63.3) pg/mL 07/13/19 Range/Units 06:10 WBC (4.0-11.0) K/uL RBC (4.50-5.90) M/uL Hgb (13.0-17.0) g/dL Hct (38.0-50.0) % MCV (80.0-98.0) fL MCH (27.0-32.0) pg MCHC (31.0-37.0) g/dL RDW Std Deviation (28.0-62.0) fl RDW Coeff of Gildardo (11.0-15.0) % Plt Count (150-400) K/uL MPV (7.40-12.00) fL Neut % (Auto) (48.0-80.0) % Lymph % (Auto) (16.0-40.0) % Tyler % (Auto) (0.0-15.0) % Eos % (Auto) (0.0-7.0) % Baso % (Auto) (0.0-1.5) % Neut # (Auto) (1.4-5.7) K/uL Lymph # (Auto) (0.6-2.4) K/uL Tyler # (Auto) (0.0-0.8) K/uL Eos # (Auto) (0.0-0.7) K/uL Baso # (Auto) (0.0-0.1) K/uL Nucleated RBC % /100WBC Nucleated RBCs # K/uL Sodium 141 (136-148) mmol/L Potassium 3.4 L (3.5-5.1) mmol/L Chloride 105 (98-107) mmol/L Carbon Dioxide 27.9 (21.0-32.0) mmol/L BUN 18 (7.0-18.0) mg/dL Creatinine 0.9 (0.8-1.3) mg/dL Est Cr Clr Drug Dosing 72.63 mL/min Estimated GFR (MDRD) > 60.0 ml/min Glucose 106 (74-106) mg/dL Calcium 8.8 (8.5-10.1) mg/dL Magnesium 2.4 (1.8-2.4) mg/dL TSH 3rd Generation (0.36-3.74) uIU/mL ACTH (7.2-63.3) pg/mL Joss Results Last 24 Hours: Microbiology 07/08/19 10:50 Aerobic Blood Culture - Preliminary Blood - Venous - Lab Draw NO GROWTH AFTER 4 DAYS Anaerobic Blood Culture - Final 07/08/19 10:35 Aerobic Blood Culture - Preliminary Blood - Venous NO GROWTH AFTER 4 DAYS Anaerobic Blood Culture - Preliminary NO GROWTH AFTER 4 DAYS Med Orders - Current: Current Medications Acetaminophen (Tylenol) 650 mg PO Q6H PRN PRN Reason: Pain Albuterol (Proventil Neb Soln) 2.5 mg NEB Q2H PRN PRN Reason: SOB/wheezing Albuterol/Ipratropium (Duoneb 3.0-0.5 Mg/3 Ml) 3 ml NEB Q4HRRT [facility] Last Admin: 07/13/19 06:05 Dose: 3 ml Ascorbic Acid (Vitamin C) 500 mg PO BID [facility] Last Admin: 07/12/19 20:25 Dose: 500 mg Fludrocortisone Acetate (Florinef) 0.1 mg PO WITHBREAKFAST [facility] Last Admin: 07/12/19 09:00 Dose: 0.1 mg Fluticasone Propionate (Flonase) 0 gm NASBOTH DAILY [facility] Last Admin: 07/12/19 12:22 Dose: 1 gm Folic Acid (Folic Acid) 1 mg PO DAILY [facility] Last Admin: 07/12/19 09:31 Dose: 1 mg Furosemide (Lasix) 40 mg IVPUSH NOW ONE Stop: 07/13/19 08:01 Guaifenesin (Mucinex) 1,200 mg PO BID [facility] Last Admin: 07/12/19 20:25 Dose: 1,200 mg Heparin Sodium (Porcine) (Heparin Sodium) 5,000 units SUBCUT Q8H [facility] Last Admin: 07/13/19 05:55 Dose: 5,000 units Hydrocortisone Sodium Succinate (Solu-Cortef) 50 mg IVPUSH DAILY [facility] Last Admin: 07/13/19 00:59 Dose: 50 mg Azithromycin 500 mg/ Sodium (Chloride) 250 mls @ 250 mls/hr IV Q24H [facility] Last Admin: 07/12/19 14:53 Dose: 250 mls/hr Cefepime HCl 2 gm/ Premix 50 mls @ 100 mls/hr IV Q8H [facility] Last Admin: 07/13/19 05:55 Dose: 100 mls/hr Sodium Chloride (Normal Saline) 500 mls @ 500 mls/min IV .BOLUS [facility] Last Admin: 07/09/19 22:54 Dose: 500 mls/min Umeclidinium Brm/Vilanterol Tr [Anoro Ellipta 62.5-25mcg] 1 each INH DAILY [facility] Last Admin: 07/12/19 09:06 Dose: 1 each Potassium Chloride (Klor-Con M20) 40 meq PO ONETIME ONE Stop: 07/13/19 07:56 Sodium Chloride (Saline Flush) 10 ml FLUSH ASDIRECTED PRN PRN Reason: Keep Vein Open Last Admin: 07/08/19 10:53 Dose: 10 ml Sodium Chloride (Saline Flush) 2.5 ml FLUSH ASDIRECTED PRN PRN Reason: Keep Vein Open Last Admin: 07/08/19 10:53 Dose: 2.5 ml Thiamine HCl (Vitamin B-1) 100 mg PO BEDTIME [facility] Last Admin: 07/12/19 20:25 Dose: 100 mg Discontinued Medications Al Hydroxide/Mg Hydroxide 15 (ml/ Lidocaine HCl 5 ml) 0 ml PO ONETIME ONE Stop: 07/08/19 10:27 Last Admin: 07/08/19 10:53 Dose: 1 each Cyanocobalamin (Vitamin B12) 1,000 mcg IM ONETIME ONE Stop: 07/11/19 09:14 Last Admin: 07/11/19 10:01 Dose: 1,000 mcg Furosemide (Lasix) 40 mg IVPUSH NOW ONE Stop: 07/12/19 11:54 Last Admin: 07/12/19 12:21 Dose: 40 mg Hydrocortisone Sodium Succinate (Solu-Cortef) 100 mg IVPUSH Q8H [facility] Last Admin: 07/11/19 07:46 Dose: 100 mg Hydrocortisone Sodium Succinate (Solu-Cortef) 50 mg IVPUSH Q12H [facility] Last Admin: 07/12/19 00:45 Dose: 50 mg Sodium Chloride (Normal Saline) 1,000 mls @ 999 mls/hr IV STAT ONE Stop: 07/08/19 11:16 Last Admin: 07/08/19 10:37 Dose: 999 mls/hr Ceftriaxone Sodium/Dextrose 1 (gm/ Premix) 50 mls @ 100 mls/hr IV ONETIME ONE Stop: 07/08/19 13:27 Last Admin: 07/08/19 13:08 Dose: 100 mls/hr Sodium Chloride (Normal Saline) 1,000 mls @ 125 mls/hr IV STAT ONE Stop: 07/08/19 20:58 Last Infusion: 07/08/19 13:24 Dose: 999 mls/hr Sodium Chloride (Normal Saline) 1,000 mls @ 999 mls/hr IV .Bolus ONE Stop: 07/08/19 14:10 Last Admin: 07/08/19 14:34 Dose: 999 mls/hr Ceftriaxone Sodium/Dextrose 1 (gm/ Premix) 50 mls @ 100 mls/hr IV Q24H [facility] Pantoprazole Sodium 40 mg/ (Sodium Chloride) 10 mls @ 300 mls/hr IV Q24H [facility] Last Admin: 07/12/19 14:44 Dose: 300 mls/hr Sodium Chloride (Normal Saline) 1,000 mls @ 125 mls/hr IV ASDIRECTED [facility] Last Admin: 07/09/19 02:19 Dose: 125 mls/hr Sodium Chloride (Normal Saline) 1,000 mls @ 999 mls/hr IV .Bolus ONE Stop: 07/08/19 17:16 Last Admin: 07/08/19 16:30 Dose: 999 mls/hr Sodium Chloride (Normal Saline) 1,000 mls @ 999 mls/hr IV .Bolus ONE Stop: 07/08/19 19:27 Last Admin: 07/08/19 18:30 Dose: 999 mls/hr Norepinephrine Bitartrate (Norepinephr-0.9% Nacl 4 Mg/250) 4 mg in 250 mls @ 7.5 mls/hr IV TITRATE MELONY; Protocol Last Titration: 07/09/19 03:15 Dose: 1 mcg/min, 3.75 mls/hr Sodium Phosphate 30 mmole/ (Sodium Chloride) 260 mls @ 43.333 mls/hr IV ONETIME ONE Stop: 07/09/19 03:44 Last Admin: 07/09/19 00:10 Dose: 43.333 mls/hr Dextrose/Water (Dextrose 5% In Water) 1,000 mls @ 75 mls/hr IV ASDIRECTED [facility]ELONY Last Admin: 07/11/19 19:41 Dose: 75 mls/hr Sodium Phosphate 40 mmole/ (Sodium Chloride) 263.3333 mls @ 65.833 mls/hr IV ONETIME ONE Stop: 07/09/19 19:59 Last Admin: 07/09/19 16:24 Dose: 65.833 mls/hr Norepinephrine Bitartrate (Norepinephr-0.9% Nacl 4 Mg/250) 4 mg in 250 mls @ 0.075 mls/hr IV TITRATE MELONY; Protocol Last Titration: 07/10/19 13:48 Dose: 0 mcg/min, 0 mls/hr Potassium Chloride 20 meq/ (Premix) 50 mls @ 25 mls/hr IV ONETIME ONE Stop: 07/10/19 05:33 Last Admin: 07/10/19 04:46 Dose: Not Given Potassium Chloride 40 meq/ (Premix) 100 mls @ 25 mls/hr IV ONETIME ONE Stop: 07/10/19 08:05 Last Admin: 07/10/19 04:15 Dose: 25 mls/hr Potassium Chloride 40 meq/ (Premix) 100 mls @ 25 mls/hr IV Q4H [facility] Stop: 07/10/19 23:25 Last Admin: 07/10/19 20:08 Dose: 25 mls/hr Iopamidol (Isovue Multipack-370 (76%)) 50 ml IVPUSH ONETIME STA Stop: 07/12/19 17:51 Last Admin: 07/12/19 17:51 Dose: 50 ml Budesonide/Formoterol 160-4.5 Mcg/Puff 6 Gm Inhaler 0 each INH BID [facility] Last Admin: 07/10/19 15:43 Dose: Not Given Potassium Chloride (Klor-Con M20) 40 meq PO ONETIME ONE Stop: 07/09/19 10:06 Last Admin: 07/09/19 10:34 Dose: 40 meq Potassium Chloride (Klor-Con M20) 40 meq PO ONETIME ONE Stop: 07/09/19 13:27 Last Admin: 07/09/19 14:37 Dose: 40 meq Sodium Phosphate (Sodium Phosphate) 30 mmole IV ONETIME ONE Stop: 07/08/19 21:46 Tiotropium [place] (Spiriva Handihaler) 18 mcg INH ONETIME ONE Stop: 07/11/19 09:33 Last Admin: 07/11/19 11:01 Dose: 18 mcg - Exam General: Alert, Oriented, Cooperative, No Acute Distress Lungs: Normal Respiratory Effort, Decreased Breath Sounds (scant crackles to bases) Cardiovascular: Regular Rate, Regular Rhythm GI/Abdominal Exam: Normal Bowel Sounds, Soft, Non-Tender Back Exam: Normal Inspection, Full Range of Motion Extremities: Normal Inspection, Normal Range of Motion Neurological: No New Focal Deficit Psy/Mental Status: Alert, Normal Affect, Normal Mood - Problem List & Annotations (1) Septic shock SNOMED Code(s): 37191738 Code(s): A41.9 - SEPSIS, UNSPECIFIED ORGANISM; R65.21 - SEVERE SEPSIS WITH SEPTIC SHOCK Status: Resolved Current Visit: Yes (2) Sepsis SNOMED Code(s): 99552027 Code(s): A41.9 - SEPSIS, UNSPECIFIED ORGANISM Status: Resolved Current Visit: Yes Qualifiers: Sepsis type: sepsis due to unspecified organism Sepsis acute organ dysfunction status: without acute organ dysfunction Qualified Code(s): A41.9 - Sepsis, unspecified organism (3) Prostatitis SNOMED Code(s): 9599829 Code(s): N41.9 - INFLAMMATORY DISEASE OF PROSTATE, UNSPECIFIED Status: Acute Current Visit: Yes Qualifiers: Prostatitis type: acute Qualified Code(s): N41.0 - Acute prostatitis (4) HCAP (healthcare-associated pneumonia) SNOMED Code(s): 644854074, 918176354 Code(s): J18.9 - PNEUMONIA, UNSPECIFIED ORGANISM Status: Acute Current Visit: Yes (5) Abdominal pain SNOMED Code(s): 80354500 Code(s): R10.9 - UNSPECIFIED ABDOMINAL PAIN Status: Acute Current Visit: No Qualifiers: Abdominal location: generalized Qualified Code(s): R10.84 - Generalized abdominal pain (6) COPD (chronic obstructive pulmonary disease) SNOMED Code(s): 86527478 Code(s): J44.9 - CHRONIC OBSTRUCTIVE PULMONARY DISEASE, UNSPECIFIED Status : Chronic Current Visit: No (7) HTN (hypertension) SNOMED Code(s): 50383159 Code(s): I10 - ESSENTIAL (PRIMARY) HYPERTENSION Status: Chronic Current Visit: No Qualifiers: Hypertension type: essential hypertension Qualified Code(s): I10 - Essential (primary) hypertension (8) Smoker SNOMED Code(s): 94459869 Code(s): F17.200 - NICOTINE DEPENDENCE, UNSPECIFIED, UNCOMPLICATED Status: Chronic Current Visit: No - Problem List Review Problem List Initiated/Reviewed/Updated: Yes - My Orders Last 24 Hours: My Active Orders 07/12/19 11:37 Echo Comp wo Cont [US] Urgent 07/12/19 11:45 Fluticasone Propionate [Flonase] See Dose Instructions NASBOTH DAILY 07/12/19 11:55 Central Venous Line Discontinue [OM.PC] Routine 07/12/19 12:00 Transfer Patient (Change bed) [ADT] Routine 07/12/19 12:01 Telemetry Monitoring [Cardiac Monitoring] [RC] Q8H 07/13/19 00:30 Hydrocortisone Sod Succinate [Solu-CORTEF] 50 mg IVPUSH DAILY 07/13/19 07:55 Potassium Chloride [Klor-Con M20] 40 meq PO ONETIME ONE 07/13/19 08:00 Furosemide [Lasix] 40 mg IVPUSH NOW ONE - Plan Plan:: This 59 year old male admitted with septic shock secondary to suspected HCAP and /or prostatitis 1. HCAP: Will De-escalate antibiotics, CT scan showed no infiltrates. Encourage IS, Duonebs via RT. 2. Urinary retention: BPH, consider prostatitis. DC Cefepime. Start Bactrim DS BID. Will need follow up with Urology for evaluation and plan for BPH. Catheter to remain in on discharge and follow up with Dr Couch. 3. Adrenal insufficiency: Continue Hydrocortisone and Florinef 0.1 today. Will need follow up with PCP, Cortisol and ACTH levels normal. 4. COPD: Continue home inhalers, Duonebs. Encouraged IS and flutter valve. prednisone taper for possible COPD exacerbation. 5. Tachycardia: Improved. CT angio ordered due to tachycardia ruled out PE, noted pulmonary edema and pulmonary vascular congestion. Improved with Lasix will give one more dose today and monitor. Mild crackles bilaterally. VTE prophylaxis: Heparin Dispo: 1-2 days
[2019-07-13] MEDS: Fludrocortisone 0.1 MG Tab PO SCH (08:57)
[2019-07-13] MEDS: guaiFENesin 600 MG Tab.ER PO SCH ×2 (08:58→20:29)
[2019-07-13] MEDS: Folic Acid 1 MG Tab PO SCH (08:59)
[2019-07-13] MEDS: Fluticasone Propionate Nasal Spray 16 GM Bottle NASBOTH SCH (09:04)
[2019-07-13] MEDS: Ascorbic Acid 500 MG Tab PO SCH ×2 (09:05→20:28)
[2019-07-13] MEDS: VILANTEROL TR INH SCH (09:50)
[2019-07-13] MEDS: UMECLIDINIUM BRM INH SCH (09:50)
[2019-07-13] MEDS: Sulfamethoxazole/Trimethoprim 800-160 MG Tab PO SCH ×2 (12:32→20:28)
[2019-07-13] MEDS ORDERED: Albuterol/Ipratropium 3.0-0.5 MG/3 ML Neb Soln NEB PRN (13:13)
[2019-07-13] MEDS: Thiamine 100 MG Tab PO SCH (20:28)
[2019-07-14] MEDS: Heparin Sodium 5,000 Units/ML Vial SUBCUT SCH ×3 (04:54→20:47)
[2019-07-14 06:01] LABS: BLOOD UREA NITROGEN,BUN 26 mg/dL (7.0-18.0); CARBON DIOXIDE,CO2 25.9 mmol/L (21.0-32.0); CHLORIDE,CL 104 mmol/L (98-107); GLUCOSE RANDOM 88 mg/dL (74-106); SODIUM,NA 141 mmol/L (136-148)
[2019-07-14] MEDS: predniSONE 20 MG Tab PO SCH (09:00)
[2019-07-14] MEDS: Potassium Chloride 20 MEQ Tab.ER PO SCH ×2 (09:00→17:04)
[2019-07-14] MEDS: guaiFENesin 600 MG Tab.ER PO SCH ×2 (09:01→20:47)
[2019-07-14] MEDS: Folic Acid 1 MG Tab PO SCH (09:01)
[2019-07-14] MEDS: Ascorbic Acid 500 MG Tab PO SCH ×2 (09:01→20:47)
[2019-07-14] MEDS: Sulfamethoxazole/Trimethoprim 800-160 MG Tab PO SCH ×2 (09:01→20:47)
[2019-07-14] MEDS: Fluticasone Propionate Nasal Spray 16 GM Bottle NASBOTH SCH (09:02)
[2019-07-14] MEDS: UMECLIDINIUM BRM INH SCH (09:02)
[2019-07-14] MEDS: VILANTEROL TR INH SCH (09:02)
--- NOTE | 2019-07-14 11:05 | PCM.PN ---
- General Info Date of Service: 07/14/19 Admission Dx/Problem (Free Text): Admission Diagnosis/Problem Admission Diagnosis/Problem Sepsis Subjective Update: Sitting up in the chair, reports feeling better. Eating and drinking well. Breathing improved. Had BM today, no diarrhea. No other concerns. Functional Status: Reports: Pain Controlled, Tolerating Diet, Ambulating, Urinating - Review of Systems General: Denies: Fever HEENT: Reports: No Symptoms. Denies: Sore Throat Pulmonary: Reports: No Symptoms. Denies: Shortness of Breath Cardiovascular: Reports: No Symptoms. Denies: Chest Pain Gastrointestinal: Reports: No Symptoms. Denies: Abdominal Pain, Nausea, Vomiting Musculoskeletal: Reports: No Symptoms Skin: Reports: No Symptoms Neurological: Reports: No Symptoms Psychiatric: Reports: No Symptoms - Patient Data Vitals - Most Recent: Last Vital Signs Temp 97.3 F 07/14/19 08:56 Pulse 85 07/14/19 10:37 Resp 18 07/14/19 10:37 BP 101/54 L 07/14/19 10:37 Pulse Ox 95 07/14/19 09:00 Weight - Most Recent: 58.377 kg I&O - Last 24 Hours: Intake & Output 07/13/19 07/14/19 07/14/19 22:59 06:59 14:59 Intake Total 240 1140 Output Total 2450 900 Balance -2210 240 Lab Results Last 24 Hours: Laboratory Results - last 24 hr 07/14/19 07/14/19 Range/Units 05:12 05:12 WBC 19.22 H (4.0-11.0) K/uL RBC 2.79 L (4.50-5.90) M/uL Hgb 10.5 L (13.0-17.0) g/dL Hct 30.9 L (38.0-50.0) % MCV 110.8 H (80.0-98.0) fL MCH 37.6 H (27.0-32.0) pg MCHC 34.0 (31.0-37.0) g/dL RDW Std Deviation 62.6 H (28.0-62.0) fl RDW Coeff of Gildardo 16 H (11.0-15.0) % Plt Count 302 (150-400) K/uL MPV 9.90 (7.40-12.00) fL Neut % (Auto) 76.8 (48.0-80.0) % Lymph % (Auto) 11.3 L (16.0-40.0) % [place] % (Auto) 11.0 (0.0-15.0) % Eos % (Auto) 0.8 (0.0-7.0) % Baso % (Auto) 0.1 (0.0-1.5) % Neut # (Auto) 14.8 H (1.4-5.7) K/uL Lymph # (Auto) 2.2 (0.6-2.4) K/uL [place] # (Auto) 2.1 H (0.0-0.8) K/uL Eos # (Auto) 0.2 (0.0-0.7) K/uL Baso # (Auto) 0.0 (0.0-0.1) K/uL Nucleated RBC % 0.0 /100WBC Nucleated RBCs # 0 K/uL Sodium 141 (136-148) mmol/L Potassium 3.0 L (3.5-5.1) mmol/L Chloride 104 (98-107) mmol/L Carbon Dioxide 25.9 (21.0-32.0) mmol/L BUN 26 H (7.0-18.0) mg/dL Creatinine 1.0 (0.8-1.3) mg/dL Est Cr Clr Drug Dosing 65.01 mL/min Estimated GFR (MDRD) > 60.0 ml/min Glucose 88 (74-106) mg/dL Calcium 8.6 (8.5-10.1) mg/dL Phosphorus 3.2 (2.6-4.7) mg/dL Magnesium 2.2 (1.8-2.4) mg/dL Joss Results Last 24 Hours: Microbiology 07/08/19 10:50 Aerobic Blood Culture - Final Blood - Venous - Lab Draw NO GROWTH AFTER 5 DAYS Anaerobic Blood Culture - Final 07/08/19 10:35 Aerobic Blood Culture - Final Blood - Venous NO GROWTH AFTER 5 DAYS Anaerobic Blood Culture - Final NO GROWTH AFTER 5 DAYS Med Orders - Current: Current Medications Acetaminophen (Tylenol) 650 mg PO Q6H PRN PRN Reason: Pain Albuterol (Proventil Neb Soln) 2.5 mg NEB Q2H PRN PRN Reason: SOB/wheezing Albuterol/Ipratropium (Duoneb 3.0-0.5 Mg/3 Ml) 3 ml NEB Q6HRRT PRN PRN Reason: dyspnea/wheezing Ascorbic Acid (Vitamin C) 500 mg PO BID [facility] Last Admin: 07/14/19 09:01 Dose: 500 mg Fluticasone Propionate (Flonase) 0 gm NASBOTH DAILY [facility] Last Admin: 07/14/19 09:02 Dose: 1 spray Folic Acid (Folic Acid) 1 mg PO DAILY [facility] Last Admin: 07/14/19 09:01 Dose: 1 mg Guaifenesin (Mucinex) 1,200 mg PO BID [facility] Last Admin: 07/14/19 09:01 Dose: 1,200 mg Heparin Sodium (Porcine) (Heparin Sodium) 5,000 units SUBCUT Q8H [facility] Last Admin: 07/14/19 04:54 Dose: 5,000 units Sodium Chloride (Normal Saline) 500 mls @ 500 mls/min IV .BOLUS [facility] Last Admin: 07/09/19 22:54 Dose: 500 mls/min Umeclidinium Brm/Vilanterol Tr [Anoro Ellipta 62.5-25mcg] 1 each INH DAILY [facility] Last Admin: 07/14/19 09:02 Dose: 1 each Potassium Chloride (Klor-Con M20) 40 meq PO BIDMEALS [facility] Stop: 07/14/19 17:01 Last Admin: 07/14/19 09:00 Dose: 40 meq Prednisone (Prednisone) 40 mg PO WITHBREAKFAST [facility] Last Admin: 07/14/19 09:00 Dose: 40 mg Sodium Chloride (Saline Flush) 10 ml FLUSH ASDIRECTED PRN PRN Reason: Keep Vein Open Last Admin: 07/08/19 10:53 Dose: 10 ml Sodium Chloride (Saline Flush) 2.5 ml FLUSH ASDIRECTED PRN PRN Reason: Keep Vein Open Last Admin: 07/08/19 10:53 Dose: 2.5 ml Thiamine HCl (Vitamin B-1) 100 mg PO BEDTIME [facility] Last Admin: 07/13/19 20:28 Dose: 100 mg Trimethoprim/Sulfamethoxazole (Septra Ds) 1 tab PO BID [facility] Last Admin: 07/14/19 09:01 Dose: 1 tab Discontinued Medications Albuterol/Ipratropium (Duoneb 3.0-0.5 Mg/3 Ml) 3 ml NEB Q4HRRT [facility] Last Admin: 07/13/19 09:50 Dose: 3 ml Al Hydroxide/Mg Hydroxide 15 (ml/ Lidocaine HCl 5 ml) 0 ml PO ONETIME ONE Stop: 07/08/19 10:27 Last Admin: 07/08/19 10:53 Dose: 1 each Cyanocobalamin (Vitamin B12) 1,000 mcg IM ONETIME ONE Stop: 07/11/19 09:14 Last Admin: 07/11/19 10:01 Dose: 1,000 mcg Fludrocortisone Acetate (Florinef) 0.1 mg PO WITHBREAKFAST [facility] Last Admin: 07/13/19 08:57 Dose: 0.1 mg Furosemide (Lasix) 40 mg IVPUSH NOW ONE Stop: 07/12/19 11:54 Last Admin: 07/12/19 12:21 Dose: 40 mg Furosemide (Lasix) 40 mg IVPUSH NOW ONE Stop: 07/13/19 08:01 Last Admin: 07/13/19 09:07 Dose: 40 mg Hydrocortisone Sodium Succinate (Solu-Cortef) 100 mg IVPUSH Q8H [facility] Last Admin: 07/11/19 07:46 Dose: 100 mg Hydrocortisone Sodium Succinate (Solu-Cortef) 50 mg IVPUSH Q12H [facility] Last Admin: 07/12/19 00:45 Dose: 50 mg Hydrocortisone Sodium Succinate (Solu-Cortef) 50 mg IVPUSH DAILY [facility] Last Admin: 07/13/19 09:06 Dose: 50 mg Sodium Chloride (Normal Saline) 1,000 mls @ 999 mls/hr IV STAT ONE Stop: 07/08/19 11:16 Last Admin: 07/08/19 10:37 Dose: 999 mls/hr Ceftriaxone Sodium/Dextrose 1 (gm/ Premix) 50 mls @ 100 mls/hr IV ONETIME ONE Stop: 07/08/19 13:27 Last Admin: 07/08/19 13:08 Dose: 100 mls/hr Sodium Chloride (Normal Saline) 1,000 mls @ 125 mls/hr IV STAT ONE Stop: 07/08/19 20:58 Last Infusion: 07/08/19 13:24 Dose: 999 mls/hr Sodium Chloride (Normal Saline) 1,000 mls @ 999 mls/hr IV .Bolus ONE Stop: 07/08/19 14:10 Last Admin: 07/08/19 14:34 Dose: 999 mls/hr Azithromycin 500 mg/ Sodium (Chloride) 250 mls @ 250 mls/hr IV Q24H [facility] Last Admin: 07/12/19 14:53 Dose: 250 mls/hr Ceftriaxone Sodium/Dextrose 1 (gm/ Premix) 50 mls @ 100 mls/hr IV Q24H [facility] Pantoprazole Sodium 40 mg/ (Sodium Chloride) 10 mls @ 300 mls/hr IV Q24H [facility] Last Admin: 07/12/19 14:44 Dose: 300 mls/hr Cefepime HCl 2 gm/ Premix 50 mls @ 100 mls/hr IV Q8H [facility] Last Admin: 07/13/19 05:55 Dose: 100 mls/hr Sodium Chloride (Normal Saline) 1,000 mls @ 125 mls/hr IV ASDIRECTED [facility] Last Admin: 07/09/19 02:19 Dose: 125 mls/hr Sodium Chloride (Normal Saline) 1,000 mls @ 999 mls/hr IV .Bolus ONE Stop: 07/08/19 17:16 Last Admin: 07/08/19 16:30 Dose: 999 mls/hr Sodium Chloride (Normal Saline) 1,000 mls @ 999 mls/hr IV .Bolus ONE Stop: 07/08/19 19:27 Last Admin: 07/08/19 18:30 Dose: 999 mls/hr Norepinephrine Bitartrate (Norepinephr-0.9% Nacl 4 Mg/250) 4 mg in 250 mls @ 7.5 mls/hr IV TITRATE [facility]; Protocol Last Titration: 07/09/19 03:15 Dose: 1 mcg/min, 3.75 mls/hr Sodium Phosphate 30 mmole/ (Sodium Chloride) 260 mls @ 43.333 mls/hr IV ONETIME ONE Stop: 07/09/19 03:44 Last Admin: 07/09/19 00:10 Dose: 43.333 mls/hr Dextrose/Water (Dextrose 5% In Water) 1,000 mls @ 75 mls/hr IV ASDIRECTED [facility] Last Admin: 07/11/19 19:41 Dose: 75 mls/hr Sodium Phosphate 40 mmole/ (Sodium Chloride) 263.3333 mls @ 65.833 mls/hr IV ONETIME ONE Stop: 07/09/19 19:59 Last Admin: 07/09/19 16:24 Dose: 65.833 mls/hr Norepinephrine Bitartrate (Norepinephr-0.9% Nacl 4 Mg/250) 4 mg in 250 mls @ 0.075 mls/hr IV TITRATE [facility]; Protocol Last Titration: 07/10/19 13:48 Dose: 0 mcg/min, 0 mls/hr Potassium Chloride 20 meq/ (Premix) 50 mls @ 25 mls/hr IV ONETIME ONE Stop: 07/10/19 05:33 Last Admin: 07/10/19 04:46 Dose: Not Given Potassium Chloride 40 meq/ (Premix) 100 mls @ 25 mls/hr IV ONETIME ONE Stop: 07/10/19 08:05 Last Admin: 07/10/19 04:15 Dose: 25 mls/hr Potassium Chloride 40 meq/ (Premix) 100 mls @ 25 mls/hr IV Q4H [facility] Stop: 07/10/19 23:25 Last Admin: 07/10/19 20:08 Dose: 25 mls/hr Iopamidol (Isovue Multipack-370 (76%)) 50 ml IVPUSH ONETIME STA Stop: 07/12/19 17:51 Last Admin: 07/12/19 17:51 Dose: 50 ml Budesonide/Formoterol 160-4.5 Mcg/Puff 6 Gm Inhaler 0 each INH BID [facility] Last Admin: 07/10/19 15:43 Dose: Not Given Potassium Chloride (Klor-Con M20) 40 meq PO ONETIME ONE Stop: 07/09/19 10:06 Last Admin: 07/09/19 10:34 Dose: 40 meq Potassium Chloride (Klor-Con M20) 40 meq PO ONETIME ONE Stop: 07/09/19 13:27 Last Admin: 07/09/19 14:37 Dose: 40 meq Potassium Chloride (Klor-Con M20) 40 meq PO ONETIME ONE Stop: 07/13/19 07:56 Last Admin: 07/13/19 09:02 Dose: 40 meq Sodium Phosphate (Sodium Phosphate) 30 mmole IV ONETIME ONE Stop: 07/08/19 21:46 Tiotropium [place] (Spiriva Handihaler) 18 mcg INH ONETIME ONE Stop: 07/11/19 09:33 Last Admin: 07/11/19 11:01 Dose: 18 mcg - Exam General: Alert, Oriented, Cooperative Lungs: Clear to Auscultation, Normal Respiratory Effort Cardiovascular: Regular Rate, Regular Rhythm GI/Abdominal Exam: Normal Bowel Sounds, Soft, Non-Tender Extremities: Normal Inspection, Normal Range of Motion, Non-Tender, No Pedal Edema Wound/Incisions: Healing Well Neurological: No New Focal Deficit Psy/Mental Status: Alert, Normal Affect, Normal Mood - Problem List & Annotations (1) Septic shock SNOMED Code(s): 01515072 Code(s): A41.9 - SEPSIS, UNSPECIFIED ORGANISM; R65.21 - SEVERE SEPSIS WITH SEPTIC SHOCK Status: Resolved Current Visit: Yes (2) Sepsis SNOMED Code(s): 76052211 Code(s): A41.9 - SEPSIS, UNSPECIFIED ORGANISM Status: Resolved Current Visit: Yes Qualifiers: Sepsis type: sepsis due to unspecified organism Sepsis acute organ dysfunction status: without acute organ dysfunction Qualified Code(s): A41.9 - Sepsis, unspecified organism (3) Prostatitis SNOMED Code(s): 8411768 Code(s): N41.9 - INFLAMMATORY DISEASE OF PROSTATE, UNSPECIFIED Status: Acute Current Visit: Yes Qualifiers: Prostatitis type: acute Qualified Code(s): N41.0 - Acute prostatitis (4) HCAP (healthcare-associated pneumonia) SNOMED Code(s): 969433715, 267456998 Code(s): J18.9 - PNEUMONIA, UNSPECIFIED ORGANISM Status: Acute Current Visit: Yes (5) Abdominal pain SNOMED Code(s): 97597015 Code(s): R10.9 - UNSPECIFIED ABDOMINAL PAIN Status: Acute Current Visit: No Qualifiers: Abdominal location: generalized Qualified Code(s): R10.84 - Generalized abdominal pain (6) COPD (chronic obstructive pulmonary disease) SNOMED Code(s): 81213882 Code(s): J44.9 - CHRONIC OBSTRUCTIVE PULMONARY DISEASE, UNSPECIFIED Status : Chronic Current Visit: No (7) HTN (hypertension) SNOMED Code(s): 70521195 Code(s): I10 - ESSENTIAL (PRIMARY) HYPERTENSION Status: Chronic Current Visit: No Qualifiers: Hypertension type: essential hypertension Qualified Code(s): I10 - Essential (primary) hypertension (8) Smoker SNOMED Code(s): 21551133 Code(s): F17.200 - NICOTINE DEPENDENCE, UNSPECIFIED, UNCOMPLICATED Status: Chronic Current Visit: No - Problem List Review Problem List Initiated/Reviewed/Updated: Yes - My Orders Last 24 Hours: My Active Orders 07/13/19 11:45 Sulfamethoxazole/Trimethoprim [Septra DS] 1 tab PO BID 07/13/19 12:06 Communication Order [RC] ROUTINE 07/13/19 12:23 Communication Order [RC] ROUTINE 07/13/19 13:13 Albuterol/Ipratropium [DuoNeb 3.0-0.5 MG/3 ML] 3 ml NEB Q6HRRT PRN 07/14/19 08:00 predniSONE 40 mg PO WITHBREAKFAST 07/14/19 08:17 Potassium Chloride [Klor-Con M20] 40 meq PO BIDMEALS - Plan Plan:: This 59 year old male admitted with septic shock secondary to suspected HCAP and /or prostatitis 1. Urinary retention: BPH, consider prostatitis. Continue Bactrim DS BID. Will need follow up with Urology for evaluation and plan for BPH. Catheter to remain in on discharge and follow up with Dr Couch. 2. COPD: Continue home inhalers, Duonebs. Encouraged IS and flutter valve. prednisone taper for COPD exacerbation. Was treated for possible HCAP, but no infiltrates noted on CT. 3. Leukocytosis: Fluctuating, has ren on steroids. Will monitor today. Afebrile , non-toxic appearing. VS stable. VTE prophylaxis: Heparin Dispo: 1-2 days
[2019-07-14] MEDS: Thiamine 100 MG Tab PO SCH (20:47)
[2019-07-15] MEDS: Heparin Sodium 5,000 Units/ML Vial SUBCUT SCH ×2 (04:43→13:29)
[2019-07-15 06:53] LABS: BLOOD UREA NITROGEN,BUN 30 mg/dL (7.0-18.0); CARBON DIOXIDE,CO2 24.3 mmol/L (21.0-32.0); CHLORIDE,CL 107 mmol/L (98-107); GLUCOSE RANDOM 87 mg/dL (74-106); POTASSIUM,K 4.3 mmol/L (3.5-5.1); SODIUM,NA 141 mmol/L (136-148)
[2019-07-15] MEDS: Fluticasone Propionate Nasal Spray 16 GM Bottle NASBOTH SCH (09:01)
[2019-07-15] MEDS: predniSONE 20 MG Tab PO SCH (09:04)
[2019-07-15] MEDS: Folic Acid 1 MG Tab PO SCH (09:04)
[2019-07-15] MEDS: Sulfamethoxazole/Trimethoprim 800-160 MG Tab PO SCH (09:04)
[2019-07-15] MEDS: guaiFENesin 600 MG Tab.ER PO SCH (09:04)
[2019-07-15] MEDS: Ascorbic Acid 500 MG Tab PO SCH (09:04)
[2019-07-15] MEDS: VILANTEROL TR INH SCH (09:19)
[2019-07-15] MEDS: UMECLIDINIUM BRM INH SCH (09:19)
--- NOTE | 2019-07-15 11:10 | ECHO ---
EXAM DATE: 07/08/19 PATIENT'S AGE: 59 The echocardiogram report can be seen in this patient's EMR (Electronic Medical Record) in the Reports section. The report has also been scanned into PACs. LEBRON
[2019-07-15 12:06] VITALS: BP 121/58; PULSE 90
--- NOTE | 2019-07-15 15:21 | PCM.DCSUM1 ---
Discharge Summary - Hospital Course Brief History: This 59 year old male with pmh of HTN, developmental delay and BPH presented to the ED with complaints of generally not feeling well for over a week, reports nausea and vomiting, chills, productive cough and sinus congestion. He reports he has been unable to keep anything down in over two days , he has tried but he will throw them up right away. He reports he has continued to try taking his home medications. He reports mild shortness of breath with chest tightness. He reports some abdominal pain, denies abdominal pain, but reports he has not had a BM in 2 days. No black or bloody BM prior to that. He reports urinating better, was admitted about 1 month ago with obstructive uropathy, barnett placed and has since seen Urology, who placed him on Flomax and removed barnett. He states he received his influenza vaccine and unsure about pneumovax. In the ED he was noted to have leukocytosis of 20,400. Hyponatremia with Na 124, K+ 4.0, Cl 90, Bicarb 18.7, BUN 15, and Cr 1.3. Lactic acid 1.8 UA negative. CXR obtained which is negative as well. Ct of abdomen obtained due to mild pain and N/V, this revealed no acute concerns, noted stable R renal adenoma. Vital signs in the ED revealed hypotension with tachycardia upon arrival to the ED. HR 110s with BP 80/50s. He was treated with 2 L NS in ED, which improved BP to 93/63 and HR is no longer tachycardia in the 80-90s. He was treated with Rocephin for suspected pneumonia. He will be admitted to ICU due to sepsis secondary to suspected HCAP and dehydration. PCP , Dr Prado Diagnosis: Stroke: No - Discharge Data Discharge Date: 07/15/19 Discharge Disposition: Home, W Home Health Agency 06 Condition: Stable - Referral to Home Health Date of Face to Face Encounter: 07/15/19 Reason for Homebound Status: He is homebound as he is unable to drive per self needs rn critical care to bring him to appointments. Primary Care Physician: Paul Prado MD Skilled Need: Carlos is in need of detention care at home for managment of new medications and barnett cares. - Discharge Diagnosis/Problem(s) (1) Septic shock SNOMED Code(s): 92345095 ICD Code: A41.9 - SEPSIS, UNSPECIFIED ORGANISM; R65.21 - SEVERE SEPSIS WITH SEPTIC SHOCK Status: Resolved Current Visit: Yes (2) Sepsis SNOMED Code(s): 62533065 ICD Code: A41.9 - SEPSIS, UNSPECIFIED ORGANISM Status: Resolved Current Visit: Yes Qualifiers: Sepsis type: sepsis due to unspecified organism Sepsis acute organ dysfunction status: without acute organ dysfunction Qualified Code(s): A41.9 - Sepsis, unspecified organism (3) Prostatitis SNOMED Code(s): 2734779 ICD Code: N41.9 - INFLAMMATORY DISEASE OF PROSTATE, UNSPECIFIED Status: Acute Current Visit: Yes Qualifiers: Prostatitis type: acute Qualified Code(s): N41.0 - Acute prostatitis (4) HCAP (healthcare-associated pneumonia) SNOMED Code(s): 603470894, 059159188 ICD Code: J18.9 - PNEUMONIA, UNSPECIFIED ORGANISM Status: Acute Current Visit: Yes (5) Abdominal pain SNOMED Code(s): 35694103 ICD Code: R10.9 - UNSPECIFIED ABDOMINAL PAIN Status: Acute Current Visit : No Qualifiers: Abdominal location: generalized Qualified Code(s): R10.84 - Generalized abdominal pain (6) COPD (chronic obstructive pulmonary disease) SNOMED Code(s): 32349863 ICD Code: J44.9 - CHRONIC OBSTRUCTIVE PULMONARY DISEASE, UNSPECIFIED Status : Chronic Current Visit: No (7) HTN (hypertension) SNOMED Code(s): 59331491 ICD Code: I10 - ESSENTIAL (PRIMARY) HYPERTENSION Status: Chronic Current Visit: No Qualifiers: Hypertension type: essential hypertension Qualified Code(s): I10 - Essential (primary) hypertension (8) Smoker SNOMED Code(s): 52163586 ICD Code: F17.200 - NICOTINE DEPENDENCE, UNSPECIFIED, UNCOMPLICATED Status : Chronic Current Visit: No (9) Leukocytosis SNOMED Code(s): 506382800, 836337897 ICD Code: D72.829 - ELEVATED WHITE BLOOD CELL COUNT, UNSPECIFIED Status: Acute Current Visit: Yes Qualifiers: Leukocytosis type: unspecified Qualified Code(s): D72.829 - Elevated white blood cell count, unspecified - Patient Summary/Data Consults: Consultations 07/08/19 15:59 Consult to Physician [CONS] Routine - Patient Instructions Diet: Regular Diet as Tolerated Activity: As Tolerated Showering/Bathing: May Shower Notify Provider of: Fever, Increased Pain, Swelling and Redness, Drainage, Nausea and/or Vomiting - Discharge Plan *PRESCRIPTION DRUG MONITORING PROGRAM REVIEWED*: Not Applicable *COPY OF PRESCRIPTION DRUG MONITORING REPORT IN PATIENT RAFA: Not Applicable Prescriptions/Med Rec: Folic Acid 1 mg PO DAILY #30 tablet guaiFENesin [Mucinex] 600 mg PO BID #60 tab.er Sulfamethoxazole/Trimethoprim [Bactrim Ds Tablet] 1 each PO BID #10 tablet Thiamine [Vitamin B-1] 100 mg PO BEDTIME #30 tablet Home Medications: Home Meds Multivitamin [Multiple Vitamins] 1 tab PO DAILY 01/06/18 [History] Potassium Chloride 8 meq PO DAILY 07/10/19 [History] Umeclidinium Brm/Vilanterol Tr [Anoro Ellipta 62.5-25 MCG] 1 each INH DAILY 05/20 [History] Acetaminophen [Tylenol] 650 mg PO Q6H PRN tablet 07/15/19 [Rx] Fluticasone Propionate [Flonase] 1 spray NASBOTH DAILY #1 bottle 07/15/19 [Rx] Folic Acid 1 mg PO DAILY #30 tablet 07/15/19 [Rx] Sulfamethoxazole/Trimethoprim [Bactrim Ds Tablet] 1 each PO BID #10 tablet 07/15 [Rx] Thiamine [Vitamin B-1] 100 mg PO BEDTIME #30 tablet 07/15/19 [Rx] guaiFENesin [Mucinex] 600 mg PO BID #60 tab.er 07/15/19 [Rx] predniSONE 20 mg PO WITHBREAKFAST #5 tablet 07/15/19 [Rx] Oxygen Therapy Mode: Room Air Patient Handouts: Dextromethorphan; Guaifenesin; Phenylephrine oral capsules or tablets, Sepsis, Adult, Thiamine, Vitamin B1 tablets, Sulfamethoxazole; Trimethoprim, SMX-TMP tablets, Folic Acid, Vitamin B9 tablets Referrals: Paul Prado MD [Primary Care Provider] - 07/26/19 9:30 am (Please bring your hospital patient summary to your appointment. Arrive at 9:00 AM to have blood drawn prior to your appointment.) Brent Couch MD [Physician] - 08/06/19 11:30 am - Discharge Summary/Plan Comment DC Time >30 min.: No Discharge Summary/Plan Comment: Admitting Diagnoses: Septic Shock Hypotension HCAP-suspected Prostatitis-suspected Urinary retention Hyponatremia Abdominal pain Discharge Diagnoses: Septic Shock Hypotension HCAP-suspected Prostatitis-suspected Urinary retention COPD exacerbation other PMH: Developmental delay Tobacco use HTN BPH Carlos was admitted to the ICU due to septic shock with notable hypotension and leukocytosis, source of infection was not clear. Noted to have mild hypoxia and large tender prostate with urinary retention, though UA was negative. BC obtained and returned negative. He was placed on Levophed for approximately 1 day. Central line and arterial line were placed. He was treated with IVFs as well, receiving approximately 8 L for hypotension. He was started on Cefepime and Azithromycin for suspected HCAP, though imaging negative for infiltrate but clinically appeared to have this as well as prostatitis. Dr Couch was consulted for barnett placement due to severely enlarged prostate. Barnett has remained in place. on 2nd day, he was started on Hydrocortisone and Florinef for possible adrenal insufficiency, Cortisol and ACTH were obtained and ultimately returned negative. But BP continued to slowly improve. Blood and urine cultures remained negative. He was transitioned to Bactrim DS for prostatitis and treated for more COPD exacerbation due to wheezing. He was counseled on quitting smoking. He was slowly tapered off Hydrocortisone and Florinef and placed on Prednisone which he will taper off at home. He is much improved. His anti-hypertensives have been held and will be held on discharge as BP is WNL 120-130 SBP. He is to follow up with PCP for further management. EICU did order protein electrophoresis which is pending on DC. Barnett catheter to remain in until follow up with Dr. Couch. Will continue 1 more wek ob antibiotics, he was on 1 week here in total. Carlos appears well today and he is eager to go home. Reports breathing has improved and he no longer has abdominal pain. He is eating and drinking well. He was taught barnett cares. Leukocytosis continues, 21,00 today, but likely reactive to steroids. He is non toxic appearing and VS stable and febrile. He will go home with Home health as well. He is to return to the ED or clinic if concerns should arise - General Info Date of Service: 07/15/19 Admission Dx/Problem (Free Text: Admission Diagnosis/Problem Admission Diagnosis/Problem Sepsis Subjective Update: Sitting up in chair, eating breakfast. Feeling well today. No pain. Asking about going home. Functional Status: Reports: Pain Controlled, Tolerating Diet, Ambulating - Review of Systems General: Reports: No Symptoms. Denies: Weakness, Fatigue Pulmonary: Reports: No Symptoms. Denies: Shortness of Breath Cardiovascular: Reports: No Symptoms. Denies: Chest Pain Gastrointestinal: Reports: No Symptoms. Denies: Abdominal Pain, Nausea, Vomiting Neurological: Reports: No Symptoms Psychiatric: Reports: No Symptoms - Patient Data Vitals - Most Recent: Last Vital Signs Temp 97.5 F 07/15/19 12:05 Pulse 90 07/15/19 12:05 Resp 18 07/15/19 12:05 BP 121/58 L 07/15/19 12:05 Pulse Ox 96 07/15/19 12:05 Weight - Most Recent: 59.647 kg I&O - Last 24 hours: Intake & Output 07/15/19 07/15/19 07/15/19 06:59 14:59 22:59 Intake Total 850 500 Output Total 1050 Balance -200 500 Lab Results - Last 24 hrs: Laboratory Results - last 24 hr 07/11/19 07/15/19 07/15/19 Range/Units 11:10 06:05 06:05 WBC 21.29 H (4.0-11.0) K/uL RBC 2.77 L (4.50-5.90) M/uL Hgb 10.4 L (13.0-17.0) g/dL Hct 31.5 L (38.0-50.0) % MCV 113.7 H (80.0-98.0) fL MCH 37.5 H (27.0-32.0) pg MCHC 33.0 (31.0-37.0) g/dL RDW Std Deviation 66.3 H (28.0-62.0) fl RDW Coeff of Gildardo 16 H (11.0-15.0) % Plt Count 305 (150-400) K/uL MPV 10.00 (7.40-12.00) fL Add Manual Diff YES Neutrophils % (Manual) 74 (48.0-80.0) % Band Neutrophils % 1 % Lymphocytes % (Manual) 18 (16.0-40.0) % Monocytes % (Manual) 5 (0.0-15.0) % Eosinophils % (Manual) 2 (0.0-7.0) % Nucleated RBC % 0.0 /100WBC Absolute Seg Neuts 15.8 H (1.4-5.7) Band Neutrophils # 0.2 Lymphocytes # (Manual) 3.8 H (0.6-2.4) Monocytes # (Manual) 1.1 H (0.0-0.8) Eosinophils # (Manual) 0.4 (0.0-0.7) Nucleated RBCs # 0 K/uL Sodium 141 (136-148) mmol/L Potassium 4.3 (3.5-5.1) mmol/L Chloride 107 (98-107) mmol/L Carbon Dioxide 24.3 (21.0-32.0) mmol/L BUN 30 H (7.0-18.0) mg/dL Creatinine 1.1 (0.8-1.3) mg/dL Est Cr Clr Drug Dosing 60.25 mL/min Estimated GFR (MDRD) > 60.0 ml/min Glucose 87 (74-106) mg/dL Calcium 8.9 (8.5-10.1) mg/dL Urine Protein 27.2 (Not Estab.) mg/dL Urine Albumin 35.0 % U Cpoub-3-Udmzzrwd 5.9 % U Aygbv-5-Uafxhbcc 21.4 % U Beta Globulin 19.4 % U Gamma Globulin 18.4 % U PEP M-Hansel % 4.2 H (Not Observed) % Urine Random PEP Note Comment Med Orders - Current: Current Medications Acetaminophen (Tylenol) 650 mg PO Q6H PRN PRN Reason: Pain Last Admin: 07/14/19 20:52 Dose: 650 mg Albuterol (Proventil Neb Soln) 2.5 mg NEB Q2H PRN PRN Reason: SOB/wheezing Albuterol/Ipratropium (Duoneb 3.0-0.5 Mg/3 Ml) 3 ml NEB Q6HRRT PRN PRN Reason: dyspnea/wheezing Last Admin: 07/15/19 11:46 Dose: 3 ml Ascorbic Acid (Vitamin C) 500 mg PO BID [facility] Last Admin: 07/15/19 09:04 Dose: 500 mg Fluticasone Propionate (Flonase) 0 gm NASBOTH DAILY [facility] Last Admin: 07/15/19 09:01 Dose: 1 spray Folic Acid (Folic Acid) 1 mg PO DAILY [facility] Last Admin: 07/15/19 09:04 Dose: 1 mg Guaifenesin (Mucinex) 1,200 mg PO BID [facility] Last Admin: 07/15/19 09:04 Dose: 1,200 mg Heparin Sodium (Porcine) (Heparin Sodium) 5,000 units SUBCUT Q8H [facility] Last Admin: 07/15/19 13:29 Dose: Not Given Umeclidinium Brm/Vilanterol Tr [Anoro Ellipta 62.5-25mcg] 1 each INH DAILY [facility] Last Admin: 07/15/19 09:19 Dose: 1 each Prednisone (Prednisone) 40 mg PO WITHBREAKFAST [facility] Last Admin: 07/15/19 09:04 Dose: 40 mg Sodium Chloride (Saline Flush) 10 ml FLUSH ASDIRECTED PRN PRN Reason: Keep Vein Open Last Admin: 07/08/19 10:53 Dose: 10 ml Sodium Chloride (Saline Flush) 2.5 ml FLUSH ASDIRECTED PRN PRN Reason: Keep Vein Open Last Admin: 07/08/19 10:53 Dose: 2.5 ml Thiamine HCl (Vitamin B-1) 100 mg PO BEDTIME [facility] Last Admin: 07/14/19 20:47 Dose: 100 mg Trimethoprim/Sulfamethoxazole (Septra Ds) 1 tab PO BID [facility] Last Admin: 07/15/19 09:04 Dose: 1 tab Discontinued Medications Albuterol/Ipratropium (Duoneb 3.0-0.5 Mg/3 Ml) 3 ml NEB Q4HRRT [facility] Last Admin: 07/13/19 09:50 Dose: 3 ml Al Hydroxide/Mg Hydroxide 15 (ml/ Lidocaine HCl 5 ml) 0 ml PO ONETIME ONE Stop: 07/08/19 10:27 Last Admin: 07/08/19 10:53 Dose: 1 each Cyanocobalamin (Vitamin B12) 1,000 mcg IM ONETIME ONE Stop: 07/11/19 09:14 Last Admin: 07/11/19 10:01 Dose: 1,000 mcg Fludrocortisone Acetate (Florinef) 0.1 mg PO WITHBREAKFAST [facility] Last Admin: 07/13/19 08:57 Dose: 0.1 mg Furosemide (Lasix) 40 mg IVPUSH NOW ONE Stop: 07/12/19 11:54 Last Admin: 07/12/19 12:21 Dose: 40 mg Furosemide (Lasix) 40 mg IVPUSH NOW ONE Stop: 07/13/19 08:01 Last Admin: 07/13/19 09:07 Dose: 40 mg Hydrocortisone Sodium Succinate (Solu-Cortef) 100 mg IVPUSH Q8H [facility] Last Admin: 07/11/19 07:46 Dose: 100 mg Hydrocortisone Sodium Succinate (Solu-Cortef) 50 mg IVPUSH Q12H [facility] Last Admin: 07/12/19 00:45 Dose: 50 mg Hydrocortisone Sodium Succinate (Solu-Cortef) 50 mg IVPUSH DAILY [facility] Last Admin: 07/13/19 09:06 Dose: 50 mg Sodium Chloride (Normal Saline) 1,000 mls @ 999 mls/hr IV STAT ONE Stop: 07/08/19 11:16 Last Admin: 07/08/19 10:37 Dose: 999 mls/hr Ceftriaxone Sodium/Dextrose 1 (gm/ Premix) 50 mls @ 100 mls/hr IV ONETIME ONE Stop: 07/08/19 13:27 Last Admin: 07/08/19 13:08 Dose: 100 mls/hr Sodium Chloride (Normal Saline) 1,000 mls @ 125 mls/hr IV STAT ONE Stop: 07/08/19 20:58 Last Infusion: 07/08/19 13:24 Dose: 999 mls/hr Sodium Chloride (Normal Saline) 1,000 mls @ 999 mls/hr IV .Bolus ONE Stop: 07/08/19 14:10 Last Admin: 07/08/19 14:34 Dose: 999 mls/hr Azithromycin 500 mg/ Sodium (Chloride) 250 mls @ 250 mls/hr IV Q24H [facility] Last Admin: 07/12/19 14:53 Dose: 250 mls/hr Ceftriaxone Sodium/Dextrose 1 (gm/ Premix) 50 mls @ 100 mls/hr IV Q24H [facility] Pantoprazole Sodium 40 mg/ (Sodium Chloride) 10 mls @ 300 mls/hr IV Q24H [facility] Last Admin: 07/12/19 14:44 Dose: 300 mls/hr Cefepime HCl 2 gm/ Premix 50 mls @ 100 mls/hr IV Q8H [facility] Last Admin: 07/13/19 05:55 Dose: 100 mls/hr Sodium Chloride (Normal Saline) 1,000 mls @ 125 mls/hr IV ASDIRECTED [facility] Last Admin: 07/09/19 02:19 Dose: 125 mls/hr Sodium Chloride (Normal Saline) 1,000 mls @ 999 mls/hr IV .Bolus ONE Stop: 07/08/19 17:16 Last Admin: 07/08/19 16:30 Dose: 999 mls/hr Sodium Chloride (Normal Saline) 1,000 mls @ 999 mls/hr IV .Bolus ONE Stop: 07/08/19 19:27 Last Admin: 07/08/19 18:30 Dose: 999 mls/hr Norepinephrine Bitartrate (Norepinephr-0.9% Nacl 4 Mg/250) 4 mg in 250 mls @ 7.5 mls/hr IV TITRATE [facility]Y; Protocol Last Titration: 07/09/19 03:15 Dose: 1 mcg/min, 3.75 mls/hr Sodium Phosphate 30 mmole/ (Sodium Chloride) 260 mls @ 43.333 mls/hr IV ONETIME ONE Stop: 07/09/19 03:44 Last Admin: 07/09/19 00:10 Dose: 43.333 mls/hr Dextrose/Water (Dextrose 5% In Water) 1,000 mls @ 75 mls/hr IV ASDIRECTED [facility] Last Admin: 07/11/19 19:41 Dose: 75 mls/hr Sodium Phosphate 40 mmole/ (Sodium Chloride) 263.3333 mls @ 65.833 mls/hr IV ONETIME ONE Stop: 07/09/19 19:59 Last Admin: 07/09/19 16:24 Dose: 65.833 mls/hr Norepinephrine Bitartrate (Norepinephr-0.9% Nacl 4 Mg/250) 4 mg in 250 mls @ 0.075 mls/hr IV TITRATE MELONY; Protocol Last Titration: 07/10/19 13:48 Dose: 0 mcg/min, 0 mls/hr Sodium Chloride (Normal Saline) 500 mls @ 500 mls/min IV .BOLUS [facility] Last Admin: 07/09/19 22:54 Dose: 500 mls/min Potassium Chloride 20 meq/ (Premix) 50 mls @ 25 mls/hr IV ONETIME ONE Stop: 07/10/19 05:33 Last Admin: 07/10/19 04:46 Dose: Not Given Potassium Chloride 40 meq/ (Premix) 100 mls @ 25 mls/hr IV ONETIME ONE Stop: 07/10/19 08:05 Last Admin: 07/10/19 04:15 Dose: 25 mls/hr Potassium Chloride 40 meq/ (Premix) 100 mls @ 25 mls/hr IV Q4H [facility] Stop: 07/10/19 23:25 Last Admin: 07/10/19 20:08 Dose: 25 mls/hr Iopamidol (Isovue Multipack-370 (76%)) 50 ml IVPUSH ONETIME STA Stop: 07/12/19 17:51 Last Admin: 07/12/19 17:51 Dose: 50 ml Budesonide/Formoterol 160-4.5 Mcg/Puff 6 Gm Inhaler 0 each INH BID [facility] Last Admin: 07/10/19 15:43 Dose: Not Given Potassium Chloride (Klor-Con M20) 40 meq PO ONETIME ONE Stop: 07/09/19 10:06 Last Admin: 07/09/19 10:34 Dose: 40 meq Potassium Chloride (Klor-Con M20) 40 meq PO ONETIME ONE Stop: 07/09/19 13:27 Last Admin: 07/09/19 14:37 Dose: 40 meq Potassium Chloride (Klor-Con M20) 40 meq PO ONETIME ONE Stop: 07/13/19 07:56 Last Admin: 07/13/19 09:02 Dose: 40 meq Potassium Chloride (Klor-Con M20) 40 meq PO BIDMEALS [facility]ELONY Stop: 07/14/19 17:01 Last Admin: 07/14/19 17:04 Dose: 40 meq Sodium Phosphate (Sodium Phosphate) 30 mmole IV ONETIME ONE Stop: 07/08/19 21:46 Tiotropium [place] (Spiriva Handihaler) 18 mcg INH ONETIME ONE Stop: 07/11/19 09:33 Last Admin: 07/11/19 11:01 Dose: 18 mcg - Exam General: Reports: Alert, Oriented, Cooperative Lungs: Reports: Clear to Auscultation, Normal Respiratory Effort Cardiovascular: Reports: Regular Rate, Regular Rhythm GI/Abdominal Exam: Normal Bowel Sounds, Soft, Non-Tender Back Exam: Reports: Normal Inspection, Full Range of Motion Extremities: Normal Inspection, Normal Range of Motion Neurological: Reports: No New Focal Deficit Psy/Mental Status: Reports: Alert, Normal Affect, Normal Mood
== END 2019-07-15 17:00 | disposition home health service (06) | DRG 871 ==
LOC: MW.ED 10:05 → MW.ICU 13:24 → MW.MS 07-12 17:56
PROVIDERS: ADMIT Internal Medicine; ATTEND Internal Medicine
PROC: 4A133B1 Monitoring of Arterial Pressure, Peripheral, Percutaneous Approach (ICD-10-PCS; principal; 2019-07-08)
PROC: 4A133J1 Monitoring of Arterial Pulse, Peripheral, Percutaneous Approach (ICD-10-PCS; 2019-07-08)
PROC: 02HV33Z Insertion of Infusion Device into Superior Vena Cava, Percutaneous Approach (ICD-10-PCS; 2019-07-08)
DX: A41.9 Sepsis, unspecified organism (principal); J44.0 Chronic obstructive pulmonary disease with (acute) lower respiratory infection; R65.21 Severe sepsis with septic shock; J18.9 Pneumonia, unspecified organism; D72.829 Elevated white blood cell count, unspecified; N41.0 Acute prostatitis; E87.1 Hypo-osmolality and hyponatremia; J44.1 Chronic obstructive pulmonary disease with (acute) exacerbation; E27.40 Unspecified adrenocortical insufficiency; I10 Essential (primary) hypertension; E86.0 Dehydration; Z79.51 Long term (current) use of inhaled steroids; R62.50 Unspecified lack of expected normal physiological development in childhood; N40.1 Benign prostatic hyperplasia with lower urinary tract symptoms; R33.8 Other retention of urine; Z79.899 Other long term (current) drug therapy; K21.9 Gastro-esophageal reflux disease without esophagitis; G89.29 Other chronic pain; R51 Headache; F17.210 Nicotine dependence, cigarettes, uncomplicated; Z90.49 Acquired absence of other specified parts of digestive tract; Z90.89 Acquired absence of other organs; Z91.040 Latex allergy status; Z88.1 Allergy status to other antibiotic agents
CPT/HCPCS: 36415; 71045 ×2; 74176; 80053; 81003; 83605; 83690; 85025; 87040 ×2; 87086; 87899 ×2; 88104; 99285; A9270 ×2; J0696; J7040 ×2; 36590; 36620; 51702; 51798; 71275; 71275-26; 80048; 80069; 82024; 82533; 82607; 82728; 82746; 83550; 83735; 84100; 84132; 84156; 84166; 84443; 87070; 87205; 87486; 87581; 87632; 87798; 87804; 93005; 93306; 94640; 99283; C9113; J0456; J0692; J1644; J1720; J1940; J3420; J3480; J7030; J7050; J7060; J7620-GY; Q9967

== ENCOUNTER 2019-07-30 13:43 | Emergency (ER) | payer MEDICARE, MEDICAID ==
--- NOTE | 2019-07-30 15:03 | EDM.PDOC ---
ED HPI GENERAL MEDICAL PROBLEM - General Chief Complaint: Genitourinary Problem Stated Complaint: POSSIBLE BLADDER INFECTION Time Seen by Provider: 07/30/19 14:00 Source of Information: Reports: Patient History Limitations: Reports: No Limitations - History of Present Illness INITIAL COMMENTS - FREE TEXT/NARRATIVE: HISTORY AND PHYSICAL: History of present illness: Patient is a 59-year-old male who presents to the emergency room today with complaints of dysuria 2 days. Patient does have a chronic long-standing Frazier catheter, states he has his routinely evaluated at [facility]. Over the past 2 days when he has been entering his bladder is does he has had some discomfort and burning. No redness or discharge from the Frazier/meatus. Patient denies any fever, chills, headache, change in vision, syncope or near syncope. Denies any chest pain, back pain, shortness of breath or cough. Denies any abdominal pain, nausea, vomiting, diarrhea, constipation. Has not noted any blood in urine or stool. Patient has been eating and drinking appropriately. Review of systems: As per history of present illness and below otherwise all systems reviewed and negative. Past medical history: As per history of present illness and as reviewed below otherwise noncontributory. Surgical history: As per history of present illness and as reviewed below otherwise noncontributory. Social history: See social history for further information Family history: As per history of present illness and as reviewed below otherwise noncontributory. Physical exam: General: Well-developed and well-nourished 59-year-old male. Alert and oriented. Nontoxic appearing and in no acute distress. HEENT: Atraumatic, normocephalic, pupils equal and reactive bilaterally, negative for conjunctival pallor or scleral icterus, mucous membranes moist, trachea midline. No drooling or trismus noted. No meningeal signs. No hot potato voice noted. Lungs: Clear to auscultation, breath sounds equal bilaterally, chest nontender. Heart: S1S2, regular rate and rhythm without overt murmur Abdomen: Soft, nondistended, nontender. Negative for masses or hepatosplenomegaly. Negative for costovertebral tenderness. Pelvis: Stable nontender. Genitourinary: Frazier catheter intact. Meatus shows no sign of infection or irritation. Skin: Intact, warm, dry. No lesions or rashes noted. Extremities: Atraumatic, moves all extremities per self without difficulty or deficits, negative for cords or calf pain. Neurovascular unremarkable. Neuro: Awake, alert, oriented. Cranial nerves II through XII unremarkable. Cerebellum unremarkable. Motor and sensory unremarkable throughout. Exam nonfocal. Notes: We'll treat with Bactrim. Encouraged him to follow-up with Dr. Prado, his primary care provider next week. Signs and symptoms that would prompt him to return to the emergency room were reviewed and discussed. Supportive care measures were reviewed and discussed. Voices understanding and is agreeable to plan of care. Denies any further questions or concerns at this time. Diagnostics: UA, UC Therapeutics: None Prescription: Bactrim DS Impression: UTI Plan: 1. Increase your oral fluids. Take the antibiotic as prescribed. 2. Follow up with your Primary care doctor next week. Return to the ED as needed as discussed. Definitive disposition and diagnosis as appropriate pending reevaluation and review of above. 4 Pain Score (Numeric/FACES): 4 - Related Data Allergies Allergy/AdvReac Type Severity Reaction Status Date / Time latex Allergy Rash Verified 07/15/19 11:47 levofloxacin Allergy Rash Verified 07/15/19 11:47 Home Meds: Home Meds Multivitamin [Multiple Vitamins] 1 tab PO DAILY 01/06/18 [History] Potassium Chloride 8 meq PO DAILY 07/10/19 [History] Umeclidinium Brm/Vilanterol Tr [Anoro Ellipta 62.5-25 MCG] 1 each INH DAILY 05/20 [History] Acetaminophen [Tylenol] 650 mg PO Q6H PRN tablet 07/15/19 [Rx] Fluticasone Propionate [Flonase] 1 spray NASBOTH DAILY #1 bottle 07/15/19 [Rx] Folic Acid 1 mg PO DAILY #30 tablet 07/15/19 [Rx] Sulfamethoxazole/Trimethoprim [Bactrim Ds Tablet] 1 each PO BID #10 tablet 07/15 [Rx] Thiamine [Vitamin B-1] 100 mg PO BEDTIME #30 tablet 07/15/19 [Rx] guaiFENesin [Mucinex] 600 mg PO BID #60 tab.er 07/15/19 [Rx] predniSONE 20 mg PO WITHBREAKFAST #5 tablet 07/15/19 [Rx] Sulfamethoxazole/Trimethoprim [Bactrim Ds Tablet] 1 each PO BID 10 Days #20 tablet 07/30/19 [Rx] Past Medical History - Past Health History Medical/Surgical History: Denies Medical/Surgical History HEENT History: Reports: Other (See Below) Other HEENT History: wears glasses, has partial dental appliance but doesn't wear Cardiovascular History: Reports: Hypertension Respiratory History: Reports: COPD Gastrointestinal History: Reports: Diverticulosis, GERD Other Gastrointestinal History: dysphagia Genitourinary History: Reports: None Musculoskeletal History: Reports: Fracture Other Musculoskeletal History: hx of fx scapula and finger Neurological History: Reports: Headaches, Chronic Other Neuro History: states headaches are caused by neck pain Psychiatric History: Reports: Developmental Delay 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 Endocrine/Metabolic History: Reports: None Hematologic History: Reports: None Immunologic History: Reports: None Oncologic (Cancer) History: Reports: None Dermatologic History: Reports: Other (See Below) Other Dermatologic History: frequent skin infections - Infectious Disease History Infectious Disease History: Reports: Chicken Pox, Measles, Mumps - Past Surgical History Head Surgeries/Procedures: Reports: None HEENT Surgical History: Reports: Adenoidectomy, Tonsillectomy GI Surgical History: Reports: Colonoscopy, EGD Endocrine Surgical History: Reports: None Neurological Surgical History: Reports: None Oncologic Surgical History: Reports: None Dermatological Surgical History: Reports: None Social & Family History - Family History Family Medical History: Noncontributory - Caffeine Use Caffeine Use: Reports: Coffee, Soda Caffeine Use Comment: 4 cups/day - Living Situation & Occupation Living situation: Reports: Single ED ROS GENERAL - Review of Systems Review Of Systems: Comprehensive ROS is negative, except as noted in HPI. ED EXAM, GI/ABD - Physical Exam Exam: See Below (See dictation) Course - Vital Signs Last Recorded V/S: Last Vital Signs Temp 97.1 F 07/30/19 13:51 Pulse 113 H 07/30/19 13:51 Resp 16 07/30/19 13:51 BP 122/64 07/30/19 13:51 Pulse Ox 99 07/30/19 13:51 - Orders/Labs/Meds Orders: Active Orders 24 hr Category Date Time Status CULTURE URINE [RM] Stat Lab 07/30/19 14:28 Received Labs: Laboratory Tests 07/30/19 Range/Units 14:28 Urine Color YELLOW Urine Appearance HAZY Urine pH 7.0 (5.0-8.0) Ur Specific [place] <= 1.005 (1.001-1.035) Urine Protein NEGATIVE (NEGATIVE) mg/dL Urine Glucose (UA) NEGATIVE (NEGATIVE) mg/dL Urine Ketones NEGATIVE (NEGATIVE) mg/dL Urine Occult Blood NEGATIVE (NEGATIVE) Urine Nitrite POSITIVE H (NEGATIVE) Urine Bilirubin NEGATIVE (NEGATIVE) Urine Urobilinogen 0.2 (<2.0) EU/dL Ur Leukocyte Esterase MODERATE H (NEGATIVE) Urine RBC 0-3 (0-2/HPF) Urine WBC 4-10 (0-5/HPF) Ur Epithelial Cells RARE (NONE-FEW) Urine Bacteria 2+ H (NEGATIVE) Departure - Departure Time of Disposition: 15:02 Disposition: Home, Self-Care 01 Clinical Impression: UTI, Urinary tract infectious disease - Discharge Information Prescriptions: Sulfamethoxazole/Trimethoprim [Bactrim Ds Tablet] 1 each PO BID 10 Days #20 tablet Instructions: Catheter-Associated Urinary Tract Infection FAQs - GUADARRAMA Referrals: Paul Prado MD [Primary Care Provider] - Forms: ED Department Discharge Additional Instructions: The following information is given to patients seen in the emergency department who are being discharged to home. This information is to outline your options for follow-up care. We provide all patients seen in our emergency department with a follow-up referral. The need for follow-up, as well as the timing and circumstances, are variable depending upon the specifics of your emergency department visit. If you don't have a primary care physician on staff, we will provide you with a referral. We always advise you to contact your personal physician following an emergency department visit to inform them of the circumstance of the visit and for follow-up with them and/or the need for any referrals to a consulting specialist. The emergency department will also refer you to a specialist when appropriate. This referral assures that you have the opportunity for follow-up care with a specialist. All of these measure are taken in an effort to provide you with optimal care, which includes your follow-up. Under all circumstances we always encourage you to contact your private physician who remains a resource for coordinating your care. When calling for follow-up care, please make the office aware that this follow-up is from your recent emergency room visit. If for any reason you are refused follow-up, please contact the [facility] Emergency Department at and asked to speak to the emergency department charge nurse. [facility] [address] [place] [address] [facility] [address] [place] [id number] 1. Increase your oral fluids. Take the antibiotic as prescribed. 2. Follow up with your Primary care doctor next week. Return to the ED as needed as discussed. - My Orders Last 24 Hours: My Active Orders 07/30/19 14:28 CULTURE URINE [RM] Stat - Assessment/Plan Last 24 Hours: My Active Orders 07/30/19 14:28 CULTURE URINE [RM] Stat
[2019-07-30 15:24] VITALS: BP 132/86; PULSE 78
== END 2019-07-30 15:20 | disposition home or self-care (01) ==
LOC: MW.ED 13:43
DX: N39.0 Urinary tract infection, site not specified (principal); I10 Essential (primary) hypertension; J44.9 Chronic obstructive pulmonary disease, unspecified; Z91.040 Latex allergy status; Z88.8 Allergy status to other drugs, medicaments and biological substances; Z79.899 Other long term (current) drug therapy
CPT/HCPCS: 81001; 87086; 87088; 87186; 99283

== ENCOUNTER 2019-10-03 12:27 | Emergency (ER) | payer MEDICARE, MEDICAID ==
[2019-10-03] MEDS ORDERED: Ondansetron 4 MG Tab.DIS PO ONE (13:30)
--- NOTE | 2019-10-03 13:30 | EDM.PDOC ---
ED HPI GENERAL MEDICAL PROBLEM - General Chief Complaint: General Stated Complaint: LOSS OF APPETITE Time Seen by Provider: 10/03/19 12:32 Source of Information: Reports: Patient History Limitations: Reports: No Limitations - History of Present Illness INITIAL COMMENTS - FREE TEXT/NARRATIVE: HISTORY AND PHYSICAL: History of present illness: Patient is a 59-year-old male who presents to the emergency room with complaints of some dental pain, sore throat and generalized nausea over the past few days. Patient states he has multiple dental caries and his local dentist states he needs to be seen by a specialist in my not as he needs multiple teeth extracted. He has been complaining of pain to his right lower posterior molar area for several days which is increased pain with chewing and swallowing. Patient reports he has had some sinus congestion and postnasal drip which has made him nauseated. Patient denies any fever, chills, headache, change in vision, syncope or near syncope. Denies any chest pain, back pain, shortness of breath or cough. Denies any abdominal pain, vomiting, diarrhea, constipation or dysuria. Has not noted any blood in urine or stool. Patient has been eating and drinking appropriately. Review of systems: As per history of present illness and below otherwise all systems reviewed and negative. Past medical history: As per history of present illness and as reviewed below otherwise noncontributory. Surgical history: As per history of present illness and as reviewed below otherwise noncontributory. Social history: See social history for further information Family history: As per history of present illness and as reviewed below otherwise noncontributory. Physical exam: General: Well developed and well nourished 59-year-old male. Alert and oriented. Nontoxic appearing and in no acute distress. HEENT: Atraumatic, normocephalic, pupils equal and reactive bilaterally, negative for conjunctival pallor or scleral icterus, mucous membranes moist, TMs normal bilaterally, throat erythematous without exudate or soft tissue swelling, multiple dental caries and poor dental hygiene/missing full or partial teeth, neck supple, nontender, trachea midline. No drooling or trismus noted. No meningeal signs. No hot potato voice noted. Lungs: Clear to auscultation, breath sounds equal bilaterally, chest nontender. Heart: S1S2, regular rate and rhythm without overt murmur Abdomen: Soft, nondistended, nontender. Negative for masses or hepatosplenomegaly. Negative for costovertebral tenderness. Pelvis: Stable nontender. Skin: Intact, warm, dry. No lesions or rashes noted. Extremities: Atraumatic, moves all extremities per self without difficulty or deficits, negative for cords or calf pain. Neurovascular unremarkable. Neuro: Awake, alert, oriented. Cranial nerves II through XII unremarkable. Cerebellum unremarkable. Motor and sensory unremarkable throughout. Exam nonfocal. Notes: We will treat patient with Augmentin. Encouraged him to follow-up with a dentist. Supportive care measures were reviewed and discussed. Voices understanding and is agreeable to plan of care. Denies any further questions or concerns at this time. Diagnostics: None Therapeutics: Zofran Prescription: Augmentin Impression: Sinusitis Pharyngitis Dental caries Plan: 1. Take your medication as directed. Good handwashing and contact precautions as we discussed. 2. Warm Salt water gargles (rinse and spit) 3-4 x daily. Please get a new tooth brush after completion of your medication 3. Tylenol and or ibuprofen as needed for pain management. 4. Follow-up with your primary care provider in the next 1-2 days. Return to the ED as needed and as discussed. Definitive disposition and diagnosis as appropriate pending reevaluation and review of above. tooth Pain Score (Numeric/FACES): 5 - Related Data Allergies Allergy/AdvReac Type Severity Reaction Status Date / Time latex Allergy Rash Verified 10/03/19 13:02 levofloxacin Allergy Rash Verified 10/03/19 13:02 Home Meds: Home Meds Multivitamin [Multiple Vitamins] 1 tab PO DAILY 01/06/18 [History] Potassium Chloride 8 meq PO DAILY 07/10/19 [History] Past Medical History - Past Health History Medical/Surgical History: Denies Medical/Surgical History HEENT History: Reports: Other (See Below) Other HEENT History: wears glasses, has partial dental appliance but doesn't wear Cardiovascular History: Reports: Hypertension Respiratory History: Reports: COPD Gastrointestinal History: Reports: Diverticulosis, GERD Other Gastrointestinal History: dysphagia Genitourinary History: Reports: None Musculoskeletal History: Reports: Fracture Other Musculoskeletal History: hx of fx scapula and finger Neurological History: Reports: Headaches, Chronic Other Neuro History: states headaches are caused by neck pain Psychiatric History: Reports: Developmental Delay 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 Endocrine/Metabolic History: Reports: None Hematologic History: Reports: None Immunologic History: Reports: None Oncologic (Cancer) History: Reports: None Dermatologic History: Reports: Other (See Below) Other Dermatologic History: frequent skin infections - Infectious Disease History Infectious Disease History: Reports: Chicken Pox, Measles, Mumps - Past Surgical History Head Surgeries/Procedures: Reports: None HEENT Surgical History: Reports: Adenoidectomy, Tonsillectomy GI Surgical History: Reports: Colonoscopy, EGD Endocrine Surgical History: Reports: None Neurological Surgical History: Reports: None Oncologic Surgical History: Reports: None Dermatological Surgical History: Reports: None Social & Family History - Family History Family Medical History: Noncontributory - Tobacco Use Smoking Status *Q: Current Every Day Smoker Years of Tobacco use: 45 Packs/Tins Daily: 1 - Caffeine Use Caffeine Use: Reports: None Caffeine Use Comment: 4 cups/day - Recreational Drug Use Recreational Drug Use: No - Living Situation & Occupation Living situation: Reports: Single ED ROS GENERAL - Review of Systems Review Of Systems: Comprehensive ROS is negative, except as noted in HPI. ED EXAM, GENERAL - Physical Exam Exam: See Below (See dictation) Course - Vital Signs Last Recorded V/S: Last Vital Signs Temp 97.5 F 10/03/19 13:03 Pulse 93 10/03/19 13:03 Resp 16 10/03/19 13:03 BP 115/81 10/03/19 13:03 Pulse Ox 99 10/03/19 13:03 Departure - Departure Time of Disposition: 13:29 Disposition: Home, Self-Care 01 Clinical Impression: Dental caries Sinusitis Qualifiers: Sinusitis location: maxillary Chronicity: acute Recurrence: non-recurrent Qualified Code(s): J01.00 - Acute maxillary sinusitis, unspecified Pharyngitis Qualifiers: Pharyngitis/tonsillitis etiology: unspecified etiology Qualified Code(s): J02.9 - Acute pharyngitis, unspecified - Discharge Information Instructions: Sinusitis, Adult, [id number] Referrals: Paul Prado MD [Primary Care Provider] - Additional Instructions: The following information is given to patients seen in the emergency department who are being discharged to home. This information is to outline your options for follow-up care. We provide all patients seen in our emergency department with a follow-up referral. The need for follow-up, as well as the timing and circumstances, are variable depending upon the specifics of your emergency department visit. If you don't have a primary care physician on staff, we will provide you with a referral. We always advise you to contact your personal physician following an emergency department visit to inform them of the circumstance of the visit and for follow-up with them and/or the need for any referrals to a consulting specialist. The emergency department will also refer you to a specialist when appropriate. This referral assures that you have the opportunity for follow-up care with a specialist. All of these measure are taken in an effort to provide you with optimal care, which includes your follow-up. Under all circumstances we always encourage you to contact your private physician who remains a resource for coordinating your care. When calling for follow-up care, please make the office aware that this follow-up is from your recent emergency room visit. If for any reason you are refused follow-up, please contact the [facility] Emergency Department at and asked to speak to the emergency department charge nurse. [facility] [address] [place] [address] [place] [address] 1. Take your medication as directed. Good handwashing and contact precautions as we discussed. 2. Warm Salt water gargles (rinse and spit) 3-4 x daily. Please get a new tooth brush after completion of your medication 3. Tylenol and or ibuprofen as needed for pain management. 4. Follow-up with your primary care provider in the next 1-2 days. Return to the ED as needed and as disc Sepsis Event Note - Evaluation Sepsis Screening Result: No Definite Risk - Focused Exam Vital Signs: Vital Signs Temp Pulse Resp BP Pulse Ox 10/03/19 13:03 97.5 F 93 16 115/81 99 Date Exam was Performed: 10/03/19 Time Exam was Performed: 13:25
[2019-10-03 13:45] VITALS: BP 128/75; PULSE 99
== END 2019-10-03 14:09 | disposition home or self-care (01) ==
LOC: MW.ED 12:27
DX: J02.9 Acute pharyngitis, unspecified (principal); K02.9 Dental caries, unspecified; J01.00 Acute maxillary sinusitis, unspecified; I10 Essential (primary) hypertension; F17.210 Nicotine dependence, cigarettes, uncomplicated; Z91.040 Latex allergy status; Z88.8 Allergy status to other drugs, medicaments and biological substances
CPT/HCPCS: 99283; A9270

== ENCOUNTER 2020-05-04 13:07 | Emergency (ER) | payer MEDICARE, MEDICAID ==
[2020-05-04] MEDS ORDERED: Sodium Chloride 0.9% 2.5 ML Syringe FLUSH PRN (13:28)
[2020-05-04] MEDS ORDERED: Acetaminophen 500 MG Tab PO ONE (13:28)
[2020-05-04] MEDS ORDERED: Sodium Chloride 0.9% 10 ML Syringe FLUSH PRN (13:28)
[2020-05-04] MEDS ORDERED: Sodium Chloride 0.9% 1,000 ML IV ONE (13:28)
--- NOTE | 2020-05-04 13:37 | EDM.PDOC ---
ED HPI GENERAL MEDICAL PROBLEM - General Chief Complaint: Neuro Symptoms/Deficits Stated Complaint: CHEST PAIN NECK PAIN Time Seen by Provider: 05/04/20 13:16 Source of Information: Reports: Patient - History of Present Illness INITIAL COMMENTS - FREE TEXT/NARRATIVE: History of present illness: 60-year-old male presenting with multiple complaints in time and body location and unclear if they are related. His primary complaint is ongoing, primarily right sided neck pain and a feeling of swelling in the right side of the neck, with radiation of the pain/numbness down to the arm and occasional feeling of a pressure in the upper arm that he describes as like a blood pressure cuff inflating over the arm. He does also report some pain radiating down to the left arm but not as severe. He reports this is been ongoing for the last year but has been gradually worsening. Recently he feels that there is some stringy sensation in his mouth when he is attempting to swallow and he has some difficulty swallowing due to the pain and feeling of swelling in his neck. On clarification, he describes stringy saliva coming from his mouth. His second complaint is cough for about a week, similar to when he was admitted in the hospital 1 year ago for a pneumonia and he is concerned he has pneumonia again. It is productive of whitish sputum. He has not had any fevers or chills and no difficulty breathing. His third concern is some nausea since yesterday. No abdominal pain. He did report some diarrhea this morning but no vomiting. No dysuria Review of systems: As per history of present illness and below otherwise all systems reviewed and negative. Past medical history: As per history of present illness and as reviewed below otherwise noncontributory. Surgical history: As per history of present illness and as reviewed below otherwise noncontributory. Social history: No reported history of drug or alcohol abuse. Family history: As per history of present illness and as reviewed below otherwise noncontributory. Physical exam: GEN: no acute distress, well appearing HEENT: Atraumatic, normocephalic, mucous membranes moist, widespread dental decay. No pharyngeal erythema or tonsillar enlargement, nor any airway narrowing or deviation. There does not appear to be any stringy substance in the mouth or throat, that the patient reported feeling, but then he clarified it is thick stringy saliva. No signs of dental or gum infection. No swelling in the buccal mucosa. No visible airway narrowing/deviation or compromise. Neck: supple, right side neck tenderness, no lymphadenopathy although the right side of the neck does appear more prominent and swollen, possibly somewhat indurated compared with the left side. No erythema. No midline bony tenderness. Trachea midline. Lungs: No respiratory distress. Heart: Mildly tachycardic but regular Abdomen: Soft, nondistended, nontender. Back: nontender Extremities: Atraumatic. Neurovascularly intact. Neuro: Awake, alert, oriented. Neuro Exam nonfocal. Equal strength against resistance and template inspector strength in both upper extremities and lower extremities bilaterally. Intact ambulation. No facial drift or droop. No sensory deficit in face or both upper/lower extremities bilaterally. Appears normal without any aphasia or dysarthria although the patient is very soft spoken and occasionally very hard to hear, however when asked the patient is able to raise his voice and speak clearly with normal words. Skin: warm, dry, no lesions Diagnostics: Labs, CT scans, x-ray chest Therapeutics: Zofran, IV fluids MDM: Impression: Plan: Definitive disposition and diagnosis as appropriate pending reevaluation and review of above. Right Upper Arm Pain Score (Numeric/FACES): 5 - Related Data Allergies Allergy/AdvReac Type Severity Reaction Status Date / Time latex Allergy Rash Verified 05/04/20 13:22 levofloxacin Allergy Rash Verified 05/04/20 13:22 Home Meds: Home Meds . [Unable to Verify Home Med List] 05/04/20 [History] Past Medical History - Past Health History Medical/Surgical History: Denies Medical/Surgical History HEENT History: Reports: Other (See Below) Other HEENT History: wears glasses, has partial dental appliance but doesn't wear Cardiovascular History: Reports: Hypertension Respiratory History: Reports: COPD Gastrointestinal History: Reports: Diverticulosis, GERD Other Gastrointestinal History: dysphagia Genitourinary History: Reports: None Musculoskeletal History: Reports: Fracture Other Musculoskeletal History: hx of fx scapula and finger Neurological History: Reports: Headaches, Chronic Other Neuro History: states headaches are caused by neck pain Psychiatric History: Reports: Developmental Delay 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 Endocrine/Metabolic History: Reports: None Hematologic History: Reports: None Immunologic History: Reports: None Oncologic (Cancer) History: Reports: None Dermatologic History: Reports: Other (See Below) Other Dermatologic History: frequent skin infections - Infectious Disease History Infectious Disease History: Reports: None - Past Surgical History Head Surgeries/Procedures: Reports: None HEENT Surgical History: Reports: Adenoidectomy, Tonsillectomy GI Surgical History: Reports: Colonoscopy, EGD Endocrine Surgical History: Reports: None Neurological Surgical History: Reports: None Oncologic Surgical History: Reports: None Dermatological Surgical History: Reports: None Social & Family History - Family History Family Medical History: Noncontributory - Tobacco Use Smoking Status *Q: Current Every Day Smoker Years of Tobacco use: 40 Packs/Tins Daily: 1 - Caffeine Use Caffeine Use: Reports: None Caffeine Use Comment: 4 cups/day - Recreational Drug Use Recreational Drug Use: No - Living Situation & Occupation Living situation: Reports: Single ED ROS GENERAL - Review of Systems Review Of Systems: See Below (See HPI) ED EXAM, NEURO - Physical Exam Exam: See Below (See HPI) EKG INTERPRETATION EKG Interpretation Comments: EKG performed today at 1:35 PM, sinus tachycardia, rate 101, early R wave progression, no acute ischemia, no STEMI. Interpreted by me. *Q Meaningful Use (ADM) - Stroke *Q Aspirin Contraindications Stroke *Q: Other (Use Special Inst) (N/A) Course - Vital Signs Text/Narrative:: 1. Neck pain, sensation of neck mass with numbness and weakness down to the right arm. CT scan shows multiple osteophytes with canal narrowing and some possible esophageal deviation. 2. Cough, patient concerned about pneumonia, chest x-ray shows no signs of pneumonia. No hypoxia. No respiratory distress. 3. Nausea, patient in no acute distress, no abdominal pain, did have episode of diarrhea, possible gastritis versus gastroenteritis. No signs of acute intra- abdominal infection. Stable for discharge. Last Recorded V/S: Last Vital Signs Temp 97.5 F 05/04/20 13:19 Pulse 92 05/04/20 17:43 Resp 20 05/04/20 13:19 BP 155/81 H 05/04/20 17:43 Pulse Ox 97 05/04/20 17:43 - Orders/Labs/Meds Orders: Active Orders 24 hr Category Date Time Status Saline Lock Insert [OM.PC] Stat Oth 05/04/20 13:28 Ordered Labs: Laboratory Tests 05/04/20 05/04/20 Range/Units 14:10 14:10 WBC 12.02 H (4.0-11.0) K/uL RBC 3.95 L (4.50-5.90) M/uL Hgb 14.2 (13.0-17.0) g/dL Hct 41.6 (38.0-50.0) % MCV 105.3 H (80.0-98.0) fL MCH 35.9 H (27.0-32.0) pg MCHC 34.1 (31.0-37.0) g/dL RDW Std Deviation 53.0 (28.0-62.0) fl RDW Coeff of Gildardo 14 (11.0-15.0) % Plt Count 252 (150-400) K/uL MPV 10.40 (7.40-12.00) fL Neut % (Auto) 82.7 H (48.0-80.0) % Lymph % (Auto) 12.0 L (16.0-40.0) % Maury % (Auto) 4.8 (0.0-15.0) % Eos % (Auto) 0.4 (0.0-7.0) % Baso % (Auto) 0.1 (0.0-1.5) % Neut # (Auto) 9.9 H (1.4-5.7) K/uL Lymph # (Auto) 1.4 (0.6-2.4) K/uL Maury # (Auto) 0.6 (0.0-0.8) K/uL Eos # (Auto) 0.1 (0.0-0.7) K/uL Baso # (Auto) 0.0 (0.0-0.1) K/uL Nucleated RBC % 0.0 /100WBC Nucleated RBCs # 0 K/uL Sodium 138 (136-148) mmol/L Potassium 3.2 L (3.5-5.1) mmol/L Chloride 102 (98-107) mmol/L Carbon Dioxide 20.8 L (21.0-32.0) mmol/L BUN 9 (7.0-18.0) mg/dL Creatinine 1.1 (0.8-1.3) mg/dL Est Cr Clr Drug Dosing 58.82 mL/min Estimated GFR (MDRD) > 60.0 ml/min Glucose 107 H (74-106) mg/dL Calcium 9.4 (8.5-10.1) mg/dL Total Bilirubin 0.4 (0.2-1.0) mg/dL AST 22 (15-37) IU/L ALT 21 (14-63) IU/L Alkaline Phosphatase 61 (46-116) U/L Total Protein 7.7 (6.4-8.2) g/dL Albumin 4.2 (3.4-5.0) g/dL Globulin 3.5 (2.6-4.0) g/dL Albumin/Globulin Ratio 1.2 (0.9-1.6) Lipase 52 L (73-393) U/L Meds: Medications Discontinued Medications Generic Name Dose Route Start Last Admin Trade Name Freq PRN Reason Stop Dose Admin Acetaminophen 1,000 mg 05/04/20 13:28 05/04/20 14:06 Tylenol Extra Strength PO 05/04/20 13:29 1,000 mg ONETIME ONE Administration Acetaminophen Confirm 05/04/20 14:10 05/04/20 16:51 Tylenol Extra Strength Administered 05/04/20 14:11 Not Given Dose 500 mg .ROUTE .STK-MED ONE Sodium Chloride 1,000 mls @ 999 mls/hr 05/04/20 13:28 05/04/20 14:06 Normal Saline IV 05/04/20 14:28 999 mls/hr .Bolus ONE Administration Iopamidol 80 ml 05/04/20 16:48 05/04/20 16:49 Isovue-370 (76%) IVPUSH 05/04/20 16:49 80 ml ONETIME STA Administration Sodium Chloride 10 ml 05/04/20 13:28 05/04/20 14:07 Saline Flush FLUSH 10 ml ASDIRECTED PRN Administration Keep Vein Open Sodium Chloride 2.5 ml 05/04/20 13:28 05/04/20 14:07 Saline Flush FLUSH 2.5 ml ASDIRECTED PRN Administration Keep Vein Open - Re-Assessments/Exams Free Text/Narrative Re-Assessment/Exam: 05/04/20 17:13 Resting comfortably and in no acute distress. I reassessed him. Discussed CT scan findings of multiple osteophytes including causing some canal stenosis and possibly some esophageal deviation. Discussed this with the patient and recommendation for neurosurgery follow-up as well as follow-up with his primary care physician as soon as possible. Patient voiced understanding. His initial heart rate was elevated, he does report some prior history of the same but not on any medications for it. On my reassessment his heart rate was 98 to 99 bpm. I did discuss with the patient to continue to follow-up with his primary care physician Dr. Castellanos Departure - Departure Time of Disposition: 17:15 Disposition: Home, Self-Care 01 Clinical Impression: Cervical osteophyte, Bronchitis - Discharge Information Instructions: Osteoarthritis, Upper Respiratory Infection, Adult, [id number], Spinal Stenosis, [id number] Referrals: PCP,None [Primary Care Provider] - Marleny Miller MD [Ordering Only Provider] - 2 Days Paul Prado MD [Ordering Only Provider] - 1 Day Forms: ED Department Discharge Additional Instructions: As we discussed, the CT scan of your neck shows osteophytes and arthritis/spurs that are likely causing your right arm pain and the swallowing sensation abnormality that you are experiencing. Please follow-up with the neurosurgeon listed above for further evaluation. The cough that you have been having is likely bronchitis, this is likely viral as there is no signs of a bacterial pneumonia on your chest x-ray. Please follow-up with Dr. Prado as soon as able. Return to the emergency department immediately if you develop any weakness or inability to lift either arm or the inability to walk. Get plenty of rest. Drink plenty of fluids. The following information is given to patients seen in the emergency department who are being discharged to home. This information is to outline your options for follow-up care. We provide all patients seen in our emergency department with a follow-up referral. The need for follow-up, as well as the timing and circumstances, are variable depending upon the specifics of your emergency department visit. If you don't have a primary care physician on staff, we will provide you with a referral. We always advise you to contact your personal physician following an emergency department visit to inform them of the circumstance of the visit and for follow-up with them and/or the need for any referrals to a consulting specialist. The emergency department will also refer you to a specialist when appropriate. This referral assures that you have the opportunity for follow-up care with a specialist. All of these measure are taken in an effort to provide you with optimal care, which includes your follow-up. Under all circumstances we always encourage you to contact your private physician who remains a resource for coordinating your care. When calling for follow-up care, please make the office aware that this follow-up is from your recent emergency room visit. If for any reason you are refused follow-up, please contact the [facility] Emergency Department at and asked to speak to the emergency department charge nurse. Sepsis Event Note (ED) - Evaluation Sepsis Screening Result: No Definite Risk - My Orders Last 24 Hours: My Active Orders 05/04/20 13:28 Saline Lock Insert [OM.PC] Stat - Assessment/Plan Last 24 Hours: My Active Orders 05/04/20 13:28 Saline Lock Insert [OM.PC] Stat
[2020-05-04] MEDS ORDERED: Acetaminophen 500 MG Tab ONE (14:10)
[2020-05-04 14:59] LABS: BLOOD UREA NITROGEN,BUN 9 mg/dL (7.0-18.0); CARBON DIOXIDE,CO2 20.8 mmol/L (21.0-32.0); CHLORIDE,CL 102 mmol/L (98-107); GLUCOSE RANDOM 107 mg/dL (74-106); LIPASE 52 U/L (73-393); POTASSIUM,K 3.2 mmol/L (3.5-5.1); SODIUM,NA 138 mmol/L (136-148)
--- NOTE | 2020-05-04 15:53 | CT ---
CT neck Technique: Multiple axial sections were obtained from above the external auditory canals inferiorly to the lung apices. Intravenous contrast was utilized. Reconstructed coronal and sagittal images were reviewed. Comparison: No prior neck imaging is available. Findings: Visualized lung apices are clear. Thyroid gland shows no nodule. Submandibular salivary glands appear within normal limits. Parotid salivary glands also appear within normal limits. No adenopathy or mass is seen within the neck. Parapharyngeal soft tissues appear symmetric between right and left sides. Visualized paranasal sinuses show nothing acute. Mastoid sinuses also show nothing acute. Degenerative change is noted within the cervical spine with disc space narrowing at C5-6 and C6-7 with anterior osteophytes. Prominent anterior osteophytes are seen at C5-6. Posterior osteophytes are noted at the same levels. Mild spondylolisthesis is noted at C3-4 due to degenerative apophyseal change. Degenerative apophyseal change is also scattered within other portions of the cervical spine. Degenerative change is noted between the dens and anterior arch of C1. Prevertebral soft tissues are normal. Epiglottis shows no thickening. Impression: 1. Prominent anterior osteophytes at C5-6 which could indent the cervical esophagus. 2. Other degenerative change within the cervical spine as described above and on previous cervical spine CT. 3. No additional abnormality is appreciated on CT study of the neck. Diagnostic code #3 This report was dictated in MDT
--- NOTE | 2020-05-04 15:53 | CR ---
Chest: 2 views of the chest were obtained. Comparison: Prior chest x-ray of 07/10/19. Heart size at the upper limits of normal. Upper mediastinum is normal. Lungs are clear with no acute parenchymal change. Bony structures appear within normal limits for the patient's age. Impression: 1. Nothing acute is seen on 2 view chest x-ray. Diagnostic code #2 This report was dictated in MDT
--- NOTE | 2020-05-04 15:54 | CT ---
CT cervical spine Technique: Multiple axial sections were obtained through the cervical spine. Reconstructed coronal and sagittal images were obtained. Comparison: No prior CT cervical spine studies available. Findings: Degenerative change is noted between the dens and anterior arch of C1. Mild spondylolisthesis is noted at C3-4 due to degenerative apophyseal change. Fairly severe disc space narrowing is noted C5-6 and C6-7 with posterior osteophytes. Anterior osteophytes are also noted most prominent at C5-6. Vertebral body heights are maintained. Scattered degenerative apophyseal change is seen throughout the spine. Fairly severe left-sided neural foraminal stenosis is noted at C3-4. Mild right-sided neural foraminal stenosis is noted at C5-6. Other neural foramina are patent. Mild diffuse disc bulge is noted at C6-7 causing mild central canal stenosis. Asymmetric disc bulge to the right side is noted at C5-6 causing mild central canal stenosis. Impression: 1. Degenerative change as noted above. Diagnostic code #3 This report was dictated in MDT
[2020-05-04] MEDS ORDERED: Iopamidol 755 Mg/ML 100 ML Bottle IVPUSH STA (16:48)
[2020-05-04 17:43] VITALS: BP 155/81; PULSE 92
== END 2020-05-04 17:43 | disposition home or self-care (01) ==
LOC: MW.ED 13:07
DX: J40 Bronchitis, not specified as acute or chronic (principal); M25.78 Osteophyte, vertebrae; I10 Essential (primary) hypertension; J44.9 Chronic obstructive pulmonary disease, unspecified; F17.210 Nicotine dependence, cigarettes, uncomplicated; Z91.040 Latex allergy status; Z88.1 Allergy status to other antibiotic agents
CPT/HCPCS: 36415; 70491; 71046; 72125; 80053; 83690; 85025; 93005; 96360; 99284; A9270; J7030; Q9967

== ENCOUNTER 2020-10-04 14:13 | Observation (INO) | payer MEDICARE, MEDICAID ==
[2020-10-04] MEDS ORDERED: Sodium Chloride 0.9% 10 ML Syringe FLUSH PRN (14:53)
[2020-10-04] MEDS ORDERED: Sodium Chloride 0.9% 2.5 ML Syringe FLUSH PRN (14:53)
[2020-10-04] MEDS ORDERED: Sodium Chloride 0.9% 10 ML SDV IV PRN (14:53)
[2020-10-04] MEDS ORDERED: Sodium Chloride 0.9% 1,000 ML IV ONE (14:54)
--- NOTE | 2020-10-04 15:28 | CR ---
Indication: Possible stroke Technique: Chest 1 view Comparison: May 04, 2020 Findings/Impression: Stable cardiac size. Normal pulmonary vasculature. No focal infiltrate, effusion, or pneumothorax. No acute osseous abnormality. Dictated by Altagracia Caballero MD @ Oct 04 2020 3:27PM Signed by Dr. Altagracia Caballero @ Oct 04 2020 3:27PM
--- NOTE | 2020-10-04 15:28 | CT ---
INDICATION: Headache, expressive aphasia TECHNIQUE: Head CT without contrast. COMPARISON: None FINDINGS: CSF spaces: Within normal limits for age. Brain parenchyma: There are nonspecific low attenuation white matter changes consistent with chronic microvascular disease. No sign of mass, hemorrhage, or midline shift. Skull base and calvarium: The visualized paranasal sinuses and mastoid air cells demonstrate no acute or significant findings. The visualized orbits are grossly unremarkable. No skull fractures. There is intracranial atherosclerosis. IMPRESSION: 1. No acute findings. 2. Mild nonspecific white matter disease, typical of chronic microvascular disease. Please note that all CT scans at this facility use dose modulation, iterative reconstruction, and/or weight-based dosing when appropriate to reduce radiation dose to as low as reasonably achievable. Dictated by Altagracia Caballero MD @ Oct 04 2020 3:22PM Signed by Dr. Altagracia Caballero @ Oct 04 2020 3:26PM
[2020-10-04 15:52] LABS: BLOOD UREA NITROGEN,BUN 13 mg/dL (7.0-18.0); CARBON DIOXIDE,CO2 20.1 mmol/L (21.0-32.0); CHLORIDE,CL 102 mmol/L (98-107); GLUCOSE RANDOM 106 mg/dL (74-106); POTASSIUM,K 3.9 mmol/L (3.5-5.1); SODIUM,NA 137 mmol/L (136-148)
--- NOTE | 2020-10-04 15:52 | PCM.EKG ---
#1 Interpretation EKG Date: 10/04/20 Time: 15:27 EKG Interpretation Comments: Heart rate = 90 bpm, normal sinus rhythm, normal QRS interval, QTc 480ms, no STEMI. EKG and rhythm strip interpreted by me at [id number]
--- NOTE | 2020-10-04 16:22 | EDM.PDOC ---
ED HPI GENERAL MEDICAL PROBLEM - General Chief Complaint: ENT Problem Stated Complaint: FACE Time Seen by Provider: 10/04/20 14:27 Source of Information: Reports: Patient History Limitations: Reports: Other (poor historian) - History of Present Illness INITIAL COMMENTS - FREE TEXT/NARRATIVE: HISTORY AND PHYSICAL: History of present illness: Patient is a 60-year-old male who presents emergency room today with difficulty to obtain HPI due to poor historian. However, patient complaints of right sided tooth pain/face/jaw pain/numbness that radiates into his right shoulder/right arm causing arm weakness, balance concerns, and speech difficulties x 1 week. Patient states he has had these symptoms off and on for years and has had it evaluated prior without known cause but has never had the speech concerns associated with it prior. Patient states this past week is the first time he has had issues with speech. Patient states he is also having difficulty swallowing solid foods due to the numb sensation on the right side of his throat/neck but can drink water but still has difficulty swallowing. Patient states his brother is "upset" at him for talking "odd" this past 1 week though patient states he is "not doing it on purpose like his brother thinks." Patient states that his symptoms are hard to describe but he has numbness in the right cheek/neck area which makes swallowing feel "odd". Patient has a h/o htn, COPD, developmental delay. Patient denies fever, chills, chest pain, shortness of breath, or cough. Denies headache, neck stiff ness, change in vision, syncope, or near syncope. Denies nausea, vomiting, abdominal pain, diarrhea, constipation, or dysuria. Has not noted any blood in urine or stool. Patient has been eating and drinking appropriately. Review of systems: As per history of present illness and below otherwise all systems reviewed and negative. Past medical history: As per history of present illness and as reviewed below otherwise noncon tributory. Surgical history: As per history of present illness and as reviewed below otherwise noncontributory. Social history: See social history for further information Family history: As per history of present illness and as reviewed below otherwise noncontributory. Physical exam: General: Patient is alert, oriented, and in no acute distress. Patient sitting comfortably on exam table. Tachycardic 115s on exam otherwise vitally stable. Patient does have mumbled words on exam and difficult to understand. HEENT: Generalized poor dentition. Patient has only a few scattered teeth remaining which are nearly all decayed. However, no dental pain on exam, no obvious edema, lesions, masses, or abscess of the mouth. Otherwise, atraumatic, normocephalic, pupils equal and reactive bilaterally, negative for conjunctival pallor or scleral icterus, mucous membranes moist, TMs normal bilaterally, throat clear, neck supple, nontender, trachea midline. No drooling or trismus noted. No meningeal signs. No hot potato voice noted. Lungs: Clear to auscultation, breath sounds equal bilaterally, chest nontender. Heart: S1S2, regular rate and rhythm without overt murmur Abdomen: Soft, nondistended, nontender. Negative for masses or hepatosplenomegaly. Negative for costovertebral tenderness. Pelvis: Stable nontender. Genitourinary: Deferred. Rectal: Deferred. Skin: Intact, warm, dry. No lesions or rashes noted. Extremities: Atraumatic, negative for cords or calf pain. Neurovascular unremarkable. Neuro: Awake, alert, oriented. Cranial nerves II through XII unremarkable. Cerebellum unremarkable. Motor and sensory unremarkable throughout. Exam nonfocal. Notes: Stroke code called after my HPI evaluation with concern of speech, balance, arm weakness. Dr. Gonzales now at bedside and directly involved in patient care-he is involved in all medical decision making from here on out. NIH score 1-due to change in speech. The interpretation of the Ang Head/Neck was unclear so I called and spoke to the radiologist, Dr. Cecil Whipple and thoroughly discussed the report. He states all findings on the report appear chronic and none of the findings acute according to Dr. Cecil Whipple and no large vessel occlusions confirmed. Patient took a full dose ASA just prior to arrival to the ED Dr. Mckeon consulted on patient and will admit to observation, neurology is available / specialty development consultant in the morning. Voices understanding and is agreeable to plan of care. Denies any further questions or concerns at this time. Diagnostics: CBC, CMP, UA, UDS, Ethanol, Head CT, Ang Head/Neck, TSH, CXR, Trop, EKG, PT/INR, Ptt Therapeutics: NS Impression: Stroke like symptoms Dysarthria Plan: Admit to observation to Dr. Mckeon on telemetry Definitive disposition and diagnosis as appropriate pending reevaluation and review of above. right jaw Pain Score (Numeric/FACES): 7 - Related Data Allergies Allergy/AdvReac Type Severity Reaction Status Date / Time latex Allergy Rash Verified 10/04/20 20:27 levofloxacin Allergy Rash Verified 10/04/20 20:27 Home Meds: Home Meds . [No Known Home Meds] 10/04/20 [History] Past Medical History - Past Health History Medical/Surgical History: Denies Medical/Surgical History HEENT History: Reports: Other (See Below) Other HEENT History: wears glasses, has partial dental appliance but doesn't wear Cardiovascular History: Reports: Hypertension Respiratory History: Reports: COPD Gastrointestinal History: Reports: Diverticulosis, GERD Other Gastrointestinal History: dysphagia Genitourinary History: Reports: None Musculoskeletal History: Reports: Fracture Other Musculoskeletal History: hx of fx scapula and finger Neurological History: Reports: Headaches, Chronic Other Neuro History: states headaches are caused by neck pain Psychiatric History: Reports: Developmental Delay 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 Endocrine/Metabolic History: Reports: None Hematologic History: Reports: None Immunologic History: Reports: None Oncologic (Cancer) History: Reports: None Dermatologic History: Reports: Other (See Below) Other Dermatologic History: frequent skin infections - Infectious Disease History Infectious Disease History: Reports: None - Past Surgical History Head Surgeries/Procedures: Reports: None HEENT Surgical History: Reports: Adenoidectomy, Tonsillectomy Cardiovascular Surgical History: Reports: None Respiratory Surgical History: Reports: None GI Surgical History: Reports: Colonoscopy, EGD Male Surgical History: Reports: None Endocrine Surgical History: Reports: None Neurological Surgical History: Reports: None Musculoskeletal Surgical History: Reports: None Other Musculoskeletal Surgeries/Procedures:: removal of skin lesion on arm, previoux removal of epidermal cyst from axilla Oncologic Surgical History: Reports: None Dermatological Surgical History: Reports: None Social & Family History - Family History Family Medical History: No Pertinent Family History HEENT: Reports: None - Tobacco Use Packs/Tins Daily: 1 - Caffeine Use Caffeine Use: Reports: None Caffeine Use Comment: 4 cups/day - Recreational Drug Use Recreational Drug Use: No - Living Situation & Occupation Living situation: Reports: Single ED ROS GENERAL - Review of Systems Review Of Systems: Comprehensive ROS is negative, except as noted in HPI. ED EXAM, GENERAL - Physical Exam Exam: See Below (see dictation) Course - Vital Signs Last Recorded V/S: Last Vital Signs Temp 97.6 F 10/04/20 20:24 Pulse 98 10/04/20 20:24 Resp 18 10/04/20 20:24 BP 123/83 10/04/20 20:26 Pulse Ox 100 10/04/20 20:24 - Orders/Labs/Meds Orders: Active Orders 24 hr Category Date Time Status Admission Status [Patient Status] [ADT] Stat ADT 10/04/20 18:01 Active Assess Neurological Status [RC] ASDIRECTED Care 10/04/20 14:53 Active Blood Glucose Check, Bedside [RC] ONETIME Care 10/04/20 14:53 Active Cardiac Monitoring [RC] . DIRECTED Care 10/04/20 14:53 Active EKG Documentation Completion [RC] STAT Care 10/04/20 14:53 Active Height and Weight [RC] UPON Care 10/04/20 14:53 Active Initiate Acute Stroke Protocol [RC] STAT Care 10/04/20 14:53 Active NIH Stroke Scale [RC] ASDIRECTED Care 10/04/20 14:53 Active Nursing Bedside Swallow Screen [RC] ASDIRECTED Care 10/04/20 14:53 Active Vital Signs [RC] Q15M Care 10/04/20 14:53 Active Sodium Chloride 0.9% [Normal Saline] Med 10/04/20 14:53 Active 10 ml IV ASDIRECTED PRN Sodium Chloride 0.9% [Saline Flush] Med 10/04/20 14:53 Active 10 ml FLUSH ASDIRECTED PRN Sodium Chloride 0.9% [Saline Flush] Med 10/04/20 14:53 Active 2.5 ml FLUSH ASDIRECTED PRN Peripheral IV Insertion Adult [OM.PC] Stat Oth 10/04/20 14:53 Ordered Peripheral IV Insertion Adult [OM.PC] Stat Oth 10/04/20 14:53 Ordered Medication Orders Atorvastatin Calcium (Lipitor) 40 mg PO BEDTIME MELONY Diphenhydramine/Nystatin/Lidocaine (Magic Mouthwash) 0 ml PO QID MELONY Sodium Chloride (Normal Saline) 1,000 mls @ 100 mls/hr IV CONTINUOUS MELONY Pantoprazole Sodium 40 mg/ (Sodium Chloride) 10 mls @ 300 mls/hr IV Q24H MELONY Ondansetron HCl (Zofran Odt) 4 mg PO Q4H PRN PRN Reason: nausea, able to take PO Sodium Chloride (Saline Flush) 10 ml FLUSH ASDIRECTED PRN PRN Reason: Keep Vein Open Last Admin: 10/04/20 15:26 Dose: 10 ml Documented by: JAVON Sodium Chloride (Saline Flush) 2.5 ml FLUSH ASDIRECTED PRN PRN Reason: Keep Vein Open Last Admin: 10/04/20 15:26 Dose: 2.5 ml Documented by: JAVON Sodium Chloride (Normal Saline) 10 ml IV ASDIRECTED PRN PRN Reason: IV Use Labs: Laboratory Tests 10/04/20 10/04/20 10/04/20 Range/Units 14:57 14:57 14:57 WBC 10.85 (4.0-11.0) K/uL RBC 4.17 L (4.50-5.90) M/uL Hgb 15.5 (13.0-17.0) g/dL Hct 45.3 (38.0-50.0) % MCV 108.6 H (80.0-98.0) fL MCH 37.2 H (27.0-32.0) pg MCHC 34.2 (31.0-37.0) g/dL RDW Std Deviation 52.3 (28.0-62.0) fl RDW Coeff of Gildardo 13 (11.0-15.0) % Plt Count 227 (150-400) K/uL MPV 9.90 (7.40-12.00) fL Neut % (Auto) 80.2 H (48.0-80.0) % Lymph % (Auto) 12.0 L (16.0-40.0) % Amelia % (Auto) 6.6 (0.0-15.0) % Eos % (Auto) 1.0 (0.0-7.0) % Baso % (Auto) 0.2 (0.0-1.5) % Neut # (Auto) 8.7 H (1.4-5.7) K/uL Lymph # (Auto) 1.3 (0.6-2.4) K/uL Amelia # (Auto) 0.7 (0.0-0.8) K/uL Eos # (Auto) 0.1 (0.0-0.7) K/uL Baso # (Auto) 0.0 (0.0-0.1) K/uL Nucleated RBC % 0.0 /100WBC Nucleated RBCs # 0 K/uL INR 0.94 APTT 21.2 (18.6-31.3) SEC Sodium 137 (136-148) mmol/L Potassium 3.9 (3.5-5.1) mmol/L Chloride 102 (98-107) mmol/L Carbon Dioxide 20.1 L (21.0-32.0) mmol/L BUN 13 (7.0-18.0) mg/dL Creatinine 1.0 (0.8-1.3) mg/dL Est Cr Clr Drug Dosing 75.33 mL/min Estimated GFR (MDRD) > 60.0 ml/min Glucose 106 (74-106) mg/dL POC Glucose (60-110) mg/dL Hemoglobin A1c (4.5 - 6.2) % Calcium 9.7 (8.5-10.1) mg/dL Total Bilirubin 0.5 (0.2-1.0) mg/dL AST 22 (15-37) IU/L ALT 36 (14-63) IU/L Alkaline Phosphatase 68 (46-116) U/L Troponin I < 0.050 (0.000-0.056) ng/mL Total Protein 8.6 H (6.4-8.2) g/dL Albumin 4.6 (3.4-5.0) g/dL Globulin 4.0 (2.6-4.0) g/dL Albumin/Globulin Ratio 1.1 (0.9-1.6) Triglycerides (0-200) mg/dL Cholesterol (50-200) mg/dL LDL Cholesterol, Calc (60-180) mg/dL VLDL Cholesterol (5-55) mg/dL HDL Cholesterol (40-60) mg/dL Cholesterol/HDL Ratio (3.3-6.0) Vitamin B12 (193-986) pg/mL Folate (8.60-58.90) ng/mL TSH 3rd Generation 1.14 (0.36-3.74) uIU/mL Urine Color Urine Appearance Urine pH (5.0-8.0) Ur Specific Wake (1.001-1.035) Urine Protein (NEGATIVE) mg/dL Urine Glucose (UA) (NEGATIVE) mg/dL Urine Ketones (NEGATIVE) mg/dL Urine Occult Blood (NEGATIVE) Urine Nitrite (NEGATIVE) Urine Bilirubin (NEGATIVE) Urine Urobilinogen (<2.0) EU/dL Ur Leukocyte Esterase (NEGATIVE) Urine Opiates Screen (NEGATIVE) Ur Oxycodone Screen (NEGATIVE) Urine Methadone Screen (NEGATIVE) Ur Barbiturates Screen (NEGATIVE) Ur Phencyclidine Scrn (NEGATIVE) Ur Amphetamine Screen (NEGATIVE) U Methamphetamines Scrn (NEGATIVE) U Benzodiazepines Scrn (NEGATIVE) U Cocaine Metab Screen (NEGATIVE) U Marijuana (THC) Screen (NEGATIVE) Ethyl Alcohol < 3.0 mg/dL Influenza Type A RNA (NEGATIVE) Influenza Type B RNA (NEGATIVE) SARS-CoV-2 RNA (YASSINE) (NEGATIVE) 10/04/20 10/04/20 10/04/20 Range/Units 14:57 14:57 14:57 WBC (4.0-11.0) K/uL RBC (4.50-5.90) M/uL Hgb (13.0-17.0) g/dL Hct (38.0-50.0) % MCV (80.0-98.0) fL MCH (27.0-32.0) pg MCHC (31.0-37.0) g/dL RDW Std Deviation (28.0-62.0) fl RDW Coeff of Gildardo (11.0-15.0) % Plt Count (150-400) K/uL MPV (7.40-12.00) fL Neut % (Auto) (48.0-80.0) % Lymph % (Auto) (16.0-40.0) % Amelia % (Auto) (0.0-15.0) % Eos % (Auto) (0.0-7.0) % Baso % (Auto) (0.0-1.5) % Neut # (Auto) (1.4-5.7) K/uL Lymph # (Auto) (0.6-2.4) K/uL Amelia # (Auto) (0.0-0.8) K/uL Eos # (Auto) (0.0-0.7) K/uL Baso # (Auto) (0.0-0.1) K/uL Nucleated RBC % /100WBC Nucleated RBCs # K/uL INR APTT (18.6-31.3) SEC Sodium (136-148) mmol/L Potassium (3.5-5.1) mmol/L Chloride (98-107) mmol/L Carbon Dioxide (21.0-32.0) mmol/L BUN (7.0-18.0) mg/dL Creatinine (0.8-1.3) mg/dL Est Cr Clr Drug Dosing mL/min Estimated GFR (MDRD) ml/min Glucose (74-106) mg/dL POC Glucose 106 (60-110) mg/dL Hemoglobin A1c 5.5 (4.5 - 6.2) % Calcium (8.5-10.1) mg/dL Total Bilirubin (0.2-1.0) mg/dL AST (15-37) IU/L ALT (14-63) IU/L Alkaline Phosphatase (46-116) U/L Troponin I (0.000-0.056) ng/mL Total Protein (6.4-8.2) g/dL Albumin (3.4-5.0) g/dL Globulin (2.6-4.0) g/dL Albumin/Globulin Ratio (0.9-1.6) Triglycerides (0-200) mg/dL Cholesterol (50-200) mg/dL LDL Cholesterol, Calc (60-180) mg/dL VLDL Cholesterol (5-55) mg/dL HDL Cholesterol (40-60) mg/dL Cholesterol/HDL Ratio (3.3-6.0) Vitamin B12 837 (193-986) pg/mL Folate 32.10 (8.60-58.90) ng/mL TSH 3rd Generation (0.36-3.74) uIU/mL Urine Color Urine Appearance Urine pH (5.0-8.0) Ur Specific Wake (1.001-1.035) Urine Protein (NEGATIVE) mg/dL Urine Glucose (UA) (NEGATIVE) mg/dL Urine Ketones (NEGATIVE) mg/dL Urine Occult Blood (NEGATIVE) Urine Nitrite (NEGATIVE) Urine Bilirubin (NEGATIVE) Urine Urobilinogen (<2.0) EU/dL Ur Leukocyte Esterase (NEGATIVE) Urine Opiates Screen (NEGATIVE) Ur Oxycodone Screen (NEGATIVE) Urine Methadone Screen (NEGATIVE) Ur Barbiturates Screen (NEGATIVE) Ur Phencyclidine Scrn (NEGATIVE) Ur Amphetamine Screen (NEGATIVE) U Methamphetamines Scrn (NEGATIVE) U Benzodiazepines Scrn (NEGATIVE) U Cocaine Metab Screen (NEGATIVE) U Marijuana (THC) Screen (NEGATIVE) Ethyl Alcohol mg/dL Influenza Type A RNA (NEGATIVE) Influenza Type B RNA (NEGATIVE) SARS-CoV-2 RNA (YASSINE) (NEGATIVE) 10/04/20 10/04/20 10/04/20 Range/Units 14:57 16:10 16:10 WBC (4.0-11.0) K/uL RBC (4.50-5.90) M/uL Hgb (13.0-17.0) g/dL Hct (38.0-50.0) % MCV (80.0-98.0) fL MCH (27.0-32.0) pg MCHC (31.0-37.0) g/dL RDW Std Deviation (28.0-62.0) fl RDW Coeff of Gildardo (11.0-15.0) % Plt Count (150-400) K/uL MPV (7.40-12.00) fL Neut % (Auto) (48.0-80.0) % Lymph % (Auto) (16.0-40.0) % Amelia % (Auto) (0.0-15.0) % Eos % (Auto) (0.0-7.0) % Baso % (Auto) (0.0-1.5) % Neut # (Auto) (1.4-5.7) K/uL Lymph # (Auto) (0.6-2.4) K/uL Amelia # (Auto) (0.0-0.8) K/uL Eos # (Auto) (0.0-0.7) K/uL Baso # (Auto) (0.0-0.1) K/uL Nucleated RBC % /100WBC Nucleated RBCs # K/uL INR APTT (18.6-31.3) SEC Sodium (136-148) mmol/L Potassium (3.5-5.1) mmol/L Chloride (98-107) mmol/L Carbon Dioxide (21.0-32.0) mmol/L BUN (7.0-18.0) mg/dL Creatinine (0.8-1.3) mg/dL Est Cr Clr Drug Dosing mL/min Estimated GFR (MDRD) ml/min Glucose (74-106) mg/dL POC Glucose (60-110) mg/dL Hemoglobin A1c (4.5 - 6.2) % Calcium (8.5-10.1) mg/dL Total Bilirubin (0.2-1.0) mg/dL AST (15-37) IU/L ALT (14-63) IU/L Alkaline Phosphatase (46-116) U/L Troponin I (0.000-0.056) ng/mL Total Protein (6.4-8.2) g/dL Albumin (3.4-5.0) g/dL Globulin (2.6-4.0) g/dL Albumin/Globulin Ratio (0.9-1.6) Triglycerides 93 (0-200) mg/dL Cholesterol 190 (50-200) mg/dL LDL Cholesterol, Calc 121 (60-180) mg/dL VLDL Cholesterol 18 (5-55) mg/dL HDL Cholesterol 50 (40-60) mg/dL Cholesterol/HDL Ratio 3.8 (3.3-6.0) Vitamin B12 (193-986) pg/mL Folate (8.60-58.90) ng/mL TSH 3rd Generation (0.36-3.74) uIU/mL Urine Color YELLOW Urine Appearance CLEAR Urine pH 6.5 (5.0-8.0) Ur Specific Wake 1.010 (1.001-1.035) Urine Protein NEGATIVE (NEGATIVE) mg/dL Urine Glucose (UA) NEGATIVE (NEGATIVE) mg/dL Urine Ketones TRACE H (NEGATIVE) mg/dL Urine Occult Blood NEGATIVE (NEGATIVE) Urine Nitrite NEGATIVE (NEGATIVE) Urine Bilirubin NEGATIVE (NEGATIVE) Urine Urobilinogen 0.2 (<2.0) EU/dL Ur Leukocyte Esterase NEGATIVE (NEGATIVE) Urine Opiates Screen NEGATIVE (NEGATIVE) Ur Oxycodone Screen NEGATIVE (NEGATIVE) Urine Methadone Screen NEGATIVE (NEGATIVE) Ur Barbiturates Screen NEGATIVE (NEGATIVE) Ur Phencyclidine Scrn NEGATIVE (NEGATIVE) Ur Amphetamine Screen NEGATIVE (NEGATIVE) U Methamphetamines Scrn NEGATIVE (NEGATIVE) U Benzodiazepines Scrn NEGATIVE (NEGATIVE) U Cocaine Metab Screen NEGATIVE (NEGATIVE) U Marijuana (THC) Screen NEGATIVE (NEGATIVE) Ethyl Alcohol mg/dL Influenza Type A RNA (NEGATIVE) Influenza Type B RNA (NEGATIVE) SARS-CoV-2 RNA (YASSINE) (NEGATIVE) 10/04/20 Range/Units 17:45 WBC (4.0-11.0) K/uL RBC (4.50-5.90) M/uL Hgb (13.0-17.0) g/dL Hct (38.0-50.0) % MCV (80.0-98.0) fL MCH (27.0-32.0) pg MCHC (31.0-37.0) g/dL RDW Std Deviation (28.0-62.0) fl RDW Coeff of Gildardo (11.0-15.0) % Plt Count (150-400) K/uL MPV (7.40-12.00) fL Neut % (Auto) (48.0-80.0) % Lymph % (Auto) (16.0-40.0) % Amelia % (Auto) (0.0-15.0) % Eos % (Auto) (0.0-7.0) % Baso % (Auto) (0.0-1.5) % Neut # (Auto) (1.4-5.7) K/uL Lymph # (Auto) (0.6-2.4) K/uL Amelia # (Auto) (0.0-0.8) K/uL Eos # (Auto) (0.0-0.7) K/uL Baso # (Auto) (0.0-0.1) K/uL Nucleated RBC % /100WBC Nucleated RBCs # K/uL INR APTT (18.6-31.3) SEC Sodium (136-148) mmol/L Potassium (3.5-5.1) mmol/L Chloride (98-107) mmol/L Carbon Dioxide (21.0-32.0) mmol/L BUN (7.0-18.0) mg/dL Creatinine (0.8-1.3) mg/dL Est Cr Clr Drug Dosing mL/min Estimated GFR (MDRD) ml/min Glucose (74-106) mg/dL POC Glucose (60-110) mg/dL Hemoglobin A1c (4.5 - 6.2) % Calcium (8.5-10.1) mg/dL Total Bilirubin (0.2-1.0) mg/dL AST (15-37) IU/L ALT (14-63) IU/L Alkaline Phosphatase (46-116) U/L Troponin I (0.000-0.056) ng/mL Total Protein (6.4-8.2) g/dL Albumin (3.4-5.0) g/dL Globulin (2.6-4.0) g/dL Albumin/Globulin Ratio (0.9-1.6) Triglycerides (0-200) mg/dL Cholesterol (50-200) mg/dL LDL Cholesterol, Calc (60-180) mg/dL VLDL Cholesterol (5-55) mg/dL HDL Cholesterol (40-60) mg/dL Cholesterol/HDL Ratio (3.3-6.0) Vitamin B12 (193-986) pg/mL Folate (8.60-58.90) ng/mL TSH 3rd Generation (0.36-3.74) uIU/mL Urine Color Urine Appearance Urine pH (5.0-8.0) Ur Specific Wake (1.001-1.035) Urine Protein (NEGATIVE) mg/dL Urine Glucose (UA) (NEGATIVE) mg/dL Urine Ketones (NEGATIVE) mg/dL Urine Occult Blood (NEGATIVE) Urine Nitrite (NEGATIVE) Urine Bilirubin (NEGATIVE) Urine Urobilinogen (<2.0) EU/dL Ur Leukocyte Esterase (NEGATIVE) Urine Opiates Screen (NEGATIVE) Ur Oxycodone Screen (NEGATIVE) Urine Methadone Screen (NEGATIVE) Ur Barbiturates Screen (NEGATIVE) Ur Phencyclidine Scrn (NEGATIVE) Ur Amphetamine Screen (NEGATIVE) U Methamphetamines Scrn (NEGATIVE) U Benzodiazepines Scrn (NEGATIVE) U Cocaine Metab Screen (NEGATIVE) U Marijuana (THC) Screen (NEGATIVE) Ethyl Alcohol mg/dL Influenza Type A RNA NEGATIVE (NEGATIVE) Influenza Type B RNA NEGATIVE (NEGATIVE) SARS-CoV-2 RNA (YASSINE) NEGATIVE (NEGATIVE) Meds: Medications Generic Name Dose Route Start Last Admin Trade Name Freq PRN Reason Stop Dose Admin Atorvastatin Calcium 40 mg 10/04/20 21:00 Lipitor PO BEDTIME MELONY Diphenhydramine/Nystatin/Lidocaine 0 ml 10/05/20 00:00 Magic Mouthwash PO QID MELONY Sodium Chloride 1,000 mls @ 100 mls/hr 10/04/20 19:00 Normal Saline IV CONTINUOUS MELONY Pantoprazole Sodium 40 mg/ 10 mls @ 300 mls/hr 10/04/20 20:00 Sodium Chloride IV Q24H MELONY Ondansetron HCl 4 mg 10/04/20 18:47 Zofran Odt PO Q4H PRN nausea, able to take PO Sodium Chloride 10 ml 10/04/20 14:53 10/04/20 15:26 Saline Flush FLUSH 10 ml ASDIRECTED PRN Administration Keep Vein Open Sodium Chloride 2.5 ml 10/04/20 14:53 10/04/20 15:26 Saline Flush FLUSH 2.5 ml ASDIRECTED PRN Administration Keep Vein Open Sodium Chloride 10 ml 10/04/20 14:53 Normal Saline IV ASDIRECTED PRN IV Use Discontinued Medications Generic Name Dose Route Start Last Admin Trade Name Freq PRN Reason Stop Dose Admin Sodium Chloride 1,000 mls @ 999 mls/hr 10/04/20 14:54 10/04/20 15:26 Normal Saline IV 10/04/20 15:54 999 mls/hr STAT ONE Administration Iopamidol 100 ml 10/04/20 16:42 10/04/20 16:44 Isovue Multipack-370 (76%) IVPUSH 10/04/20 16:43 100 ml ONETIME STA Administration Departure - Departure Time of Disposition: 18:17 Disposition: Refer to Observation Clinical Impression: Stroke-like symptoms, Dysarthria - Discharge Information Sepsis Event Note (ED) - Evaluation Sepsis Screening Result: No Definite Risk - Focused Exam Vital Signs: Vital Signs Temp Pulse Resp BP Pulse Ox 10/04/20 17:33 98 16 116/85 100 10/04/20 17:18 97 16 124/85 100 10/04/20 16:48 98 16 121/82 100 10/04/20 16:03 90 16 128/86 100 10/04/20 15:48 92 16 104/70 100 10/04/20 15:33 90 16 123/80 100 10/04/20 15:21 98 16 118/89 100 10/04/20 15:03 88 16 116/80 99 10/04/20 14:28 97.7 F 115 H 18 158/105 H 97 - My Orders Last 24 Hours: My Active Orders 10/04/20 14:53 Assess Neurological Status [RC] ASDIRECTED Blood Glucose Check, Bedside [RC] ONETIME Cardiac Monitoring [RC] . DIRECTED EKG Documentation Completion [RC] STAT Height and Weight [RC] UPON Initiate Acute Stroke Protocol [RC] STAT NIH Stroke Scale [RC] ASDIRECTED Nursing Bedside Swallow Screen [RC] ASDIRECTED Vital Signs [RC] Q15M Sodium Chloride 0.9% [Normal Saline] 10 ml IV ASDIRECTED PRN Sodium Chloride 0.9% [Saline Flush] 10 ml FLUSH ASDIRECTED PRN Sodium Chloride 0.9% [Saline Flush] 2.5 ml FLUSH ASDIRECTED PRN Peripheral IV Insertion Adult [OM.PC] Stat Peripheral IV Insertion Adult [OM.PC] Stat 10/04/20 18:01 Admission Status [Patient Status] [ADT] Stat - Assessment/Plan Last 24 Hours: My Active Orders 10/04/20 14:53 Assess Neurological Status [RC] ASDIRECTED Blood Glucose Check, Bedside [RC] ONETIME Cardiac Monitoring [RC] . DIRECTED EKG Documentation Completion [RC] STAT Height and Weight [RC] UPON Initiate Acute Stroke Protocol [RC] STAT NIH Stroke Scale [RC] ASDIRECTED Nursing Bedside Swallow Screen [RC] ASDIRECTED Vital Signs [RC] Q15M Sodium Chloride 0.9% [Normal Saline] 10 ml IV ASDIRECTED PRN Sodium Chloride 0.9% [Saline Flush] 10 ml FLUSH ASDIRECTED PRN Sodium Chloride 0.9% [Saline Flush] 2.5 ml FLUSH ASDIRECTED PRN Peripheral IV Insertion Adult [OM.PC] Stat Peripheral IV Insertion Adult [OM.PC] Stat 10/04/20 18:01 Admission Status [Patient Status] [ADT] Stat
[2020-10-04] MEDS ORDERED: Iopamidol 755 MG/ML 500 ML Multipack Bottle IVPUSH STA (16:42)
--- NOTE | 2020-10-04 17:12 | CT ---
INDICATION: Acute stroke. TECHNIQUE: After standard noncontrast head CT, high resolution axial CT images acquired through the head and neck following rapid intravenous administration of iodinated contrast. Multiplanar MIPS of cranial and cervical vasculature performed. FINDINGS: Noncontrast head CT: There is no intracranial hemorrhage or fluid collection. The renteria-white matter differentiation is maintained. Brain parenchymal volume loss is noted. There are nonspecific white matter hypodensities commonly seen with cerebral small vessel disease. The ventricles are of normal morphology. The basal cisterns are clear. CTA head: While there is calcified irregular atherosclerotic plaque around the carotid siphons, there is no significant intracranial stenosis or large vessel occlusion. No aneurysm or vascular malformation is identified. CTA neck: There is atherosclerotic plaque in the proximal internal carotid arteries bilaterally with mild stenoses, less than 50 percent by NASCET criteria. The left internal carotid artery is of smaller caliber, due to an absent left A1 segment intracranially, an anatomic variant. The right vertebral artery is functionally occluded due to atherosclerotic disease. There is a focus of irregularity measuring over just 1 centimeter in size along the right posterolateral pharyngeal wall, of uncertain significance. There are scattered small cervical nodes. Degenerative changes are noted in the cervical spine. The lung apices are clear. IMPRESSION: 1. No large vessel occlusion or other acute intracranial abnormality at CT. 2. Bilateral carotid atherosclerotic disease with mild stenoses, less than 50 percent by NASCET criteria. 3. Functional occlusion of right vertebral artery; otherwise normal filling of the posterior circulation. 4. Question of irregular right posterolateral pharyngeal mass; recommend endoscopic evaluation. Discussed with Kristal Ray at 12:25 p.m. on 10/05/2020. Derrell Porter MD [facility] Please note that all CT scans at this facility use dose modulation, iterative reconstruction, and/or weight-based dosing when appropriate to reduce radiation dose to as low as reasonably achievable. Dictated by Derrell Porter MD @ Oct 05 2020 9:44AM (Electronically Signed)
[2020-10-04 18:31] LABS: CORONAVIRUS COVID-19 NAA NEGATIVE (NEGATIVE); INFLUENZA A NAA NEGATIVE (NEGATIVE); INFLUENZA B NAA NEGATIVE (NEGATIVE)
[2020-10-04] MEDS ORDERED: Ondansetron 4 MG Tab.DIS PO PRN (18:47)
--- NOTE | 2020-10-04 18:52 | PCM.HP.2 ---
<Jaime Borrero - Last Filed: 10/04/20 20:05> H&P History of Present Illness - General Date of Service: 10/04/20 Admit Problem/Dx: Admission Diagnosis/Problem Admission Diagnosis/Problem Stroke-like symptoms Source of Information: Patient - History of Present Illness Initial Comments - Free Text/Narative: Patient is a 60-year-old male with significant past medical history of d evelopmental delay and speech difficulties at baseline presenting to the ED secondary to right-sided facial/jaw pain with numbness with radiation to the right shoulder and right arm. Patient over the past week states that he has had increasing changes with his balance and difficulties with his speech even more so than his baseline. Of note patient was also having difficulty swallowing solid foods and endorsed to the ED provider having's a numbness sensation on the right side of his throat and neck making it difficult to swallow solid food. Patient endorses medical history of blood pressure but stopped taking his medication, and also has a history of COPD (per chart review). Mentions hx of "prostate issues" but ran out of medications (pt is a poor historian and does have a speech impediment) ED course: Stroke code initiated secondary to dysarthria, subjective balance dysfunction and right upper extremity weakness. NIH score [address] head: Negative for any acute intracranial bleeds. Chronic microvascular disease noted CTA head: No acute findings; atherosclerotic disease noted CTA neck: Atherosclerotic disease of internal carotids bilaterally; no acute findings EKG: Sinus rhythm QTc 480 Chest x-ray: Negative Failed bedside swallow examination in ED ASA full dose provided prior to arrival to ED. Bedside: Patient admits to similar story as above. Mentions for the past week having problems with his mouth including a string-like sensation from the inside of his jaw to the bottom of his throat and sometimes into his right arm and right hand. Patient is right-hand dominant. 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 right jaw Pain Score (Numeric/FACES): 7 - Related Data Allergies/Adverse Reactions: Allergies Allergy/AdvReac Type Severity Reaction Status Date / Time latex Allergy Rash Verified 10/04/20 20:27 levofloxacin Allergy Rash Verified 10/04/20 20:27 Home Medications: Home Meds . [No Known Home Meds] 10/04/20 [History] Past Medical History - Past Health History Medical/Surgical History: Denies Medical/Surgical History HEENT History: Reports: Other (See Below) Other HEENT History: wears glasses, has partial dental appliance but doesn't wear Cardiovascular History: Reports: Hypertension Respiratory History: Reports: COPD Gastrointestinal History: Reports: Diverticulosis, GERD Other Gastrointestinal History: dysphagia Genitourinary History: Reports: None Musculoskeletal History: Reports: Fracture Other Musculoskeletal History: hx of fx scapula and finger Neurological History: Reports: Headaches, Chronic Other Neuro History: states headaches are caused by neck pain Psychiatric History: Reports: Developmental Delay 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 Endocrine/Metabolic History: Reports: None Hematologic History: Reports: None Immunologic History: Reports: None Oncologic (Cancer) History: Reports: None Dermatologic History: Reports: Other (See Below) Other Dermatologic History: frequent skin infections - Infectious Disease History Infectious Disease History: Reports: None - Past Surgical History Head Surgeries/Procedures: Reports: None HEENT Surgical History: Reports: Adenoidectomy, Tonsillectomy Cardiovascular Surgical History: Reports: None Respiratory Surgical History: Reports: None GI Surgical History: Reports: Colonoscopy, EGD Male Surgical History: Reports: None Endocrine Surgical History: Reports: None Neurological Surgical History: Reports: None Musculoskeletal Surgical History: Reports: None Other Musculoskeletal Surgeries/Procedures:: removal of skin lesion on arm, previoux removal of epidermal cyst from axilla Oncologic Surgical History: Reports: None Dermatological Surgical History: Reports: None Social & Family History - Family History Family Medical History: No Pertinent Family History HEENT: Reports: None - Tobacco Use Packs/Tins Daily: 1 - Caffeine Use Caffeine Use: Reports: None Caffeine Use Comment: 4 cups/day - Recreational Drug Use Recreational Drug Use: No - Living Situation & Occupation Living situation: Reports: Single H&P Review of Systems - Review of Systems: Review Of Systems: See Below General: Reports: No Symptoms HEENT: Reports: Ear Pain, Sore Throat Cardiovascular: Reports: No Symptoms Gastrointestinal: Reports: No Symptoms Genitourinary: Reports: No Symptoms Musculoskeletal: Reports: No Symptoms Psychiatric: Reports: No Symptoms Neurological: Reports: Trouble Speaking, Weakness, Change in Speech. Denies: Dizziness, Headache, Gait Disturbance Exam - Exam Exam: See Below - Vital Signs Vital Signs: Last Vital Signs Temp 97.7 F 10/04/20 14:28 Pulse 98 10/04/20 17:33 Resp 16 10/04/20 17:33 BP 116/85 10/04/20 17:33 Pulse Ox 100 10/04/20 17:33 Weight: 69.4 kg - Exam Quality Assessment: No: Supplemental Oxygen General: Alert, Oriented HEENT: EOMI, Other (poor and missing dentition; tendenress noted at angle or right jaw ; no overt abcess formation noted ; ) Neck: Supple, Trachea Midline Lungs: Clear to Auscultation, Normal Respiratory Effort Cardiovascular: Regular Rate, Regular Rhythm GI/Abdominal Exam: Soft, Non-Tender Extremities: Normal Inspection Neurological: Strength Equal Bilateral, Normal Gait. No: Normal Speech (difficulty understanding speech; unsure of baseline secondary to developmental dissability; poor dentions ) Neuro Extensive - Mental Status: Alert, Oriented x3, Normal Mood/Affect, Normal Cognition Neuro Extensive - Motor, Sensory, Reflexes: Other (able to speak and underestand conversation; frequent redirection required initially but pt is oriented to person/place and time. Denies any confusion but endorses weakness of right arm ; stength upper/lower 5/5 , negative rombergs, ambualtes in room w.o assitance and in no acute distress. EOMI intact but requires redirection when asked to look down; vision intact ) Psychiatric: Alert, Normal Affect, Normal Mood - Patient Data Lab Results Last 24 hrs: Laboratory Results - last 24 hr 10/04/20 10/04/20 10/04/20 Range/Units 14:57 14:57 14:57 WBC 10.85 (4.0-11.0) K/uL RBC 4.17 L (4.50-5.90) M/uL Hgb 15.5 (13.0-17.0) g/dL Hct 45.3 (38.0-50.0) % MCV 108.6 H (80.0-98.0) fL MCH 37.2 H (27.0-32.0) pg MCHC 34.2 (31.0-37.0) g/dL RDW Std Deviation 52.3 (28.0-62.0) fl RDW Coeff of Gildardo 13 (11.0-15.0) % Plt Count 227 (150-400) K/uL MPV 9.90 (7.40-12.00) fL Neut % (Auto) 80.2 H (48.0-80.0) % Lymph % (Auto) 12.0 L (16.0-40.0) % [place] % (Auto) 6.6 (0.0-15.0) % Eos % (Auto) 1.0 (0.0-7.0) % Baso % (Auto) 0.2 (0.0-1.5) % Neut # (Auto) 8.7 H (1.4-5.7) K/uL Lymph # (Auto) 1.3 (0.6-2.4) K/uL [place] # (Auto) 0.7 (0.0-0.8) K/uL Eos # (Auto) 0.1 (0.0-0.7) K/uL Baso # (Auto) 0.0 (0.0-0.1) K/uL Nucleated RBC % 0.0 /100WBC Nucleated RBCs # 0 K/uL INR 0.94 APTT 21.2 (18.6-31.3) SEC Sodium 137 (136-148) mmol/L Potassium 3.9 (3.5-5.1) mmol/L Chloride 102 (98-107) mmol/L Carbon Dioxide 20.1 L (21.0-32.0) mmol/L BUN 13 (7.0-18.0) mg/dL Creatinine 1.0 (0.8-1.3) mg/dL Est Cr Clr Drug Dosing 75.33 mL/min Estimated GFR (MDRD) > 60.0 ml/min Glucose 106 (74-106) mg/dL POC Glucose (60-110) mg/dL Calcium 9.7 (8.5-10.1) mg/dL Total Bilirubin 0.5 (0.2-1.0) mg/dL AST 22 (15-37) IU/L ALT 36 (14-63) IU/L Alkaline Phosphatase 68 (46-116) U/L Troponin I < 0.050 (0.000-0.056) ng/mL Total Protein 8.6 H (6.4-8.2) g/dL Albumin 4.6 (3.4-5.0) g/dL Globulin 4.0 (2.6-4.0) g/dL Albumin/Globulin Ratio 1.1 (0.9-1.6) TSH 3rd Generation 1.14 (0.36-3.74) uIU/mL Urine Color Urine Appearance Urine pH (5.0-8.0) Ur Specific [place] (1.001-1.035) Urine Protein (NEGATIVE) mg/dL Urine Glucose (UA) (NEGATIVE) mg/dL Urine Ketones (NEGATIVE) mg/dL Urine Occult Blood (NEGATIVE) Urine Nitrite (NEGATIVE) Urine Bilirubin (NEGATIVE) Urine Urobilinogen (<2.0) EU/dL Ur Leukocyte Esterase (NEGATIVE) Urine Opiates Screen (NEGATIVE) Ur Oxycodone Screen (NEGATIVE) Urine Methadone Screen (NEGATIVE) Ur Barbiturates Screen (NEGATIVE) Ur Phencyclidine Scrn (NEGATIVE) Ur Amphetamine Screen (NEGATIVE) U Methamphetamines Scrn (NEGATIVE) U Benzodiazepines Scrn (NEGATIVE) U Cocaine Metab Screen (NEGATIVE) U Marijuana (THC) Screen (NEGATIVE) Ethyl Alcohol < 3.0 mg/dL Influenza Type A RNA (NEGATIVE) Influenza Type B RNA (NEGATIVE) SARS-CoV-2 RNA ([place]) (NEGATIVE) 10/04/20 10/04/20 10/04/20 Range/Units 14:57 16:10 16:10 WBC (4.0-11.0) K/uL RBC (4.50-5.90) M/uL Hgb (13.0-17.0) g/dL Hct (38.0-50.0) % MCV (80.0-98.0) fL MCH (27.0-32.0) pg MCHC (31.0-37.0) g/dL RDW Std Deviation (28.0-62.0) fl RDW Coeff of Gildardo (11.0-15.0) % Plt Count (150-400) K/uL MPV (7.40-12.00) fL Neut % (Auto) (48.0-80.0) % Lymph % (Auto) (16.0-40.0) % [place] % (Auto) (0.0-15.0) % Eos % (Auto) (0.0-7.0) % Baso % (Auto) (0.0-1.5) % Neut # (Auto) (1.4-5.7) K/uL Lymph # (Auto) (0.6-2.4) K/uL [place] # (Auto) (0.0-0.8) K/uL Eos # (Auto) (0.0-0.7) K/uL Baso # (Auto) (0.0-0.1) K/uL Nucleated RBC % /100WBC Nucleated RBCs # K/uL INR APTT (18.6-31.3) SEC Sodium (136-148) mmol/L Potassium (3.5-5.1) mmol/L Chloride (98-107) mmol/L Carbon Dioxide (21.0-32.0) mmol/L BUN (7.0-18.0) mg/dL Creatinine (0.8-1.3) mg/dL Est Cr Clr Drug Dosing mL/min Estimated GFR (MDRD) ml/min Glucose (74-106) mg/dL POC Glucose 106 (60-110) mg/dL Calcium (8.5-10.1) mg/dL Total Bilirubin (0.2-1.0) mg/dL AST (15-37) IU/L ALT (14-63) IU/L Alkaline Phosphatase (46-116) U/L Troponin I (0.000-0.056) ng/mL Total Protein (6.4-8.2) g/dL Albumin (3.4-5.0) g/dL Globulin (2.6-4.0) g/dL Albumin/Globulin Ratio (0.9-1.6) TSH 3rd Generation (0.36-3.74) uIU/mL Urine Color YELLOW Urine Appearance CLEAR Urine pH 6.5 (5.0-8.0) Ur Specific [place] 1.010 (1.001-1.035) Urine Protein NEGATIVE (NEGATIVE) mg/dL Urine Glucose (UA) NEGATIVE (NEGATIVE) mg/dL Urine Ketones TRACE H (NEGATIVE) mg/dL Urine Occult Blood NEGATIVE (NEGATIVE) Urine Nitrite NEGATIVE (NEGATIVE) Urine Bilirubin NEGATIVE (NEGATIVE) Urine Urobilinogen 0.2 (<2.0) EU/dL Ur Leukocyte Esterase NEGATIVE (NEGATIVE) Urine Opiates Screen NEGATIVE (NEGATIVE) Ur Oxycodone Screen NEGATIVE (NEGATIVE) Urine Methadone Screen NEGATIVE (NEGATIVE) Ur Barbiturates Screen NEGATIVE (NEGATIVE) Ur Phencyclidine Scrn NEGATIVE (NEGATIVE) Ur Amphetamine Screen NEGATIVE (NEGATIVE) U Methamphetamines Scrn NEGATIVE (NEGATIVE) U Benzodiazepines Scrn NEGATIVE (NEGATIVE) U Cocaine Metab Screen NEGATIVE (NEGATIVE) U Marijuana (THC) Screen NEGATIVE (NEGATIVE) Ethyl Alcohol mg/dL Influenza Type A RNA (NEGATIVE) Influenza Type B RNA (NEGATIVE) SARS-CoV-2 RNA ([place]) (NEGATIVE) 10/04/20 Range/Units 17:45 WBC (4.0-11.0) K/uL RBC (4.50-5.90) M/uL Hgb (13.0-17.0) g/dL Hct (38.0-50.0) % MCV (80.0-98.0) fL MCH (27.0-32.0) pg MCHC (31.0-37.0) g/dL RDW Std Deviation (28.0-62.0) fl RDW Coeff of Gildardo (11.0-15.0) % Plt Count (150-400) K/uL MPV (7.40-12.00) fL Neut % (Auto) (48.0-80.0) % Lymph % (Auto) (16.0-40.0) % [place] % (Auto) (0.0-15.0) % Eos % (Auto) (0.0-7.0) % Baso % (Auto) (0.0-1.5) % Neut # (Auto) (1.4-5.7) K/uL Lymph # (Auto) (0.6-2.4) K/uL [place] # (Auto) (0.0-0.8) K/uL Eos # (Auto) (0.0-0.7) K/uL Baso # (Auto) (0.0-0.1) K/uL Nucleated RBC % /100WBC Nucleated RBCs # K/uL INR APTT (18.6-31.3) SEC Sodium (136-148) mmol/L Potassium (3.5-5.1) mmol/L Chloride (98-107) mmol/L Carbon Dioxide (21.0-32.0) mmol/L BUN (7.0-18.0) mg/dL Creatinine (0.8-1.3) mg/dL Est Cr Clr Drug Dosing mL/min Estimated GFR (MDRD) ml/min Glucose (74-106) mg/dL POC Glucose (60-110) mg/dL Calcium (8.5-10.1) mg/dL Total Bilirubin (0.2-1.0) mg/dL AST (15-37) IU/L ALT (14-63) IU/L Alkaline Phosphatase (46-116) U/L Troponin I (0.000-0.056) ng/mL Total Protein (6.4-8.2) g/dL Albumin (3.4-5.0) g/dL Globulin (2.6-4.0) g/dL Albumin/Globulin Ratio (0.9-1.6) TSH 3rd Generation (0.36-3.74) uIU/mL Urine Color Urine Appearance Urine pH (5.0-8.0) Ur Specific [place] (1.001-1.035) Urine Protein (NEGATIVE) mg/dL Urine Glucose (UA) (NEGATIVE) mg/dL Urine Ketones (NEGATIVE) mg/dL Urine Occult Blood (NEGATIVE) Urine Nitrite (NEGATIVE) Urine Bilirubin (NEGATIVE) Urine Urobilinogen (<2.0) EU/dL Ur Leukocyte Esterase (NEGATIVE) Urine Opiates Screen (NEGATIVE) Ur Oxycodone Screen (NEGATIVE) Urine Methadone Screen (NEGATIVE) Ur Barbiturates Screen (NEGATIVE) Ur Phencyclidine Scrn (NEGATIVE) Ur Amphetamine Screen (NEGATIVE) U Methamphetamines Scrn (NEGATIVE) U Benzodiazepines Scrn (NEGATIVE) U Cocaine Metab Screen (NEGATIVE) U Marijuana (THC) Screen (NEGATIVE) Ethyl Alcohol mg/dL Influenza Type A RNA NEGATIVE (NEGATIVE) Influenza Type B RNA NEGATIVE (NEGATIVE) SARS-CoV-2 RNA ([place]) NEGATIVE (NEGATIVE) Result Diagrams: 10/04/20 14:57 10/04/20 14:57 Sepsis Event Note - Evaluation Sepsis Screening Result: No Definite Risk - Focused Exam Vital Signs: Vital Signs Temp Pulse Resp BP Pulse Ox 10/04/20 17:33 98 16 116/85 100 10/04/20 17:18 97 16 124/85 100 10/04/20 16:48 98 16 121/82 100 10/04/20 16:03 90 16 128/86 100 10/04/20 15:48 92 16 104/70 100 10/04/20 15:33 90 16 123/80 100 10/04/20 15:21 98 16 118/89 100 10/04/20 15:03 88 16 116/80 99 10/04/20 14:28 97.7 F 115 H 18 158/105 H 97 - Problem List (1) Stroke-like symptoms SNOMED Code(s): 146399773 ICD Code: R29.90 - UNSPECIFIED SYMPTOMS AND SIGNS INVOLVING THE NERVOUS SYSTEM Status: Acute Current Visit: Yes Problem List Initiated/Reviewed/Updated: Yes Orders Last 24hrs: Active Orders 24 hr Category Date Time Status Admission Status [Patient Status] [ADT] Stat ADT 10/04/20 18:01 Active Assess Neurological Status [RC] ASDIRECTED Care 10/04/20 14:53 Active Bedrest [RC] ASDIRECTED Care 10/04/20 14:53 Active Blood Glucose Check, Bedside [RC] ONETIME Care 10/04/20 14:53 Active Cardiac Monitoring [RC] . DIRECTED Care 10/04/20 14:53 Active EKG Documentation Completion [RC] STAT Care 10/04/20 14:53 Active Height and Weight [RC] UPON Care 10/04/20 14:53 Active Initiate Acute Stroke Protocol [RC] STAT Care 10/04/20 14:53 Active NIH Stroke Scale [RC] ASDIRECTED Care 10/04/20 14:53 Active Nursing Bedside Swallow Screen [RC] ASDIRECTED Care 10/04/20 14:53 Active Oxygen Therapy [RC] PRN Care 10/04/20 18:47 Ordered Up With Assistance [RC] ASDIRECTED Care 10/04/20 18:47 Ordered VTE/DVT Education [RC] PER UNIT ROUTINE Care 10/04/20 18:47 Ordered Vital Signs [RC] Q15M Care 10/04/20 14:53 Active Vital Signs [RC] Q4H Care 10/04/20 18:47 Ordered Nothing per Oral Now Diet [DIET] Diet 10/04/20 Breakfast Ordered Brain w wo Cont [MR] Urgent Exams 10/04/20 18:50 Ordered FOLIC ACID [CHEM] Routine Lab 10/04/20 18:49 Ordered VITAMIN B12 [CHEM] Routine Lab 10/04/20 18:49 Ordered Ondansetron [Zofran ODT] Med 10/04/20 18:47 Ordered 4 mg PO Q4H PRN Sodium Chloride 0.9% [Normal Saline] Med 10/04/20 14:53 Active 10 ml IV ASDIRECTED PRN Sodium Chloride 0.9% [Saline Flush] Med 10/04/20 14:53 Active 10 ml FLUSH ASDIRECTED PRN Sodium Chloride 0.9% [Saline Flush] Med 10/04/20 14:53 Active 2.5 ml FLUSH ASDIRECTED PRN Peripheral IV Insertion Adult [OM.PC] Stat Ot 10/04/20 14:53 Ordered Peripheral IV Insertion Adult [OM.PC] Stat Ot 10/04/20 14:53 Ordered Resuscitation Status Routine Resus Stat 10/04/20 18:47 Ordered Medication Orders Ondansetron HCl (Zofran Odt) 4 mg PO Q4H PRN PRN Reason: nausea, able to take PO Sodium Chloride (Saline Flush) 10 ml FLUSH ASDIRECTED PRN PRN Reason: Keep Vein Open Last Admin: 10/04/20 15:26 Dose: 10 ml Documented by: [email or web address] Sodium Chloride (Saline Flush) 2.5 ml FLUSH ASDIRECTED PRN PRN Reason: Keep Vein Open Last Admin: 10/04/20 15:26 Dose: 2.5 ml Documented by: HANSMAC Sodium Chloride (Normal Saline) 10 ml IV ASDIRECTED PRN PRN Reason: IV Use Assessment/Plan Comment:: Assessment: 1. Dysphagia with concerns for TIA/stroke 2. Right facial pain with poor dentition 3. Past medical history: Developmental delay, COPD, hypertension 4. Chronic macrocytic anemia. 5. Covid negative Plan Admit to observation. Full code. I's and O's routine vitals per routine. Neuro-checks every 2. Up with assistance. N.p.o. secondary to failed swallow study. IV fluids 100 cc/h 1. Dysphagia: Difficulty swallowing with failed bedside swallow; imaging study did not suggest any acute processes including intracranial bleeds. We will order a MRI of the brain with and without contrast to evaluate for possible TIA/stroke. Patient was out of the appropriate timeframe for any acute interventions however patient is also a poor historian and symptoms may have been going on longer than 1 week. We will continue n.p.o. status and continue to monitor patient We will consult neurology once images have returned. Reviewed imaging and previous ED admission for similar complaints; patient does have a history of cervical stenosis with osteophytic bone spurs; at that time patient was recommended to follow-up with neurosurgery with concerns in light of his current symptomatology. Unsure if patient was followed up by neurosurgery as current symptoms could relate to worsening of foraminal stenoses. MRI of cervical spine will be ordered to evaluate for any interval changes since we may have to contact neurosurgery in the a.m. to discuss results and possible recommendations.pt is currently stable and in no acute distress; . Concerns for TIA versus stroke: Echocardiogram ordered. Previous echo in April 2019 showing ejection fraction of 50 to 55%. Start atorvastatin 40 secondary to significant atherosclerotic plaques noted in bilateral internal carotids. Continue daily aspirin. We will add on a lipid panel and an A1c. 2.: Right facial pain with tenderness and poor dentition: May consider CT with contrast of maxillofacial region to rule out abscess formation,. no acute leukocytosis, no obvious sign of abscess formation but may consider repeat imaging if not capable of seeing on CT head/CTA head neck. 3. Chronic macrocytic anemia: Add on folate/B12; will consider supplementation if necessary. <Genet Mckeon - Last Filed: 10/04/20 23:27> H&P History of Present Illness - General Admit Problem/Dx: Admission Diagnosis/Problem Admission Diagnosis/Problem Stroke-like symptoms - History of Present Illness Initial Comments - Free Text/Narative: I performed a history and physical exam of the patient and discussed management with resident. I have reviewed the residents note and agree with documented findings and plan unless otherwise specified in my note.' Exam - Vital Signs Vital Signs: Last Vital Signs Temp 36.4 C 10/04/20 20:24 Pulse 98 10/04/20 20:24 Resp 18 10/04/20 20:24 BP 123/83 10/04/20 20:26 Pulse Ox 100 10/04/20 20:24 - Patient Data Lab Results Last 24 hrs: Laboratory Results - last 24 hr 10/04/20 10/04/20 10/04/20 Range/Units 14:57 14:57 14:57 WBC 10.85 (4.0-11.0) K/uL RBC 4.17 L (4.50-5.90) M/uL Hgb 15.5 (13.0-17.0) g/dL Hct 45.3 (38.0-50.0) % MCV 108.6 H (80.0-98.0) fL MCH 37.2 H (27.0-32.0) pg MCHC 34.2 (31.0-37.0) g/dL RDW Std Deviation 52.3 (28.0-62.0) fl RDW Coeff of Gildardo 13 (11.0-15.0) % Plt Count 227 (150-400) K/uL MPV 9.90 (7.40-12.00) fL Neut % (Auto) 80.2 H (48.0-80.0) % Lymph % (Auto) 12.0 L (16.0-40.0) % [place] % (Auto) 6.6 (0.0-15.0) % Eos % (Auto) 1.0 (0.0-7.0) % Baso % (Auto) 0.2 (0.0-1.5) % Neut # (Auto) 8.7 H (1.4-5.7) K/uL Lymph # (Auto) 1.3 (0.6-2.4) K/uL [place] # (Auto) 0.7 (0.0-0.8) K/uL Eos # (Auto) 0.1 (0.0-0.7) K/uL Baso # (Auto) 0.0 (0.0-0.1) K/uL Nucleated RBC % 0.0 /100WBC Nucleated RBCs # 0 K/uL INR 0.94 APTT 21.2 (18.6-31.3) SEC Sodium 137 (136-148) mmol/L Potassium 3.9 (3.5-5.1) mmol/L Chloride 102 (98-107) mmol/L Carbon Dioxide 20.1 L (21.0-32.0) mmol/L BUN 13 (7.0-18.0) mg/dL Creatinine 1.0 (0.8-1.3) mg/dL Est Cr Clr Drug Dosing 75.33 mL/min Estimated GFR (MDRD) > 60.0 ml/min Glucose 106 (74-106) mg/dL POC Glucose (60-110) mg/dL Hemoglobin A1c (4.5 - 6.2) % Calcium 9.7 (8.5-10.1) mg/dL Total Bilirubin 0.5 (0.2-1.0) mg/dL AST 22 (15-37) IU/L ALT 36 (14-63) IU/L Alkaline Phosphatase 68 (46-116) U/L Troponin I < 0.050 (0.000-0.056) ng/mL Total Protein 8.6 H (6.4-8.2) g/dL Albumin 4.6 (3.4-5.0) g/dL Globulin 4.0 (2.6-4.0) g/dL Albumin/Globulin Ratio 1.1 (0.9-1.6) Triglycerides (0-200) mg/dL Cholesterol (50-200) mg/dL LDL Cholesterol, Calc (60-180) mg/dL VLDL Cholesterol (5-55) mg/dL HDL Cholesterol (40-60) mg/dL Cholesterol/HDL Ratio (3.3-6.0) Vitamin B12 (193-986) pg/mL Folate (8.60-58.90) ng/mL TSH 3rd Generation 1.14 (0.36-3.74) uIU/mL Urine Color Urine Appearance Urine pH (5.0-8.0) Ur Specific [place] (1.001-1.035) Urine Protein (NEGATIVE) mg/dL Urine Glucose (UA) (NEGATIVE) mg/dL Urine Ketones (NEGATIVE) mg/dL Urine Occult Blood (NEGATIVE) Urine Nitrite (NEGATIVE) Urine Bilirubin (NEGATIVE) Urine Urobilinogen (<2.0) EU/dL Ur Leukocyte Esterase (NEGATIVE) Urine Opiates Screen (NEGATIVE) Ur Oxycodone Screen (NEGATIVE) Urine Methadone Screen (NEGATIVE) Ur Barbiturates Screen (NEGATIVE) Ur Phencyclidine Scrn (NEGATIVE) Ur Amphetamine Screen (NEGATIVE) U Methamphetamines Scrn (NEGATIVE) U Benzodiazepines Scrn (NEGATIVE) U Cocaine Metab Screen (NEGATIVE) U Marijuana (THC) Screen (NEGATIVE) Ethyl Alcohol < 3.0 mg/dL Influenza Type A RNA (NEGATIVE) Influenza Type B RNA (NEGATIVE) SARS-CoV-2 RNA ([place]) (NEGATIVE) 10/04/20 10/04/20 10/04/20 Range/Units 14:57 14:57 14:57 WBC (4.0-11.0) K/uL RBC (4.50-5.90) M/uL Hgb (13.0-17.0) g/dL Hct (38.0-50.0) % MCV (80.0-98.0) fL MCH (27.0-32.0) pg MCHC (31.0-37.0) g/dL RDW Std Deviation (28.0-62.0) fl RDW Coeff of Gildardo (11.0-15.0) % Plt Count (150-400) K/uL MPV (7.40-12.00) fL Neut % (Auto) (48.0-80.0) % Lymph % (Auto) (16.0-40.0) % [place] % (Auto) (0.0-15.0) % Eos % (Auto) (0.0-7.0) % Baso % (Auto) (0.0-1.5) % Neut # (Auto) (1.4-5.7) K/uL Lymph # (Auto) (0.6-2.4) K/uL [place] # (Auto) (0.0-0.8) K/uL Eos # (Auto) (0.0-0.7) K/uL Baso # (Auto) (0.0-0.1) K/uL Nucleated RBC % /100WBC Nucleated RBCs # K/uL INR APTT (18.6-31.3) SEC Sodium (136-148) mmol/L Potassium (3.5-5.1) mmol/L Chloride (98-107) mmol/L Carbon Dioxide (21.0-32.0) mmol/L BUN (7.0-18.0) mg/dL Creatinine (0.8-1.3) mg/dL Est Cr Clr Drug Dosing mL/min Estimated GFR (MDRD) ml/min Glucose (74-106) mg/dL POC Glucose 106 (60-110) mg/dL Hemoglobin A1c 5.5 (4.5 - 6.2) % Calcium (8.5-10.1) mg/dL Total Bilirubin (0.2-1.0) mg/dL AST (15-37) IU/L ALT (14-63) IU/L Alkaline Phosphatase (46-116) U/L Troponin I (0.000-0.056) ng/mL Total Protein (6.4-8.2) g/dL Albumin (3.4-5.0) g/dL Globulin (2.6-4.0) g/dL Albumin/Globulin Ratio (0.9-1.6) Triglycerides (0-200) mg/dL Cholesterol (50-200) mg/dL LDL Cholesterol, Calc (60-180) mg/dL VLDL Cholesterol (5-55) mg/dL HDL Cholesterol (40-60) mg/dL Cholesterol/HDL Ratio (3.3-6.0) Vitamin B12 837 (193-986) pg/mL Folate 32.10 (8.60-58.90) ng/mL TSH 3rd Generation (0.36-3.74) uIU/mL Urine Color Urine Appearance Urine pH (5.0-8.0) Ur Specific [place] (1.001-1.035) Urine Protein (NEGATIVE) mg/dL Urine Glucose (UA) (NEGATIVE) mg/dL Urine Ketones (NEGATIVE) mg/dL Urine Occult Blood (NEGATIVE) Urine Nitrite (NEGATIVE) Urine Bilirubin (NEGATIVE) Urine Urobilinogen (<2.0) EU/dL Ur Leukocyte Esterase (NEGATIVE) Urine Opiates Screen (NEGATIVE) Ur Oxycodone Screen (NEGATIVE) Urine Methadone Screen (NEGATIVE) Ur Barbiturates Screen (NEGATIVE) Ur Phencyclidine Scrn (NEGATIVE) Ur Amphetamine Screen (NEGATIVE) U Methamphetamines Scrn (NEGATIVE) U Benzodiazepines Scrn (NEGATIVE) U Cocaine Metab Screen (NEGATIVE) U Marijuana (THC) Screen (NEGATIVE) Ethyl Alcohol mg/dL Influenza Type A RNA (NEGATIVE) Influenza Type B RNA (NEGATIVE) SARS-CoV-2 RNA ([place]) (NEGATIVE) 10/04/20 10/04/20 10/04/20 Range/Units 14:57 16:10 16:10 WBC (4.0-11.0) K/uL RBC (4.50-5.90) M/uL Hgb (13.0-17.0) g/dL Hct (38.0-50.0) % MCV (80.0-98.0) fL MCH (27.0-32.0) pg MCHC (31.0-37.0) g/dL RDW Std Deviation (28.0-62.0) fl RDW Coeff of [place] (11.0-15.0) % Plt Count (150-400) K/uL MPV (7.40-12.00) fL Neut % (Auto) (48.0-80.0) % Lymph % (Auto) (16.0-40.0) % [place] % (Auto) (0.0-15.0) % Eos % (Auto) (0.0-7.0) % Baso % (Auto) (0.0-1.5) % Neut # (Auto) (1.4-5.7) K/uL Lymph # (Auto) (0.6-2.4) K/uL [place] # (Auto) (0.0-0.8) K/uL Eos # (Auto) (0.0-0.7) K/uL Baso # (Auto) (0.0-0.1) K/uL Nucleated RBC % /100WBC Nucleated RBCs # K/uL INR APTT (18.6-31.3) SEC Sodium (136-148) mmol/L Potassium (3.5-5.1) mmol/L Chloride (98-107) mmol/L Carbon Dioxide (21.0-32.0) mmol/L BUN (7.0-18.0) mg/dL Creatinine (0.8-1.3) mg/dL Est Cr Clr Drug Dosing mL/min Estimated GFR (MDRD) ml/min Glucose (74-106) mg/dL POC Glucose (60-110) mg/dL Hemoglobin A1c (4.5 - 6.2) % Calcium (8.5-10.1) mg/dL Total Bilirubin (0.2-1.0) mg/dL AST (15-37) IU/L ALT (14-63) IU/L Alkaline Phosphatase (46-116) U/L Troponin I (0.000-0.056) ng/mL Total Protein (6.4-8.2) g/dL Albumin (3.4-5.0) g/dL Globulin (2.6-4.0) g/dL Albumin/Globulin Ratio (0.9-1.6) Triglycerides 93 (0-200) mg/dL Cholesterol 190 (50-200) mg/dL LDL Cholesterol, Calc 121 (60-180) mg/dL VLDL Cholesterol 18 (5-55) mg/dL HDL Cholesterol 50 (40-60) mg/dL Cholesterol/HDL Ratio 3.8 (3.3-6.0) Vitamin B12 (193-986) pg/mL Folate (8.60-58.90) ng/mL TSH 3rd Generation (0.36-3.74) uIU/mL Urine Color YELLOW Urine Appearance CLEAR Urine pH 6.5 (5.0-8.0) Ur Specific [place] 1.010 (1.001-1.035) Urine Protein NEGATIVE (NEGATIVE) mg/dL Urine Glucose (UA) NEGATIVE (NEGATIVE) mg/dL Urine Ketones TRACE H (NEGATIVE) mg/dL Urine Occult Blood NEGATIVE (NEGATIVE) Urine Nitrite NEGATIVE (NEGATIVE) Urine Bilirubin NEGATIVE (NEGATIVE) Urine Urobilinogen 0.2 (<2.0) EU/dL Ur Leukocyte Esterase NEGATIVE (NEGATIVE) Urine Opiates Screen NEGATIVE (NEGATIVE) Ur Oxycodone Screen NEGATIVE (NEGATIVE) Urine Methadone Screen NEGATIVE (NEGATIVE) Ur Barbiturates Screen NEGATIVE (NEGATIVE) Ur Phencyclidine Scrn NEGATIVE (NEGATIVE) Ur Amphetamine Screen NEGATIVE (NEGATIVE) U Methamphetamines Scrn NEGATIVE (NEGATIVE) U Benzodiazepines Scrn NEGATIVE (NEGATIVE) U Cocaine Metab Screen NEGATIVE (NEGATIVE) U Marijuana (THC) Screen NEGATIVE (NEGATIVE) Ethyl Alcohol mg/dL Influenza Type A RNA (NEGATIVE) Influenza Type B RNA (NEGATIVE) SARS-CoV-2 RNA ([place]) (NEGATIVE) 10/04/20 Range/Units 17:45 WBC (4.0-11.0) K/uL RBC (4.50-5.90) M/uL Hgb (13.0-17.0) g/dL Hct (38.0-50.0) % MCV (80.0-98.0) fL MCH (27.0-32.0) pg MCHC (31.0-37.0) g/dL RDW Std Deviation (28.0-62.0) fl RDW Coeff of [place] (11.0-15.0) % Plt Count (150-400) K/uL MPV (7.40-12.00) fL Neut % (Auto) (48.0-80.0) % Lymph % (Auto) (16.0-40.0) % [place] % (Auto) (0.0-15.0) % Eos % (Auto) (0.0-7.0) % Baso % (Auto) (0.0-1.5) % Neut # (Auto) (1.4-5.7) K/uL Lymph # (Auto) (0.6-2.4) K/uL [place] # (Auto) (0.0-0.8) K/uL Eos # (Auto) (0.0-0.7) K/uL Baso # (Auto) (0.0-0.1) K/uL Nucleated RBC % /100WBC Nucleated RBCs # K/uL INR APTT (18.6-31.3) SEC Sodium (136-148) mmol/L Potassium (3.5-5.1) mmol/L Chloride (98-107) mmol/L Carbon Dioxide (21.0-32.0) mmol/L BUN (7.0-18.0) mg/dL Creatinine (0.8-1.3) mg/dL Est Cr Clr Drug Dosing mL/min Estimated GFR (MDRD) ml/min Glucose (74-106) mg/dL POC Glucose (60-110) mg/dL Hemoglobin A1c (4.5 - 6.2) % Calcium (8.5-10.1) mg/dL Total Bilirubin (0.2-1.0) mg/dL AST (15-37) IU/L ALT (14-63) IU/L Alkaline Phosphatase (46-116) U/L Troponin I (0.000-0.056) ng/mL Total Protein (6.4-8.2) g/dL Albumin (3.4-5.0) g/dL Globulin (2.6-4.0) g/dL Albumin/Globulin Ratio (0.9-1.6) Triglycerides (0-200) mg/dL Cholesterol (50-200) mg/dL LDL Cholesterol, Calc (60-180) mg/dL VLDL Cholesterol (5-55) mg/dL HDL Cholesterol (40-60) mg/dL Cholesterol/HDL Ratio (3.3-6.0) Vitamin B12 (193-986) pg/mL Folate (8.60-58.90) ng/mL TSH 3rd Generation (0.36-3.74) uIU/mL Urine Color Urine Appearance Urine pH (5.0-8.0) Ur Specific [place] (1.001-1.035) Urine Protein (NEGATIVE) mg/dL Urine Glucose (UA) (NEGATIVE) mg/dL Urine Ketones (NEGATIVE) mg/dL Urine Occult Blood (NEGATIVE) Urine Nitrite (NEGATIVE) Urine Bilirubin (NEGATIVE) Urine Urobilinogen (<2.0) EU/dL Ur Leukocyte Esterase (NEGATIVE) Urine Opiates Screen (NEGATIVE) Ur Oxycodone Screen (NEGATIVE) Urine Methadone Screen (NEGATIVE) Ur Barbiturates Screen (NEGATIVE) Ur Phencyclidine Scrn (NEGATIVE) Ur Amphetamine Screen (NEGATIVE) U Methamphetamines Scrn (NEGATIVE) U Benzodiazepines Scrn (NEGATIVE) U Cocaine Metab Screen (NEGATIVE) U Marijuana (THC) Screen (NEGATIVE) Ethyl Alcohol mg/dL Influenza Type A RNA NEGATIVE (NEGATIVE) Influenza Type B RNA NEGATIVE (NEGATIVE) SARS-CoV-2 RNA ([place]) NEGATIVE (NEGATIVE) Result Diagrams: 10/04/20 14:57 10/04/20 14:57 Sepsis Event Note - Focused Exam Vital Signs: Vital Signs Temp Pulse Resp BP Pulse Ox 10/04/20 20:26 123/83 10/04/20 20:24 36.4 C 98 18 134/97 H 100 10/04/20 19:32 36.6 C 99 16 108/80 98 10/04/20 17:33 98 16 116/85 100 10/04/20 17:18 97 16 124/85 100 10/04/20 16:48 98 16 121/82 100 10/04/20 16:03 90 16 128/86 100 10/04/20 15:48 92 16 104/70 100 10/04/20 15:33 90 16 123/80 100 10/04/20 15:21 98 16 118/89 100 10/04/20 15:03 88 16 116/80 99 10/04/20 14:28 36.5 C 115 H 18 158/105 H 97 Orders Last 24hrs: Active Orders 24 hr Category Date Time Status Admission Status [Patient Status] [ADT] Stat ADT 10/04/20 18:01 Active Antiembolic Devices [RC] PER UNIT ROUTINE Care 10/04/20 18:55 Active Assess Neurological Status [RC] ASDIRECTED Care 10/04/20 14:53 Active Blood Glucose Check, Bedside [RC] ONETIME Care 10/04/20 14:53 Active Cardiac Monitoring [RC] . DIRECTED Care 10/04/20 14:53 Active EKG Documentation Completion [RC] STAT Care 10/04/20 14:53 Active Height and Weight [RC] UPON Care 10/04/20 14:53 Active Initiate Acute Stroke Protocol [RC] STAT Care 10/04/20 14:53 Active NIH Stroke Scale [RC] ASDIRECTED Care 10/04/20 14:53 Active Nursing Bedside Swallow Screen [RC] ASDIRECTED Care 10/04/20 14:53 Active Oxygen Therapy [RC] PRN Care 10/04/20 18:47 Active Telemetry Monitoring [Cardiac Monitoring] [RC] . Care 10/04/20 19:55 Active DIRECTED Up With Assistance [RC] ASDIRECTED Care 10/04/20 18:47 Active VTE/DVT Education [RC] PER UNIT ROUTINE Care 10/04/20 18:47 Active Vital Signs [RC] Q4H Care 10/04/20 18:47 Active Consult to Speech Language Pathology [[employer] Evaluation Cons 10/04/20 19:49 Active and Treatment] [CONS] Routine Nothing per Oral Now Diet [DIET] Diet 10/04/20 Breakfast Active Brain w wo Cont [MR] Urgent Exams 10/04/20 18:50 Ordered Cervical Spine Comp wo Cont [MR] Urgent Exams 10/04/20 19:45 Ordered Echo 2D wo Cont [US] Urgent Exams 10/04/20 19:51 Ordered BMP [BASIC METABOLIC PANEL,BMP] [CHEM] AM Lab 10/05/20 05:11 Ordered BMP [BASIC METABOLIC PANEL,BMP] [CHEM] AM Lab 10/06/20 05:11 Ordered BMP [BASIC METABOLIC PANEL,BMP] [CHEM] AM Lab 10/07/20 05:11 Ordered CBC WITH AUTO DIFF [HEME] AM Lab 10/05/20 05:11 Ordered CBC WITH AUTO DIFF [HEME] AM Lab 10/06/20 05:11 Ordered CBC WITH AUTO DIFF [HEME] AM Lab 10/07/20 05:11 Ordered Diphenhyd/Lidocaine/Nystatin [Magic Mouthwash] Med 10/05/20 00:00 Active See Dose Instructions PO QID Ondansetron [Zofran ODT] Med 10/04/20 18:47 Active 4 mg PO Q4H PRN Pantoprazole [ProTONIX IV] 40 mg Med 10/04/20 20:00 Active Sodium Chloride 0.9% [Normal Saline] 10 ml IV Q24H Sodium Chloride 0.9% [Normal Saline] Med 10/04/20 14:53 Active 10 ml IV ASDIRECTED PRN Sodium Chloride 0.9% [Normal Saline] 1,000 ml Med 10/04/20 19:00 Active IV CONTINUOUS Sodium Chloride 0.9% [Saline Flush] Med 10/04/20 14:53 Active 10 ml FLUSH ASDIRECTED PRN Sodium Chloride 0.9% [Saline Flush] Med 10/04/20 14:53 Active 2.5 ml FLUSH ASDIRECTED PRN atorvaSTATin [Lipitor] Med 10/04/20 21:00 Active 40 mg PO BEDTIME Peripheral IV Insertion Adult [OM.PC] Stat Ot 10/04/20 14:53 Ordered Peripheral IV Insertion Adult [OM.PC] Stat Ot 10/04/20 14:53 Ordered Sequential Compression Device [OM.PC] Routine Oth 10/04/20 18:55 Ordered Resuscitation Status Routine Resus Stat 10/04/20 18:47 Ordered Medication Orders Atorvastatin Calcium (Lipitor) 40 mg PO BEDTIME MELONY Last Admin: 10/04/20 22:45 Dose: 40 mg Documented by: YOEL Diphenhydramine/Nystatin/Lidocaine (Magic Mouthwash) 0 ml PO QID [facility] Sodium Chloride (Normal Saline) 1,000 mls @ 100 mls/hr IV CONTINUOUS MELONY Last Admin: 10/04/20 21:44 Dose: 100 mls/hr Documented by: YOEL Pantoprazole Sodium 40 mg/ (Sodium Chloride) 10 mls @ 300 mls/hr IV Q24H MELONY Last Admin: 10/04/20 21:43 Dose: 300 mls/hr Documented by: YOEL Ondansetron HCl (Zofran Odt) 4 mg PO Q4H PRN PRN Reason: nausea, able to take PO Sodium Chloride (Saline Flush) 10 ml FLUSH ASDIRECTED PRN PRN Reason: Keep Vein Open Last Admin: 10/04/20 15:26 Dose: 10 ml Documented by: JAVON Sodium Chloride (Saline Flush) 2.5 ml FLUSH ASDIRECTED PRN PRN Reason: Keep Vein Open Last Admin: 10/04/20 15:26 Dose: 2.5 ml Documented by: JAVON Sodium Chloride (Normal Saline) 10 ml IV ASDIRECTED PRN PRN Reason: IV Use
[2020-10-04 20:06] LABS: HEMOGLOBIN A1C 5.5 %
[2020-10-04] MEDS: Pantoprazole 40 MG in Sodium Chloride 0.9% 10 ML IV SCH (21:43)
[2020-10-04] MEDS: Sodium Chloride 0.9% 1,000 ML IV SCH (21:44)
[2020-10-04] MEDS: atorvaSTATin 40 MG Tab PO SCH (22:45)
[2020-10-05] MEDS: Diphenhydramine/Lidocaine/Nystatin Suspension 237 ML Bottle PO SCH ×6 (00:38→20:52)
[2020-10-05 06:15] LABS: BLOOD UREA NITROGEN,BUN 11 mg/dL (7.0-18.0); CARBON DIOXIDE,CO2 23.5 mmol/L (21.0-32.0); CHLORIDE,CL 108 mmol/L (98-107); GLUCOSE RANDOM 81 mg/dL (74-106); POTASSIUM,K 4.3 mmol/L (3.5-5.1); SODIUM,NA 142 mmol/L (136-148)
[2020-10-05] MEDS ORDERED: Gadobenate Dimeglumine 529 MG/ML 20 ML SDV IVPUSH STA (09:47)
[2020-10-05] MEDS: Sodium Chloride 0.9% 1,000 ML IV SCH ×2 (11:21→20:54)
--- NOTE | 2020-10-05 11:28 | MR ---
INDICATION: Weakness. Changes in speech. TECHNIQUE: Multiplanar multisequence MR imaging was acquired through the brain prior to and following intravenous contrast. COMPARISON: CT brain 10/04/2020. FINDINGS Artifact degrades multiple sequences, notably the post-contrast and susceptibility weighted acquisition. Prominence of the ventricles and sulci compatible with mild diffuse cerebral volume loss. No mass effect or midline shift. Patchy T2 FLAIR hyperintensity in the shala, typical for sequelae of mild chronic microvascular ischemic changes. Chronic lacunar infarctions in the shala and cerebellar hemispheres. No recent intracranial hemorrhage or pathologic extra-axial fluid collection. No diffusion restriction the suggest acute infarction. No pathologic intracranial enhancement within exam limitations. Circumscribed T2 hyperintense lesions within the subcutaneous tissues of the malar eminences measuring 15 mm on the right and 11 mm on the left, likely representing sebaceous cysts. The major arterial flow voids of the skullbase are preserved the globes symmetric. The paranasal sinuses are well aerated. Minimal lasted fluid bilaterally. IMPRESSION: 1. Motion artifact degrades multiple sequences. 2. No acute intracranial abnormality. 3. Chronic lacunar infarctions in the shala and cerebellar hemispheres. 4. Mild chronic microvascular ischemic changes in the shala. Dictated by Bruno Evans MD @ Oct 05 2020 11:18AM Signed by Dr. Bruno Evans @ Oct 05 2020 11:27AM
--- NOTE | 2020-10-05 11:39 | MR ---
INDICATION: Worsening foraminal stenosis. TECHNIQUE: Multiplanar multisequence noncontrast MR images were acquired through the cervical spine. COMPARISON: CT cervical spine 05/04/2020. FINDINGS: Motion artifact degrades multiple sequences. Straightening of the cervical lordosis. Vertebral heights maintained. No acute fracture. No concerning bone marrow signal abnormalities. No cord signal abnormalities are identified within exam limitations. C2-3: The annular bulge. [id number] right and mild left facet arthropathy. No spinal canal or neural foraminal narrowing. C3-4: Grade 1 anterolisthesis, not significantly changed. Moderate right and advanced left facet arthropathy. Left greater than right uncovertebral joint spurring. No spinal canal narrowing. Severe left and mild right neural foraminal narrowing. C4-5: Shallow posterior disc bulge. Mild bilateral facet arthropathy. Minimal spinal canal narrowing. No neural foraminal narrowing. C5-6: Moderately advanced disc height loss. Broad-based posterior disc osteophyte complex mildly indents the cord. Right greater than left uncovertebral joint spurring. Mild bilateral facet arthropathy. Mild spinal canal narrowing. Moderately severe right without left neural foraminal narrowing. C6-7: Posterior disc bulge with superimposed endplate osteophytes. Left greater than right uncovertebral joint spurring. Thickening ligamentum flavum for moderate spinal canal narrowing. Moderate left and mild right neural foraminal narrowing. C7-T1: Moderate right and mild left facet arthropathy. No spinal canal or neural foraminal narrowing. T1-2: No spinal canal or neural foraminal narrowing. IMPRESSION: 1. Motion artifact degrades multiple sequences. 2. At C3-4, severe left neural foraminal stenosis with likely impingement of the left C4 nerve root. Grade 1 anterolisthesis is not significantly changed. 3. At C5-6, moderately severe right neural foraminal stenosis with potential impingement of the right C6 nerve root. 4. At C6-7, moderate left neural foraminal narrowing with left C7 nerve root encroachment/impingement. Moderate spinal canal narrowing. Dictated by Bruno Evans MD @ Oct 05 2020 11:27AM Signed by Dr. Bruno Evans @ Oct 05 2020 11:37AM
[2020-10-05] MEDS: Acetaminophen 500 MG Tab PO PRN (12:24)
--- NOTE | 2020-10-05 12:45 | PCM.PN ---
<Jaime Borrero - Last Filed: 10/05/20 14:26> - General Info Date of Service: 10/05/20 Subjective Update: Bedside: no interval changes from last night; pt did pass AM swallow study and tolerated clear liquid diet w.o issues. - Review of Systems General: Reports: No Symptoms HEENT: Reports: Other (throat discomfort unchanged from night of admission ) Pulmonary: Reports: No Symptoms Cardiovascular: Reports: No Symptoms Gastrointestinal: Reports: No Symptoms Genitourinary: Reports: No Symptoms Musculoskeletal: Reports: Arm Pain Skin: Reports: No Symptoms Neurological: Reports: Pre-Existing Deficit, Syncope, Trouble Speaking, Change in Speech. Denies: Headache Psychiatric: Reports: No Symptoms - Patient Data Vitals - Most Recent: Last Vital Signs Temp 97.9 F 10/05/20 11:22 Pulse 92 10/05/20 11:22 Resp 16 10/05/20 11:22 BP 161/73 H 10/05/20 11:22 Pulse Ox 96 10/05/20 11:22 Weight - Most Recent: 69.944 kg I&O - Last 24 Hours: Intake & Output 10/04/20 10/05/20 10/05/20 22:59 06:59 14:59 Intake Total 0 Output Total 200 Balance -200 Lab Results Last 24 Hours: Laboratory Results - last 24 hr 10/04/20 10/04/20 10/04/20 Range/Units 14:57 14:57 14:57 WBC 10.85 (4.0-11.0) K/uL RBC 4.17 L (4.50-5.90) M/uL Hgb 15.5 (13.0-17.0) g/dL Hct 45.3 (38.0-50.0) % MCV 108.6 H (80.0-98.0) fL MCH 37.2 H (27.0-32.0) pg MCHC 34.2 (31.0-37.0) g/dL RDW Std Deviation 52.3 (28.0-62.0) fl RDW Coeff of Gildardo 13 (11.0-15.0) % Plt Count 227 (150-400) K/uL MPV 9.90 (7.40-12.00) fL Neut % (Auto) 80.2 H (48.0-80.0) % Lymph % (Auto) 12.0 L (16.0-40.0) % [place] % (Auto) 6.6 (0.0-15.0) % Eos % (Auto) 1.0 (0.0-7.0) % Baso % (Auto) 0.2 (0.0-1.5) % Neut # (Auto) 8.7 H (1.4-5.7) K/uL Lymph # (Auto) 1.3 (0.6-2.4) K/uL [place] # (Auto) 0.7 (0.0-0.8) K/uL Eos # (Auto) 0.1 (0.0-0.7) K/uL Baso # (Auto) 0.0 (0.0-0.1) K/uL Nucleated RBC % 0.0 /100WBC Nucleated RBCs # 0 K/uL INR 0.94 APTT 21.2 (18.6-31.3) SEC Sodium 137 (136-148) mmol/L Potassium 3.9 (3.5-5.1) mmol/L Chloride 102 (98-107) mmol/L Carbon Dioxide 20.1 L (21.0-32.0) mmol/L BUN 13 (7.0-18.0) mg/dL Creatinine 1.0 (0.8-1.3) mg/dL Est Cr Clr Drug Dosing 75.33 mL/min Estimated GFR (MDRD) > 60.0 ml/min Glucose 106 (74-106) mg/dL POC Glucose (60-110) mg/dL Hemoglobin A1c (4.5 - 6.2) % Calcium 9.7 (8.5-10.1) mg/dL Magnesium (1.8-2.4) mg/dL Total Bilirubin 0.5 (0.2-1.0) mg/dL AST 22 (15-37) IU/L ALT 36 (14-63) IU/L Alkaline Phosphatase 68 (46-116) U/L Troponin I < 0.050 (0.000-0.056) ng/mL Total Protein 8.6 H (6.4-8.2) g/dL Albumin 4.6 (3.4-5.0) g/dL Globulin 4.0 (2.6-4.0) g/dL Albumin/Globulin Ratio 1.1 (0.9-1.6) Triglycerides (0-200) mg/dL Cholesterol (50-200) mg/dL LDL Cholesterol, Calc (60-180) mg/dL VLDL Cholesterol (5-55) mg/dL HDL Cholesterol (40-60) mg/dL Cholesterol/HDL Ratio (3.3-6.0) Vitamin B12 (193-986) pg/mL Folate (8.60-58.90) ng/mL TSH 3rd Generation 1.14 (0.36-3.74) uIU/mL Urine Color Urine Appearance Urine pH (5.0-8.0) Ur Specific [place] (1.001-1.035) Urine Protein (NEGATIVE) mg/dL Urine Glucose (UA) (NEGATIVE) mg/dL Urine Ketones (NEGATIVE) mg/dL Urine Occult Blood (NEGATIVE) Urine Nitrite (NEGATIVE) Urine Bilirubin (NEGATIVE) Urine Urobilinogen (<2.0) EU/dL Ur Leukocyte Esterase (NEGATIVE) Urine Opiates Screen (NEGATIVE) Ur Oxycodone Screen (NEGATIVE) Urine Methadone Screen (NEGATIVE) Ur Barbiturates Screen (NEGATIVE) Ur Phencyclidine Scrn (NEGATIVE) Ur Amphetamine Screen (NEGATIVE) U Methamphetamines Scrn (NEGATIVE) U Benzodiazepines Scrn (NEGATIVE) U Cocaine Metab Screen (NEGATIVE) U Marijuana (THC) Screen (NEGATIVE) Ethyl Alcohol < 3.0 mg/dL Influenza Type A RNA (NEGATIVE) Influenza Type B RNA (NEGATIVE) SARS-CoV-2 RNA ([place]) (NEGATIVE) 10/04/20 10/04/20 10/04/20 Range/Units 14:57 14:57 14:57 WBC (4.0-11.0) K/uL RBC (4.50-5.90) M/uL Hgb (13.0-17.0) g/dL Hct (38.0-50.0) % MCV (80.0-98.0) fL MCH (27.0-32.0) pg MCHC (31.0-37.0) g/dL RDW Std Deviation (28.0-62.0) fl RDW Coeff of Gildardo (11.0-15.0) % Plt Count (150-400) K/uL MPV (7.40-12.00) fL Neut % (Auto) (48.0-80.0) % Lymph % (Auto) (16.0-40.0) % [place] % (Auto) (0.0-15.0) % Eos % (Auto) (0.0-7.0) % Baso % (Auto) (0.0-1.5) % Neut # (Auto) (1.4-5.7) K/uL Lymph # (Auto) (0.6-2.4) K/uL [place] # (Auto) (0.0-0.8) K/uL Eos # (Auto) (0.0-0.7) K/uL Baso # (Auto) (0.0-0.1) K/uL Nucleated RBC % /100WBC Nucleated RBCs # K/uL INR APTT (18.6-31.3) SEC Sodium (136-148) mmol/L Potassium (3.5-5.1) mmol/L Chloride (98-107) mmol/L Carbon Dioxide (21.0-32.0) mmol/L BUN (7.0-18.0) mg/dL Creatinine (0.8-1.3) mg/dL Est Cr Clr Drug Dosing mL/min Estimated GFR (MDRD) ml/min Glucose (74-106) mg/dL POC Glucose 106 (60-110) mg/dL Hemoglobin A1c 5.5 (4.5 - 6.2) % Calcium (8.5-10.1) mg/dL Magnesium (1.8-2.4) mg/dL Total Bilirubin (0.2-1.0) mg/dL AST (15-37) IU/L ALT (14-63) IU/L Alkaline Phosphatase (46-116) U/L Troponin I (0.000-0.056) ng/mL Total Protein (6.4-8.2) g/dL Albumin (3.4-5.0) g/dL Globulin (2.6-4.0) g/dL Albumin/Globulin Ratio (0.9-1.6) Triglycerides (0-200) mg/dL Cholesterol (50-200) mg/dL LDL Cholesterol, Calc (60-180) mg/dL VLDL Cholesterol (5-55) mg/dL HDL Cholesterol (40-60) mg/dL Cholesterol/HDL Ratio (3.3-6.0) Vitamin B12 837 (193-986) pg/mL Folate 32.10 (8.60-58.90) ng/mL TSH 3rd Generation (0.36-3.74) uIU/mL Urine Color Urine Appearance Urine pH (5.0-8.0) Ur Specific [place] (1.001-1.035) Urine Protein (NEGATIVE) mg/dL Urine Glucose (UA) (NEGATIVE) mg/dL Urine Ketones (NEGATIVE) mg/dL Urine Occult Blood (NEGATIVE) Urine Nitrite (NEGATIVE) Urine Bilirubin (NEGATIVE) Urine Urobilinogen (<2.0) EU/dL Ur Leukocyte Esterase (NEGATIVE) Urine Opiates Screen (NEGATIVE) Ur Oxycodone Screen (NEGATIVE) Urine Methadone Screen (NEGATIVE) Ur Barbiturates Screen (NEGATIVE) Ur Phencyclidine Scrn (NEGATIVE) Ur Amphetamine Screen (NEGATIVE) U Methamphetamines Scrn (NEGATIVE) U Benzodiazepines Scrn (NEGATIVE) U Cocaine Metab Screen (NEGATIVE) U Marijuana (THC) Screen (NEGATIVE) Ethyl Alcohol mg/dL Influenza Type A RNA (NEGATIVE) Influenza Type B RNA (NEGATIVE) SARS-CoV-2 RNA ([place]) (NEGATIVE) 10/04/20 10/04/20 10/04/20 Range/Units 14:57 14:57 16:10 WBC (4.0-11.0) K/uL RBC (4.50-5.90) M/uL Hgb (13.0-17.0) g/dL Hct (38.0-50.0) % MCV (80.0-98.0) fL MCH (27.0-32.0) pg MCHC (31.0-37.0) g/dL RDW Std Deviation (28.0-62.0) fl RDW Coeff of Gildardo (11.0-15.0) % Plt Count (150-400) K/uL MPV (7.40-12.00) fL Neut % (Auto) (48.0-80.0) % Lymph % (Auto) (16.0-40.0) % [place] % (Auto) (0.0-15.0) % Eos % (Auto) (0.0-7.0) % Baso % (Auto) (0.0-1.5) % Neut # (Auto) (1.4-5.7) K/uL Lymph # (Auto) (0.6-2.4) K/uL [place] # (Auto) (0.0-0.8) K/uL Eos # (Auto) (0.0-0.7) K/uL Baso # (Auto) (0.0-0.1) K/uL Nucleated RBC % /100WBC Nucleated RBCs # K/uL INR APTT (18.6-31.3) SEC Sodium (136-148) mmol/L Potassium (3.5-5.1) mmol/L Chloride (98-107) mmol/L Carbon Dioxide (21.0-32.0) mmol/L BUN (7.0-18.0) mg/dL Creatinine (0.8-1.3) mg/dL Est Cr Clr Drug Dosing mL/min Estimated GFR (MDRD) ml/min Glucose (74-106) mg/dL POC Glucose (60-110) mg/dL Hemoglobin A1c (4.5 - 6.2) % Calcium (8.5-10.1) mg/dL Magnesium 2.3 (1.8-2.4) mg/dL Total Bilirubin (0.2-1.0) mg/dL AST (15-37) IU/L ALT (14-63) IU/L Alkaline Phosphatase (46-116) U/L Troponin I (0.000-0.056) ng/mL Total Protein (6.4-8.2) g/dL Albumin (3.4-5.0) g/dL Globulin (2.6-4.0) g/dL Albumin/Globulin Ratio (0.9-1.6) Triglycerides 93 (0-200) mg/dL Cholesterol 190 (50-200) mg/dL LDL Cholesterol, Calc 121 (60-180) mg/dL VLDL Cholesterol 18 (5-55) mg/dL HDL Cholesterol 50 (40-60) mg/dL Cholesterol/HDL Ratio 3.8 (3.3-6.0) Vitamin B12 (193-986) pg/mL Folate (8.60-58.90) ng/mL TSH 3rd Generation (0.36-3.74) uIU/mL Urine Color YELLOW Urine Appearance CLEAR Urine pH 6.5 (5.0-8.0) Ur Specific [place] 1.010 (1.001-1.035) Urine Protein NEGATIVE (NEGATIVE) mg/dL Urine Glucose (UA) NEGATIVE (NEGATIVE) mg/dL Urine Ketones TRACE H (NEGATIVE) mg/dL Urine Occult Blood NEGATIVE (NEGATIVE) Urine Nitrite NEGATIVE (NEGATIVE) Urine Bilirubin NEGATIVE (NEGATIVE) Urine Urobilinogen 0.2 (<2.0) EU/dL Ur Leukocyte Esterase NEGATIVE (NEGATIVE) Urine Opiates Screen (NEGATIVE) Ur Oxycodone Screen (NEGATIVE) Urine Methadone Screen (NEGATIVE) Ur Barbiturates Screen (NEGATIVE) Ur Phencyclidine Scrn (NEGATIVE) Ur Amphetamine Screen (NEGATIVE) U Methamphetamines Scrn (NEGATIVE) U Benzodiazepines Scrn (NEGATIVE) U Cocaine Metab Screen (NEGATIVE) U Marijuana (THC) Screen (NEGATIVE) Ethyl Alcohol mg/dL Influenza Type A RNA (NEGATIVE) Influenza Type B RNA (NEGATIVE) SARS-CoV-2 RNA ([place]) (NEGATIVE) 10/04/20 10/04/20 10/05/20 Range/Units 16:10 17:45 05:39 WBC 8.01 (4.0-11.0) K/uL RBC 3.73 L (4.50-5.90) M/uL Hgb 13.4 (13.0-17.0) g/dL Hct 41.1 (38.0-50.0) % MCV 110.2 H (80.0-98.0) fL MCH 35.9 H (27.0-32.0) pg MCHC 32.6 (31.0-37.0) g/dL RDW Std Deviation 53.4 (28.0-62.0) fl RDW Coeff of Gildardo 13 (11.0-15.0) % Plt Count 206 (150-400) K/uL MPV 9.90 (7.40-12.00) fL Neut % (Auto) 63.2 (48.0-80.0) % Lymph % (Auto) 21.2 (16.0-40.0) % [place] % (Auto) 12.5 (0.0-15.0) % Eos % (Auto) 2.9 (0.0-7.0) % Baso % (Auto) 0.2 (0.0-1.5) % Neut # (Auto) 5.1 (1.4-5.7) K/uL Lymph # (Auto) 1.7 (0.6-2.4) K/uL [place] # (Auto) 1.0 H (0.0-0.8) K/uL Eos # (Auto) 0.2 (0.0-0.7) K/uL Baso # (Auto) 0.0 (0.0-0.1) K/uL Nucleated RBC % 0.0 /100WBC Nucleated RBCs # 0 K/uL INR APTT (18.6-31.3) SEC Sodium (136-148) mmol/L Potassium (3.5-5.1) mmol/L Chloride (98-107) mmol/L Carbon Dioxide (21.0-32.0) mmol/L BUN (7.0-18.0) mg/dL Creatinine (0.8-1.3) mg/dL Est Cr Clr Drug Dosing mL/min Estimated GFR (MDRD) ml/min Glucose (74-106) mg/dL POC Glucose (60-110) mg/dL Hemoglobin A1c (4.5 - 6.2) % Calcium (8.5-10.1) mg/dL Magnesium (1.8-2.4) mg/dL Total Bilirubin (0.2-1.0) mg/dL AST (15-37) IU/L ALT (14-63) IU/L Alkaline Phosphatase (46-116) U/L Troponin I (0.000-0.056) ng/mL Total Protein (6.4-8.2) g/dL Albumin (3.4-5.0) g/dL Globulin (2.6-4.0) g/dL Albumin/Globulin Ratio (0.9-1.6) Triglycerides (0-200) mg/dL Cholesterol (50-200) mg/dL LDL Cholesterol, Calc (60-180) mg/dL VLDL Cholesterol (5-55) mg/dL HDL Cholesterol (40-60) mg/dL Cholesterol/HDL Ratio (3.3-6.0) Vitamin B12 (193-986) pg/mL Folate (8.60-58.90) ng/mL TSH 3rd Generation (0.36-3.74) uIU/mL Urine Color Urine Appearance Urine pH (5.0-8.0) Ur Specific [place] (1.001-1.035) Urine Protein (NEGATIVE) mg/dL Urine Glucose (UA) (NEGATIVE) mg/dL Urine Ketones (NEGATIVE) mg/dL Urine Occult Blood (NEGATIVE) Urine Nitrite (NEGATIVE) Urine Bilirubin (NEGATIVE) Urine Urobilinogen (<2.0) EU/dL Ur Leukocyte Esterase (NEGATIVE) Urine Opiates Screen NEGATIVE (NEGATIVE) Ur Oxycodone Screen NEGATIVE (NEGATIVE) Urine Methadone Screen NEGATIVE (NEGATIVE) Ur Barbiturates Screen NEGATIVE (NEGATIVE) Ur Phencyclidine Scrn NEGATIVE (NEGATIVE) Ur Amphetamine Screen NEGATIVE (NEGATIVE) U Methamphetamines Scrn NEGATIVE (NEGATIVE) U Benzodiazepines Scrn NEGATIVE (NEGATIVE) U Cocaine Metab Screen NEGATIVE (NEGATIVE) U Marijuana (THC) Screen NEGATIVE (NEGATIVE) Ethyl Alcohol mg/dL Influenza Type A RNA NEGATIVE (NEGATIVE) Influenza Type B RNA NEGATIVE (NEGATIVE) SARS-CoV-2 RNA ([place]) NEGATIVE (NEGATIVE) 10/05/20 Range/Units 05:39 WBC (4.0-11.0) K/uL RBC (4.50-5.90) M/uL Hgb (13.0-17.0) g/dL Hct (38.0-50.0) % MCV (80.0-98.0) fL MCH (27.0-32.0) pg MCHC (31.0-37.0) g/dL RDW Std Deviation (28.0-62.0) fl RDW Coeff of Gildardo (11.0-15.0) % Plt Count (150-400) K/uL MPV (7.40-12.00) fL Neut % (Auto) (48.0-80.0) % Lymph % (Auto) (16.0-40.0) % [place] % (Auto) (0.0-15.0) % Eos % (Auto) (0.0-7.0) % Baso % (Auto) (0.0-1.5) % Neut # (Auto) (1.4-5.7) K/uL Lymph # (Auto) (0.6-2.4) K/uL [place] # (Auto) (0.0-0.8) K/uL Eos # (Auto) (0.0-0.7) K/uL Baso # (Auto) (0.0-0.1) K/uL Nucleated RBC % /100WBC Nucleated RBCs # K/uL INR APTT (18.6-31.3) SEC Sodium 142 (136-148) mmol/L Potassium 4.3 (3.5-5.1) mmol/L Chloride 108 H (98-107) mmol/L Carbon Dioxide 23.5 (21.0-32.0) mmol/L BUN 11 (7.0-18.0) mg/dL Creatinine 1.0 (0.8-1.3) mg/dL Est Cr Clr Drug Dosing 75.05 mL/min Estimated GFR (MDRD) > 60.0 ml/min Glucose 81 (74-106) mg/dL POC Glucose (60-110) mg/dL Hemoglobin A1c (4.5 - 6.2) % Calcium 8.9 (8.5-10.1) mg/dL Magnesium (1.8-2.4) mg/dL Total Bilirubin (0.2-1.0) mg/dL AST (15-37) IU/L ALT (14-63) IU/L Alkaline Phosphatase (46-116) U/L Troponin I (0.000-0.056) ng/mL Total Protein (6.4-8.2) g/dL Albumin (3.4-5.0) g/dL Globulin (2.6-4.0) g/dL Albumin/Globulin Ratio (0.9-1.6) Triglycerides (0-200) mg/dL Cholesterol (50-200) mg/dL LDL Cholesterol, Calc (60-180) mg/dL VLDL Cholesterol (5-55) mg/dL HDL Cholesterol (40-60) mg/dL Cholesterol/HDL Ratio (3.3-6.0) Vitamin B12 (193-986) pg/mL Folate (8.60-58.90) ng/mL TSH 3rd Generation (0.36-3.74) uIU/mL Urine Color Urine Appearance Urine pH (5.0-8.0) Ur Specific [place] (1.001-1.035) Urine Protein (NEGATIVE) mg/dL Urine Glucose (UA) (NEGATIVE) mg/dL Urine Ketones (NEGATIVE) mg/dL Urine Occult Blood (NEGATIVE) Urine Nitrite (NEGATIVE) Urine Bilirubin (NEGATIVE) Urine Urobilinogen (<2.0) EU/dL Ur Leukocyte Esterase (NEGATIVE) Urine Opiates Screen (NEGATIVE) Ur Oxycodone Screen (NEGATIVE) Urine Methadone Screen (NEGATIVE) Ur Barbiturates Screen (NEGATIVE) Ur Phencyclidine Scrn (NEGATIVE) Ur Amphetamine Screen (NEGATIVE) U Methamphetamines Scrn (NEGATIVE) U Benzodiazepines Scrn (NEGATIVE) U Cocaine Metab Screen (NEGATIVE) U Marijuana (THC) Screen (NEGATIVE) Ethyl Alcohol mg/dL Influenza Type A RNA (NEGATIVE) Influenza Type B RNA (NEGATIVE) SARS-CoV-2 RNA ([place]) (NEGATIVE) Med Orders - Current: Current Medications Acetaminophen (Tylenol Extra Strength) 500 mg PO Q4H PRN PRN Reason: Pain Last Admin: 10/05/20 12:24 Dose: 500 mg Documented by: Atorvastatin Calcium (Lipitor) 40 mg PO BEDTIME MELONY Last Admin: 10/04/20 22:45 Dose: 40 mg Documented by: Diphenhydramine/Nystatin/Lidocaine (Magic Mouthwash) 5 ml PO QIDACANDBED MELONY Last Admin: 10/05/20 11:21 Dose: 5 ml Documented by: Sodium Chloride (Normal Saline) 1,000 mls @ 100 mls/hr IV CONTINUOUS MELONY Last Admin: 10/05/20 11:21 Dose: 100 mls/hr Documented by: Pantoprazole Sodium 40 mg/ (Sodium Chloride) 10 mls @ 300 mls/hr IV Q24H MELONY Last Admin: 10/04/20 21:43 Dose: 300 mls/hr Documented by: Ondansetron HCl (Zofran Odt) 4 mg PO Q4H PRN PRN Reason: nausea, able to take PO Sodium Chloride (Saline Flush) 10 ml FLUSH ASDIRECTED PRN PRN Reason: Keep Vein Open Last Admin: 10/04/20 15:26 Dose: 10 ml Documented by: Sodium Chloride (Saline Flush) 2.5 ml FLUSH ASDIRECTED PRN PRN Reason: Keep Vein Open Last Admin: 10/04/20 15:26 Dose: 2.5 ml Documented by: Sodium Chloride (Normal Saline) 10 ml IV ASDIRECTED PRN PRN Reason: IV Use Discontinued Medications Diphenhydramine/Nystatin/Lidocaine (Magic Mouthwash) 0 ml PO QID MELONY Last Admin: 10/05/20 06:10 Dose: 15 ml Documented by: Gadobenate Dimeglumine (Multihance) 20 ml IVPUSH ONETIME STA Stop: 02/04/21 09:48 Last Admin: 10/05/20 10:19 Dose: 13 ml Documented by: Sodium Chloride (Normal Saline) 1,000 mls @ 999 mls/hr IV STAT ONE Stop: 10/04/20 15:54 Last Admin: 10/04/20 15:26 Dose: 999 mls/hr Documented by: Iopamidol (Isovue Multipack-370 (76%)) 100 ml IVPUSH ONETIME STA Stop: 10/04/20 16:43 Last Admin: 10/04/20 16:44 Dose: 100 ml Documented by: - Exam Quality Assessment: No: Supplemental Oxygen General: Alert, Oriented, No Acute Distress HEENT: EOMI, Mucous Membr. Moist/[place], Other (poor dentition ) Neck: Supple Lungs: Clear to Auscultation, Normal Respiratory Effort Cardiovascular: Regular Rate, Regular Rhythm GI/Abdominal Exam: Soft, Non-Tender Neurological: No New Focal Deficit Psy/Mental Status: Alert, Normal Affect Sepsis Event Note - Evaluation Sepsis Screening Result: No Definite Risk - Focused Exam Vital Signs: Vital Signs Temp Pulse Resp BP BP Pulse Ox 10/05/20 11:22 97.9 F 92 16 161/73 H 96 10/05/20 07:33 97.6 F 99 16 160/79 H 97 10/05/20 03:43 98.1 F 80 18 138/70 98 - Problem List & Annotations (1) Stroke-like symptoms SNOMED Code(s): 113510308 Code(s): R29.90 - UNSPECIFIED SYMPTOMS AND SIGNS INVOLVING THE NERVOUS SYSTEM Status: Acute Current Visit: Yes - Problem List Review Problem List Initiated/Reviewed/Updated: Yes - My Orders Last 24 Hours: My Active Orders 10/04/20 18:47 Oxygen Therapy [RC] PRN Up With Assistance [RC] ASDIRECTED VTE/DVT Education [RC] PER UNIT ROUTINE Vital Signs [RC] Q4H Ondansetron [Zofran ODT] 4 mg PO Q4H PRN Resuscitation Status Routine 10/04/20 18:55 Antiembolic Devices [RC] PER UNIT ROUTINE Sequential Compression Device [OM.PC] Routine 10/04/20 19:00 Sodium Chloride 0.9% [Normal Saline] 1,000 ml IV CONTINUOUS 10/04/20 19:49 Consult to Speech Language Pathology [PROVIDER RELATIONS REPRESENTATIVE Evaluation and Treatment] [CONS] Routine 10/04/20 20:00 Pantoprazole [ProTONIX IV] 40 mg Sodium Chloride 0.9% [Normal Saline] 10 ml IV Q24H 10/04/20 21:00 atorvaSTATin [Lipitor] 40 mg PO BEDTIME 10/05/20 11:29 Acetaminophen [Tylenol Extra Strength] 500 mg PO Q4H PRN 10/05/20 11:30 Diphenhyd/Lidocaine/Nystatin [Magic Mouthwash] 5 ml PO QIDACANDBED 10/05/20 Dinner Clear Liquid Diet [DIET] 10/05/20 19:51 Echo Comp wo Cont [US] Urgent 10/06/20 05:11 BMP [BASIC METABOLIC PANEL,BMP] [CHEM] AM CBC WITH AUTO DIFF [HEME] AM 10/07/20 05:11 BMP [BASIC METABOLIC PANEL,BMP] [CHEM] AM CBC WITH AUTO DIFF [HEME] AM - Plan Plan:: Assessment: 1. Dysphagia with concerns for TIA/stroke 2. Right facial pain with poor dentition 3. Past medical history: Developmental delay, COPD, hypertension 4. Chronic macrocytic anemia. 5. Covid negative Plan 1. Dysphagia: passed repeat swallow study in AM; advanced to clear liquids; no acute issues/ Reviewed imaging and previous ED admission for similar complaints; patient does have a history of cervical stenosis with osteophytic bone spurs; at that time patient was recommended to follow-up with neurosurgery with concerns in light of his current symptomatology. Unsure if patient was followed up by neurosurgery as current symptoms could relate to worsening of foraminal stenoses. MRI of cervical spine will be ordered to evaluate for any interval changes since we may have to contact neurosurgery in the a.m. to discuss results and possible recommendations.pt is currently stable and in no acute distress; Patient appears stable and was , in the past, advised to follow up with outpatient neurosurgery for evaluation and possible intervention; pt however did not go secondary to not having transportation at that time (per patient) ; discussed case with Case management stating Sister is willing to take patient to appointment if necessary ; will work on setting up outpatient neurosurgery evaluation prior to discharge. New radiology findings also suggests some ":irregularity noted in pharynx"; in light of his speech changes/dysphagia; pt will also require further endoscopy; Cervical spine MRI: A. C3-C4 severe left neural foraminal stenosis with likely impingement of the left C4 nerve root. Grade 1 anterolisthesis is not significantly changed. B C5-C6 moderately severe right neural foraminal stenosis with potential impingement of the right C6 nerve root C. C6-C7: Moderate left neuroforaminal narrowing with left C7 nerve root encroachment impingement. Moderate spinal canal narrowing narrowing Brain MRI: No acute intracranial abnormality noted. Chronic lacunar infarctions in the shala and the cerebellar hemispheres. Mild chronic microvascular ischemic changes in the shala. . Concerns for TIA versus stroke: Echocardiogram ordered: pending results . Continue atorvastatin 40 We will add on a lipid panel and an A1c. 2.: Right facial pain with tenderness and poor dentition: 3. Chronic macrocytic anemia: Add on folate/B12; will consider supplementation if necessary. <Genet Mckeon - Last Filed: 10/05/20 22:44> - Patient Data Vitals - Most Recent: Last Vital Signs Temp 36.5 C 10/05/20 20:49 Pulse 82 10/05/20 20:49 Resp 18 10/05/20 20:49 BP 119/70 10/05/20 20:49 Pulse Ox 97 10/05/20 20:49 I&O - Last 24 Hours: Intake & Output 10/05/20 10/05/20 10/05/20 06:59 14:59 22:59 Intake Total 0 2528 Output Total 200 Balance -200 2528 Lab Results Last 24 Hours: Laboratory Results - last 24 hr 10/04/20 10/05/20 10/05/20 Range/Units 14:57 05:39 05:39 WBC 8.01 (4.0-11.0) K/uL RBC 3.73 L (4.50-5.90) M/uL Hgb 13.4 (13.0-17.0) g/dL Hct 41.1 (38.0-50.0) % MCV 110.2 H (80.0-98.0) fL MCH 35.9 H (27.0-32.0) pg MCHC 32.6 (31.0-37.0) g/dL RDW Std Deviation 53.4 (28.0-62.0) fl RDW Coeff of Gildardo 13 (11.0-15.0) % Plt Count 206 (150-400) K/uL MPV 9.90 (7.40-12.00) fL Neut % (Auto) 63.2 (48.0-80.0) % Lymph % (Auto) 21.2 (16.0-40.0) % [place] % (Auto) 12.5 (0.0-15.0) % Eos % (Auto) 2.9 (0.0-7.0) % Baso % (Auto) 0.2 (0.0-1.5) % Neut # (Auto) 5.1 (1.4-5.7) K/uL Lymph # (Auto) 1.7 (0.6-2.4) K/uL [place] # (Auto) 1.0 H (0.0-0.8) K/uL Eos # (Auto) 0.2 (0.0-0.7) K/uL Baso # (Auto) 0.0 (0.0-0.1) K/uL Nucleated RBC % 0.0 /100WBC Nucleated RBCs # 0 K/uL Sodium 142 (136-148) mmol/L Potassium 4.3 (3.5-5.1) mmol/L Chloride 108 H (98-107) mmol/L Carbon Dioxide 23.5 (21.0-32.0) mmol/L BUN 11 (7.0-18.0) mg/dL Creatinine 1.0 (0.8-1.3) mg/dL Est Cr Clr Drug Dosing 75.05 mL/min Estimated GFR (MDRD) > 60.0 ml/min Glucose 81 (74-106) mg/dL Calcium 8.9 (8.5-10.1) mg/dL Magnesium 2.3 (1.8-2.4) mg/dL 10/05/20 Range/Units 14:45 WBC (4.0-11.0) K/uL RBC (4.50-5.90) M/uL Hgb (13.0-17.0) g/dL Hct (38.0-50.0) % MCV (80.0-98.0) fL MCH (27.0-32.0) pg MCHC (31.0-37.0) g/dL RDW Std Deviation (28.0-62.0) fl RDW Coeff of Gildardo (11.0-15.0) % Plt Count (150-400) K/uL MPV (7.40-12.00) fL Neut % (Auto) (48.0-80.0) % Lymph % (Auto) (16.0-40.0) % [place] % (Auto) (0.0-15.0) % Eos % (Auto) (0.0-7.0) % Baso % (Auto) (0.0-1.5) % Neut # (Auto) (1.4-5.7) K/uL Lymph # (Auto) (0.6-2.4) K/uL [place] # (Auto) (0.0-0.8) K/uL Eos # (Auto) (0.0-0.7) K/uL Baso # (Auto) (0.0-0.1) K/uL Nucleated RBC % /100WBC Nucleated RBCs # K/uL Sodium (136-148) mmol/L Potassium (3.5-5.1) mmol/L Chloride (98-107) mmol/L Carbon Dioxide (21.0-32.0) mmol/L BUN (7.0-18.0) mg/dL Creatinine (0.8-1.3) mg/dL Est Cr Clr Drug Dosing mL/min Estimated GFR (MDRD) ml/min Glucose (74-106) mg/dL Calcium (8.5-10.1) mg/dL Magnesium 2.1 (1.8-2.4) mg/dL Med Orders - Current: Current Medications Acetaminophen (Tylenol Extra Strength) 500 mg PO Q4H PRN PRN Reason: Pain Last Admin: 10/05/20 12:24 Dose: 500 mg Documented by: Aspirin (Aspirin) 81 mg PO DAILY MELONY Atorvastatin Calcium (Lipitor) 40 mg PO BEDTIME MELONY Last Admin: 10/05/20 20:52 Dose: 40 mg Documented by: Diphenhydramine/Nystatin/Lidocaine (Magic Mouthwash) 5 ml PO QIDACANDBED MELONY Last Admin: 10/05/20 20:52 Dose: 5 ml Documented by: Sodium Chloride (Normal Saline) 1,000 mls @ 100 mls/hr IV CONTINUOUS MELONY Last Admin: 10/05/20 20:54 Dose: 100 mls/hr Documented by: Pantoprazole Sodium 40 mg/ (Sodium Chloride) 10 mls @ 300 mls/hr IV Q24H MELONY Last Admin: 10/05/20 20:52 Dose: 300 mls/hr Documented by: Ondansetron HCl (Zofran Odt) 4 mg PO Q4H PRN PRN Reason: nausea, able to take PO Sodium Chloride (Saline Flush) 10 ml FLUSH ASDIRECTED PRN PRN Reason: Keep Vein Open Last Admin: 10/04/20 15:26 Dose: 10 ml Documented by: Sodium Chloride (Saline Flush) 2.5 ml FLUSH ASDIRECTED PRN PRN Reason: Keep Vein Open Last Admin: 10/04/20 15:26 Dose: 2.5 ml Documented by: Sodium Chloride (Normal Saline) 10 ml IV ASDIRECTED PRN PRN Reason: IV Use Discontinued Medications Diphenhydramine/Nystatin/Lidocaine (Magic Mouthwash) 0 ml PO QID MELONY Last Admin: 10/05/20 06:10 Dose: 15 ml Documented by: Gadobenate Dimeglumine (Multihance) 20 ml IVPUSH ONETIME STA Stop: 10/05/20 09:48 Last Admin: 10/05/20 10:19 Dose: 13 ml Documented by: Sodium Chloride (Normal Saline) 1,000 mls @ 999 mls/hr IV STAT ONE Stop: 10/04/20 15:54 Last Admin: 10/04/20 15:26 Dose: 999 mls/hr Documented by: Iopamidol (Isovue Multipack-370 (76%)) 100 ml IVPUSH ONETIME STA Stop: 10/04/20 16:43 Last Admin: 10/04/20 16:44 Dose: 100 ml Documented by: Sepsis Event Note - Focused Exam Vital Signs: Vital Signs Temp Pulse Resp BP BP Pulse Ox 10/05/20 20:49 36.5 C 82 18 119/70 97 10/05/20 16:00 36.3 C 97 16 106/70 97 10/05/20 11:22 36.6 C 92 16 161/73 H 96 - Plan Plan:: I have seen and evaluated the patient and agree with the residents note unless specified in my note
[2020-10-05] MEDS: atorvaSTATin 40 MG Tab PO SCH (20:52)
[2020-10-05] MEDS: Pantoprazole 40 MG in Sodium Chloride 0.9% 10 ML IV SCH (20:52)
[2020-10-06 06:05] LABS: BLOOD UREA NITROGEN,BUN 11 mg/dL (7.0-18.0); CARBON DIOXIDE,CO2 21.6 mmol/L (21.0-32.0); CHLORIDE,CL 107 mmol/L (98-107); GLUCOSE RANDOM 76 mg/dL (74-106); POTASSIUM,K 3.8 mmol/L (3.5-5.1); SODIUM,NA 142 mmol/L (136-148)
[2020-10-06] MEDS: Sodium Chloride 0.9% 1,000 ML IV SCH (07:00)
[2020-10-06] MEDS: Diphenhydramine/Lidocaine/Nystatin Suspension 237 ML Bottle PO SCH ×2 (07:00→12:55)
[2020-10-06] MEDS ORDERED: Aspirin 81 MG Tab.Chew PO SCH (09:00)
[2020-10-06] MEDS: Acetaminophen 500 MG Tab PO PRN (10:12)
[2020-10-06 11:33] VITALS: BP 120/93; PULSE 96
--- NOTE | 2020-10-06 12:08 | PCM.DCSUM1 ---
<Jaime Borrero - Last Filed: 10/06/20 12:18> Discharge Summary - Hospital Course Free Text/Narrative:: Patient is a 60-year-old male with a significant past medical history of developmental delay, hypertension, COPD, medical noncompliance, BPH presenting to the ED on October 04, 2020 secondary to worsening right-sided facial pain/jaw pain/numbness and tingling sensation radiating to the right shoulder and right arm and causing subjective weakness balance concerns and speech difficulties x1 week. Of note patient does at baseline have a speech impediment but was told by his brother that his speech had worsened over the previous week. Pertinent past medical history includes having similar symptoms 1 month prior and was diagnosed with cervical/foraminal stenosis; at that time patient was advised to follow-up with outpatient neurosurgery however patient does have significant issues with transportation and poor support structure and was not able to go to his appointment. Patient during this admission endorses similar symptoms; stroke code was called; CT head without contrast suggested no acute intracranial bleeds. Patient was otherwise stable 5/5 strength upper/lower extremity. AO x 3, memory and cognition intact poor dentition NIH score: 1. Hospital course: Endorsed to providers significant symptoms with subjective endorsement of difficulty swallowing. Failed initial swallow study but passed a second swallow study/bedside swallow in AM and was advanced to clear liquid diet. Patient continued to have facial pain right arm weakness but was otherwise stable. Cranial nerves were intact. MRI of the brain showed chronic vascular changes however no signs of acute stroke/TIA. Repeat cervical spine MRI: C3-C4: Severe left neural foraminal stenosis with likely impingement of the left C4 nerve root. Grade 1 anterolisthesis is not significantly unchanged. C5-C6: Moderately severe right neuroforaminal stenosis with potential impingement on the right C6 nerve root. C6-C7: Moderate left neuroforaminal narrowing with left C7 nerve encroachment impingement. Moderate spinal canal narrowing. Vitals and labs are otherwise stable. Covid negative. Echocardiogram ordered: Results still pending Patient did have an episode of nonsustained tachycardia while ambulating however resolved without any intervention. Patient did not endorse any chest pain, shortness of breath or any other changes in pain. Discussed case with Dr. Nye of neurosurgery in [facility]. Recommended that since this patient is having worsening symptoms in light of his foraminal/cervical stenosis and is a vulnerable adult; was advised patient be transferred for possible evaluation for cervical spine decompression/ cervical fusion. Patient agreed to transfer. Disposition: [facility] [place] Condition: Stable - Discharge Data Discharge Date: 10/06/20 Discharge Disposition: DC/Tfer to Acute Hospital 02 Condition: Good - Referral to Home Health Primary Care Physician: Paul Prado MD - Discharge Diagnosis/Problem(s) (1) Stroke-like symptoms SNOMED Code(s): 553430421 ICD Code: R29.90 - UNSPECIFIED SYMPTOMS AND SIGNS INVOLVING THE NERVOUS SYSTEM Status: Acute - Patient Summary/Data Consults: Consultations 10/04/20 19:49 Consult to Speech Language Pathology [CASE PACKER Evaluation and Treatment] [CONS] Routine 10/05/20 10:16 Consult to Case Management/Vice President [employer] [CONS] Routine - Discharge Plan Home Medications: Home Meds . [No Known Home Meds] 10/04/20 [History] Forms: ED Department Discharge Referrals: Paul Prado MD [Primary Care Provider] - 10/09/20 12:30 pm - Discharge Summary/Plan Comment DC Time >30 min.: No - Patient Data Vitals - Most Recent: Last Vital Signs Temp 97.9 F 10/06/20 11:32 Pulse 96 10/06/20 11:32 Resp 16 10/06/20 11:32 BP 120/93 H 10/06/20 11:32 Pulse Ox 98 10/06/20 08:00 Weight - Most Recent: 69.944 kg I&O - Last 24 hours: Intake & Output 10/05/20 10/06/20 10/06/20 22:59 06:59 14:59 Intake Total 2528 1352 Balance 2528 1352 Lab Results - Last 24 hrs: Laboratory Results - last 24 hr 10/05/20 10/06/20 10/06/20 Range/Units 14:45 05:25 05:25 WBC 8.19 (4.0-11.0) K/uL RBC 3.78 L (4.50-5.90) M/uL Hgb 13.7 (13.0-17.0) g/dL Hct 41.2 (38.0-50.0) % MCV 109.0 H (80.0-98.0) fL MCH 36.2 H (27.0-32.0) pg MCHC 33.3 (31.0-37.0) g/dL RDW Std Deviation 51.8 (28.0-62.0) fl RDW Coeff of Gildardo 13 (11.0-15.0) % Plt Count 217 (150-400) K/uL MPV 10.10 (7.40-12.00) fL Neut % (Auto) 69.2 (48.0-80.0) % Lymph % (Auto) 18.1 (16.0-40.0) % [place] % (Auto) 10.1 (0.0-15.0) % Eos % (Auto) 2.4 (0.0-7.0) % Baso % (Auto) 0.2 (0.0-1.5) % Neut # (Auto) 5.7 (1.4-5.7) K/uL Lymph # (Auto) 1.5 (0.6-2.4) K/uL [place] # (Auto) 0.8 (0.0-0.8) K/uL Eos # (Auto) 0.2 (0.0-0.7) K/uL Baso # (Auto) 0.0 (0.0-0.1) K/uL Nucleated RBC % 0.0 /100WBC Nucleated RBCs # 0 K/uL Sodium 142 (136-148) mmol/L Potassium 3.8 (3.5-5.1) mmol/L Chloride 107 (98-107) mmol/L Carbon Dioxide 21.6 (21.0-32.0) mmol/L BUN 11 (7.0-18.0) mg/dL Creatinine 1.0 (0.8-1.3) mg/dL Est Cr Clr Drug Dosing 75.05 mL/min Estimated GFR (MDRD) > 60.0 ml/min Glucose 76 (74-106) mg/dL Calcium 8.5 (8.5-10.1) mg/dL Magnesium 2.1 (1.8-2.4) mg/dL Med Orders - Current: Current Medications Acetaminophen (Tylenol Extra Strength) 500 mg PO Q4H PRN PRN Reason: Pain Last Admin: 10/06/20 10:12 Dose: 500 mg Documented by: Aspirin (Aspirin) 81 mg PO DAILY MELONY Last Admin: 10/06/20 09:40 Dose: 81 mg Documented by: Atorvastatin Calcium (Lipitor) 40 mg PO BEDTIME [facility] Last Admin: 10/05/20 20:52 Dose: 40 mg Documented by: Diphenhydramine/Nystatin/Lidocaine (Magic Mouthwash) 5 ml PO QIDACANDBED [facility] Last Admin: 10/06/20 07:00 Dose: 5 ml Documented by: Sodium Chloride (Normal Saline) 1,000 mls @ 100 mls/hr IV CONTINUOUS [facility] Last Admin: 10/06/20 07:00 Dose: 100 mls/hr Documented by: Pantoprazole Sodium 40 mg/ (Sodium Chloride) 10 mls @ 300 mls/hr IV Q24H [facility] Last Admin: 10/05/20 20:52 Dose: 300 mls/hr Documented by: Ondansetron HCl (Zofran Odt) 4 mg PO Q4H PRN PRN Reason: nausea, able to take PO Sodium Chloride (Saline Flush) 10 ml FLUSH ASDIRECTED PRN PRN Reason: Keep Vein Open Last Admin: 10/04/20 15:26 Dose: 10 ml Documented by: Sodium Chloride (Saline Flush) 2.5 ml FLUSH ASDIRECTED PRN PRN Reason: Keep Vein Open Last Admin: 10/04/20 15:26 Dose: 2.5 ml Documented by: Sodium Chloride (Normal Saline) 10 ml IV ASDIRECTED PRN PRN Reason: IV Use Discontinued Medications Diphenhydramine/Nystatin/Lidocaine (Magic Mouthwash) 0 ml PO QID [facility] Last Admin: 10/05/20 06:10 Dose: 15 ml Documented by: Gadobenate Dimeglumine (Multihance) 20 ml IVPUSH ONETIME STA Stop: 10/05/20 09:48 Last Admin: 10/05/20 10:19 Dose: 13 ml Documented by: Sodium Chloride (Normal Saline) 1,000 mls @ 999 mls/hr IV STAT ONE Stop: 10/04/20 15:54 Last Admin: 10/04/20 15:26 Dose: 999 mls/hr Documented by: Iopamidol (Isovue Multipack-370 (76%)) 100 ml IVPUSH ONETIME STA Stop: 10/04/20 16:43 Last Admin: 10/04/20 16:44 Dose: 100 ml Documented by: <Genet Mckeon - Last Filed: 10/07/20 14:38> Discharge Summary - Hospital Course Free Text/Narrative:: I have seen and evaluated the patient and agree with the residents note unless specified in my note - Referral to Home Health Primary Care Physician: Paul Prado MD - Patient Summary/Data Consults: Consultations 10/04/20 19:49 Consult to Speech Language Pathology [CASE PACKER Evaluation and Treatment] [CONS] Routine 10/05/20 10:16 Consult to Case Management/Vice President [employer] [CONS] Routine - Patient Data Vitals - Most Recent: Last Vital Signs Temp 36.6 C 10/06/20 11:32 Pulse 96 10/06/20 11:32 Resp 16 10/06/20 11:32 BP 120/93 H 10/06/20 11:32 Pulse Ox 98 10/06/20 08:00 Med Orders - Current: Current Medications Discontinued Medications Acetaminophen (Tylenol Extra Strength) 500 mg PO Q4H PRN PRN Reason: Pain Last Admin: 10/06/20 10:12 Dose: 500 mg Documented by: Aspirin (Aspirin) 81 mg PO DAILY [facility] Last Admin: 10/06/20 09:40 Dose: 81 mg Documented by: Atorvastatin Calcium (Lipitor) 40 mg PO BEDTIME [facility] Last Admin: 10/05/20 20:52 Dose: 40 mg Documented by: Diphenhydramine/Nystatin/Lidocaine (Magic Mouthwash) 0 ml PO QID [facility] Last Admin: 10/05/20 06:10 Dose: 15 ml Documented by: Diphenhydramine/Nystatin/Lidocaine (Magic Mouthwash) 5 ml PO QIDACANDBED [facility] Last Admin: 10/06/20 12:55 Dose: 5 ml Documented by: Gadobenate Dimeglumine (Multihance) 20 ml IVPUSH ONETIME STA Stop: 10/05/20 09:48 Last Admin: 10/05/20 10:19 Dose: 13 ml Documented by: Sodium Chloride (Normal Saline) 1,000 mls @ 999 mls/hr IV STAT ONE Stop: 10/04/20 15:54 Last Admin: 10/04/20 15:26 Dose: 999 mls/hr Documented by: Sodium Chloride (Normal Saline) 1,000 mls @ 100 mls/hr IV CONTINUOUS MELONY Last Admin: 10/06/20 07:00 Dose: 100 mls/hr Documented by: Pantoprazole Sodium 40 mg/ (Sodium Chloride) 10 mls @ 300 mls/hr IV Q24H MELONY Last Admin: 10/05/20 20:52 Dose: 300 mls/hr Documented by: Iopamidol (Isovue Multipack-370 (76%)) 100 ml IVPUSH ONETIME STA Stop: 10/04/20 16:43 Last Admin: 10/04/20 16:44 Dose: 100 ml Documented by: Ondansetron HCl (Zofran Odt) 4 mg PO Q4H PRN PRN Reason: nausea, able to take PO Sodium Chloride (Saline Flush) 10 ml FLUSH ASDIRECTED PRN PRN Reason: Keep Vein Open Last Admin: 10/04/20 15:26 Dose: 10 ml Documented by: Sodium Chloride (Saline Flush) 2.5 ml FLUSH ASDIRECTED PRN PRN Reason: Keep Vein Open Last Admin: 10/04/20 15:26 Dose: 2.5 ml Documented by: Sodium Chloride (Normal Saline) 10 ml IV ASDIRECTED PRN PRN Reason: IV Use
--- NOTE | 2020-10-09 14:36 | ECHO ---
EXAM DATE: 10/04/20 PATIENT'S AGE: 60 The ECHO report has been scanned into [employer] and can be seen in this patient's EMR (Electronic Medical Record) under the REPORTS section. The report has also been scanned into PACS. LEBRON
== END 2020-10-06 13:20 ==
LOC: MW.ED 14:13 → MW.MS 18:26
PROVIDERS: ADMIT Student in an Organized Health Care Education/Training Program; ATTEND Student in an Organized Health Care Education/Training Program
DX: R47.9 Unspecified speech disturbances (principal); K00.7 Teething syndrome; R13.10 Dysphagia, unspecified; R51.9 Headache, unspecified; J44.9 Chronic obstructive pulmonary disease, unspecified; I10 Essential (primary) hypertension; R20.0 Anesthesia of skin; Z20.822 Contact with and (suspected) exposure to COVID-19; Z88.8 Allergy status to other drugs, medicaments and biological substances; Z91.040 Latex allergy status; Z90.49 Acquired absence of other specified parts of digestive tract; D53.9 Nutritional anemia, unspecified
CPT/HCPCS: 0240U; 36415; 70450; 70496; 70498; 70553; 71045; 72141; 80048; 80053; 80061; 80179; 80305; 81003; 82607; 82746; 82962; 83036; 83735; 84443; 84484; 85025; 85610; 85730; 93005; 93306; 96361; 96374; 96376; 99285; A9270; A9577; C9113; G0378; J7030; Q9967; 93010; 99217; 99220; 99225; 99284

== ENCOUNTER 2021-05-01 18:35 | Emergency (ER) | payer MEDICARE, MEDICAID ==
[2021-05-01 20:50] VITALS: PULSE 93
[2021-05-01] MEDS ORDERED: Cyclobenzaprine 5 MG Tab PO STA (20:59)
--- NOTE | 2021-05-01 20:59 | EDM.PDOC ---
ED HPI GENERAL MEDICAL PROBLEM - General Chief Complaint: Neck Problem Stated Complaint: PAIN IN NECK Time Seen by Provider: 05/01/21 20:44 - History of Present Illness INITIAL COMMENTS - FREE TEXT/NARRATIVE: 61-year-old male with head and neck cancer with known right-sided neck discomfort attributed to tethering in his cancer burden he is following with oncology and was last seen by them yesterday. He is presenting asking for some additional medication for this neck discomfort as it is making it difficult for him to sleep. He has baseline difficulty swallowing he is supposed to be doing exercises by swallowing soft foods but has been noncompliant with this. He has no new fever he has no new neck stiffness. No severe headache. He has been taking his medicines primarily by PEG tube. Patient's primary oncologist is aware of this neck discomfort he is on Lortab for it. Neck Pain Score (Numeric/FACES): 7 - Related Data Allergies Allergy/AdvReac Type Severity Reaction Status Date / Time latex Allergy Rash Verified 05/01/21 20:51 levofloxacin Allergy Rash Verified 05/01/21 20:51 Home Meds: Home Meds Cyclobenzaprine [Flexeril] 5 mg PO TID PRN 4 Days #12 tab 05/01/21 [Rx] Past Medical History - Past Health History Medical/Surgical History: Denies Medical/Surgical History HEENT History: Reports: Other (See Below) Other HEENT History: wears glasses, has partial dental appliance but doesn't wear Cardiovascular History: Reports: Hypertension Respiratory History: Reports: COPD Gastrointestinal History: Reports: Diverticulosis, GERD Other Gastrointestinal History: dysphagia Genitourinary History: Reports: None Musculoskeletal History: Reports: Arthritis, Fracture Other Musculoskeletal History: hx of fx scapula and finger Neurological History: Reports: Headaches, Chronic Other Neuro History: States headaches are caused by neck pain Psychiatric History: Reports: Developmental Delay 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 Endocrine/Metabolic History: Reports: None Hematologic History: Reports: None Immunologic History: Reports: None Oncologic (Cancer) History: Reports: None Dermatologic History: Reports: Other (See Below) Other Dermatologic History: Frequent skin infections - Infectious Disease History Infectious Disease History: Reports: Chicken Pox, Measles, Mumps - Past Surgical History Head Surgeries/Procedures: Reports: None HEENT Surgical History: Reports: Adenoidectomy, Tonsillectomy Cardiovascular Surgical History: Reports: None Respiratory Surgical History: Reports: None GI Surgical History: Reports: Colonoscopy, EGD Male Surgical History: Reports: None Endocrine Surgical History: Reports: None Neurological Surgical History: Reports: None Musculoskeletal Surgical History: Reports: None Other Musculoskeletal Surgeries/Procedures:: Removal of skin lesion on arm, previous removal of epidermal cyst from axilla Oncologic Surgical History: Reports: None Dermatological Surgical History: Reports: None Social & Family History - Family History Family Medical History: No Pertinent Family History HEENT: Reports: None - Caffeine Use Caffeine Use: Reports: None Caffeine Use Comment: 4 cups/day - Recreational Drug Use Recreational Drug Use: No - Living Situation & Occupation Living situation: Reports: Single ED ROS GENERAL - Review of Systems Review Of Systems: See Below Free Text/Narrative/Comment: General: No fever. Skin: No rash. Eyes: No vision problems. ENT: No sore throat. Neck: Per HPI Respiratory: No shortness of breath. Cardiac: No chest pain. Neurologic: No headache. ED EXAM, GENERAL - Physical Exam Exam: See Below Free Text/Narrative:: General Appearance: No acute distress, appears comfortable Skin: No rash HEENT: Normocephalic/atraumatic, sclera anicteric, mucous membranes moist Neck: Tenseness and mild spasm of the first part of the right trapezius patient has some neck stiffness but no meningismus no trismus Chest and Lungs: Bilateral breath sounds, clear to auscultation Cardiovascular: Regular rate and rhythm, no murmur Abdomen: PEG tube in place Musculoskeletal: No edema or tenderness Neurologic: Awake, alert, no obvious deficits, moving all extremities Psychiatric: Appropriate, cooperative Course - Vital Signs Last Recorded V/S: Last Vital Signs Temp 97.6 F 05/01/21 20:48 Pulse 93 05/01/21 20:48 Resp 22 H 05/01/21 20:48 BP 134/58 L 05/01/21 20:48 Pulse Ox 98 05/01/21 20:48 - Orders/Labs/Meds Meds: Medications Discontinued Medications Generic Name Dose Route Start Last Admin Trade Name Freq PRN Reason Stop Dose Admin Cyclobenzaprine HCl 5 mg 05/01/21 20:59 Cyclobenzaprine 5 Mg Tab PO 05/01/21 21:00 NOW STA Departure - Departure Time of Disposition: 20:56 Disposition: Home, Self-Care 01 Condition: Good Clinical Impression: Neck pain - Discharge Information *PRESCRIPTION DRUG MONITORING PROGRAM REVIEWED*: Not Applicable *COPY OF PRESCRIPTION DRUG MONITORING REPORT IN PATIENT RAFA: Not Applicable Prescriptions: Cyclobenzaprine [Flexeril] 5 mg PO TID PRN 4 Days #12 tab PRN Reason: neck pain Instructions: Pain Medicine Instructions, [id number] Referrals: Paul Prado MD [Primary Care Provider] - Forms: ED Department Discharge Additional Instructions: I think you are right-sided neck pain is related to the cancer in your neck as well as some spasm in that muscle. We can add a small dose of a muscle relaxant to see if that helps your symptoms. This medication can be broken up and crushed and mixed in with applesauce or tube feed intake and either by mouth 3 your PEG tube. I encourage you to continue to follow-up with your oncologist for any additional treatment needs. The following information is given to patients seen in the emergency department who are being discharged to home. This information is to outline your options for follow-up care. We provide all patients seen in our emergency department with a follow-up referral. The need for follow-up, as well as the timing and circumstances, are variable depending upon the specifics of your emergency department visit. If you don't have a primary care physician on staff, we will provide you with a referral. We always advise you to contact your personal physician following an emergency department visit to inform them of the circumstance of the visit and for follow-up with them and/or the need for any referrals to a consulting speci alist. The emergency department will also refer you to a specialist when appropriate. This referral assures that you have the opportunity for follow-up care with a specialist. All of these measure are taken in an effort to provide you with optimal care, which includes your follow-up. Under all circumstances we always encourage you to contact your private physician who remains a resource for coordinating your care. When calling for follow-up care, please make the office aware that this follow-up is from your recent emergency room visit. If for any reason you are refused follow-up, please contact the [facility] Emergency Department at and asked to speak to the emergency department charge nurse. Sepsis Event Note (ED) - Evaluation Sepsis Screening Result: No Definite Risk - Focused Exam Vital Signs: Vital Signs Temp Pulse Resp BP Pulse Ox 05/01/21 20:48 97.6 F 93 22 H 134/58 L 98 - Assessment/Plan Assessment:: 61-year-old male presenting with ongoing issues with neck pain related to his cancer. There is no sign of focal infective process nothing suggest MANAGER BENEFIT or RPA no findings that would suggest meningitis there is no fever there is no altered mental status there is no headache etc. Patient is already on Lortab. We will add a very small dose of cyclobenzaprine and see if that eases symptoms. Patient has been encouraged to follow-up with his oncologist and primary care provider as well. His neurologic exam is normal I do not have a concern for acute spinal cord issues.
[2021-05-02 01:30] VITALS: BP 133/89
== END 2021-05-01 21:18 | disposition home or self-care (01) ==
LOC: MW.ED 18:35
DX: M54.2 Cervicalgia (principal); I10 Essential (primary) hypertension; J44.9 Chronic obstructive pulmonary disease, unspecified; Z91.040 Latex allergy status; Z88.1 Allergy status to other antibiotic agents
CPT/HCPCS: 99283; A9270

== ENCOUNTER 2021-09-05 11:29 | Emergency (ER) | payer MEDICARE, MEDICAID ==
[2021-09-05] MEDS ORDERED: Sodium Chloride 0.9% 1,000 ML IV ONE (12:09)
[2021-09-05] MEDS ORDERED: Ondansetron 4 MG/2 ML SDV IVPUSH ONE (12:09)
--- NOTE | 2021-09-05 12:13 | EDM.PDOC ---
ED HPI GENERAL MEDICAL PROBLEM - General Chief Complaint: Respiratory Problem Stated Complaint: WEAK/FATIGUE/SHOULDER PAIN Time Seen by Provider: 09/05/21 11:32 Source of Information: Reports: Patient History Limitations: Reports: No Limitations - History of Present Illness INITIAL COMMENTS - FREE TEXT/NARRATIVE: 61-year-old male multiple medical problems including throat cancer on chemotherapy presents for 1 week of weakness, sinus congestion, nonproductive cough. Notes a chronic pain in his right neck that seems to be exacerbated. Notes that he is seeing physical therapy and his cancer doctor relating the pain in his neck. Denies any fevers. Notes decreased appetite and did have an episode of emesis yesterday. Denies any abdominal pain. abdominal Pain Score (Numeric/FACES): 5 - Related Data Allergies Allergy/AdvReac Type Severity Reaction Status Date / Time latex Allergy Rash Verified 09/05/21 13:03 levofloxacin Allergy Rash Verified 09/05/21 13:03 Home Meds: Home Meds Cyclobenzaprine [Flexeril] 5 mg PO TID PRN 4 Days #12 tab 05/01/21 [Rx] Past Medical History - Past Health History Medical/Surgical History: Denies Medical/Surgical History HEENT History: Reports: Other (See Below) Other HEENT History: wears glasses, No teeth - had them pulled prior to chemo/radiation. 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 Endocrine/Metabolic History: Reports: None Hematologic History: Reports: None Immunologic History: Reports: None Oncologic (Cancer) History: Reports: None Dermatologic History: Reports: Other (See Below) Other Dermatologic History: Frequent skin infections - Infectious Disease History Infectious Disease History: Reports: Chicken Pox, Measles, Mumps - Past Surgical History Head Surgeries/Procedures: Reports: None HEENT Surgical History: Reports: Adenoidectomy, Tonsillectomy Cardiovascular Surgical History: Reports: None Respiratory Surgical History: Reports: None GI Surgical History: Reports: Colonoscopy, EGD Male Surgical History: Reports: None Endocrine Surgical History: Reports: None Neurological Surgical History: Reports: None Musculoskeletal Surgical History: Reports: None Other Musculoskeletal Surgeries/Procedures:: Removal of skin lesion on arm, previous removal of epidermal cyst from axilla Oncologic Surgical History: Reports: None Dermatological Surgical History: Reports: None Social & Family History - Family History Family Medical History: No Pertinent Family History HEENT: Reports: None - Caffeine Use Caffeine Use: Reports: None Caffeine Use Comment: 4 cups/day - Living Situation & Occupation Living situation: Reports: Single ED ROS GENERAL - Review of Systems Review Of Systems: Comprehensive ROS is negative, except as noted in HPI. ED EXAM, GENERAL - Physical Exam Exam: See Below Exam Limited By: No Limitations General Appearance: Alert, WD/WN, No Apparent Distress Ears: Hearing Grossly Normal Throat/Mouth: Normal Voice, No Airway Compromise Head: Atraumatic, Normocephalic Respiratory/Chest: No Respiratory Distress, Lungs Clear, Normal Breath Sounds, No Accessory Muscle Use Cardiovascular: Normal Peripheral Pulses, Regular Rate, Rhythm Extremities: Normal Inspection Neurological: Alert, Normal Cognition, Normal Gait Psychiatric: Normal Affect, Normal Mood Skin Exam: Warm, Dry, Intact, Normal Color Course - Vital Signs Last Recorded V/S: Last Vital Signs Temp 96.2 F L 09/05/21 12:58 Pulse 75 09/05/21 12:58 Resp 16 09/05/21 12:58 BP 130/63 09/05/21 12:58 Pulse Ox 96 09/05/21 12:58 - Orders/Labs/Meds Orders: Active Orders 24 hr Category Date Time Status Saline Lock Insert [OM.PC] Stat Oth 09/05/21 12:09 Ordered Labs: Laboratory Tests 09/05/21 09/05/21 09/05/21 Range/Units 12:00 12:30 12:30 WBC 8.51 (4.0-11.0) K/uL RBC 3.11 L (4.50-5.90) M/uL Hgb 11.8 L (13.0-17.0) g/dL Hct 34.3 L (38.0-50.0) % MCV 110.3 H (80.0-98.0) fL MCH 37.9 H (27.0-32.0) pg MCHC 34.4 (31.0-37.0) g/dL RDW Std Deviation 56.5 (28.0-62.0) fl RDW Coeff of Gildardo 14 (11.0-15.0) % Plt Count 159 (150-400) K/uL MPV 10.10 (7.40-12.00) fL Neut % (Auto) 83.5 H (48.0-80.0) % Lymph % (Auto) 6.0 L (16.0-40.0) % Graves % (Auto) 9.2 (0.0-15.0) % Eos % (Auto) 1.1 (0.0-7.0) % Baso % (Auto) 0.2 (0.0-1.5) % Neut # (Auto) 7.1 H (1.4-5.7) K/uL Lymph # (Auto) 0.5 L (0.6-2.4) K/uL Graves # (Auto) 0.8 (0.0-0.8) K/uL Eos # (Auto) 0.1 (0.0-0.7) K/uL Baso # (Auto) 0.0 (0.0-0.1) K/uL Nucleated RBC % 0.0 /100WBC Nucleated RBCs # 0 K/uL Sodium 138 (136-148) mmol/L Potassium 3.6 (3.5-5.1) mmol/L Chloride 99 (98-107) mmol/L Carbon Dioxide 29.4 (21.0-32.0) mmol/L BUN 11 (7.0-18.0) mg/dL Creatinine 1.1 (0.8-1.3) mg/dL Est Cr Clr Drug Dosing 53.61 mL/min Estimated GFR (MDRD) > 60.0 ml/min Glucose 101 (74-106) mg/dL Calcium 9.4 (8.5-10.1) mg/dL Total Bilirubin 0.3 (0.2-1.0) mg/dL AST 20 (15-37) IU/L ALT 18 (14-63) IU/L Alkaline Phosphatase 55 (46-116) U/L Total Protein 6.7 (6.4-8.2) g/dL Albumin 3.8 (3.4-5.0) g/dL Globulin 2.9 (2.6-4.0) g/dL Albumin/Globulin Ratio 1.3 (0.9-1.6) Influenza Type A RNA NEGATIVE (NEGATIVE) Influenza Type B RNA NEGATIVE (NEGATIVE) SARS-CoV-2 RNA (YASSINE) NEGATIVE (NEGATIVE) Meds: Medications Discontinued Medications Generic Name Dose Route Start Last Admin Trade Name Richi PRN Reason Stop Dose Admin Sodium Chloride 1,000 mls @ 999 mls/hr 09/05/21 12:09 09/05/21 12:33 Normal Saline IV 09/05/21 13:09 999 mls/hr .Bolus ONE Administration Ondansetron HCl 4 mg 09/05/21 12:09 09/05/21 12:33 Ondansetron 4 Mg/2 Ml Sdv IVPUSH 09/05/21 12:10 4 mg ONETIME ONE Administration - Re-Assessments/Exams Free Text/Narrative Re-Assessment/Exam: 09/05/21 12:12 Patient presents with several nonspecific symptoms. Will treat symptomatically. Will get basic labs. Will get Covid, influenza testing. 09/05/21 14:32 Labs and imaging unremarkable; will d/c with azithromycin for possible atypical pneumonia. Recommend PMD f/u in 2-3 days and recommend return to ED for worsening symptoms or no improvement. Departure - Departure Time of Disposition: 14:32 Disposition: Home, Self-Care 01 Condition: Good Clinical Impression: Cough - Discharge Information Instructions: Cough, Adult Forms: ED Department Discharge Additional Instructions: Your labs all look good. Your Covid test is negative. Your chest x-ray does not show evidence of pneumonia. However given your symptoms and your past medical history I did write a prescription for an antibiotic called azithromycin that can treat for potential atypical pneumonia. This does not always show up on chest x-ray. Please follow-up with your primary care physician in 2 to 3 days. If you are feeling worse then please come back to the emergency department for reassessment. The following information is given to patients seen in the emergency department who are being discharged to home. This information is to outline your options for follow-up care. We provide all patients seen in our emergency department with a follow-up referral. The need for follow-up, as well as the timing and circumstances, are variable depending upon the specifics of your emergency department visit. If you don't have a primary care physician on staff, we will provide you with a referral. We always advise you to contact your personal physician following an emergency department visit to inform them of the circumstance of the visit and for follow-up with them and/or the need for any referrals to a consulting specialist. The emergency department will also refer you to a specialist when appropriate. This referral assures that you have the opportunity for follow-up care with a specialist. All of these measure are taken in an effort to provide you with optimal care, which includes your follow-up. Under all circumstances we always encourage you to contact your private physician who remains a resource for coordinating your care. When calling for follow-up care, please make the office aware that this follow-up is from your recent emergency room visit. If for any reason you are refused follow-up, please contact the [facility] Emergency Department at and asked to speak to the emergency department charge nurse. Please follow up with your primary care physician. If you do not have a primary care physician, see below: [facility] [address] [place] [id number] [facility] [address] [place] [address] [facility] [address] [place] [id number] Sepsis Event Note (ED) - Focused Exam Vital Signs: Vital Signs Temp Pulse Resp BP Pulse Ox 09/05/21 12:58 96.2 F L 75 16 130/63 96 - My Orders Last 24 Hours: My Active Orders 09/05/21 12:09 Saline Lock Insert [OM.PC] Stat - Assessment/Plan Last 24 Hours: My Active Orders 09/05/21 12:09 Saline Lock Insert [OM.PC] Stat
[2021-09-05 12:49] LABS: CORONAVIRUS COVID-19 NAA NEGATIVE (NEGATIVE); INFLUENZA A NAA NEGATIVE (NEGATIVE); INFLUENZA B NAA NEGATIVE (NEGATIVE)
--- NOTE | 2021-09-05 12:51 | CR ---
INDICATION: Cough. TECHNIQUE: Chest 1 views. COMPARISON: 10/04/2020. FINDINGS: Cardiovascular and mediastinum: Heart size and vasculature are normal in caliber and appearance. Central catheter appears in satisfactory position. Lungs and pleural spaces: Lungs are clear. No sign of infiltrate or mass. No sign of pleural effusion. No pneumothorax. Bones and soft tissues: No significant findings. IMPRESSION: No acute findings and no significant changes from the prior exam. No sign of pneumonia. Dictated by Bear Wallace MD @ 09/05/2021 12:49:43 PM (Electronically Signed)
[2021-09-05 14:12] LABS: BLOOD UREA NITROGEN,BUN 11 mg/dL (7.0-18.0); CARBON DIOXIDE,CO2 29.4 mmol/L (21.0-32.0); CHLORIDE,CL 99 mmol/L (98-107); GLUCOSE RANDOM 101 mg/dL (74-106); POTASSIUM,K 3.6 mmol/L (3.5-5.1); SODIUM,NA 138 mmol/L (136-148)
[2021-09-05 14:47] VITALS: BP 121/76; PULSE 78
== END 2021-09-05 14:47 | disposition home or self-care (01) ==
LOC: MW.ED 11:29
DX: R05.9 Cough, unspecified (principal); I10 Essential (primary) hypertension; J44.9 Chronic obstructive pulmonary disease, unspecified; Z91.040 Latex allergy status; Z88.1 Allergy status to other antibiotic agents; Z20.822 Contact with and (suspected) exposure to COVID-19
CPT/HCPCS: 0240U; 36415; 71045; 80053; 85025; 96374; 99285; J2405; J7030

== ENCOUNTER 2021-09-21 14:31 | Emergency (ER) | payer MEDICARE, MEDICAID ==
[2021-09-21] MEDS ORDERED: Ondansetron 4 MG/2 ML SDV IVPUSH ONE (14:52)
[2021-09-21] MEDS ORDERED: Sodium Chloride 0.9% 1,000 ML IV ONE (14:52)
[2021-09-21 15:41] LABS: BLOOD UREA NITROGEN,BUN 12 mg/dL (7.0-18.0); CARBON DIOXIDE,CO2 28.4 mmol/L (21.0-32.0); CHLORIDE,CL 96 mmol/L (98-107); GLUCOSE RANDOM 98 mg/dL (74-106); LIPASE 53 U/L (73-393); POTASSIUM,K 3.1 mmol/L (3.5-5.1); SODIUM,NA 135 mmol/L (136-148)
[2021-09-21 16:16] VITALS: BP 135/72; PULSE 86
== END 2021-09-21 16:36 | disposition home or self-care (01) ==
LOC: MW.ED 14:31
DX: K52.9 Noninfective gastroenteritis and colitis, unspecified (principal); I10 Essential (primary) hypertension; K21.9 Gastro-esophageal reflux disease without esophagitis; J44.9 Chronic obstructive pulmonary disease, unspecified; Z91.040 Latex allergy status; Z88.1 Allergy status to other antibiotic agents; Z20.822 Contact with and (suspected) exposure to COVID-19
CPT/HCPCS: 36415; 71045; 80053; 81003; 83690; 84484; 85025; 93005; 96374; 99284; J2405; J7030; U0002

== ENCOUNTER 2021-10-02 14:01 | Emergency (ER) | payer MEDICARE, MEDICAID ==
[2021-10-02] MEDS ORDERED: Lactated Ringers 1,000 ML IV STA (14:28)
[2021-10-02] MEDS ORDERED: Ondansetron 4 MG/2 ML SDV IVPUSH ONE (14:28)
[2021-10-02 15:36] LABS: BLOOD UREA NITROGEN,BUN 12 mg/dL (7.0-18.0); CHLORIDE,CL 89 mmol/L (98-107); GLUCOSE RANDOM 89 mg/dL (74-106); LIPASE 54 U/L (73-393); POTASSIUM,K 2.6 mmol/L (3.5-5.1); SODIUM,NA 133 mmol/L (136-148)
[2021-10-02] MEDS ORDERED: Potassium Chloride 10% 20 MEQ/15 ML Soln 30 ML UD Cup PEGTUBE STA (16:02)
[2021-10-02] MEDS ORDERED: Iopamidol 755 MG/ML 500 ML Multipack Bottle IVPUSH STA (16:55)
[2021-10-02 18:25] VITALS: BP 136/60; PULSE 75
== END 2021-10-02 18:32 | disposition home or self-care (01) ==
LOC: MW.ED 14:01
DX: E87.6 Hypokalemia (principal); D64.9 Anemia, unspecified; R11.10 Vomiting, unspecified; I10 Essential (primary) hypertension; J44.9 Chronic obstructive pulmonary disease, unspecified; Z91.040 Latex allergy status; Z88.1 Allergy status to other antibiotic agents
CPT/HCPCS: 36415; 74177; 80053; 83690; 85025; 93005; 96374; 99283; A9270; J1642; J2405; J7120; Q9967

== ENCOUNTER 2021-10-10 07:12 | Inpatient (IN) | payer MEDICARE, MEDICAID ==
[2021-10-10] MEDS ORDERED: Ondansetron 4 MG/2 ML SDV IVPUSH ONE (07:17)
[2021-10-10] MEDS ORDERED: Sodium Chloride 0.9% 1,000 ML IV ONE ×2 (07:17→08:12)
[2021-10-10] MEDS ORDERED: Famotidine 20 MG/2 ML SDV IVPUSH ONE (07:17)
[2021-10-10] MEDS ORDERED: Morphine 4 MG/ML VIAL IVPUSH ONE (07:17)
[2021-10-10] MEDS ORDERED: Magnesium Sulfate (4.06 MEQ/ML) 5 GM/10 ML SDV IV STA (08:11)
[2021-10-10] MEDS ORDERED: POTASSIUM CHLORIDE 20 MEQ/10 ML IV ONE (08:11)
[2021-10-10 08:15] LABS: CORONAVIRUS COVID-19 NAA NEGATIVE (NEGATIVE); INFLUENZA A NAA NEGATIVE (NEGATIVE); INFLUENZA B NAA NEGATIVE (NEGATIVE)
[2021-10-10] MEDS ORDERED: Potassium Chloride Riders 40 MEQ in Premix Bag 1 BAG IV ONE (08:15)
[2021-10-10] MEDS ORDERED: Magnesium Sulfate/Water 2 GM in Premix Bag 1 BAG IV ONE (08:15)
[2021-10-10 08:19] LABS: BLOOD UREA NITROGEN,BUN 14 mg/dL (7.0-18.0); CARBON DIOXIDE,CO2 34.8 mmol/L (21.0-32.0); CHLORIDE,CL 73 mmol/L (98-107); GLUCOSE RANDOM 117 mg/dL (74-106); LIPASE 32 U/L (73-393)
[2021-10-10 08:26] LABS: POTASSIUM,K 2.1 mmol/L (3.5-5.1); SODIUM,NA 116 mmol/L (136-148)
[2021-10-10] MEDS ORDERED: Piperacillin/Tazobactam 3.375 GM in Sodium Chloride 0.9% 50 ML IV ONE (09:04)
[2021-10-10] MEDS ORDERED: Iopamidol 755 MG/ML 500 ML Multipack Bottle IVPUSH STA (09:07)
[2021-10-10] MEDS ORDERED: Sodium Chloride 0.9% 2.5 ML Syringe FLUSH PRN (11:34)
[2021-10-10] MEDS ORDERED: Sodium Chloride 0.9% 10 ML Syringe FLUSH PRN (11:34)
[2021-10-10] MEDS: Heparin Sodium 5,000 Units/ML Vial SUBCUT SCH ×2 (12:11→18:57)
[2021-10-10] MEDS: Pantoprazole 40 MG in Sodium Chloride 0.9% 10 ML IVPUSH SCH (12:11)
[2021-10-10 12:14] LABS: BLOOD UREA NITROGEN,BUN 14 mg/dL (7.0-18.0); CARBON DIOXIDE,CO2 32.4 mmol/L (21.0-32.0); CHLORIDE,CL 81 mmol/L (98-107); GLUCOSE RANDOM 107 mg/dL (74-106); SODIUM,NA 121 mmol/L (136-148)
[2021-10-10] MEDS ORDERED: Sodium Chloride 0.9% 1,000 ML IV SCH (12:30)
[2021-10-10] MEDS ORDERED: NS + KCl 20mEq/L 1,000 ML IV ONE (12:59)
[2021-10-10] MEDS: Sodium Chloride 0.9% with KCl 1,000 ML IV ONE ×2 (13:51→14:07)
[2021-10-10] MEDS: Piperacillin/Tazobactam 3.375 GM in Sodium Chloride 0.9% 50 ML IV SCH ×2 (13:52→18:57)
[2021-10-10] MEDS ORDERED: Dextrose 5%-0.225% NaCl w/KCl 1,000 ML IV SCH (14:15)
[2021-10-10] MEDS ORDERED: Potassium Chloride 10% 20 MEQ/15 ML Soln 30 ML UD Cup PO ONE ×2 (14:30→16:30)
[2021-10-10 16:13] LABS: BLOOD UREA NITROGEN,BUN 13 mg/dL (7.0-18.0); CARBON DIOXIDE,CO2 35.1 mmol/L (21.0-32.0); CHLORIDE,CL 86 mmol/L (98-107); GLUCOSE RANDOM 102 mg/dL (74-106); POTASSIUM,K 3.3 mmol/L (3.5-5.1); SODIUM,NA 127 mmol/L (136-148)
[2021-10-10] MEDS: Dextrose 5% in Water 1,000 ML IV SCH (19:42)
[2021-10-10 20:03] LABS: BLOOD UREA NITROGEN,BUN 13 mg/dL (7.0-18.0); CARBON DIOXIDE,CO2 33.3 mmol/L (21.0-32.0); CHLORIDE,CL 93 mmol/L (98-107); GLUCOSE RANDOM 93 mg/dL (74-106); POTASSIUM,K 3.9 mmol/L (3.5-5.1); SODIUM,NA 132 mmol/L (136-148)
[2021-10-11 00:22] LABS: BLOOD UREA NITROGEN,BUN 13 mg/dL (7.0-18.0); CHLORIDE,CL 92 mmol/L (98-107); GLUCOSE RANDOM 108 mg/dL (74-106); POTASSIUM,K 3.5 mmol/L (3.5-5.1); SODIUM,NA 132 mmol/L (136-148)
[2021-10-11] MEDS: Piperacillin/Tazobactam 3.375 GM in Sodium Chloride 0.9% 50 ML IV SCH ×2 (01:09→06:43)
[2021-10-11] MEDS: Dextrose 5% in Water 1,000 ML IV SCH ×3 (03:04→12:58)
[2021-10-11] MEDS: Heparin Sodium 5,000 Units/ML Vial SUBCUT SCH ×2 (04:06→15:01)
[2021-10-11 05:15] LABS: BLOOD UREA NITROGEN,BUN 10 mg/dL (7.0-18.0); CARBON DIOXIDE,CO2 32.8 mmol/L (21.0-32.0); CHLORIDE,CL 91 mmol/L (98-107); GLUCOSE RANDOM 106 mg/dL (74-106); SODIUM,NA 129 mmol/L (136-148)
[2021-10-11] MEDS ORDERED: Potassium Chloride 10% 20 MEQ/15 ML Soln 30 ML UD Cup PO ONE (06:04)
[2021-10-11 09:15] LABS: BLOOD UREA NITROGEN,BUN 9 mg/dL (7.0-18.0); CARBON DIOXIDE,CO2 29.8 mmol/L (21.0-32.0); CHLORIDE,CL 91 mmol/L (98-107); GLUCOSE RANDOM 107 mg/dL (74-106); POTASSIUM,K 3.6 mmol/L (3.5-5.1); SODIUM,NA 128 mmol/L (136-148)
[2021-10-11] MEDS: Pantoprazole 40 MG in Sodium Chloride 0.9% 10 ML IVPUSH SCH (11:08)
[2021-10-11 13:29] LABS: BLOOD UREA NITROGEN,BUN 8 mg/dL (7.0-18.0); CARBON DIOXIDE,CO2 29.5 mmol/L (21.0-32.0); CHLORIDE,CL 90 mmol/L (98-107); GLUCOSE RANDOM 118 mg/dL (74-106); POTASSIUM,K 3.4 mmol/L (3.5-5.1); SODIUM,NA 126 mmol/L (136-148)
[2021-10-11] MEDS ORDERED: Potassium Chloride 10% 20 MEQ/15 ML Soln 30 ML UD Cup PEGTUBE ONE (14:15)
[2021-10-11] MEDS: Aluminum Hydroxide/Magnesium Hydroxide/Simethicone XS Susp 30 ML Cup PEGTUBE PRN ×2 (16:41→21:43)
[2021-10-11 17:14] LABS: BLOOD UREA NITROGEN,BUN 7 mg/dL (7.0-18.0); CARBON DIOXIDE,CO2 28.9 mmol/L (21.0-32.0); CHLORIDE,CL 91 mmol/L (98-107); GLUCOSE RANDOM 94 mg/dL (74-106); POTASSIUM,K 4.4 mmol/L (3.5-5.1); SODIUM,NA 127 mmol/L (136-148)
[2021-10-11] MEDS: Ondansetron 4 MG/2 ML SDV IVPUSH PRN (17:14)
[2021-10-11 20:53] LABS: BLOOD UREA NITROGEN,BUN 6 mg/dL (7.0-18.0); CARBON DIOXIDE,CO2 27.9 mmol/L (21.0-32.0); CHLORIDE,CL 93 mmol/L (98-107); GLUCOSE RANDOM 107 mg/dL (74-106); POTASSIUM,K 3.7 mmol/L (3.5-5.1); SODIUM,NA 129 mmol/L (136-148)
[2021-10-12 00:59] LABS: BLOOD UREA NITROGEN,BUN 7 mg/dL (7.0-18.0); CARBON DIOXIDE,CO2 29.3 mmol/L (21.0-32.0); CHLORIDE,CL 94 mmol/L (98-107); GLUCOSE RANDOM 113 mg/dL (74-106); POTASSIUM,K 3.7 mmol/L (3.5-5.1); SODIUM,NA 131 mmol/L (136-148)
[2021-10-12] MEDS: Heparin Sodium 5,000 Units/ML Vial SUBCUT SCH ×2 (05:25→15:04)
[2021-10-12 05:40] LABS: BLOOD UREA NITROGEN,BUN 7 mg/dL (7.0-18.0); CARBON DIOXIDE,CO2 30.4 mmol/L (21.0-32.0); CHLORIDE,CL 94 mmol/L (98-107); GLUCOSE RANDOM 101 mg/dL (74-106); POTASSIUM,K 3.9 mmol/L (3.5-5.1); SODIUM,NA 132 mmol/L (136-148)
[2021-10-12] MEDS ORDERED: Dextrose 5% in Water 500 ML IV SCH ×2 (06:45→08:30)
[2021-10-12] MEDS: Pantoprazole 40 MG in Sodium Chloride 0.9% 10 ML IVPUSH SCH (11:11)
[2021-10-12 13:46] LABS: BLOOD UREA NITROGEN,BUN 9 mg/dL (7.0-18.0); CARBON DIOXIDE,CO2 28.1 mmol/L (21.0-32.0); CHLORIDE,CL 96 mmol/L (98-107); GLUCOSE RANDOM 119 mg/dL (74-106); POTASSIUM,K 4.5 mmol/L (3.5-5.1); SODIUM,NA 131 mmol/L (136-148)
[2021-10-12] MEDS ORDERED: Cyclobenzaprine 5 MG Tab PO PRN (17:00)
[2021-10-12 20:33] LABS: BLOOD UREA NITROGEN,BUN 11 mg/dL (7.0-18.0); CARBON DIOXIDE,CO2 27.1 mmol/L (21.0-32.0); CHLORIDE,CL 98 mmol/L (98-107); GLUCOSE RANDOM 113 mg/dL (74-106); SODIUM,NA 133 mmol/L (136-148)
[2021-10-12] MEDS: Carvedilol 3.125 MG Tab PO SCH (20:53)
[2021-10-13] MEDS: Heparin Sodium 5,000 Units/ML Vial SUBCUT SCH (04:31)
[2021-10-13] MEDS: Ondansetron 4 MG/2 ML SDV IVPUSH PRN ×2 (04:39→09:59)
[2021-10-13 06:43] LABS: BLOOD UREA NITROGEN,BUN 12 mg/dL (7.0-18.0); CARBON DIOXIDE,CO2 28.8 mmol/L (21.0-32.0); CHLORIDE,CL 100 mmol/L (98-107); GLUCOSE RANDOM 104 mg/dL (74-106); POTASSIUM,K 4.2 mmol/L (3.5-5.1); SODIUM,NA 136 mmol/L (136-148)
[2021-10-13] MEDS: Carvedilol 3.125 MG Tab PO SCH (09:14)
[2021-10-13 09:15] VITALS: PULSE 67
[2021-10-13] MEDS: Pantoprazole 40 MG in Sodium Chloride 0.9% 10 ML IVPUSH SCH (12:15)
[2021-10-13 16:24] VITALS: BP 128/61
== END 2021-10-13 15:00 | disposition home health service (06) | DRG 641 ==
LOC: MW.ED 07:12 → MW.ICU 09:57 → UNDOADMIN 10:57 → MW.ICU 10:57 → UNDODISIN 10-13 15:00
PROVIDERS: ADMIT Student in an Organized Health Care Education/Training Program; ATTEND Student in an Organized Health Care Education/Training Program
DX: E87.1 Hypo-osmolality and hyponatremia (principal); E87.6 Hypokalemia; E86.0 Dehydration; J44.9 Chronic obstructive pulmonary disease, unspecified; I10 Essential (primary) hypertension; K57.90 Diverticulosis of intestine, part unspecified, without perforation or abscess without bleeding; Z20.822 Contact with and (suspected) exposure to COVID-19; K21.9 Gastro-esophageal reflux disease without esophagitis; M19.90 Unspecified osteoarthritis, unspecified site; R13.10 Dysphagia, unspecified; R62.50 Unspecified lack of expected normal physiological development in childhood; Z85.819 Personal history of malignant neoplasm of unspecified site of lip, oral cavity, and pharynx; Z91.040 Latex allergy status; Z88.1 Allergy status to other antibiotic agents; Z79.899 Other long term (current) drug therapy; Z98.890 Other specified postprocedural states; Z93.1 Gastrostomy status; Z92.21 Personal history of antineoplastic chemotherapy; Z92.3 Personal history of irradiation
CPT/HCPCS: 0240U; 36415; 71045; 74177; 80048; 80053; 81003; 82570; 82803; 83605; 83690; 83735; 83935; 84100; 84295; 84300; 84484; 85025; 87040; 93005; 96365; 96366; 96368; 96375; 97162; 97530; 99285; 93010; 99222; 99232; 99238; 99291; A9270-GY; C9113; J1644; J2270; J2405; J2543; J2597; J3475; J3480; J3490; J7030; J7060; Q9967

== ENCOUNTER 2021-11-05 08:17 | Emergency (ER) | payer MEDICARE, MEDICAID ==
[2021-11-05] MEDS ORDERED: Sodium Chloride 0.9% 1,000 ML IV ONE (08:23)
[2021-11-05] MEDS ORDERED: Sodium Chloride 0.9% 2.5 ML Syringe FLUSH PRN (08:23)
[2021-11-05] MEDS ORDERED: Sodium Chloride 0.9% 10 ML Syringe FLUSH PRN (08:23)
[2021-11-05] MEDS ORDERED: Ondansetron 4 MG/2 ML SDV IVPUSH ONE (08:39)
[2021-11-05 10:05] LABS: BLOOD UREA NITROGEN,BUN 17 mg/dL (7.0-18.0); CARBON DIOXIDE,CO2 28.2 mmol/L (21.0-32.0); CHLORIDE,CL 101 mmol/L (98-107); GLUCOSE RANDOM 107 mg/dL (74-106); POTASSIUM,K 3.9 mmol/L (3.5-5.1); SODIUM,NA 139 mmol/L (136-148)
[2021-11-05 10:50] LABS: CORONAVIRUS COVID-19 NAA NEGATIVE (NEGATIVE); INFLUENZA A NAA NEGATIVE (NEGATIVE); INFLUENZA B NAA NEGATIVE (NEGATIVE)
[2021-11-05 12:52] VITALS: BP 102/66; PULSE 83
== END 2021-11-05 11:27 | disposition home or self-care (01) ==
LOC: MW.ED 08:17
DX: B34.9 Viral infection, unspecified (principal); E86.0 Dehydration; R11.2 Nausea with vomiting, unspecified; R19.7 Diarrhea, unspecified; I10 Essential (primary) hypertension; J44.9 Chronic obstructive pulmonary disease, unspecified; K21.9 Gastro-esophageal reflux disease without esophagitis; Z88.1 Allergy status to other antibiotic agents; Z91.040 Latex allergy status; Z20.822 Contact with and (suspected) exposure to COVID-19
CPT/HCPCS: 0240U; 36415; 71045; 74176; 80053; 83690; 83735; 85025; 93005; 96374; 99284; J1642; J2405; J7030

== ENCOUNTER 2022-03-27 15:16 | Emergency (ER) | payer MEDICARE, MEDICAID ==
[2022-03-27 19:24] VITALS: BP 118/65; PULSE 76
== END 2022-03-27 19:22 | disposition home or self-care (01) ==
LOC: MW.ED 15:16
DX: K94.23 Gastrostomy malfunction (principal); I10 Essential (primary) hypertension; J44.9 Chronic obstructive pulmonary disease, unspecified; K21.9 Gastro-esophageal reflux disease without esophagitis; Z91.040 Latex allergy status
CPT/HCPCS: 43762; 74018; 74018-26; 99283-25

== ENCOUNTER 2023-06-01 14:12 | Emergency (ER) | payer MEDICARE, MEDICAID ==
[2023-06-01 15:52] LABS: BASOPHILS PERCENT AUTO 0.2 % (0.0-1.5); EOSINOPHILS ABSOLUTE AUTO 0.1 K/uL (0.0-0.7); EOSINOPHILS PERCENT AUTO 1.5 % (0.0-7.0); HEMATOCRIT 35.7 % (38.0-50.0); HEMOGLOBIN 12.1 g/dL (13.0-17.0); LYMPHOCYTES ABSOLUTE AUTO 0.6 K/uL (0.6-2.4); LYMPHOCYTES PERCENT AUTO 9.7 % (16.0-40.0); MEAN CORPUSCULAR HGB CONC 33.9 g/dL (31.0-37.0); MEAN CORPUSCULAR VOLUME 109.2 fL (80.0-98.0); MONOCYTES ABSOLUTE AUTO 0.8 K/uL (0.0-0.8); MONOCYTES PERCENT AUTO 13.4 % (0.0-15.0); NEUTROPHILS ABSOLUTE AUTO 4.6 K/uL (1.4-5.7); NEUTROPHILS PERCENT AUTO 75.2 % (48.0-80.0); NRBC ABSOLUTE 0 K/uL; PLATELET COUNT,PLT 242 K/uL (150-400); RED BLOOD CELL COUNT 3.27 M/uL (4.50-5.90); WHITE BLOOD CELL COUNT,WBC 6.11 K/uL (4.0-11.0)
[2023-06-01 16:05] VITALS: PULSE 82
[2023-06-01] MEDS ORDERED: Ondansetron 4 MG/2 ML SDV IVPUSH ONE (16:05)
[2023-06-01 16:09] LABS: A/G RATIO 0.9 (0.9-1.6); ALBUMIN 3.8 g/dL (3.4-5.0); BILIRUBIN TOTAL 0.2 mg/dL (0.2-1.0); CALCIUM 8.9 mg/dL (8.5-10.1); CARBON DIOXIDE,CO2 24.1 mmol/L (21.0-32.0); CREATININE 1.1 mg/dL (0.8-1.3); EST CRCL DRUG DOSING (CG) 65.64 mL/min
[2023-06-01] MEDS ORDERED: Sodium Chloride 0.9% 1,000 ML IV STA (16:20)
[2023-06-01 17:12] LABS: CORONAVIRUS COVID-19 NAA NEGATIVE (NEGATIVE); INFLUENZA A NAA NEGATIVE (NEGATIVE); INFLUENZA B NAA NEGATIVE (NEGATIVE)
[2023-06-01 18:17] LABS: APPEARANCE,URINE CLEAR; BILIRUBIN,URINE NEGATIVE (NEGATIVE); COLOR,URINE YELLOW; GLUCOSE,URINE NEGATIVE (NEGATIVE); KETONES,URINE NEGATIVE (NEGATIVE); LEUKOCYTE ESTERASE,URINE NEGATIVE (NEGATIVE); NITRITE,URINE NEGATIVE (NEGATIVE); OCCULT BLOOD,URINE NEGATIVE (NEGATIVE); PROTEIN,URINE NEGATIVE (NEGATIVE); UROBILINOGEN,URINE 0.2 EU/dL (<2.0)
[2023-06-01] MEDS ORDERED: Ondansetron 4 MG Tab.DIS PO STA (18:27)
[2023-06-01 18:42] VITALS: BP 135/61
== END 2023-06-01 18:41 | disposition home or self-care (01) ==
LOC: MW.ED 14:12
DX: R11.2 Nausea with vomiting, unspecified (principal); I10 Essential (primary) hypertension; J44.9 Chronic obstructive pulmonary disease, unspecified; Z91.040 Latex allergy status; Z79.899 Other long term (current) drug therapy; Z20.822 Contact with and (suspected) exposure to COVID-19
CPT/HCPCS: 0240U; 36415; 71046; 80053; 81003; 83690; 84484; 85025; 93005; 96361; 96374; 99284; A9270; J2405; J7030; 93010

== ENCOUNTER 2023-06-06 10:53 | Inpatient (IN) | payer MEDICARE, MEDICAID ==
[2023-06-06] MEDS ORDERED: Sodium Chloride 0.9% 10 ML Syringe FLUSH PRN (11:25)
[2023-06-06] MEDS ORDERED: Albuterol/Ipratropium 3.0-0.5 MG/3 ML Neb Soln NEB ONE (11:25)
[2023-06-06] MEDS ORDERED: Sodium Chloride 0.9% 2.5 ML Syringe FLUSH PRN (11:25)
[2023-06-06] MEDS ORDERED: Ondansetron 4 MG/2 ML SDV IVPUSH ONE (11:25)
[2023-06-06] MEDS ORDERED: Lactated Ringers 1,000 ML IV ONE (11:41)
[2023-06-06 12:35] LABS: BASOPHILS ABSOLUTE AUTO 0.01 K/uL (0.00-0.20); BASOPHILS PERCENT AUTO 0.1 % (0.0-1.0); EOSINOPHILS ABSOLUTE AUTO 0.03 K/uL (0.00-0.45); EOSINOPHILS PERCENT AUTO 0.4 % (0.0-6.0); HEMATOCRIT 37.7 % (42.0-52.0); HEMOGLOBIN 12.9 g/dL (14.0-18.0); LYMPHOCYTES ABSOLUTE AUTO 0.45 K/uL (1.00-4.80); LYMPHOCYTES PERCENT AUTO 5.8 % (24.0-44.0); MEAN CORPUSCULAR HEMOGLOBIN 36.5 pg (28.0-32.0); MEAN CORPUSCULAR HGB CONC 34.2 g/dL (32.0-36.0); MEAN CORPUSCULAR VOLUME 106.8 fL (83.0-99.0); MONOCYTES ABSOLUTE AUTO 0.86 K/uL (0.00-0.80); NEUTROPHILS ABSOLUTE AUTO 6.4 K/uL (1.8-7.7); NEUTROPHILS PERCENT AUTO 82.2 % (41.0-71.0); PLATELET COUNT,PLT 230 K/uL (150-400); RED BLOOD CELL COUNT 3.53 M/uL (4.52-5.90)
[2023-06-06 13:04] LABS: A/G RATIO 0.8 (0.9-1.6); ALBUMIN 3.8 g/dL (3.4-5.0); BILIRUBIN TOTAL 0.2 mg/dL (0.2-1.0); CALCIUM 9.3 mg/dL (8.5-10.1); CARBON DIOXIDE,CO2 22.9 mmol/L (21.0-32.0); CREATININE 1.2 mg/dL (0.8-1.3); EST CRCL DRUG DOSING (CG) 60.17 mL/min; MAGNESIUM 2.5 mg/dL (1.8-2.4); POTASSIUM,K 3.6 mmol/L (3.5-5.1); PROTEIN TOTAL,TP 8.4 g/dL (6.4-8.2)
[2023-06-06 13:06] LABS: CORONAVIRUS COVID-19 NAA NEGATIVE (NEGATIVE); INFLUENZA A NAA NEGATIVE (NEGATIVE); INFLUENZA B NAA NEGATIVE (NEGATIVE); RESPIRATORY SYNCYTIAL VIR NAA NEGATIVE (NEGATIVE)
[2023-06-06] MEDS ORDERED: Iopamidol 755 MG/ML 500 ML Multipack Bottle IVPUSH STA ×2 (14:08→14:09)
[2023-06-06] MEDS ORDERED: metroNIDAZOLE/Normal Saline 500 MG in Premix Bag 1 BAG IV ONE (14:43)
[2023-06-06] MEDS ORDERED: Cefepime 2 GM Vial IVPUSH ONE (14:43)
[2023-06-06] MEDS ORDERED: Ondansetron 4 MG/2 ML SDV IVPUSH PRN (16:31)
[2023-06-06] MEDS ORDERED: Acetaminophen 325 MG Tab PO PRN (16:31)
[2023-06-06 16:35] LABS: LACTIC ACID 1.5 mmol/L (0.4-2.0)
[2023-06-06] MEDS: Sodium Chloride 0.9% 1,000 ML IV SCH (17:40)
[2023-06-06] MEDS: Pantoprazole 40 MG in Sodium Chloride 0.9% 10 ML IVPUSH SCH (17:41)
[2023-06-06] MEDS: Enoxaparin 40 MG/0.4 ML Syringe SUBCUT SCH (17:41)
[2023-06-06] MEDS: Albuterol/Ipratropium 3.0-0.5 MG/3 ML Neb Soln NEB PRN (22:51)
[2023-06-06] MEDS ORDERED: Melatonin 3 MG Tab PO PRN (23:06)
[2023-06-07] MEDS: Cefepime 1 GM in Sodium Chloride 0.9% 50 ML IV SCH ×3 (01:08→16:55)
[2023-06-07] MEDS: Sodium Chloride 0.9% 1,000 ML IV SCH (04:45)
[2023-06-07 06:50] LABS: BASOPHILS ABSOLUTE AUTO 0.02 K/uL (0.00-0.20); BASOPHILS PERCENT AUTO 0.4 % (0.0-1.0); EOSINOPHILS ABSOLUTE AUTO 0.05 K/uL (0.00-0.45); EOSINOPHILS PERCENT AUTO 0.9 % (0.0-6.0); HEMATOCRIT 30.9 % (42.0-52.0); HEMOGLOBIN 10.7 g/dL (14.0-18.0); LYMPHOCYTES ABSOLUTE AUTO 0.59 K/uL (1.00-4.80); LYMPHOCYTES PERCENT AUTO 10.7 % (24.0-44.0); MEAN CORPUSCULAR HEMOGLOBIN 36.6 pg (28.0-32.0); MEAN CORPUSCULAR HGB CONC 34.6 g/dL (32.0-36.0); MEAN CORPUSCULAR VOLUME 105.8 fL (83.0-99.0); MONOCYTES ABSOLUTE AUTO 0.92 K/uL (0.00-0.80); MONOCYTES PERCENT AUTO 16.7 % (0.0-8.0); NEUTROPHILS ABSOLUTE AUTO 3.9 K/uL (1.8-7.7); NEUTROPHILS PERCENT AUTO 70.8 % (41.0-71.0); PLATELET COUNT,PLT 192 K/uL (150-400); RED BLOOD CELL COUNT 2.92 M/uL (4.52-5.90)
[2023-06-07 07:32] LABS: A/G RATIO 0.8 (0.9-1.6); BILIRUBIN TOTAL 0.3 mg/dL (0.2-1.0); CALCIUM 8.3 mg/dL (8.5-10.1); CARBON DIOXIDE,CO2 18.8 mmol/L (21.0-32.0); CREATININE 0.8 mg/dL (0.8-1.3); EST CRCL DRUG DOSING (CG) 88.14 mL/min; POTASSIUM,K 3.3 mmol/L (3.5-5.1); PROTEIN TOTAL,TP 6.6 g/dL (6.4-8.2)
[2023-06-07] MEDS ORDERED: Potassium Chloride 20 MEQ Tab.ER PO ONE (09:15)
[2023-06-07] MEDS: Albuterol/Ipratropium 3.0-0.5 MG/3 ML Neb Soln NEB PRN ×3 (09:47→23:14)
[2023-06-07] MEDS: Pantoprazole 40 MG in Sodium Chloride 0.9% 10 ML IVPUSH SCH (16:55)
[2023-06-07] MEDS: Enoxaparin 40 MG/0.4 ML Syringe SUBCUT SCH (16:55)
[2023-06-07] MEDS: Carvedilol 3.125 MG Tab PO SCH (20:45)
[2023-06-08] MEDS: Cefepime 1 GM in Sodium Chloride 0.9% 50 ML IV SCH ×3 (00:13→16:39)
[2023-06-08] MEDS: Levothyroxine 25 MCG Tab PO SCH ×2 (05:55→06:00)
[2023-06-08 06:15] LABS: BASOPHILS ABSOLUTE AUTO 0.02 K/uL (0.00-0.20); BASOPHILS PERCENT AUTO 0.3 % (0.0-1.0); EOSINOPHILS ABSOLUTE AUTO 0.06 K/uL (0.00-0.45); EOSINOPHILS PERCENT AUTO 0.9 % (0.0-6.0); HEMATOCRIT 33.9 % (42.0-52.0); HEMOGLOBIN 11.7 g/dL (14.0-18.0); IMMATURE GRAN ABSOLUTE AUTO 0.03 K/uL (0.00-0.05); IMMATURE GRAN PERCENT AUTO 0.5 % (0.0-0.4); LYMPHOCYTES ABSOLUTE AUTO 0.61 K/uL (1.00-4.80); LYMPHOCYTES PERCENT AUTO 9.4 % (24.0-44.0); MEAN CORPUSCULAR HEMOGLOBIN 36.3 pg (28.0-32.0); MEAN CORPUSCULAR HGB CONC 34.5 g/dL (32.0-36.0); MEAN CORPUSCULAR VOLUME 105.3 fL (83.0-99.0); MEAN PLATELET VOLUME 9.4 fL (9.4-12.4); MONOCYTES ABSOLUTE AUTO 0.95 K/uL (0.00-0.80); MONOCYTES PERCENT AUTO 14.7 % (0.0-8.0); NEUTROPHILS ABSOLUTE AUTO 4.8 K/uL (1.8-7.7); NEUTROPHILS PERCENT AUTO 74.2 % (41.0-71.0); PLATELET COUNT,PLT 189 K/uL (150-400); RED BLOOD CELL COUNT 3.22 M/uL (4.52-5.90); WHITE BLOOD CELL COUNT,WBC 6.47 K/uL (3.9-11.3)
[2023-06-08 06:34] LABS: A/G RATIO 0.9 (0.9-1.6); ALBUMIN 3.5 g/dL (3.4-5.0); BILIRUBIN TOTAL 0.3 mg/dL (0.2-1.0); CARBON DIOXIDE,CO2 20.1 mmol/L (21.0-32.0); CREATININE 0.9 mg/dL (0.8-1.3); EST CRCL DRUG DOSING (CG) 78.35 mL/min; MAGNESIUM 2.3 mg/dL (1.8-2.4); POTASSIUM,K 3.4 mmol/L (3.5-5.1); PROTEIN TOTAL,TP 7.6 g/dL (6.4-8.2)
[2023-06-08] MEDS: Carvedilol 3.125 MG Tab PO SCH ×2 (08:06→21:03)
[2023-06-08] MEDS ORDERED: Sodium Chloride 0.9% 250 ML IV ONE (08:15)
[2023-06-08] MEDS ORDERED: Potassium Chloride 20 MEQ in Premix Bag 1 BAG IV ONE (08:15)
[2023-06-08] MEDS: Albuterol/Ipratropium 3.0-0.5 MG/3 ML Neb Soln NEB PRN ×2 (10:09→19:40)
[2023-06-08 12:41] LABS: FOLIC ACID 30.4 ng/mL (8.60-58.90)
[2023-06-08] MEDS: amLODIPine 5 MG Tab PO SCH (12:48)
[2023-06-08] MEDS: Pantoprazole 40 MG in Sodium Chloride 0.9% 10 ML IVPUSH SCH (16:39)
[2023-06-08] MEDS: Enoxaparin 40 MG/0.4 ML Syringe SUBCUT SCH (16:39)
[2023-06-08] MEDS ORDERED: VANCOmycin 1.5 GM/300 ML 1.5 GM in Premix Bag 1 BAG IV SCH (23:00)
[2023-06-09] MEDS: Cefepime 1 GM in Sodium Chloride 0.9% 50 ML IV SCH ×3 (02:07→17:10)
[2023-06-09] MEDS: Levothyroxine 25 MCG Tab PO SCH (06:05)
[2023-06-09 06:37] LABS: BASOPHILS ABSOLUTE AUTO 0.02 K/uL (0.00-0.20); BASOPHILS PERCENT AUTO 0.3 % (0.0-1.0); EOSINOPHILS ABSOLUTE AUTO 0.08 K/uL (0.00-0.45); EOSINOPHILS PERCENT AUTO 1.3 % (0.0-6.0); HEMATOCRIT 33.9 % (42.0-52.0); HEMOGLOBIN 11.6 g/dL (14.0-18.0); IMMATURE GRAN ABSOLUTE AUTO 0.03 K/uL (0.00-0.05); IMMATURE GRAN PERCENT AUTO 0.5 % (0.0-0.4); LYMPHOCYTES ABSOLUTE AUTO 0.54 K/uL (1.00-4.80); MEAN CORPUSCULAR HEMOGLOBIN 37.1 pg (28.0-32.0); MEAN CORPUSCULAR HGB CONC 34.2 g/dL (32.0-36.0); MEAN CORPUSCULAR VOLUME 108.3 fL (83.0-99.0); MEAN PLATELET VOLUME 9.9 fL (9.4-12.4); MONOCYTES ABSOLUTE AUTO 0.97 K/uL (0.00-0.80); MONOCYTES PERCENT AUTO 16.2 % (0.0-8.0); NEUTROPHILS ABSOLUTE AUTO 4.4 K/uL (1.8-7.7); NEUTROPHILS PERCENT AUTO 72.7 % (41.0-71.0); PLATELET COUNT,PLT 179 K/uL (150-400); RED BLOOD CELL COUNT 3.13 M/uL (4.52-5.90); WHITE BLOOD CELL COUNT,WBC 5.99 K/uL (3.9-11.3)
[2023-06-09 07:05] LABS: A/G RATIO 0.8 (0.9-1.6); ALBUMIN 3.3 g/dL (3.4-5.0); BILIRUBIN TOTAL 0.4 mg/dL (0.2-1.0); CARBON DIOXIDE,CO2 20.8 mmol/L (21.0-32.0); CREATININE 0.9 mg/dL (0.8-1.3); EST CRCL DRUG DOSING (CG) 78.35 mL/min; PROTEIN TOTAL,TP 7.3 g/dL (6.4-8.2)
[2023-06-09] MEDS: amLODIPine 5 MG Tab PO SCH (09:12)
[2023-06-09] MEDS: Carvedilol 3.125 MG Tab PO SCH (09:12)
[2023-06-09] MEDS ORDERED: Metoclopramide 5 MG Tab PO ONE (09:58)
[2023-06-09 17:27] VITALS: BP 136/64; PULSE 79
== END 2023-06-09 17:50 | disposition home or self-care (01) | DRG 194 ==
LOC: MW.ED 10:53 → MW.MS 15:43
PROVIDERS: ADMIT Family Medicine; ATTEND Family Medicine
DX: J18.9 Pneumonia, unspecified organism (principal); D84.9 Immunodeficiency, unspecified; J44.0 Chronic obstructive pulmonary disease with (acute) lower respiratory infection; I10 Essential (primary) hypertension; R62.50 Unspecified lack of expected normal physiological development in childhood; E86.0 Dehydration; E87.70 Fluid overload, unspecified; C61 Malignant neoplasm of prostate; Z20.822 Contact with and (suspected) exposure to COVID-19; K57.90 Diverticulosis of intestine, part unspecified, without perforation or abscess without bleeding; K21.9 Gastro-esophageal reflux disease without esophagitis; M19.90 Unspecified osteoarthritis, unspecified site; Z90.89 Acquired absence of other organs; Z98.890 Other specified postprocedural states; Z85.89 Personal history of malignant neoplasm of other organs and systems; Z79.899 Other long term (current) drug therapy; Z91.040 Latex allergy status; Z85.819 Personal history of malignant neoplasm of unspecified site of lip, oral cavity, and pharynx
CPT/HCPCS: 0241U; 36415; 71275; 74177; 80053; 80202; 82607; 82746; 83605; 83690; 83735; 83880; 84484; 85025; 87040; 93005; 94640; 96361; 96374; 99285; 93010; A9270-GY; C9113; J0692; J1650; J2405; J3370; J3480; J3490; J7030; J7050; J7120; J7620-GY; Q9967

== ENCOUNTER 2023-12-18 06:26 | Day surgery (SDC) | payer MEDICARE, MEDICAID ==
[~2023-12-18 06:26] MED LIST changes: -Bupivacaine 25%/EPINEPHrine/PF 30 ML ONE; -Clindamycin Phosphate in D5W 600 MG in Premix Bag 50 BAG IV ONE; +Dexamethasone 4 MG/ML 5 ML MDV ONE; +Ketorolac 30 MG/ML SDV ONE; -Lactated Ringers 1,000 ML IV SCH; +Lidocaine 2% 5 ML SDV ONE; +Ondansetron 4 MG/2 ML SDV ONE; +Sodium Chloride 0.9% 10 ML Syringe FLUSH PRN; +Sodium Chloride 0.9% 2.5 ML Syringe FLUSH PRN; +Sodium Chloride 0.9% 20 ML SDV IV PRN; +dexmedeTOMIDine HCl 200 MCG/2 ML SDV ONE; +fentaNYL 100 MCG/2 ML SDV ONE; +propofoL 50 ML ONE
[2023-12-18] MEDS ORDERED: Water For Injection, Sterile 20 ML ONE (06:29)
[2023-12-18] MEDS ORDERED: ceFAZolin 2 GM Vial ONE (06:30)
[2023-12-18] MEDS ORDERED: Naloxone 0.4 MG/ML SDV IVPUSH PRN (06:48)
[2023-12-18] MEDS ORDERED: droPERidol 5 MG/2 ML SDV IVPUSH PRN (06:48)
[2023-12-18] MEDS ORDERED: Morphine 2 MG/ML SYRINGE IVPUSH PRN (06:48)
[2023-12-18] MEDS ORDERED: fentaNYL 50 MCG/ML SDV IVPUSH PRN (06:48)
[2023-12-18] MEDS ORDERED: Metoclopramide 10 MG/2 ML SDV IVPUSH PRN (06:48)
[2023-12-18] MEDS ORDERED: Albuterol 0.083% 2.5 MG/3 ML Neb Soln NEB PRN (06:48)
[2023-12-18] MEDS ORDERED: Ondansetron 4 MG/2 ML SDV IVPUSH PRN (06:48)
[2023-12-18] MEDS ORDERED: HYDROmorphone 1 MG/ML Syringe IVPUSH PRN (06:48)
[2023-12-18] MEDS: Lactated Ringers 1,000 ML IV SCH (06:59)
[2023-12-18] MEDS ORDERED: Ketamine HCL/NACL, ISO-OSM 50 MG/5 ML Syringe ONE (06:59)
[2023-12-18] MEDS ORDERED: Lidocaine 1% 20 ML MDV ONE (07:14)
[2023-12-18] MEDS ORDERED: Bupivacaine 0.5% 30 ML SDV ONE (07:14)
[2023-12-18 08:32] VITALS: BP 135/60; PULSE 67
== END 2023-12-18 08:45 | disposition home or self-care (01) ==
LOC: MW.SDS 06:26
PROVIDERS: ATTEND Surgery
DX: C76.0 Malignant neoplasm of head, face and neck (principal); I10 Essential (primary) hypertension; E03.9 Hypothyroidism, unspecified; K21.9 Gastro-esophageal reflux disease without esophagitis; Z87.891 Personal history of nicotine dependence; Z79.890 Hormone replacement therapy; Z79.899 Other long term (current) drug therapy; Z91.040 Latex allergy status
CPT/HCPCS: 36590; J0665; J0690; J1100; J1885; J2405; J2704; J3010; J7120; J3490

== ENCOUNTER 2024-04-05 12:56 | Emergency (ER) | payer MEDICARE, MEDICAID ==
[2024-04-05] MEDS: Morphine 4 MG/ML Syringe IVPUSH STA (13:52)
[2024-04-05] MEDS: Ondansetron 4 MG/2 ML SDV IVPUSH STA (13:52)
[2024-04-05] MEDS: Piperacillin/Tazobactam 4.5 GM in Sodium Chloride 0.9% 100 ML IV STA (13:53)
[2024-04-05] MEDS: Sodium Chloride 0.9% 1,000 ML IV STA (13:53)
[2024-04-05 14:03] LABS: BASOPHILS ABSOLUTE AUTO 0.01 K/uL (0.00-0.20); BASOPHILS PERCENT AUTO 0.1 % (0.0-1.0); EOSINOPHILS ABSOLUTE AUTO 0.07 K/uL (0.00-0.45); HEMATOCRIT 35.5 % (42.0-52.0); HEMOGLOBIN 12.1 g/dL (14.0-18.0); IMMATURE GRAN ABSOLUTE AUTO 0.05 K/uL (0.00-0.05); IMMATURE GRAN PERCENT AUTO 0.7 % (0.0-0.4); LYMPHOCYTES ABSOLUTE AUTO 0.45 K/uL (1.00-4.80); LYMPHOCYTES PERCENT AUTO 6.6 % (24.0-44.0); MEAN CORPUSCULAR HEMOGLOBIN 39.4 pg (28.0-32.0); MEAN CORPUSCULAR HGB CONC 34.1 g/dL (32.0-36.0); MEAN CORPUSCULAR VOLUME 115.6 fL (83.0-99.0); MEAN PLATELET VOLUME 10.7 fL (9.4-12.4); MONOCYTES ABSOLUTE AUTO 0.77 K/uL (0.00-0.80); MONOCYTES PERCENT AUTO 11.3 % (0.0-8.0); NEUTROPHILS ABSOLUTE AUTO 5.49 K/uL (1.80-7.70); NEUTROPHILS PERCENT AUTO 80.3 % (41.0-71.0); PLATELET COUNT,PLT 175 K/uL (150-400); RED BLOOD CELL COUNT 3.07 M/uL (4.52-5.90); WHITE BLOOD CELL COUNT,WBC 6.84 K/uL (3.9-11.3)
[2024-04-05 14:38] LABS: A/G RATIO 1.1 (0.9-1.6); BILIRUBIN TOTAL 0.2 mg/dL (0.2-1.0); CALCIUM 9.6 mg/dL (8.5-10.1); CARBON DIOXIDE,CO2 23.2 mmol/L (21.0-32.0); CREATININE 1.2 mg/dL (0.8-1.3); EST CRCL DRUG DOSING (CG) 61.37 mL/min; POTASSIUM,K 4.1 mmol/L (3.5-5.1); PROTEIN TOTAL,TP 7.7 g/dL (6.4-8.2)
[2024-04-05 14:41] LABS: LACTIC ACID 1.7 mmol/L (0.4-2.0)
[2024-04-05] MEDS: Iopamidol 755 MG/ML 500 ML Multipack Bottle IVPUSH STA (16:26)
[2024-04-05 17:28] VITALS: BP 137/61; PULSE 74
== END 2024-04-05 17:27 | disposition home or self-care (01) ==
LOC: MW.ED 12:56
DX: M54.2 Cervicalgia (principal); I10 Essential (primary) hypertension; E03.9 Hypothyroidism, unspecified; Z79.899 Other long term (current) drug therapy; Z79.890 Hormone replacement therapy; Z91.040 Latex allergy status; Z88.1 Allergy status to other antibiotic agents; Z75.8 Other problems related to medical facilities and other health care
CPT/HCPCS: 36415; 70491; 71046; 80053; 83605; 85025; 87040; 87651; 96365; 96375; 99284; J2270; J2405; J2543; J3360; J3490; J7030; Q9967

== ENCOUNTER 2024-11-09 06:09 | Inpatient (IN) | payer MEDICARE, MEDICAID ==
[2024-11-09] MEDS ORDERED: Sodium Chloride 0.9% 2.5 ML Syringe FLUSH PRN (06:12)
[2024-11-09] MEDS ORDERED: Sodium Chloride 0.9% 10 ML Syringe FLUSH PRN (06:12)
[2024-11-09] MEDS ORDERED: Sodium Chloride 0.9% 20 ML SDV IV PRN (06:12)
[2024-11-09] MEDS: Ondansetron 4 MG/2 ML SDV IVPUSH ONE (06:27)
[2024-11-09] MEDS: Sodium Chloride 0.9% 1,000 ML IV ONE ×2 (06:27→08:35)
[2024-11-09 06:33] LABS: BASOPHILS ABSOLUTE AUTO 0.02 K/uL (0.00-0.20); BASOPHILS PERCENT AUTO 0.1 % (0.0-1.0); HEMATOCRIT 35.8 % (42.0-52.0); HEMOGLOBIN 12.4 g/dL (14.0-18.0); IMMATURE GRAN ABSOLUTE AUTO 0.07 K/uL (0.00-0.05); IMMATURE GRAN PERCENT AUTO 0.5 % (0.0-0.4); LYMPHOCYTES ABSOLUTE AUTO 0.46 K/uL (1.00-4.80); LYMPHOCYTES PERCENT AUTO 3.1 % (24.0-44.0); MEAN CORPUSCULAR HEMOGLOBIN 38.4 pg (28.0-32.0); MEAN CORPUSCULAR HGB CONC 34.6 g/dL (32.0-36.0); MEAN CORPUSCULAR VOLUME 110.8 fL (83.0-99.0); MEAN PLATELET VOLUME 10.6 fL (9.4-12.4); MONOCYTES ABSOLUTE AUTO 0.98 K/uL (0.00-0.80); MONOCYTES PERCENT AUTO 6.5 % (0.0-8.0); NEUTROPHILS ABSOLUTE AUTO 13.45 K/uL (1.80-7.70); NEUTROPHILS PERCENT AUTO 89.8 % (41.0-71.0); PLATELET COUNT,PLT 190 K/uL (150-400); RED BLOOD CELL COUNT 3.23 M/uL (4.52-5.90); WHITE BLOOD CELL COUNT,WBC 14.98 K/uL (3.9-11.3)
[2024-11-09 07:02] LABS: A/G RATIO 0.9 (0.9-1.6); ALBUMIN 3.7 g/dL (3.4-5.0); BILIRUBIN TOTAL 0.5 mg/dL (0.2-1.0); CALCIUM 8.9 mg/dL (8.5-10.1); CARBON DIOXIDE,CO2 20.1 mmol/L (21.0-32.0); CREATININE 1.7 mg/dL (0.8-1.3); EST CRCL DRUG DOSING (CG) 41.91 mL/min; MAGNESIUM 2.1 mg/dL (1.8-2.4); POTASSIUM,K 4.1 mmol/L (3.5-5.1); PROTEIN TOTAL,TP 7.7 g/dL (6.4-8.2)
[2024-11-09 08:26] LABS: LACTIC ACID 2.7 mmol/L (0.4-2.0)
[2024-11-09] MEDS: Metoclopramide 10 MG/2 ML SDV IVPUSH ONE (08:58)
[2024-11-09 09:06] LABS: BASOPHILS ABSOLUTE AUTO 0.02 K/uL (0.00-0.20); BASOPHILS PERCENT AUTO 0.1 % (0.0-1.0); HEMATOCRIT 31.4 % (42.0-52.0); HEMOGLOBIN 11.1 g/dL (14.0-18.0); IMMATURE GRAN ABSOLUTE AUTO 0.07 K/uL (0.00-0.05); IMMATURE GRAN PERCENT AUTO 0.5 % (0.0-0.4); LYMPHOCYTES ABSOLUTE AUTO 0.41 K/uL (1.00-4.80); LYMPHOCYTES PERCENT AUTO 2.8 % (24.0-44.0); MEAN CORPUSCULAR HEMOGLOBIN 39.2 pg (28.0-32.0); MEAN CORPUSCULAR HGB CONC 35.4 g/dL (32.0-36.0); MEAN PLATELET VOLUME 10.3 fL (9.4-12.4); MONOCYTES ABSOLUTE AUTO 1.07 K/uL (0.00-0.80); MONOCYTES PERCENT AUTO 7.4 % (0.0-8.0); NEUTROPHILS ABSOLUTE AUTO 12.83 K/uL (1.80-7.70); NEUTROPHILS PERCENT AUTO 89.2 % (41.0-71.0); PLATELET COUNT,PLT 172 K/uL (150-400); RED BLOOD CELL COUNT 2.83 M/uL (4.52-5.90)
[2024-11-09] MEDS: cefTRIAXone 2 GM in Sodium Chloride 0.9% 50 ML IV ONE (09:24)
[2024-11-09 09:31] LABS: A/G RATIO 0.9 (0.9-1.6); ALBUMIN 3.2 g/dL (3.4-5.0); BILIRUBIN TOTAL 0.4 mg/dL (0.2-1.0); CALCIUM 8.4 mg/dL (8.5-10.1); CARBON DIOXIDE,CO2 20.4 mmol/L (21.0-32.0); CREATININE 1.4 mg/dL (0.8-1.3); EST CRCL DRUG DOSING (CG) 50.89 mL/min; PROTEIN TOTAL,TP 6.6 g/dL (6.4-8.2)
[2024-11-09] MEDS: metroNIDAZOLE/Normal Saline 500 MG in Premix Bag 1 BAG IV ONE (09:44)
[2024-11-09] MEDS ORDERED: Ondansetron 4 MG Tab.DIS PO PRN (12:15)
[2024-11-09] MEDS ORDERED: Ketorolac 30 MG/ML SDV IVPUSH PRN (12:15)
[2024-11-09] MEDS ORDERED: Metoclopramide 5 MG Tab PO PRN (12:15)
[2024-11-09] MEDS ORDERED: Piperacillin/Tazobactam 3.375 GM in Sodium Chloride 0.9% 100 ML IV SCH (12:45)
[2024-11-09] MEDS: Sodium Chloride 0.9% 1,000 ML IV SCH (12:47)
[2024-11-09] MEDS: Ondansetron 4 MG/2 ML SDV IVPUSH PRN (12:56)
[2024-11-09] MEDS: Heparin Sodium 5,000 Units/ML Vial SUBCUT SCH (12:56)
[2024-11-09] MEDS: Piperacillin/Tazobactam 4.5 GM in Sodium Chloride 0.9% 100 ML IV ONE (12:56)
[2024-11-09] MEDS: Tamsulosin 0.4 MG Cap.ER PO SCH (16:55)
[2024-11-09] MEDS: Piperacillin/Tazobactam 4.5 GM in Sodium Chloride 0.9% 100 ML IV SCH (20:17)
[2024-11-09] MEDS: Gabapentin 300 MG Cap PO SCH (22:38)
[2024-11-09] MEDS: Loperamide 2 MG Cap PO PRN (22:38)
[2024-11-09] MEDS: Calcium Carbonate 500 MG Tab.Chew PO PRN (22:38)
[2024-11-10 05:32] LABS: BASOPHILS ABSOLUTE AUTO 0.02 K/uL (0.00-0.20); BASOPHILS PERCENT AUTO 0.1 % (0.0-1.0); EOSINOPHILS ABSOLUTE AUTO 0.01 K/uL (0.00-0.45); EOSINOPHILS PERCENT AUTO 0.1 % (0.0-6.0); HEMATOCRIT 31.3 % (42.0-52.0); HEMOGLOBIN 10.5 g/dL (14.0-18.0); IMMATURE GRAN ABSOLUTE AUTO 0.09 K/uL (0.00-0.05); IMMATURE GRAN PERCENT AUTO 0.6 % (0.0-0.4); LYMPHOCYTES ABSOLUTE AUTO 0.52 K/uL (1.00-4.80); LYMPHOCYTES PERCENT AUTO 3.6 % (24.0-44.0); MEAN CORPUSCULAR HGB CONC 33.5 g/dL (32.0-36.0); MEAN CORPUSCULAR VOLUME 113.4 fL (83.0-99.0); MEAN PLATELET VOLUME 10.5 fL (9.4-12.4); MONOCYTES ABSOLUTE AUTO 1.35 K/uL (0.00-0.80); MONOCYTES PERCENT AUTO 9.4 % (0.0-8.0); NEUTROPHILS ABSOLUTE AUTO 12.35 K/uL (1.80-7.70); NEUTROPHILS PERCENT AUTO 86.2 % (41.0-71.0); PLATELET COUNT,PLT 163 K/uL (150-400); RED BLOOD CELL COUNT 2.76 M/uL (4.52-5.90); WHITE BLOOD CELL COUNT,WBC 14.34 K/uL (3.9-11.3)
[2024-11-10 05:58] LABS: A/G RATIO 0.8 (0.9-1.6); ALANINE AMINOTRANSFERASE,ALT 27 IU/L (14-63); ALBUMIN 2.9 g/dL (3.4-5.0); ALKALINE PHOSPHATASE 58 U/L (46-116); ASPARTATE AMNIOTRANSFERASE,AST 20 IU/L (15-37); BILIRUBIN TOTAL 0.4 mg/dL (0.2-1.0); BLOOD UREA NITROGEN,BUN 22 mg/dL (7.0-18.0); CALCIUM 8.3 mg/dL (8.5-10.1); CARBON DIOXIDE,CO2 17.6 mmol/L (21.0-32.0); CHLORIDE,CL 108 mmol/L (98-107); CREATININE 1.3 mg/dL (0.8-1.3); GLUCOSE RANDOM 97 mg/dL (74-106); MAGNESIUM 2.2 mg/dL (1.8-2.4); PHOSPHORUS 6.3 mg/dL (2.6-4.7); POTASSIUM,K 3.5 mmol/L (3.5-5.1); PROTEIN TOTAL,TP 6.4 g/dL (6.4-8.2); SODIUM,NA 139 mmol/L (136-148)
[2024-11-10 06:01] LABS: ESTIMATED GFR 61 mL/min (>60)
[2024-11-10] MEDS: Levothyroxine 75 MCG Tab PO SCH (06:42)
[2024-11-10] MEDS: amLODIPine 5 MG Tab PO SCH (08:40)
[2024-11-10] MEDS ORDERED: Metoclopramide 5 MG Tab PO PRN (09:50)
[2024-11-10] MEDS ORDERED: Pantoprazole 40 MG Tab.CR PO SCH (10:00)
[2024-11-10] MEDS: Benzocaine/Cetylpyridinium/Menthol Lozenge MUCMEM PRN (10:49)
[2024-11-10] MEDS: Pantoprazole 40 MG Tab.CR PO SCH (10:49)
[2024-11-10 11:09] LABS: FOLIC ACID 31.3 ng/mL (8.60-58.90)
[2024-11-11] MEDS: Acetaminophen 325 MG Tab PO PRN (00:08)
[2024-11-11 05:59] LABS: BASOPHILS ABSOLUTE AUTO 0.02 K/uL (0.00-0.20); BASOPHILS PERCENT AUTO 0.2 % (0.0-1.0); EOSINOPHILS ABSOLUTE AUTO 0.05 K/uL (0.00-0.45); EOSINOPHILS PERCENT AUTO 0.5 % (0.0-6.0); HEMATOCRIT 29.2 % (42.0-52.0); HEMOGLOBIN 10.1 g/dL (14.0-18.0); IMMATURE GRAN ABSOLUTE AUTO 0.04 K/uL (0.00-0.05); IMMATURE GRAN PERCENT AUTO 0.4 % (0.0-0.4); LYMPHOCYTES ABSOLUTE AUTO 0.93 K/uL (1.00-4.80); LYMPHOCYTES PERCENT AUTO 9.9 % (24.0-44.0); MEAN CORPUSCULAR HEMOGLOBIN 38.8 pg (28.0-32.0); MEAN CORPUSCULAR HGB CONC 34.6 g/dL (32.0-36.0); MEAN CORPUSCULAR VOLUME 112.3 fL (83.0-99.0); MEAN PLATELET VOLUME 10.8 fL (9.4-12.4); MONOCYTES ABSOLUTE AUTO 0.98 K/uL (0.00-0.80); MONOCYTES PERCENT AUTO 10.5 % (0.0-8.0); NEUTROPHILS ABSOLUTE AUTO 7.35 K/uL (1.80-7.70); NEUTROPHILS PERCENT AUTO 78.5 % (41.0-71.0); PLATELET COUNT,PLT 155 K/uL (150-400); WHITE BLOOD CELL COUNT,WBC 9.37 K/uL (3.9-11.3)
[2024-11-11 06:23] LABS: A/G RATIO 0.8 (0.9-1.6); ALBUMIN 2.7 g/dL (3.4-5.0); BILIRUBIN TOTAL 0.2 mg/dL (0.2-1.0); CALCIUM 8.4 mg/dL (8.5-10.1); CARBON DIOXIDE,CO2 21.9 mmol/L (21.0-32.0); CREATININE 1.2 mg/dL (0.8-1.3); EST CRCL DRUG DOSING (CG) 59.59 mL/min; MAGNESIUM 2.3 mg/dL (1.8-2.4); PHOSPHORUS 2.5 mg/dL (2.6-4.7); POTASSIUM,K 3.6 mmol/L (3.5-5.1)
[2024-11-11 12:05] VITALS: BP 112/53; PULSE 87
== END 2024-11-11 11:45 | disposition home or self-care (01) | DRG 392 ==
LOC: MW.ED 06:09 → MW.MS 10:27
PROVIDERS: ADMIT Family Medicine; ATTEND Family Medicine
DX: K52.9 Noninfective gastroenteritis and colitis, unspecified (principal); G89.29 Other chronic pain; I10 Essential (primary) hypertension; J44.9 Chronic obstructive pulmonary disease, unspecified; M72.0 Palmar fascial fibromatosis [Dupuytren]; Z79.890 Hormone replacement therapy; K21.9 Gastro-esophageal reflux disease without esophagitis; Z91.040 Latex allergy status; E03.9 Hypothyroidism, unspecified; E86.0 Dehydration; B34.9 Viral infection, unspecified; Z79.60 Long term (current) use of unspecified immunomodulators and immunosuppressants; Z88.1 Allergy status to other antibiotic agents; Z91.041 Radiographic dye allergy status; Z79.899 Other long term (current) drug therapy; Z87.01 Personal history of pneumonia (recurrent); Z86.19 Personal history of other infectious and parasitic diseases; Z87.891 Personal history of nicotine dependence; Z90.89 Acquired absence of other organs; Z98.890 Other specified postprocedural states
CPT/HCPCS: 36415; 71045; 74018; 74176; 80053 ×2; 83605 ×2; 83690; 83735; 83880; 84484; 85025 ×2; 87040 ×2; 87428; 93005 ×2; 96361; 96374; 96375; 99285; J0696; J1836; J2405; J2765; J3490; J7030 ×2; 82607; 82746; 84100; 87045; 87046; 87324; 87449; 87899; A9270-GY; J1644; J2543

== ENCOUNTER 2024-11-30 17:30 | Emergency (ER) | payer MEDICARE, MEDICAID ==
[2024-11-30 17:41] VITALS: PULSE 93
[2024-11-30 18:46] LABS: BASOPHILS ABSOLUTE AUTO 0.02 K/uL (0.00-0.20); BASOPHILS PERCENT AUTO 0.2 % (0.0-1.0); EOSINOPHILS ABSOLUTE AUTO 0.07 K/uL (0.00-0.45); EOSINOPHILS PERCENT AUTO 0.9 % (0.0-6.0); HEMATOCRIT 32.6 % (42.0-52.0); HEMOGLOBIN 11.5 g/dL (14.0-18.0); IMMATURE GRAN ABSOLUTE AUTO 0.05 K/uL (0.00-0.05); IMMATURE GRAN PERCENT AUTO 0.6 % (0.0-0.4); LYMPHOCYTES ABSOLUTE AUTO 0.52 K/uL (1.00-4.80); LYMPHOCYTES PERCENT AUTO 6.4 % (24.0-44.0); MEAN CORPUSCULAR HEMOGLOBIN 38.5 pg (28.0-32.0); MEAN CORPUSCULAR HGB CONC 35.3 g/dL (32.0-36.0); MEAN PLATELET VOLUME 11.1 fL (9.4-12.4); MONOCYTES ABSOLUTE AUTO 0.68 K/uL (0.00-0.80); MONOCYTES PERCENT AUTO 8.4 % (0.0-8.0); NEUTROPHILS PERCENT AUTO 83.5 % (41.0-71.0); PLATELET COUNT,PLT 225 K/uL (150-400); RED BLOOD CELL COUNT 2.99 M/uL (4.52-5.90); WHITE BLOOD CELL COUNT,WBC 8.14 K/uL (3.9-11.3)
[2024-11-30 18:48] LABS: APPEARANCE,URINE CLEAR; BILIRUBIN,URINE NEGATIVE (NEGATIVE); COLOR,URINE YELLOW; GLUCOSE,URINE NEGATIVE (NEGATIVE); KETONES,URINE NEGATIVE (NEGATIVE); LEUKOCYTE ESTERASE,URINE NEGATIVE (NEGATIVE); NITRITE,URINE NEGATIVE (NEGATIVE); OCCULT BLOOD,URINE NEGATIVE (NEGATIVE); PROTEIN,URINE NEGATIVE (NEGATIVE); UROBILINOGEN,URINE 0.2 EU/dL (<2.0)
[2024-11-30 19:16] LABS: LACTIC ACID 1.5 mmol/L (0.4-2.0)
[2024-11-30 19:23] LABS: ALBUMIN 3.6 g/dL (3.4-5.0); BILIRUBIN TOTAL 0.3 mg/dL (0.2-1.0); CARBON DIOXIDE,CO2 21.1 mmol/L (21.0-32.0); CREATININE 1.4 mg/dL (0.8-1.3); EST CRCL DRUG DOSING (CG) 50.89 mL/min; MAGNESIUM 2.3 mg/dL (1.8-2.4); POTASSIUM,K 3.9 mmol/L (3.5-5.1); PROTEIN TOTAL,TP 7.3 g/dL (6.4-8.2)
[2024-11-30] MEDS: Iopamidol 755 MG/ML 500 ML Multipack Bottle IVPUSH ONE (21:40)
[2024-11-30 23:14] VITALS: BP 109/67
== END 2024-11-30 23:13 | disposition home or self-care (01) ==
LOC: MW.ED 17:30
DX: K40.90 Unilateral inguinal hernia, without obstruction or gangrene, not specified as recurrent (principal); I74.5 Embolism and thrombosis of iliac artery; Z79.899 Other long term (current) drug therapy; Z91.040 Latex allergy status; Z88.1 Allergy status to other antibiotic agents
CPT/HCPCS: 36415; 71046; 74177; 80053; 81003; 83605; 83690; 83735; 84484; 85025; 87040; 87428; 93005; 99285; Q9967; 99283

== ENCOUNTER 2024-12-14 09:01 | Day surgery (SDC) | payer MEDICARE, MEDICAID ==
[~2024-12-14 09:01] MED LIST changes: -Dexamethasone 4 MG/ML 5 ML MDV ONE; -Ketorolac 30 MG/ML SDV ONE; -Lidocaine 2% 5 ML SDV ONE; -Ondansetron 4 MG/2 ML SDV ONE; -dexmedeTOMIDine HCl 200 MCG/2 ML SDV ONE; -fentaNYL 100 MCG/2 ML SDV ONE; -propofoL 50 ML ONE
[2024-12-14] MEDS ORDERED: propofoL 500 MG/50 ML 50 ML ONE (09:21)
[2024-12-14] MEDS ORDERED: Lidocaine 2% 5 ML SDV ONE (09:21)
[2024-12-14] MEDS: Lactated Ringers 1,000 ML IV SCH (09:33)
[2024-12-14 11:40] VITALS: BP 132/75; PULSE 87
== END 2024-12-14 11:43 | disposition home or self-care (01) ==
LOC: MW.SDS 09:01
PROVIDERS: ATTEND Surgery
DX: K62.1 Rectal polyp (principal); K57.30 Diverticulosis of large intestine without perforation or abscess without bleeding; K31.89 Other diseases of stomach and duodenum; K29.80 Duodenitis without bleeding; K21.9 Gastro-esophageal reflux disease without esophagitis; K40.20 Bilateral inguinal hernia, without obstruction or gangrene, not specified as recurrent; I10 Essential (primary) hypertension; E03.9 Hypothyroidism, unspecified; F17.210 Nicotine dependence, cigarettes, uncomplicated; Z79.899 Other long term (current) drug therapy; Z79.890 Hormone replacement therapy; Z88.8 Allergy status to other drugs, medicaments and biological substances; Z91.040 Latex allergy status
CPT/HCPCS: 43239; 45380; J2003; J2704; J7120

== ENCOUNTER 2025-02-08 14:45 | Emergency (ER) | payer MEDICARE, MEDICAID ==
[2025-02-08] MEDS: Aspirin 81 MG Tab.Chew PO ONE (15:12)
[2025-02-08] MEDS: Sodium Chloride 0.9% 1,000 ML IV ONE (15:17)
[2025-02-08 15:40] LABS: BASOPHILS ABSOLUTE AUTO 0.02 K/uL (0.00-0.20); BASOPHILS PERCENT AUTO 0.3 % (0.0-1.0); EOSINOPHILS ABSOLUTE AUTO 0.07 K/uL (0.00-0.45); EOSINOPHILS PERCENT AUTO 1.2 % (0.0-6.0); HEMATOCRIT 32.9 % (42.0-52.0); HEMOGLOBIN 11.5 g/dL (14.0-18.0); IMMATURE GRAN ABSOLUTE AUTO 0.03 K/uL (0.00-0.05); IMMATURE GRAN PERCENT AUTO 0.5 % (0.0-0.4); LYMPHOCYTES ABSOLUTE AUTO 0.46 K/uL (1.00-4.80); LYMPHOCYTES PERCENT AUTO 7.8 % (24.0-44.0); MEAN CORPUSCULAR HEMOGLOBIN 38.7 pg (28.0-32.0); MEAN CORPUSCULAR VOLUME 110.8 fL (83.0-99.0); MEAN PLATELET VOLUME 10.1 fL (9.4-12.4); MONOCYTES ABSOLUTE AUTO 0.65 K/uL (0.00-0.80); NEUTROPHILS ABSOLUTE AUTO 4.67 K/uL (1.80-7.70); NEUTROPHILS PERCENT AUTO 79.2 % (41.0-71.0); PLATELET COUNT,PLT 178 K/uL (150-400); RED BLOOD CELL COUNT 2.97 M/uL (4.52-5.90)
[2025-02-08 16:16] LABS: ALBUMIN 3.5 g/dL (3.4-5.0); BILIRUBIN TOTAL 0.2 mg/dL (0.2-1.0); CALCIUM 9.2 mg/dL (8.5-10.1); CARBON DIOXIDE,CO2 23.8 mmol/L (21.0-32.0); CREATININE 1.3 mg/dL (0.8-1.3); EST CRCL DRUG DOSING (CG) 54.81 mL/min; MAGNESIUM 2.1 mg/dL (1.8-2.4); POTASSIUM,K 3.3 mmol/L (3.5-5.1); PROTEIN TOTAL,TP 7.1 g/dL (6.4-8.2)
[2025-02-08 16:33] LABS: APPEARANCE,URINE CLEAR; BILIRUBIN,URINE NEGATIVE (NEGATIVE); COLOR,URINE YELLOW; GLUCOSE,URINE NEGATIVE (NEGATIVE); KETONES,URINE NEGATIVE (NEGATIVE); LEUKOCYTE ESTERASE,URINE NEGATIVE (NEGATIVE); NITRITE,URINE NEGATIVE (NEGATIVE); OCCULT BLOOD,URINE NEGATIVE (NEGATIVE); PROTEIN,URINE NEGATIVE (NEGATIVE); UROBILINOGEN,URINE 0.2 EU/dL (<2.0)
[2025-02-08] MEDS: Iopamidol 755 MG/ML 500 ML Multipack Bottle IVPUSH STA (17:26)
[2025-02-08 21:04] VITALS: BP 172/73; PULSE 75
== END 2025-02-08 21:15 | disposition home or self-care (01) ==
LOC: MW.ED 14:45
DX: R68.84 Jaw pain (principal); R07.9 Chest pain, unspecified; Z75.3 Unavailability and inaccessibility of health-care facilities; I10 Essential (primary) hypertension; K21.9 Gastro-esophageal reflux disease without esophagitis; Z79.899 Other long term (current) drug therapy; Z91.040 Latex allergy status; Z88.1 Allergy status to other antibiotic agents
CPT/HCPCS: 36415; 70491; 71045; 80053; 81003; 83690; 83735; 84484; 85025; 87651; 93005; 96360; 96361; 99285; A9270; J7030; Q9967; 93010; 99283

== ENCOUNTER 2025-02-17 13:59 | Emergency (ER) | payer MEDICARE, MEDICAID ==
[2025-02-17] MEDS ORDERED: Sodium Chloride 0.9% 2.5 ML Syringe FLUSH PRN (15:29)
[2025-02-17] MEDS ORDERED: Sodium Chloride 0.9% 20 ML SDV IV PRN (15:29)
[2025-02-17] MEDS ORDERED: Sodium Chloride 0.9% 10 ML Syringe FLUSH PRN (15:29)
[2025-02-17 16:14] LABS: BASOPHILS ABSOLUTE AUTO 0.02 K/uL (0.00-0.20); BASOPHILS PERCENT AUTO 0.3 % (0.0-1.0); EOSINOPHILS ABSOLUTE AUTO 0.09 K/uL (0.00-0.45); EOSINOPHILS PERCENT AUTO 1.2 % (0.0-6.0); HEMATOCRIT 38.3 % (42.0-52.0); HEMOGLOBIN 13.6 g/dL (14.0-18.0); IMMATURE GRAN ABSOLUTE AUTO 0.02 K/uL (0.00-0.05); IMMATURE GRAN PERCENT AUTO 0.3 % (0.0-0.4); LYMPHOCYTES ABSOLUTE AUTO 0.55 K/uL (1.00-4.80); LYMPHOCYTES PERCENT AUTO 7.6 % (24.0-44.0); MEAN CORPUSCULAR HEMOGLOBIN 38.4 pg (28.0-32.0); MEAN CORPUSCULAR HGB CONC 35.5 g/dL (32.0-36.0); MEAN CORPUSCULAR VOLUME 108.2 fL (83.0-99.0); MEAN PLATELET VOLUME 10.7 fL (9.4-12.4); MONOCYTES ABSOLUTE AUTO 0.82 K/uL (0.00-0.80); MONOCYTES PERCENT AUTO 11.3 % (0.0-8.0); NEUTROPHILS ABSOLUTE AUTO 5.77 K/uL (1.80-7.70); NEUTROPHILS PERCENT AUTO 79.3 % (41.0-71.0); PLATELET COUNT,PLT 188 K/uL (150-400); RED BLOOD CELL COUNT 3.54 M/uL (4.52-5.90); WHITE BLOOD CELL COUNT,WBC 7.27 K/uL (3.9-11.3)
[2025-02-17 16:41] LABS: INR 0.97 (0.86-1.11); PTT,PARTIAL THROMBOPLSTIN TIME 24.4 SEC (23.9-30.7)
[2025-02-17 16:42] LABS: A/G RATIO 1.1 (0.9-1.6); ALBUMIN 4.1 g/dL (3.4-5.0); BILIRUBIN TOTAL 0.5 mg/dL (0.2-1.0); CARBON DIOXIDE,CO2 22.2 mmol/L (21.0-32.0); CREATININE 1.5 mg/dL (0.8-1.3); EST CRCL DRUG DOSING (CG) 46.87 mL/min; MAGNESIUM 2.1 mg/dL (1.8-2.4); POTASSIUM,K 3.2 mmol/L (3.5-5.1)
[2025-02-17] MEDS: Iopamidol 755 MG/ML 500 ML Multipack Bottle IVPUSH STA (17:01)
[2025-02-17] MEDS: Potassium Chloride 20 MEQ Tab.ER PO ONE (17:40)
[2025-02-17] MEDS: Acetaminophen 500 MG Tab PO ONE (17:40)
[2025-02-17 19:05] VITALS: BP 141/75; PULSE 75
== END 2025-02-17 19:05 | disposition home or self-care (01) ==
LOC: MW.ED 13:59
DX: E87.6 Hypokalemia (principal); M25.511 Pain in right shoulder; R74.8 Abnormal levels of other serum enzymes; I10 Essential (primary) hypertension; E03.9 Hypothyroidism, unspecified; K21.9 Gastro-esophageal reflux disease without esophagitis; Z91.040 Latex allergy status; Z88.1 Allergy status to other antibiotic agents; Z79.899 Other long term (current) drug therapy; Z79.890 Hormone replacement therapy
CPT/HCPCS: 36415; 70450; 70496; 70498; 71046; 80053; 83735; 83880; 84484; 85025; 85610; 85730; 93005; 99285; A9270; Q9967; 93010; 99284

== ENCOUNTER → 2025-06-02 | Day surgery (SDC) | payer MEDICARE, MEDICAID ==
[~2025-06-02] MED LIST changes: +Albuterol 0.083% 2.5 MG/3 ML Neb Soln NEB PRN; +Dexamethasone 4 MG/ML 5 ML MDV ONE; +Ketamine HCL/NACL, ISO-OSM 50 MG/5 ML Syringe ONE; +Ketorolac 30 MG/ML SDV ONE; +Lidocaine 2% 11 ML Jelly Filled Syringe ONE; +Magnesium Sulfate (4.06 MEQ/ML) 5 GM/10 ML SDV ONE; +Naloxone 0.4 MG/ML SDV IVPUSH PRN; +Ondansetron 4 MG/2 ML SDV IVPUSH PRN; +Ondansetron 4 MG/2 ML SDV ONE; -Sodium Chloride 0.9% 20 ML SDV IV PRN; +dexmedeTOMIDine HCl 200 MCG/2 ML SDV ONE; +fentaNYL 100 MCG/2 ML SDV ONE; +propofoL 1,000 MG/100 ML 100 ML ONE
[2025-06-02] MEDS: Lactated Ringers 1,000 ML IV SCH (07:06)
[2025-06-02] MEDS: fentaNYL 50 MCG/ML SDV IVPUSH PRN (09:04)
[2025-06-02 09:41] VITALS: PULSE 63
[2025-06-02 10:26] VITALS: BP 143/57
== END | disposition home or self-care (01) ==
LOC: MW.SDS 06:22
PROVIDERS: ATTEND Surgery
DX: C61 Malignant neoplasm of prostate (principal); I10 Essential (primary) hypertension; E03.9 Hypothyroidism, unspecified; Z88.8 Allergy status to other drugs, medicaments and biological substances; Z87.891 Personal history of nicotine dependence; Z91.040 Latex allergy status; Z79.890 Hormone replacement therapy; Z79.899 Other long term (current) drug therapy
CPT/HCPCS: 71045; 71045-26; 76000; 76000-26; A9270-GY; C1788; J0665; J0690; J1100; J1642; J1885; J2003; J2371; J2405; J2704; J3010; J3475; J3490; J7120